=== PATIENT | female | born 1935 | race Caucasian/White ===

== ENCOUNTER 2016-10-01 16:56 | Emergency (ER) | payer OTHER ==
[~2016-10-01] VITALS: Ht 160 cm; Wt 77.1 kg
[~2016-10-01 16:56] MED LIST: ALBUTEROL 3 ML3 ML INH; ALBUTEROL2.5 MG/3 M INH/SOL; ASPIRIN CHILDRE81 MG PO; ASPIRIN EC81 M1 PO; ATIVAN0.5 M1 PO; CALCIUM + D 6001 TAB PO; CALTRATE 600 +1 EACH PO; CENTRUM SILVER1 EAC3 PO; CENTRUM1 TA2 PO; COLACE100 M1 PO; COLCRYS0.6 M1 PO; COLCRYS0.6 MG PO; DICYCLOMINE HCL10 M1 PO; DICYCLOMINE HCL10 MG PO; ESTRACE0.1 MG/GM TOP; ESTRACE42.5 GM VG; FLEXERIL 5MG TAB5 MG PO; HYDREA500 M1 PO; HYDROCODON-ACE1 EAC2 PO; HYDROXYUREA500 MG PO; IBANDRONATE SO150 MG PO; LEADER FIBER1 POW PO; LORAZEPAM0.5 MG PO; MIRALAX17 G1 PO; OMNICEF300 MG PO; PANTOPRAZOLE SO40 M1 PO; PANTOPRAZOLE SO40 MG PO; PREDNISONE10 M2 PO; PREDNISONE10 MG PO; PREDNISONE5 M1 PO; PROBIOTIC1 EAC1 PO; PROBIOTICA100 Millio PO; SIMVASTATIN20 MG PO; SPECTAZOLE0.1 %/15 G TOP; SPIRIVA 18 MCG18 MCG INH; SPIRIVA RESPIMAT4 GM PO; SULFAMETHOXAZO1 EAC1 PO; SYMBICORT 160/41 PUF INH; SYMBICORT 16010.2 GM INH; TRAMADOL50 MG PO; TYLENOL EXTRA500 M2 PO; VICODIN 300 MG-1 TAB PO; VICODIN5-300 PO; ZITHROMAX500 MG PO; ZOCOR20 M1 PO
[2016-10-01 17:00] VITALS: BP 148/77
--- NOTE | 2016-10-01 17:10 | ED GENERAL ADULT ---
History of Present Illness General Chief Complaint: Female Urogenital Problems Stated Complaint: UTI?? Source: patient Exam Limitations: no limitations Vital Signs & Intake/Output Vital Signs & Intake/Output Vital Signs Date Time Temp Pulse Resp B/P Pulse O2 O2 Flow FiO2 Ox Delivery Rate 10/01 1700 98.2 106 18 148/77 95 Nasal 2.5L Cannula ED Intake and Output 10/02 0000 10/01 1200 Intake Total Output Total 150 Balance -150 Output, Urine 150 Patient 170 lb Weight Allergies Coded Allergies: adhesive tape (RED AND IRRITATED - PAPER TAPE IS OK 10/06/15) oxycodone (PER PT CANT REMEMBER 10/06/15) amitriptyline (NIGHTMARES 10/07/15) ciprofloxacin (From Cipro HC) (STOMACH IRRITATION 10/07/15) erythromycin base (From Erythrocin) (STOMACH IRRITATION 10/07/15) hydrocortisone (From Cipro HC) (STOMACH IRRITATION 10/07/15) lactose (LACTOSE INTOLERANT 10/07/15) Reconcile Medications Acetaminophen (Tylenol Extra Strength) 500 MG TABLET 2 TAB PO BID PRN PAIN ( Reported) Albuterol Sulfate 2.5 MG/3 ML VIAL.NEB 1 Vial INH/GARRET 4XDP PRN COPD (Reported ) Aspirin (Ecotrin*) 81 MG TABLET.DR 1 TAB PO DAILY HEART/BLOOD (Reported) Budesonide/Formoterol Fumarate (Symbicort 160-4.5 Mcg Inhaler) 10.2 GM HFA.AER.AD 2 PUF INH BID COPD (Reported) Calcium Carbonate/Vitamin D3 (Caltrate 600 + D Tablet) 1 EACH TABLET 1 TAB PO BID SUPPLEMENT (Reported) Colchicine (Colcrys) 0.6 MG TABLET 1 TAB PO DAILY GOUT (Reported) Dicyclomine HCl 10 MG CAPSULE 1 TAB PO BID IBS (Reported) Docusate Sodium (Colace) 100 MG CAPSULE 1 CAP PO Q24 PRN STOOL SOFTENER ( Reported) Estradiol (Estrace) 42.5 GM CREAM.APPL 1 GM VG QFRI HRT (Reported) Hydrocodone/Acetaminophen (Hydrocodon-Acetaminophen 5-325) 1 EACH TABLET 1 TAB PO PRN PAIN (Reported) Hydroxyurea (Hydrea) 500 MG CAPSULE 2 CAP PO EOD ESSENTIAL THROMBOCYTOSIS ( Reported) Hydroxyurea (Hydrea) 500 MG CAPSULE 1 CAP PO EOD ESSENTIAL THROMBOCYTOSIS ( Reported) Lactobacillus Combination No.4 (Probiotic) 1 EACH CAPSULE 1 CAP PO QAM PROBIOTIC (Reported) Lorazepam (Ativan) 0.5 MG TABLET 1 TAB PO BID PRN ANXIETY (Reported) Multivit-Min/FA/Lycopen/Lutein (Centrum Silver Tablet) 1 EACH TABLET 1 TAB PO QAM SUPPLEMENT (Reported) Nitrofurantoin Macrocrystal (Macrodantin) 100 MG CAPSULE 1 CAP PO BID UTI Pantoprazole Sodium 40 MG TABLET.DR 1 TAB PO DAILY GI (Reported) Phenazopyridine HCl (Pyridium) 200 MG TABLET 1 TAB PO TID UTI Polyethylene Glycol 3350 (Miralax) 17 GM POWD.PACK 1 TBSP PO QPM IBS ( Reported) Prednisone 10 MG TABLET 1 TAB PO Q24 COPD please take: 4 tabs on 10/08,10/09 3 tabs on 10/10,10/11 2 tabs on 10/12,10/13 1 tab on 10/14,10/15 Please stop on 10/15. Simvastatin (Zocor*) 20 MG TABLET 1 TAB PO QPM CHOLESTEROL (Reported) Sulfamethoxazole/Trimethoprim (Sulfamethoxazole-Tmp Ds Tablet) 1 EACH TABLET 1 TAB PO Q12H ANTIBIOTIC Tiotropium [place] (Spiriva Respimat) 4 GM MIST.INHAL 1 CAP PO QAM COPD ( Reported) Triage Note: COMPLAINS OF THE PAST 3 HOURS INCREASED URINATION AND BURNING, STATES THAT SHE NEEDS A BETHROOM Triage Nurses Notes Reviewed? yes Onset: Abrupt Duration: hour(s): Timing: recent history HPI: 10/01/16 5:30 PM 72-year-old female presents to the emergency department for frequency urgency and dysuria. The patient has a history of frequent UTIs. Now she presents with similar symptoms. She denies fever or abdominal pain. She has a past medical history of COPD and is on home O2. The onset of the symptoms were abrupt, the duration was just today, the severity is significant; as her symptoms required her to come to the emergency department for care Past History Travel History Traveled to [place] past 21 day No Medical History Any Pertinent Medical History? see below for history Neurological: NONE EENT: NONE Cardiovascular: hyperlipidemia, MITRAL VALVE PROLAPSE ACID REFLUX Respiratory: COPD, O2 DEPENDENT @2.5 L Gastrointestinal: diverticulitis, irritable bowel syndrome, lactose intolerance Hepatic: NONE Renal: NONE Musculoskeletal: osteoarthritis, PSEUDO GOUT Psychiatric: NONE Endocrine: NONE Blood Disorders: HIGH BLOOD PLATELETS History of MRSA: No History of VRE: No History of CDIFF: No Surgical History Surgical History: cholecystectomy, hernia repair-inguinal, hernia repair- umbilical, hysterectomy, BLADDER REPAIR BLADDER/VAGINA REPAIR Psychosocial History Who do you live with Patient/Self Services at Home None What is your primary language Samoan Tobacco Use: Never used ETOH Use: denies use Illicit Drug Use: denies illicit drug use Family History Family History, If Any: FATHER Pneumoconiosis MOTHER FH: lung cancer Hx Contributory? No Review of Systems Review of Systems Constitutional: Denies: fever. EENTM: Reports: no symptoms. Respiratory: Reports: no symptoms. Cardiovascular: Denies: chest pain. GI: Denies: abdominal pain. Genitourinary: Reports: dysuria, frequency, hesitation, pain. Musculoskeletal: Denies: back pain. Skin: Reports: no symptoms. Denies: rash. Neurological/Psychological: Reports: no symptoms. Hematologic/Endocrine: Reports: no symptoms. Physical Exam Physical Exam General Appearance: alert, awake, anxious, mild distress Head: atraumatic, normal appearance Eyes: Bilateral: normal appearance, PERRL, EOMI. Ears, Nose, Throat: normal pharynx, normal ENT inspection Neck: normal inspection, supple Respiratory: chest non-tender, decreased breath sounds Cardiovascular: regular rate/rhythm Gastrointestinal: soft, non-tender Back: decreased range of motion Extremities: normal range of motion Neurologic/Psych: no motor/sensory deficits, awake, alert, oriented x 3 Skin: intact, normal color, warm/dry Core Measures ACS in differential dx? No CVA/TIA Diagnosis: No Severe Sepsis Present: No Septic Shock Present: No Progress Differential Diagnoses I considered the following diagnoses in my evaluation of the patient: [UTI, diverticulitis, appendicitis, pyelonephritis, cystocele, rectocele] Plan of Care: Orders Procedure Date/time Status Add-on Test (ER Only) 10/01 175 Active URINALYSIS 10/01 170 Complete CULTURE,URINE 10/01 170 Active Laboratory Tests 10/01/16 1700: Urine Color YEL, Urine Clarity CLDY H, Urine pH 7.0, Ur Specific [place] 1.020, Urine Protein 100 H, Urine Ketones NEG, Urine Nitrite POS H, Urine Bilirubin NEG, Urine Urobilinogen 0.2, Ur Leukocyte Esterase LARGE H, Ur Microscopic SEDIMENT EXAMINED, Urine RBC 5-10 H, Urine WBC > 75 H, Ur Epithelial Cells RARE, Urine Bacteria FEW H, Urine Hemoglobin LARGE H, Urine Glucose NEG Microbiology 10/01 1700 URINE ROUT: Urine Culture - RECD Initial ED EKG: none Departure Departure Disposition: HOME OR SELF CARE Condition: Stable Clinical Impression Primary Impression: UTI (urinary tract infection) Referrals: KERVIN WEBER,PRANEETH Salmeron (PCP/Family) Departure Forms: Customer Survey General Discharge Information Prescriptions: Current Visit Scripts Phenazopyridine HCl (Pyridium) 1 TAB PO TID #9 TAB Nitrofurantoin Macrocrystal (Macrodantin) 1 CAP PO BID #14 CAP Critical Care Note Critical Care Note Critical Care Time: non-applicable
[2016-10-01] MEDS ORDERED: PYRIDIUM200 M1 PO (17:57)
[2016-10-01] MEDS ORDERED: MACRODANTIN100 M1 PO (17:57)
== END 2016-10-01 18:22 ==
LOC: ERH 16:56
DX: N39.0 Urinary tract infection, site not specified (principal)
CPT/HCPCS: 81001; 87086

== ENCOUNTER 2016-10-09 01:49 | Inpatient (IN) | payer OTHER ==
[~2016-10-09] VITALS: Ht 165.1 cm; Wt 72.6 kg
[~2016-10-09 01:49] MED LIST changes: +MACRODANTIN100 M1 PO; +PYRIDIUM200 M1 PO
--- NOTE | 2016-10-09 01:52 | NUR ---
PT BIBA S/P MECHANICAL FALL. PT GOT OUT OF BED AND FELL. PT'S ONLY COMPLAINT IS OF R THIGH PAIN. NO OBVIOUS DEFORMITY NOTED. PT IS ON HOME O2 @ 2L NC HX OF COPD.
--- NOTE | 2016-10-09 01:53 | NUR ---
AT BEDSIDE FOR PT EVAL
--- NOTE | 2016-10-09 01:58 | ED HEAD/FACIAL INJ COMPLAINT ---
History of Present Illness General Chief Complaint: Fall Stated Complaint: BIBA FOR FALL Source: patient, family, old records, EMS Exam Limitations: no limitations Vital Signs & Intake/Output Vital Signs & Intake/Output Vital Signs Date Time Temp Pulse Resp B/P B/P Pulse O2 O2 Flow FiO2 Mean Ox Delivery Rate 10/09 0151 98.2 74 18 146/68 97 Nasal 2.0L Cannula Allergies Coded Allergies: adhesive tape (RED AND IRRITATED - PAPER TAPE IS OK 10/06/15) oxycodone (PER PT CANT REMEMBER 10/06/15) amitriptyline (NIGHTMARES 10/07/15) ciprofloxacin (From Cipro HC) (STOMACH IRRITATION 10/07/15) erythromycin base (From Erythrocin) (STOMACH IRRITATION 10/07/15) hydrocortisone (From Cipro HC) (STOMACH IRRITATION 10/07/15) lactose (LACTOSE INTOLERANT 10/07/15) Reconcile Medications Acetaminophen (Tylenol Extra Strength) 500 MG TABLET 2 TAB PO BID PRN PAIN ( Reported) Albuterol Sulfate 2.5 MG/3 ML VIAL.NEB 1 Vial INH/GARRET 4XDP PRN COPD (Reported ) Aspirin (Ecotrin*) 81 MG TABLET.DR 1 TAB PO DAILY HEART/BLOOD (Reported) Budesonide/Formoterol Fumarate (Symbicort 160-4.5 Mcg Inhaler) 10.2 GM HFA.AER.AD 2 PUF INH BID COPD (Reported) Calcium Carbonate/Vitamin D3 (Caltrate 600 + D Tablet) 1 EACH TABLET 1 TAB PO BID SUPPLEMENT (Reported) Colchicine (Colcrys) 0.6 MG TABLET 1 TAB PO DAILY GOUT (Reported) Dicyclomine HCl 10 MG CAPSULE 1 TAB PO BID IBS (Reported) Docusate Sodium (Colace) 100 MG CAPSULE 1 CAP PO Q24 PRN STOOL SOFTENER ( Reported) Estradiol (Estrace) 42.5 GM CREAM.APPL 1 GM VG QFRI HRT (Reported) Hydrocodone/Acetaminophen (Hydrocodon-Acetaminophen 5-325) 1 EACH TABLET 1 TAB PO PRN PAIN (Reported) Hydroxyurea (Hydrea) 500 MG CAPSULE 2 CAP PO EOD ESSENTIAL THROMBOCYTOSIS ( Reported) Hydroxyurea (Hydrea) 500 MG CAPSULE 1 CAP PO EOD ESSENTIAL THROMBOCYTOSIS ( Reported) Lactobacillus Combination No.4 (Probiotic) 1 EACH CAPSULE 1 CAP PO QAM PROBIOTIC (Reported) Lorazepam (Ativan) 0.5 MG TABLET 1 TAB PO BID PRN ANXIETY (Reported) Multivit-Min/FA/Lycopen/Lutein (Centrum Silver Tablet) 1 EACH TABLET 1 TAB PO QAM SUPPLEMENT (Reported) Nitrofurantoin Macrocrystal (Macrodantin) 100 MG CAPSULE 1 CAP PO BID UTI Pantoprazole Sodium 40 MG TABLET.DR 1 TAB PO DAILY GI (Reported) Phenazopyridine HCl (Pyridium) 200 MG TABLET 1 TAB PO TID UTI Polyethylene Glycol 3350 (Miralax) 17 GM POWD.PACK 1 TBSP PO QPM IBS ( Reported) Prednisone 10 MG TABLET 1 TAB PO Q24 COPD please take: 4 tabs on 10/08,10/09 3 tabs on 10/10,10/11 2 tabs on 10/12,10/13 1 tab on 10/14,10/15 Please stop on 10/15. Simvastatin (Zocor*) 20 MG TABLET 1 TAB PO QPM CHOLESTEROL (Reported) Sulfamethoxazole/Trimethoprim (Sulfamethoxazole-Tmp Ds Tablet) 1 EACH TABLET 1 TAB PO Q12H ANTIBIOTIC Tiotropium [place] (Spiriva Respimat) 4 GM MIST.INHAL 1 CAP PO QAM COPD ( Reported) Triage Note: PT BIBA S/P MECHANICAL FALL. PT GOT OUT OF BED AND FELL. PT'S ONLY COMPLAINT IS OF R THIGH PAIN. NO OBVIOUS DEFORMITY NOTED. PT IS ON HOME O2 @ 2L NC HX OF COPD. Triage Nurses Notes Reviewed? yes HPI: Patient present with right hip pain after a fall. Patient states that she was moving to the commode and was holding onto one of the handles when the commode tipped over and she fell onto her right hip. Patient denies hitting her head and there was no loss of consciousness. Patient states the pain increases with movement. The pain is to the lateral aspect of her right hip. The pain radiates into her right thigh. At its worst the pain is 8 out of 10. Patient also noticed to have ecchymosis around both eyes and around the bridge of the nose. Patient states that on Monday she was sitting at the edge of her rocking chair when she believes that she fell asleep because she fell forward and landed face first on the floor. Patient does not think she passed out. Past History Travel History Traveled to [place] past 21 day No Medical History Any Pertinent Medical History? see below for history Neurological: NONE EENT: NONE Cardiovascular: hyperlipidemia, MITRAL VALVE PROLAPSE ACID REFLUX Respiratory: COPD, O2 DEPENDENT @2.5 L Gastrointestinal: diverticulitis, irritable bowel syndrome, lactose intolerance Hepatic: NONE Renal: NONE Musculoskeletal: osteoarthritis, PSEUDO GOUT Psychiatric: NONE Endocrine: NONE Blood Disorders: HIGH BLOOD PLATELETS History of MRSA: No History of VRE: No History of CDIFF: No Surgical History Surgical History: cholecystectomy, hernia repair-inguinal, hernia repair- umbilical, hysterectomy, BLADDER REPAIR BLADDER/VAGINA REPAIR Psychosocial History Who do you live with Patient/Self Services at Home None What is your primary language British Tobacco Use: Quit >30 days ago ETOH Use: denies use Illicit Drug Use: denies illicit drug use Family History Family History, If Any: FATHER Pneumoconiosis MOTHER FH: lung cancer Hx Contributory? No Review of Systems Review of Systems Constitutional: Reports: no symptoms. EENTM: Reports: see HPI. Respiratory: Reports: no symptoms. Cardiovascular: Reports: no symptoms. GI: Reports: no symptoms. Genitourinary: Reports: no symptoms. Musculoskeletal: Reports: see HPI, joint pain. Skin: Reports: no symptoms. Neurological/Psychological: Reports: no symptoms. Hematologic/Endocrine: Reports: no symptoms. Immunologic/Allergic: Reports: no symptoms. All Other Systems: Reviewed and Negative Physical Exam Physical Exam General Appearance: well developed/nourished, alert, awake, anxious, moderate distress Head: evidence of injury, ecchymosis Eyes: Bilateral: PERRL, EOMI. Ears, Nose, Throat: normal pharynx, normal ENT inspection, hearing grossly normal Neck: normal inspection, supple, full range of motion, no midline tenderness Respiratory: normal breath sounds, chest non-tender, no respiratory distress, lungs clear Cardiovascular: regular rate/rhythm, normal peripheral pulses Gastrointestinal: normal bowel sounds, soft, non-tender, no organomegaly Back: normal inspection, normal range of motion Extremities: normal inspection, normal capillary refill, normal range of motion, no edema Psychiatric: awake, alert, oriented x 3 Cranial Nerves: normal hearing, normal speech, PERRL Motor/Sensory: no motor/sensory deficits Skin: intact, normal color, warm/dry Progress Differential Diagnosis: facial fracture, ICH, HIP FRACTURE Plan of Care: Orders Procedure Date/time Status [place], Insertion/Removal/Asses 10/09 308 Active CULTURE,URINE 10/09 308 Active Patient Data 10/09 301 Active Admit to inpatient 10/09 300 Active URINALYSIS 10/09 157 Active PROTHROMBIN TIME 10/09 157 Complete COMPREHENSIVE METABOLIC PANEL 10/09 157 Complete CBC WITHOUT DIFFERENTIAL 10/09 157 Complete Laboratory Tests 10/09/16 0207: Anion Gap 9, Estimated GFR > 60, BUN/Creatinine Ratio 28.6 H, Glucose 117 H, Calcium 9.1, Total Bilirubin 0.6, AST 24, ALT 39, Alkaline Phosphatase 60, Total Protein 6.6, Albumin 4.0, Globulin 2.6, Albumin/Globulin Ratio 1.5, PT 11.2, INR 1.07, CBC w Diff NO MAN DIFF REQ, RBC 3.57 L, MCV 108.9 H, MCH 37.1 H, RDW 13.4, MPV 7.6, Gran % 79.4 H, Lymphocytes % 10.5 L, Monocytes % 9.0, Eosinophils % 0.8, Basophils % 0.3, Absolute Granulocytes 7.7 H, Absolute Lymphocytes 1.0 L, Absolute Monocytes 0.9 H, Absolute Eosinophils 0.1, Absolute Basophils 0, PUBS MCHC 34.1 Microbiology 10/09 308 URINE ROUT: Urine Culture - ORD Diagnostic Imaging: Viewed by Me: Radiology Read, CT Scan. Discussed w/RAD: Radiology Read, CT Scan. Radiology Impression: PATIENT: GABRIELLA MUÑOZ PRESENT AGE: 80 PATIENT ACCOUNT NO: [id number] : 37 LOCATION: [facility] ORDERING PHYSICIAN: ROSA MARIA WILCOX MD SERVICE DATE: 10/09/16 EXAM TYPE: CAT - CT HEAD WO IV CONTRAST; CT MAXILLOFACIAL W/O CON EXAMINATION: NONCONTRAST HEAD CT NONCONTRAST MAXILLOFACIAL CT INDICATION INFORMATION: Fall. Head injury. Pain. COMPARISON: None TECHNIQUE: Separate noncontrast CT examinations of the head and maxillofacial bones were performed. Coronal and sagittal images were created for each examination at the technologist workstation. FINDINGS: Head: No evidence of acute intracranial hemorrhage. No extra-axial fluid collections are seen. Garcia- white differentiation is maintained without evidence of acute territorial infarction. Ventricles are of normal size without evidence of hydrocephalus. No mass effect or midline shift. Patchy periventricular and deep white matter hypoattenuation is consistent with mild small vessel ischemic change. The mastoid air cells are well aerated. No acute calvarial fractures are seen. Maxillofacial: No acute maxillofacial fractures are seen. The pterygoid plates are intact. The lamina papyracea are intact. Zygomatic arches are intact. The orbital rims are intact. Mild opacification of the left frontal sinus. Mild opacification of the left sphenoid sinus. The remaining paranasal sinuses are well aerated. The uncinate process is normal bilaterally. The infundibula and middle meati are patent. The nasal septum deviates to the right. The mandibular heads are well-seated in the condylar fossa. Degenerative changes at the right temporomandibular joint. The orbits demonstrate a normal appearance bilaterally. The globes are intact, and there are no suspicious findings to suggest retrobulbar hemorrhage. IMPRESSION: 1. No acute intracranial findings. Mild small vessel ischemic changes. 2. No acute maxillofacial fracture. DICTATED BY: BETTY FORREST MD DATE/TIME DICTATED:10/09/16301 TEACHER VISUALLY IMPAIRED: CATHY DATE/TIME TRANSCRIBED:10/09/16301 CONFIDENTIAL, DO NOT COPY WITHOUT APPROPRIATE AUTHORIZATION. <Electronically signed in Other Vendor System> SIGNED BY: BETTY FORREST MD 10/09/169, PATIENT: GABRIELLA MUÑOZ PRESENT AGE: 80 PATIENT ACCOUNT NO: [id number] : 37 LOCATION: [facility] ORDERING PHYSICIAN: ROSA MARIA WILCOX MD SERVICE DATE: 10/09/16 EXAM TYPE: CAT - CT HEAD WO IV CONTRAST; CT MAXILLOFACIAL W/O CON EXAMINATION: NONCONTRAST HEAD CT NONCONTRAST MAXILLOFACIAL CT INDICATION INFORMATION: Fall. Head injury. Pain. COMPARISON: None TECHNIQUE: Separate noncontrast CT examinations of the head and maxillofacial bones were performed. Coronal and sagittal images were created for each examination at the technologist workstation. FINDINGS: Head: No evidence of acute intracranial hemorrhage. No extra-axial fluid collections are seen. Garcia-white differentiation is maintained without evidence of acute territorial infarction. Ventricles are of normal size without evidence of hydrocephalus. No mass effect or midline shift. Patchy periventricular and deep white matter hypoattenuation is consistent with mild small vessel ischemic change. The mastoid air cells are well aerated. No acute calvarial fractures are seen. Maxillofacial: No acute maxillofacial fractures are seen. The pterygoid plates are intact. The lamina papyracea are intact. Zygomatic arches are intact. The orbital rims are intact. Mild opacification of the left frontal sinus. Mild opacification of the left sphenoid sinus. The remaining paranasal sinuses are well aerated. The uncinate process is normal bilaterally. The infundibula and middle meati are patent. The nasal septum deviates to the right. The mandibular heads are well-seated in the condylar fossa. Degenerative changes at the right temporomandibular joint. The orbits demonstrate a normal appearance bilaterally. The globes are intact, and there are no suspicious findings to suggest retrobulbar hemorrhage. IMPRESSION: 1. No acute intracranial findings. Mild small vessel ischemic changes. 2. No acute maxillofacial fracture. DICTATED BY: BETTY FORREST MD DATE/TIME DICTATED:10/09/16301 TEACHER VISUALLY IMPAIRED:CATHY DATE/TIME TRANSCRIBED:301 CONFIDENTIAL, DO NOT COPY WITHOUT APPROPRIATE AUTHORIZATION. < Electronically signed in Other Vendor System> SIGNED BY: BETTY FORREST MD 10/09/169, PATIENT: GABRIELLA MUÑOZ PRESENT AGE: 80 PATIENT ACCOUNT NO: [id number] : 37 LOCATION: [facility] ORDERING PHYSICIAN: ROSA MARIA WILCOX MD SERVICE DATE: 10/09/16 EXAM TYPE: RAD - XRY-HIP 2-3 VIEWS, RIGHT EXAMINATION: XR HIP, RIGHT CLINICAL INFORMATION: Fall. Pain. COMPARISON: None TECHNIQUE: Frontal view of the pelvis with 2 views of the right hip FINDINGS: There is a comminuted intertrochanteric right femur fracture. There is varus angulation of the fracture site with impaction. Displaced lesser trochanteric fracture fragment. The femoral head is well-seated within its acetabulum. Degenerative changes are seen at both hips with joint space narrowing. The pelvic rim is intact. Degenerative changes of the lower lumbar spine. The bowel gas pattern is unremarkable. IMPRESSION: Intertrochanteric right femur fracture. DICTATED BY: BETTY FORREST MD DATE/ TIME DICTATED:10/09/16257 TEACHER VISUALLY IMPAIRED:CATHY DATE/TIME TRANSCRIBED: 10/09/16257 CONFIDENTIAL, DO NOT COPY WITHOUT APPROPRIATE AUTHORIZATION. < Electronically signed in Other Vendor System> SIGNED BY: BETTY FORREST MD 10/09/16301 CXR Impression: PATIENT: GABRIELLA MUÑOZ PRESENT AGE: 80 PATIENT ACCOUNT NO: [id number] : 37 LOCATION: [facility] ORDERING PHYSICIAN: ROSA MARIA WILCOX MD SERVICE DATE: 10/09/16 EXAM TYPE: RAD - XRY-CHEST XRAY, ONE VIEW ONLY EXAMINATION:\H\ \N\XR CHEST CLINICAL INFORMATION: Chest pain COMPARISON: Multiple priors, most recently CT from 08/17/2016 TECHNIQUE: AP supine view of the chest was obtained. FINDINGS: The lungs are well expanded. No consolidation, edema, or effusion. No pneumothorax. The cardiomediastinal silhouette is unchanged. No acute osseous abnormality. IMPRESSION: No acute pulmonary findings. DICTATED BY: BETTY FORREST MD DATE/TIME DICTATED:258 TEACHER VISUALLY IMPAIRED:CATHY DATE/TIME TRANSCRIBED:10/09/16258 CONFIDENTIAL, DO NOT COPY WITHOUT APPROPRIATE AUTHORIZATION. <Electronically signed in Other Vendor System> SIGNED BY: BETTY FORREST MD 10/09/166 Departure Departure Disposition: STILL A PATIENT Condition: Stable Clinical Impression Primary Impression: Hip fracture Qualifiers: Encounter type: initial encounter Fracture type: closed Laterality: right Qualified Code: S72.001A - Fracture of unspecified part of neck of right femur, initial encounter for closed fracture Referrals: KERVIN WEBER,PRANEETH Salmeron (PCP/Family) Departure Forms: Customer Survey General Discharge Information Admission Note Spoke With: MORENO PABON MD Documentation of Exam: Documentation of any treatments & extenuating circumstances including Concerns Regarding Discharge (functional status, medication knowledge or non-compliance, living conditions, etc.) that warrant an admission rather than observation: [She will need a hip replacement once she is medically cleared.]
--- NOTE | 2016-10-09 02:14 | NUR ---
PT TO CAT SCAN/XRAY VIA STRETCHER
[2016-10-09 02:25] LABS: ABSOLUTE BASOPHIL COUNT 0 /CUMM (0.0-0.2); ABSOLUTE EOSINOPHIL COUNT 0.1 /CUMM (0.0-0.7); ABSOLUTE GRANULOCYTE CT 7.7 /CUMM (1.4-6.5); ABSOLUTE MONOCYTE COUNT 0.9 /CUMM (0.10-0.60); BASOPHIL % 0.3 % (0.0-2.0); EOSINOPHIL % 0.8 % (0-5); GRANULOCYTE % 79.4 % (42.2-75.2); HEMATOCRIT 38.9 % (37-47); MEAN CORPUSCULAR HGB 37.1 PG (27.0-31.0); MEAN CORPUSCULAR HGB CONC 34.1 G/DL (33.0-37.0); MEAN CORPUSCULAR VOLUME 108.9 FL (81.0-99.0); MEAN PLATELET VOLUME 7.6 FL (7.4-10.4); PLATELET COUNT 276 /CUMM (130-400); RBC DISTRIBUTION WIDTH 13.4 % (11.5-14.5); RED BLOOD CELL CT 3.57 /CUMM (4.20-5.40); WHITE BLOOD CELL COUNT 9.7 /CUMM (4.8-10.8)
[2016-10-09 02:27] LABS: PT 11.2 SEC (9.4-12.5)
--- NOTE | 2016-10-09 03:02 | RADIOLOGY REPORT ---
EXAMINATION: XR HIP, RIGHT CLINICAL INFORMATION: Fall. Pain. COMPARISON: None TECHNIQUE: Frontal view of the pelvis with 2 views of the right hip FINDINGS: There is a comminuted intertrochanteric right femur fracture. There is varus angulation of the fracture site with impaction. Displaced lesser trochanteric fracture fragment. The femoral head is well-seated within its acetabulum. Degenerative changes are seen at both hips with joint space narrowing. The pelvic rim is intact. Degenerative changes of the lower lumbar spine. The bowel gas pattern is unremarkable. IMPRESSION: Intertrochanteric right femur fracture.
--- NOTE | 2016-10-09 03:06 | RADIOLOGY REPORT ---
EXAMINATION:\H\ \N\XR CHEST CLINICAL INFORMATION: Chest pain COMPARISON: Multiple priors, most recently CT from 08/17/2016 TECHNIQUE: AP supine view of the chest was obtained. FINDINGS: The lungs are well expanded. No consolidation, edema, or effusion. No pneumothorax. The cardiomediastinal silhouette is unchanged. No acute osseous abnormality. IMPRESSION: No acute pulmonary findings.
--- NOTE | 2016-10-09 03:09 | CT SCAN REPORT ---
EXAMINATION: NONCONTRAST HEAD CT NONCONTRAST MAXILLOFACIAL CT INDICATION INFORMATION: Fall. Head injury. Pain. COMPARISON: None TECHNIQUE: Separate noncontrast CT examinations of the head and maxillofacial bones were performed. Coronal and sagittal images were created for each examination at the technologist workstation. FINDINGS: Head: No evidence of acute intracranial hemorrhage. No extra-axial fluid collections are seen. Garcia-white differentiation is maintained without evidence of acute territorial infarction. Ventricles are of normal size without evidence of hydrocephalus. No mass effect or midline shift. Patchy periventricular and deep white matter hypoattenuation is consistent with mild small vessel ischemic change. The mastoid air cells are well aerated. No acute calvarial fractures are seen. Maxillofacial: No acute maxillofacial fractures are seen. The pterygoid plates are intact. The lamina papyracea are intact. Zygomatic arches are intact. The orbital rims are intact. Mild opacification of the left frontal sinus. Mild opacification of the left sphenoid sinus. The remaining paranasal sinuses are well aerated. The uncinate process is normal bilaterally. The infundibula and middle meati are patent. The nasal septum deviates to the right. The mandibular heads are well-seated in the condylar fossa. Degenerative changes at the right temporomandibular joint. The orbits demonstrate a normal appearance bilaterally. The globes are intact, and there are no suspicious findings to suggest retrobulbar hemorrhage. IMPRESSION: 1. No acute intracranial findings. Mild small vessel ischemic changes. 2. No acute maxillofacial fracture.
--- NOTE | 2016-10-09 03:27 | NUR ---
IRVIN CATHTER PLACED, IRVIN PATENT. PT EDUCATED ON CATHTER. 400ML OF CLEAR YELLOW URINE FROM IRVIN. URINE TRIO OBTAINED AND SENT TO LAB BY LAVERNE PALMER. IV EST #20 IN RAC. PT MEDICATED WITH 2MG MORPHINE PER EMAR FOR PAIN
--- NOTE | 2016-10-09 03:28 | NUR ---
URINE TRIO SENT TO LAB.
--- NOTE | 2016-10-09 03:30 | NUR ---
HOUSE STAFF AT BEDSIDE
--- NOTE | 2016-10-09 03:41 | History & Physical ---
GRZEGORZ KEMP 10/09/16 0339: General Information and HPI MD Statement: I have seen and personally examined GABRIELLA MUÑOZ and documented this H&P. The patient is a 80 year old F who presented with a patient stated chief complaint of right hip pain status post unwitnessed mechanical fall Source of Information: patient, family Exam Limitations: no limitations History of Present Illness: This is a 80-year-old female with past medical history significant for 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 According to the patient, she was out of bed this morning and went to use her bedside portable commode, she tipped and fell to the floor onto her right hip. Denies hitting of head and loss of consciousness. She denies any dizziness or lightheadedness or syncopal event. Denies any chest pain, racing of cough, shortness of breath. She stayed on the floor for about half an hour and subsequently she pressed her life alert and was brought to the emergency room. At present she complains of right hip pain, 10 out of 10, severe and sharp. Patient states the pain increases with movement. The pain is to the lateral aspect of her right hip. The pain radiates into her right thigh. Associated with numbness. Denies any weakness, sensory, tingling sensations. Patient also noticed to have ecchymosis around both eyes and around the bridge of the nose. Patient states that on Monday she was sitting at the edge of her rocking chair and she fell asleep, fell forward and landed on face hitting on the floor. Denies any visual abnormalities. Denies any pain. Patient denies any fever, chills, chest pain, racing of heart, headache, shortness of breath, cough, nausea, vomiting, abdominal pain, change in appetite , loss of bladder or bowel movements. Denies any frequency, urgency or dysuria. She is a former smoker quitted several years ago. Denies alcohol abuse. Denies illicit drug abuse she lives alone and takes care of herself. She follows Dr. Espinoza for essential thrombocytosis and takes hydroxyurea. Follows Dr. Carrasco's quality assurance technician for pseudogout. ALso reports frequent urinary tract infections. Off note patient was seen at [facility] emergency department on 10/01/2016 for urinary tract infection- urine analysis was positive and she was discharged from ER on nitrofurantoin and Pyridium. Allergies/Medications Allergies: Coded Allergies: adhesive tape (RED AND IRRITATED - PAPER TAPE IS OK 10/06/15) oxycodone (PER PT CANT REMEMBER 10/06/15) amitriptyline (NIGHTMARES 10/07/15) ciprofloxacin (From Cipro HC) (STOMACH IRRITATION 10/07/15) erythromycin base (From Erythrocin) (STOMACH IRRITATION 10/07/15) hydrocortisone (From Cipro HC) (STOMACH IRRITATION 10/07/15) lactose (LACTOSE INTOLERANT 10/07/15) Compliance With Home Meds: GOOD Past History Travel History Traveled to [place] past 21 day No Medical History Neurological: NONE EENT: NONE Cardiovascular: hyperlipidemia, MITRAL VALVE PROLAPSE ACID REFLUX Respiratory: COPD, O2 DEPENDENT @2.5 L Gastrointestinal: diverticulitis, irritable bowel syndrome, lactose intolerance Hepatic: NONE Renal: NONE Musculoskeletal: osteoarthritis, PSEUDO GOUT Psychiatric: NONE Endocrine: NONE Blood Disorders: HIGH BLOOD PLATELETS History of MRSA: No History of VRE: No History of CDIFF: No Surgical History Surgical History: cholecystectomy, hernia repair-inguinal, hernia repair- umbilical, hysterectomy, BLADDER REPAIR BLADDER/VAGINA REPAIR Past Family/Social History Family History Relations & Conditions if any FATHER Pneumoconiosis MOTHER FH: lung cancer Psychosocial History Who Do You Live With? self Services at Home: None Smoking Status: Former Smoker ETOH Use: denies use Illicit Drug Use: denies illicit drug use Living Will? yes Functional Ability ADLs Independent: dressing, eating, toileting, bathing. Ambulation: independent IADLs Independent: shopping, housework, finances, food prep, telephone, transportation , medication admin. Review of Systems Review of Systems Constitutional: Denies: chills, diaphoresis, fever, malaise, weakness, unexplained weight loss. EENTM: Denies: visual changes, eye pain, eye drainage, eye tearing, hearing changes, nasal congestion, epistaxis. Cardiovascular: Denies: chest pain, edema, orthopena, palpitations, peripheral edema, syncope. Respiratory: Denies: cough, hemoptysis, orthopnea, short of breath, sputum production. GI: Denies: abdominal pain, bloating, constipation, diarrhea, nausea, vomiting. Genitourinary: Denies: dysuria, frequency, nocturia, urgency. Musculoskeletal: Reports: joint pain. Neurological/Psychological: Reports: numbness. Denies: confusion, depressed, dementia, emotional problems, headache, tingling, tremors. Exam & Diagnostic Data Last 24 Hrs of Vital Signs/I&O Vital Signs Date Time Temp Pulse Resp B/P B/P Pulse O2 O2 Flow FiO2 Mean Ox Delivery Rate 10/09 0326 Nasal 2.0L Cannula 10/09 0151 98.2 74 18 146/68 97 Nasal 2.0L Cannula Intake & Output 10/09 0800 10/09 0000 10/08 1600 Intake Total Output Total Balance Patient 99.79 kg Weight Weight Estimated Measurement Method Physical Exam General Appearance Alert, Oriented X3, Cooperative, No Acute Distress Skin No Breakdown, ecchymosis around both eyes and bridge of the nose HEENT Atraumatic, PERRLA, EOMI, Mucous Membr. moist/pink Neck Supple, No JVD Lymphatic Axillary nl Cardiovascular Regular Rate, Normal S1, Normal S2, No Murmurs Lungs expiratory wheezes Abdomen Normal Bowel Sounds, Soft, No Tenderness Neurological couldnt check gait.strength 5 over 5 upper extremities. Couldn't check lower extremities because of severe pain. Sensations were intact upper extremities. Numbness right lower extremity.right hip externally rotated. Extremities No Clubbing, No Cyanosis, No Edema, Normal Pulses Vascular Normal Pulses Last 24 Hrs of Labs/[place]: Laboratory Tests 10/09/16 0326: Urine Color YEL, Urine Clarity CLEAR, Urine pH 6.0, Ur Specific [place] 1.020, Urine Protein NEG, Urine Ketones NEG, Urine Nitrite NEG, Urine Bilirubin NEG, Urine Urobilinogen 0.2, Ur Leukocyte Esterase NEG, Ur Microscopic EXAM NOT REQUIRED, Urine Hemoglobin NEG, Urine Glucose NEG 10/09/16 0207: Anion Gap 9, Estimated GFR > 60, BUN/Creatinine Ratio 28.6 H, Glucose 117 H, Calcium 9.1, Iron 103, TIBC Pending, Ferritin Pending, Total Bilirubin 0.6, AST 24, ALT 39, Alkaline Phosphatase 60, Troponin I Pending, Total Protein 6.6, Albumin 4.0, Globulin 2.6, Albumin/Globulin Ratio 1.5, Vitamin B12 Pending, 25- [place] Vitamin D Total Pending, Folate Pending, TSH Pending, Free T4 Pending, PT 11.2, INR 1.07, CBC w Diff NO MAN DIFF REQ, RBC 3.57 L, MCV 108.9 H, MCH 37.1 H, RDW 13.4, MPV 7.6, Gran % 79.4 H, Lymphocytes % 10.5 L, Monocytes % 9.0, Eosinophils % 0.8, Basophils % 0.3, Absolute Granulocytes 7.7 H, Absolute Lymphocytes 1.0 L, Absolute Monocytes 0.9 H, Absolute Eosinophils 0.1, Absolute Basophils 0, PUBS MCHC 34.1 Microbiology 10/09 0326 URINE ROUT: Urine Culture - RECD Assessment/Plan Assessment: This is a 80-year-old female with past medical history significant for 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 Vitals on admission-afebrile, heart rate 74, respiratory rate 18, blood pressure 146/78, saturating at 97% on 3 L. Pertinent labs on admission-WBC 9.7, H and H 13.3 and 38.9 with MCV elevation 108. Platelet count 276. Urine was clear. Hip x-ray showed intertrochanteric right femoral fracture. Chest x-ray no acute pathology. Head CAT scan normal. Maxillofacial CAT scan no fractures. Problem list 1. Right hip fracture status post mechanical fall. 2. Oxygen dependent COPD 3. Hyperlipidemia 4. Pseudogout 5. Essential thrombocytosis 6. Lung cancer one year ago status post 5 cycles of radiation. 7. Former smoker 8. GERD 10. Macrocytic anemia Right hip pain status post unwitnessed mechanical fall she complains of right hip pain, 10 out of 10, severe and sharp. Patient states the pain increases with movement. The pain is to the lateral aspect of her right hip. The pain radiates into her right thigh. Associated with numbness. Denies any weakness, sensory, tingling sensations. Hip x-ray showed intertrochanteric right femoral fracture. * Admitted to [facility] floor for further management and surgery * Monitor vitals closely every shift * Maintain oxygen saturation above 90% * Calculated RCR index-no history of stroke, no history of congestive heart failure, no ischemic heart disease, creatinine less than 2, not on insulin, not a high risk surgery- scored 0 points-class I risk-0.4% major cardiac event. * Ortho consult. * Nothing by mouth tonight for possible surgery tomorrow * Pain management * Bowel regimen * We'll hold aspirin for anticipated surgery * Physical therapy consult. Ecchymosis face s/p fall Patient also noticed to have ecchymosis around both eyes and around the bridge of the nose. Patient states that on Monday she was sitting at the edge of her rocking chair and she fell asleep, fell forward and landed on face hitting on the floor. Denies any visual abnormalities. Denies any pain. * Maxillofacial CAT scan-no acute fractures * CAT scan head-no acute intracranial abnormalities * We'll monitor closely for any acute changes. Frequent falls 2 falls within a week Will check vitamin D levels Macrocytic anemia MCV 108.9 on admission Will check vitamin B12 and folate levels Lung cancer Diagnosed with lung cancer one year ago Status post a 5 cycles of radiation therapy No history of surgery Not on chemotherapy Quitted smoking few years ago coPD Oxygen dependent COPD On 2.5 L Continue home medications albuterol, Symbicort, Spiriva Hyperlipidemia On simvastatin at home We'll give Lipitor Acid reflux On pantoprazole We'll give omeprazole here Irritable bowel syndrome Continue home dose of dicyclomine Pseudogout Continue home dose of colchicine Essential thrombocytosis Continue home dose of hydroxyurea Supplements Continue calcium carbonate, vitamin D, multivitamins Constipation Bowel regimen when necessary Anxiety Ativan if necessary full code DVT prophylaxis subcutaneous heparin Pain pathway Nothing by mouth for possible orthopedic surgery tomorrow As Ranked By This Provider Problem List: 1. copd 2. Hip fracture Qualifiers Encounter type: initial encounter Fracture type: closed Laterality: right Qualified Code: S72.001A - Fracture of unspecified part of neck of right femur, initial encounter for closed fracture 3. Essential thrombocytosis 4. Hyperlipidemia 5. IBS (irritable bowel syndrome) 6. Full code status 7. DVT prophylaxis Core Measures/Miscellaneous Acute Coronary Syndrome ACS Diagnosis: No Cerebrovascular Accident CVA/TIA Diagnosis: No Congestive Heart Failure CHF Diagnosis: No Venous Thromboembolism VTE Risk Factors: Acute medical illness, Age > 40 No [facility] VTE prophylaxis d/t: No contraindications No VTE Pharm Prophylaxis d/t: No contraindications VTE Diagnosis: No VTE Type: NONE VTE Confirmed by (Test): NONE Severe Sepsis Severe Sepsis Present: No Septic Shock Septic Shock Present: No Miscellaneous Documentation Attending Case Discussed With: MORENO PABON MD Primary Care Physician: PRANEETH GALEANA MD Patient sees these 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 Patient states that about a week ago she was sitting on a rocking chair and fell asleep and subsequently fell forward on her face and has some residual ecchymoses from that episode. Today she went to use her bedside portable commode and her foot got caught in the leg at the commode and she subsequently fell to the floor onto her right hip, no loss of consciousness, no head strike. Denies any dizziness, chest pain, shortness of breath. She stayed on the floor for about half an hour and subsequently pressed her life alert. At present her only complaint is right hip pain 10 out of 10. Her labs are benign, except for an elevated MCV Chest x-ray is negative, maxillofacial and head CT is negative, hip x-ray suggestive of right hip intertrochanteric fracture Pertinent positives on physical exam- bilateral expiratory wheezing, right hip is shortened and externally rotated, ecchymoses around the eyes Assessment- 1. Right hip fracture, status post mechanical fall 2. Home oxygen dependent COPD 3. Hyperlipidemia 4. History of thrombocytosis 5. Peripheral neuropathy 6. Lung cancer one year ago status post 5 cycles of radiation 7. Former smoker 8. Pseudogout 9. GERD 10. Macrocytic anemia Plan- - Admit to general med - Vitals per protocol - Orthopedic consult in the morning - Keep nothing by mouth for now in anticipation of surgery in the morning - Continue home meds - Hold aspirin - Check B12, folic acid, thyroid studies, vitamin D, troponin, EKG, iron studies - IV analgesics - Bowel regimen - Pain pathway - Nothing by mouth for now - Subcutaneous heparin for DVT prophylaxis - Full code RCRI 0.4 percent, cleared for surgery MORENO PABON 10/09/16 0628: General Information and HPI Allergies/Medications Home Med list Aspirin (Ecotrin*) 81 MG TABLET.DR 1 TAB PO DAILY HEART/BLOOD (Reported) Colchicine (Colcrys) 0.6 MG TABLET 1 TAB PO DAILY GOUT (Reported) Dicyclomine HCl 10 MG CAPSULE 1 TAB PO BID IBS (Reported) Estradiol (Estrace) 42.5 GM CREAM.APPL 1 GM VG QFRI HRT (Reported) Fluticasone/Vilanterol (Breo Ellipta 200-25 Mcg INH) 200 MCG-25 MCG/DOSE BLST.W.DEV 1 PUFF PO BID COPD (Reported) Gabapentin 100 MG CAPSULE 2 CAP PO TID PAIN (Reported) Hydroxyurea (Hydrea) 500 MG CAPSULE 2 CAP PO EOD ESSENTIAL THROMBOCYTOSIS ( Reported) Hydroxyurea (Hydrea) 500 MG CAPSULE 1 CAP PO EOD ESSENTIAL THROMBOCYTOSIS ( Reported) Lorazepam (Ativan) 0.5 MG TABLET 1 TAB PO BID PRN ANXIETY (Reported) Pantoprazole Sodium 40 MG TABLET.DR 1 TAB PO DAILY GI (Reported) Simvastatin (Zocor*) 20 MG TABLET 1 TAB PO QPM CHOLESTEROL (Reported) Tiotropium [place] (Spiriva Respimat) 4 GM MIST.INHAL 1 CAP PO QAM COPD ( Reported) Attending MD Review Statement Attending Statement Attending MD Statement: examined this patient, discuss w/resident/PA/MOBILE MECHANIC, agreed w/resident/PA/MOBILE MECHANIC, reviewed EMR data (avail), reviewed images, amended to note Attending Assessment/Plan: CC: Fall, right hip pain PMH: COPD on 2.5 L O2, HLD, history of lung cancer S/P radiation, MBP, IBS, pseudogout, essential thrombocytosis, Patient came to ER with right hip pain after a fall. Patient says that she was moving to the commode and was holding onto one of the handles then the commode tipped over and she fell onto her right hip. no head trauma, LOC, Sz after the fall. No presyncopal or syncopal symptoms before the fall. Hip pain is in the lateral aspect, radiates to thigh, 8/10, increases with movement. Patient also fell down one week back and hit her face on ground, and had ecchymosis around both eyes and around the bridge of the nose. She says that she was sitting on the edge of recliner and may have slept there and they're fell down. No history of previous TN, CAD, stent, CVA, heart failure, kidney disease. Vitals: Unremarkable On examination: A O 3, cooperative, ecchymosis around the eyes right more than left no acute distress, neck supple, JVD normal, no lymphadenopathy, mucosa moist, no focal neurological deficit, no dependent edema, no obvious skin rashes or inflammation, movements around the right hip limited secondary to pain. CVS: S1-S2, RRR. RS: Clear to auscultate bilaterally. Abdomen: Soft, NT, ND, bowel sounds present. Labs: MCV 108.9, neutrophils 79% otherwise unremarkable CBC, bicarbonate 31, BUN 20, creatinine 0.7, glucose 117, otherwise LFT unremarkable, troponin less than 0.01, INR 1.07 UA unremarkable CXR, maxillofacial CT, hip x-ray, head CT: 1. No acute pulmonary findings. 2. No acute intracranial findings. Mild small vessel ischemic changes. 3. No acute maxillofacial fracture. 4. Intertrochanteric right femur fracture. EKG: T-wave flattening which is not changed from previous EKG otherwise unremarkable. A and P # fall # Right intertrochanteric femur fracture # Ecchymosis around eyes, with no evidence of facial or head trauma on CT # History of COPD, currently stable on 2.5 L nasal cannula # History of lung cancer, HLD, pseudogout, IBS, essential thrombocytosis - Admit to general medicine floor - Low risk for cardiac events according to RCRI risk evaluation preop, 0.4% risk. Patient had extensors history of smoking, COPD, lung cancer would benefit from pulmonary evaluation before surgery - Consult orthopedic - Continue gentle hydration - Nothing by mouth except meds, continue all home medication except aspirin - Adequate pain control - Patient is full code - DVT prophylaxis with Alps for now, resume heparin or Lovenox after surgery.
--- NOTE | 2016-10-09 04:30 | NUR ---
EKG DONE AND SHOWN TO DR. DR. RUCKER.
[2016-10-09] MEDS ORDERED: GABAPENTIN100 M2 PO (04:57)
[2016-10-09] MEDS ORDERED: BREO ELLIPTA 21 EACH PO (04:57)
--- NOTE | 2016-10-09 05:04 | NUR ---
REPORT GIVEN TO PNADA DUONG
--- NOTE | 2016-10-09 06:29 | Admission Certification ---
Admission Certification Certification Statement - As attending physician, I certify that at the time of - admission, based on clinical presentation, severity of - symptoms, need for further diagnostic testing and - therapeutic interventions, and risk of adverse outcomes - without in-hospital treatment, in my clinical assessment, - this patient requires an acute hospital stay for a minimum - of two nights or longer. I have also considered psychsocial - factors such as support system, advanced age, financial - issues, cognitive issues, and failed out-patient treatments, - past re-admission history, safety of patient, and lack of - compliance as applicable. Specific rationale supporting this admission is: Fall, right intertrochanteric femur fracture
--- NOTE | 2016-10-09 06:45 | NUR ---
NSG NOTE: PT ARRIVED TO FLOOR FROM ER. PT AWAKE, A/OX3, ON 2.5L NC, BASELINE 2-3L NC, IV SITE INTACT, PT C/O OF R HIP PAIN 03/28; NO SKIN BREAKDOWN NOTED, SON AND [id number] AT BEDSIDE, PT ORINETED TO ROOM AND CALL FARRELL WITHIN REACH.
[2016-10-09 07:46] VITALS: BP 96/64
--- NOTE | 2016-10-09 08:46 | Cons- Orthopedic ---
CARLO CIFUENTES 10/09/16 0844: General Information and HPI Consulting Request Date of Consult: 10/09/16 Requested By: MORENO PABON MD Reason for Consult: RIGHT HIP FRACTURE Source of Information: patient, old records History of Present Illness: Pt is a 80 yo F with a hx of COPD (O2 dependent), lung ca (s/p radiation x 5 cycles, former smoker, hyperlipidemia, mitral valve prolapse, acid reflux, diverticulitis, irritable bowel syndrome, lactose intolerance, osteoarthritis, pseudogout, essential thrombocytosis, constipation, anxiety, frequent urinary tract infections, who was BIBA to the [facility] after a mechanical fall at home. Pt states that she was trying to get out of bed to a commode and fell on her R side. She denies precipitating symptoms or syncope. She was alone at the time and unable to bear weight. She used her lifeline button to alert EMS. Upon admission, she complained of right hip pain, 10 out of 10, severe and sharp. Pain was mostly localized to the lateral aspect of her right hip, radiating into her right thigh. There was associated numbness, but no weakness or tingling. Subsequent workup in the ED revealed comminuted displaced right sided intertrochanteric hip fracture. Pt was admitted to the medical service overnight and surgical consultation is being requested for recommendations and intervention. At this time, pt is relatively comfortable at rest and only complains of pain with movement. Of note, pt was also noted to have ecchymosis around both eyes and around the bridge of her nose upon admission. She stated that she had a fall from her rocking chair on Monday after falling asleep, during which she landed her face onto the floor. Both head and maxillofacial CT's were negative for acute abnormality. Allergies/Medications Allergies: Coded Allergies: adhesive tape (RED AND IRRITATED - PAPER TAPE IS OK 10/06/15) oxycodone (PER PT CANT REMEMBER 10/06/15) amitriptyline (NIGHTMARES 10/07/15) ciprofloxacin (From Cipro HC) (STOMACH IRRITATION 10/07/15) erythromycin base (From Erythrocin) (STOMACH IRRITATION 10/07/15) hydrocortisone (From Cipro HC) (STOMACH IRRITATION 10/07/15) lactose (LACTOSE INTOLERANT 10/07/15) Home Med List: Aspirin (Ecotrin*) 81 MG TABLET.DR 1 TAB PO DAILY HEART/BLOOD (Reported) Colchicine (Colcrys) 0.6 MG TABLET 1 TAB PO DAILY GOUT (Reported) Dicyclomine HCl 10 MG CAPSULE 1 TAB PO BID IBS (Reported) Estradiol (Estrace) 42.5 GM CREAM.APPL 1 GM VG QFRI HRT (Reported) Fluticasone/Vilanterol (Breo Ellipta 200-25 Mcg INH) 200 MCG-25 MCG/DOSE BLST.W.DEV 1 PUFF PO BID COPD (Reported) Gabapentin 100 MG CAPSULE 2 CAP PO TID PAIN (Reported) Hydroxyurea (Hydrea) 500 MG CAPSULE 2 CAP PO EOD ESSENTIAL THROMBOCYTOSIS ( Reported) Hydroxyurea (Hydrea) 500 MG CAPSULE 1 CAP PO EOD ESSENTIAL THROMBOCYTOSIS ( Reported) Lorazepam (Ativan) 0.5 MG TABLET 1 TAB PO BID PRN ANXIETY (Reported) Pantoprazole Sodium 40 MG TABLET.DR 1 TAB PO DAILY GI (Reported) Simvastatin (Zocor*) 20 MG TABLET 1 TAB PO QPM CHOLESTEROL (Reported) Tiotropium [place] (Spiriva Respimat) 4 GM MIST.INHAL 1 CAP PO QAM COPD ( Reported) Past History Medical History Blood Transfusion Hx: No Neurological: NONE EENT: NONE Cardiovascular: hyperlipidemia, MITRAL VALVE PROLAPSE ACID REFLUX Respiratory: COPD, O2 DEPENDENT @2.5 L Gastrointestinal: diverticulitis, irritable bowel syndrome, lactose intolerance Hepatic: NONE Renal: NONE Musculoskeletal: osteoarthritis, PSEUDO GOUT Psychiatric: NONE Endocrine: NONE Blood Disorders: HIGH BLOOD PLATELETS Cancer(s): NONE 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 Home Who Do You Live With? self Services at Home: None Smoking Status: Former Smoker ETOH Use: denies use Illicit Drug Use: denies illicit drug use Living Will? yes Functional Ability ADLs Independent: dressing, eating, toileting, bathing. Ambulation: independent IADLs Independent: shopping, housework, finances, food prep, telephone, transportation , medication admin. Review of Systems Review of Systems: Positive for R hip pain, numbness and inability to bear weight. Negative for fever, chills, chest pain, racing of heart, headache, shortness of breath, cough, nausea, vomiting, abdominal pain, change in appetite, loss of bladder or bowel movements. Denies any frequency, urgency or dysuria. Exam & Diagnostic Data Vital Signs and I&O Vital Signs Date Time Temp Pulse Resp B/P B/P Pulse O2 O2 Flow FiO2 Mean Ox Delivery Rate 10/09 0746 97.5 87 20 96/64 92 Nasal 2.5L Cannula 10/09 0630 Nasal 2.5L Cannula 10/09 0326 Nasal 2.0L Cannula 10/09 0151 98.2 74 18 146/68 97 Nasal 2.0L Cannula Intake & Output 10/09 1600 10/09 0800 10/09 0000 10/08 1600 10/08 0800 10/08 0000 Intake Total Output Total 100 Balance -100 Output, Urine 100 Patient 160 lb Weight Weight Reported by Patient Measurement Method Physical Exam: Gen: Pt is awake and alert. NAD. Cardiac: regular Pulmonary: Ext: RLE is externally rotated. There is tenderness of the R hip/thigh area. LE sensation is intact. Foot is warm. Pt is able to move her toes. Strength exam was deferred due to pain. Last 24 Hours of Labs: Laboratory Tests 10/09 10/09 0625 0326 Chemistry Sodium (137 - 145 mmol/L) 138 Potassium (3.5 - 5.1 mmol/L) 4.4 Chloride (98 - 107 mmol/L) 101 Carbon Dioxide (22 - 30 mmol/L) 29 Anion Gap (5 - 16) 9 BUN (7 - 17 mg/dL) 19 H Creatinine (0.5 - 1.0 mg/dL) 0.7 Estimated GFR (>60 ml/min) > 60 BUN/Creatinine Ratio (7 - 25 %) 27.1 H Hematology CBC w Diff NO MAN DIFF REQ WBC (4.8 - 10.8 /CUMM) 8.2 RBC (4.20 - 5.40 /CUMM) 3.31 L Hgb (12.0 - 16.0 G/DL) 12.1 Hct (37 - 47 %) 36.0 L MCV (81.0 - 99.0 FL) 108.7 H MCH (27.0 - 31.0 PG) 36.5 H RDW (11.5 - 14.5 %) 14.0 Plt Count (130 - 400 /CUMM) 244 MPV (7.4 - 10.4 FL) 8.6 Gran % (42.2 - 75.2 %) 82.5 H Lymphocytes % (20.5 - 51.1 %) 5.2 L Monocytes % (1.7 - 9.3 %) 12.3 H Eosinophils % (0 - 5 %) 0 Basophils % (0.0 - 2.0 %) 0 L Absolute Granulocytes (1.4 - 6.5 /CUMM) 6.8 H Absolute Lymphocytes (1.2 - 3.4 /CUMM) 0.4 L Absolute Monocytes (0.10 - 0.60 /CUMM) 1.0 H Absolute Eosinophils (0.0 - 0.7 /CUMM) 0 Absolute Basophils (0.0 - 0.2 /CUMM) 0 PUBS MCHC (33.0 - 37.0 G/DL) 33.6 Urines Urine Color (YEL,AMB,STR) YEL Urine Clarity (CLEAR) CLEAR Urine pH (5.0 - 8.0) 6.0 Ur Specific [place] (1.001 - 1.035) 1.020 Urine Protein (NEG,<30 MG/DL) NEG Urine Ketones (NEG) NEG Urine Nitrite (NEG) NEG Urine Bilirubin (NEG) NEG Urine Urobilinogen (0.1 - 1.0 EU/dl) 0.2 Ur Leukocyte Esterase (NEG) NEG Ur Microscopic EXAM NOT REQUIRED Urine Hemoglobin (NEG) NEG Urine Glucose (N MG/DL) NEG 10/09 206 Chemistry Sodium (137 - 145 mmol/L) 138 Potassium (3.5 - 5.1 mmol/L) 3.8 Chloride (98 - 107 mmol/L) 98 Carbon Dioxide (22 - 30 mmol/L) 31 H Anion Gap (5 - 16) 9 BUN (7 - 17 mg/dL) 20 H Creatinine (0.5 - 1.0 mg/dL) 0.7 Estimated GFR (>60 ml/min) > 60 BUN/Creatinine Ratio (7 - 25 %) 28.6 H Glucose (65 - 99 mg/dL) 117 H Calcium (8.4 - 10.2 mg/dL) 9.1 Iron (37 - 170 ug/dL) 103 TIBC (265 - 497 ug/dL) 337 Ferritin (11.1 - 264 ng/mL) 76.0 Total Bilirubin (0.2 - 1.3 mg/dL) 0.6 AST (14 - 36 U/L) 24 ALT (9 - 52 U/L) 39 Alkaline Phosphatase (<127 U/L) 60 Troponin I (< 0.11 ng/ml) < 0.01 Total Protein (6.3 - 8.2 g/dL) 6.6 Albumin (3.5 - 5.0 g/dL) 4.0 Globulin (1.9 - 4.2 gm/dL) 2.6 Albumin/Globulin Ratio (1.1 - 2.2 %) 1.5 Vitamin B12 (239 - 931 pg/mL) 355 25-OH Vitamin D Total (30 - 100 ng/ml) 36.6 Folate (2.76 - 20.0 ng/mL) > 20.0 H TSH (0.270 - 4.200 uIU/mL) 1.370 Free T4 (0.78 - 2.44 ng/dL) 1.22 Coagulation PT (9.4 - 12.5 SEC) 11.2 INR (0.90 - 1.19) 1.07 Hematology CBC w Diff NO MAN DIFF REQ WBC (4.8 - 10.8 /CUMM) 9.7 RBC (4.20 - 5.40 /CUMM) 3.57 L Hgb (12.0 - 16.0 G/DL) 13.3 Hct (37 - 47 %) 38.9 MCV (81.0 - 99.0 FL) 108.9 H MCH (27.0 - 31.0 PG) 37.1 H RDW (11.5 - 14.5 %) 13.4 Plt Count (130 - 400 /CUMM) 276 MPV (7.4 - 10.4 FL) 7.6 Gran % (42.2 - 75.2 %) 79.4 H Lymphocytes % (20.5 - 51.1 %) 10.5 L Monocytes % (1.7 - 9.3 %) 9.0 Eosinophils % (0 - 5 %) 0.8 Basophils % (0.0 - 2.0 %) 0.3 Absolute Granulocytes (1.4 - 6.5 /CUMM) 7.7 H Absolute Lymphocytes (1.2 - 3.4 /CUMM) 1.0 L Absolute Monocytes (0.10 - 0.60 /CUMM) 0.9 H Absolute Eosinophils (0.0 - 0.7 /CUMM) 0.1 Absolute Basophils (0.0 - 0.2 /CUMM) 0 PUBS MCHC (33.0 - 37.0 G/DL) 34.1 Imaging Results: Hip Fracture: comminuted intertrochanteric right femur fracture CT Head and Maxilofacial: negative for acute fracture or abnormality. Assessment/Plan Assessment/Plan Pt is a 80 yo F with O2 dependent COPD and multiple other medical comorbidities who suffered a R comminuted intertrochanteric hip fracture after an unwitnessed mechanical fall at home. Recommendations: Pt was seen by Dr. Dos Santos this morning. She will require surgical intervention by way of ORIF. She has been medically cleared for the procedure. Consent has been obtained. Please keep her NPO. Hold anticoagulants due to bleeding risk. Anticipate OR 4pm or later. Consult Acknowledgment - Thank you for your consult request. MOLLY DOS SANTOS MD 10/09/16 1352: Assessment/Plan Consult Acknowledgment - Thank you for your consult request. Attending MD Review Statement Attending Statement Attending MD Statement: examined this patient, discuss w/resident/PA/GUEST SERVICES ASSISTANT, agreed w/resident/PA/GUEST SERVICES ASSISTANT, discussed with family
[2016-10-09 09:18] LABS: ABSOLUTE BASOPHIL COUNT 0 /CUMM (0.0-0.2); ABSOLUTE EOSINOPHIL COUNT 0 /CUMM (0.0-0.7); ABSOLUTE GRANULOCYTE CT 6.8 /CUMM (1.4-6.5); ABSOLUTE LYMPH COUNT 0.4 /CUMM (1.2-3.4); BASOPHIL % 0 % (0.0-2.0); EOSINOPHIL % 0 % (0-5); GRANULOCYTE % 82.5 % (42.2-75.2); MEAN CORPUSCULAR HGB 36.5 PG (27.0-31.0); MEAN CORPUSCULAR HGB CONC 33.6 G/DL (33.0-37.0); MEAN CORPUSCULAR VOLUME 108.7 FL (81.0-99.0); MEAN PLATELET VOLUME 8.6 FL (7.4-10.4); PLATELET COUNT 244 /CUMM (130-400); RED BLOOD CELL CT 3.31 /CUMM (4.20-5.40); WHITE BLOOD CELL COUNT 8.2 /CUMM (4.8-10.8)
--- NOTE | 2016-10-09 10:36 | PN- Orthopedic ---
Surgical Brief Attending Note Brief Attending Note: A 80-year-old female who sustained a mechanical fall very early this morning while trying to get out of bed and over to a commode to go to the bathroom. She apparently fell on her right side resulting in injury to the right hip when the leg got caught underneath her. She denies any antecedent lightheadedness or shortness of breath or chest pain. She does not believe that she sustained any loss of consciousness. She eventually pressed her emergency response button on her necklace for help. She was brought to the [facility] emergency room where x-rays of her pelvis revealed a comminuted displaced right sided intertrochanteric hip fracture. The patient was admitted to the medical service as she does have some significant medical comorbidities including COPD requiring oxygen. The patient will require stabilization of her right intertrochanteric hip fracture with a formal ORIF of the fracture with my preference should this be done today to use a short cephalomedullary hip screw. I did discuss the risks and benefits and expected outcomes of nonoperative management of this fracture with the patient and with her family. Nonoperative management was discouraged. I did discuss the same with respect to surgical intervention with ORIF of the right hip. The patient is amenable to moving forward with right hip repair surgery. I would like to perform this later today assuming that we can clear her medically for surgery. In the meantime the patient should remain n.p.o. for anticipated right hip repair surgery later today.
--- NOTE | 2016-10-09 14:19 | PN- Att Addend ---
Attending Addendum Attending Brief Note Patient seen and examined. 80-year-old female with medical history of severe COPD oxygen dependent, is about 2.5 L at home, history of lung cancer status post radiation, essential thrombocytosis came with a mechanical fall and right hip pain was found to have right intertrochanteric femur fracture. She is comfortably resting in bed, not in any acute distress. Vitals from the morning: Temperature 97.5, heart rate 87, respiratory rate 20, blood pressure 96/64, pulse O2 of 92 on 2.5 L Physical exam: Awake, alert, oriented 3 Bilateral periocular ecchymosis Lungs: clear to auscultation, no wheeze Heart: S1 and S2 normal, no murmur Ext: RLE is externally rotated Plan: She is a low risk for cardiac events as per RCRI risk evaluation Has a history of severe COPD and is oxygen dependent, currently she is not on exacerbation and I have spoken to Dr Landers regarding the patient, she can be clear for surgery at this point. Continue gentle hydration Continue all home medications including her inhalers Adequate pain control. DVT prophylaxis all the time
[2016-10-09 14:23] VITALS: BP 135/75
--- NOTE | 2016-10-09 16:31 | NUR ---
LATE ENTRY: PATIENT LEFT FLOOR FOR OR AT 1600 VIA STRETCHER ACCOMPANIED BY DISTRIBUTION; PATIENT AWAKE ALERT/ORIENTEDX3, REMAINS ON 2.5LNC; VSS; MEDICATED FOR PAIN PRIOR TO LEAVING FLOOR (SEE EMAR); PATIENT GIVEN ATIVAN 0.5 MG PRN ANXIETY; OR CHECKLIST COMPLETED; DENTURES OUT; JEWELRY OFF AND IN POSSESSION OF PATIENTS DAUGHTER; WILL CONT TO MONITOR PATIENTS RETURN POST OP
--- NOTE | 2016-10-09 21:06 | Operative Report ---
Operative/Inv Procedure Report Surgery Date: 10/09/16 Name of Procedure: Repair right displaced subtrochanteric hip fracture. Pre-Operative Diagnosis: Right displaced subtrochanteric hip fracture. Post-Operative Diagnosis: Same. Estimated Blood Loss: 400 cc. Surgeon/Diploma Maker: Akil OMALLEY Anesthesia: local monitored anesthesi, block, Spinal + LMA Monitors: EKG/blood pressure monitoring/oxygen saturation. IV Fluids: 2800 mL crystalloid. Implants: Yu[employer] Nephew right long IMHS components: 1) 36 cm length by 12 mm diameter 130 IMHS nail. 2) 100 mm lag screw 1. 3) Barrel sleeve 1. 4) 4.5 x 36 mm distal locking bolt 1. Urine Output: 150 mL. Drains: None. Specimens: None. Microbiology: None. Tourniquet: None. Complications: None known. Condition: Stable. Operative Indication: The patient is a 80-year-old female who sustained a fall last night while trying to get out of bed to use a bedside commode. She landed on her right side when she fell. She was unable to get up from the ground on her own. She eventually used an emergency contact button transmitter on her necklace to call for help. The patient was brought to the [facility] emergency room where x-rays revealed a right peritrochanteric hip fracture. The patient was admitted to the medical service due to medical comorbidities so that she could be optimized and cleared for surgery. This was accomplished by late this morning. The risks and benefits and expected outcomes of nonoperative management of the patient's right peritrochanteric hip fracture were discussed with the patient and with her family members at length. Nonoperative management was discouraged. We did discuss the risks and benefits and expected outcomes of operative management with ORIF of the hip using a cephalo-medullary nail to stabilize the hip and allow the patient to heal in better position and to reduce pain and to allow the patient to be mobilized out of bed. All the patient's questions and family members questions were answered at length. They did wish to move forward with surgery as was recommended to them and surgical consent was obtained. Operative/Procedure Note Note: The patient was brought to the operating room. A spinal anesthetic was induced on the patient's hospital bed by the anesthesia staff. The patient was then transferred to the OR fracture table and positioned on the fracture table in standard position for right hip repair surgery. This included placing the perineum down against a well-padded perineal post. The affected ipsilateral foot and ankle were wrapped with Webril and then placed into a foam ankle sleeve which was wrapped with Coban to add friction, and then the padded foot and ankle were secured in the traction boot attachment to the fracture table. The unaffected left lower extremity was then placed into a position of flexion, abduction, and external rotation through the left hip and supported in that position with a well-padded leg ibanez placed underneath the left leg. Once this was all in place, the center board of the fracture table was removed. We brought the C-arm in between the legs and we did confirm that we could image the right hip in both AP and lateral fluoroscopic projections. With proper imaging in the operating room it became apparent that this was a subtrochanteric fracture as opposed to an intertrochanteric fracture. We did use a crutch under the buttocks to help with lateral alignment of the displaced fracture segments. This was performed under fluoroscopic control. We next, with fluoroscopic assistance, performed and confirmed that we did achieve an acceptable reduction of the patient's subtrochanteric hip fracture. At this point the right lower extremity was prepped and draped in the usual sterile fashion. The skin was marked with a skin marker after localization with a metallic instrument placed over the anterior aspect of the hip in order to help localize the level of the proximal tip of the greater trochanter. Once this was marked, we made a longitudinal skin incision beginning roughly 3 cm proximal to this marking on the skin correlating with the tip of the greater trochanter and extending the skin incision in a longitudinal direction proximally for about 3-4 cm. Sharp dissection was continued down through the skin and subcutaneous tissues. Hemostasis was achieved using electrocautery. Retractors were placed deeper into the wound. A Gonzalez elevator was used to scrape the deep subcutaneous tissue off of the underlying deep fascia. The fascial layer was then divided longitudinally in line with the skin incision and the gluteal musculature was divided bluntly with fingertip dissection, following by a small amount of use of the Gonzalez elevator to expose the tip of the greater trochanter. A guidewire for the entry reamer was placed down onto the tip of the greater trochanter and repositioned several times with fluoroscopic assistance until we were satisfied with the initial positioning of the entry pin tip. The pin tip was then able to be easily pushed into the bone through the trip of the greater trochanter down into the subtrochanteric region and into the proximal femoral shaft manually without need for any type of power. Once we were satisfied with the positioning of the entry guide pin in both AP and lateral fluoroscopic projections, we placed a soft tissue protector over the guidewire down between the gluteal musculature and brought that down to the tip of the greater trochanter. We confirmed placement of the soft tissue protector against the tip of the greater trochanter fluoroscopically. We next reamed with the entry reamer over the guide pin under fluoroscopic control into the upper femoral shaft. We removed the entry reamer as well as the guide pin. We next placed a ball-tip guidewire down through the reamed entry hole in the tip of the greater trochanter and passed that down through the intertrochanteric segment of the bone down to the subtrochanteric segment of the bone and then across the fracture site and into the proximal femoral shaft. We advanced the guidewire as far as we could down into the femur with the tip of the ball-tipped guidewire ending at just about the level of the superior pole of the patella when imaging the hip and the femur and the knee fluoroscopically. With the guidepin in place we next reamed sequentially in half millimeter increments beginning at 9 mm and extending up to 13.5 mm diameter reamer over the guidewire under fluoroscopic control to open the interior of the bone, particularly at the isthmus of the femoral shaft to accommodate a 12 mm diameter nail. We did get some limited chatter on the last couple of reamers that were placed. With the bone now reamed we took a length measurement using the measuring tool to determine the length of bharat to be placed within the bone. Based upon this measurement we elected to go with a 36 cm length nail. We next opened a [employer]hew 12 mm diameter by 36 cm length 130 nail and attached the nail to the supine otr company truck driver in standard fashion. We next advanced the tip of the nail over the back end of the guidewire and used the guidewire to help guide the placement of the nail through the opening in the top of the greater trochanter and into the proximal femur. We next malleted the supine otr company truck driver with the nail to advance the nail to the desired depth of penetration within the proximal femur. We took multiple plane fluoroscopic images from the hip down across the fracture to the knee to confirm that the nail was placed and positioned properly within the intramedullary canal of the femur and that the proximal and distal ends of the nail were set in proper position. We next attached the double-drill sleeve for the guide pin for the lag screw to its's slot in the supine otr company truck driver. This was advanced down through the supine otr company truck driver and down to the level of the skin. We next made a longitudinal skin incision large enough to accommodate passage of the double drill sleeve. This was done with a scalpel through the skin, and a deep scalpel to go through the deeper soft tissues. We used a Gonzalez elevator to expose the lateral femoral cortex and we held open the soft tissues with a Angy clamp and advanced the double drill sleeve down to the lateral femoral cortex. Once we were satisfied with the positioning of the double drill sleeve fluoroscopically, we drilled up through the sleeve under fluoroscopic control to advance the guide pin for the lag screw. In the end we did achieve essentially a center-center positioning of the guide pin for the lag screw and the guide wire was advanced as far as the level of the subchondral bone at the femoral head. We next took a depth gauge measurement to determine the amount of pin within the bone to determine the length of the lag screw. Based upon that measurement, we decided to go with a 100 mm lag screw. We next reamed over the guidewire under fluoroscopic control with the triple reamer up through the lateral femoral cortex into the intertrochanteric region, then in to the femoral neck, and up into the femoral head. We next advanced a 100 mm lag screw with a manual T- handle screwdriver over the guidewire, again under fluoroscopic control, until it was advanced far enough into a well-seated position with reasonably good purchase within the femoral head. At this point we impacted the barrel sleeve over the end of the lag screw and across the intramedullary nail and confirmed that this was accomplished fluoroscopically. Once this was confirmed we locked the barrel within the nail by tightening the set screw from above in order to create a sliding hip screw construct. We next turned our attention toward placement of a distal locking screw. This was done with freehand technique under fluoroscopic control with placement of a single distal locking bolt of appropriate length through the slotted distal hole in the intramedullary nail. Once all hardware was in place with the fracture well aligned and stabilized, we removed the supine otr company truck driver. We obtained final AP and lateral fluoroscopic images of the hip with the fracture reduced and repaired and stabilized with hardware in acceptable position. These images were taken and saved for hard copy. Our attention was now directed toward closure. All wounds were copiously irrigated with saline. The fascial layer of the proximal 2 larger wounds were repaired using 0 Vicryl placed in interrupted buried fashion The wounds were irrigated again. The subcutaneous tissues of the 2 larger wounds proximally were closed in layers with 0 Vicryl in the deep subcutaneous tissue layer to close down space, and then 2-0 Vicryl placed in simple interrupted buried fashion to approximate the upper more superficial subcutaneous tissues. The small wound distally for the locking bolt was repaired only with 2-0 Vicryl in the superficial subcutaneous tissues placed in interrupted buried fashion. The skin margins at all wounds were approximated with a skin stapler. All wounds were washed and dried, and then covered with Adaptic dressing, followed by sterile gauze dressings and abdominal pads which were held in place with paper tape. The center board to the table was returned. Both legs were taken down (Right leg taken out of the traction boot and padding and the left well leg taken down from the well-leg ibanez). The patient was awakened from general anesthesia and then transferred to the hospital bed and brought to the recovery room in stable condition having tolerated the procedure well.
[2016-10-09 21:30] VITALS: BP 86/48
--- NOTE | 2016-10-09 21:31 | RADIOLOGY REPORT ---
EXAMINATION: XR HIP, RIGHT CLINICAL INFORMATION: Right hip ORIF COMPARISON: 10/09/2016 TECHNIQUE: 9 fluoroscopic spot images and a dose report. 194 seconds of fluoroscopy time. 2.57 Rad cumulative dose. IMPRESSION: The images are labeled LEFT hip but radiographs from earlier today demonstrated a intertrochanteric right femur fracture. Sequential images demonstrate localization and instrumentation for placement of a long intramedullary bharat with distal interlocking screw and proximal dynamic hip screw spanning the previously seen intratrochanteric fracture. There is a displaced lesser trochanter fragment but otherwise the major fracture fragments are in near-anatomic alignment on the final image.
[2016-10-09 22:17] LABS: ABSOLUTE BASOPHIL COUNT 0 /CUMM (0.0-0.2); ABSOLUTE EOSINOPHIL COUNT 0 /CUMM (0.0-0.7); ABSOLUTE GRANULOCYTE CT 7.4 /CUMM (1.4-6.5); ABSOLUTE LYMPH COUNT 0.8 /CUMM (1.2-3.4); ABSOLUTE MONOCYTE COUNT 1.4 /CUMM (0.10-0.60); BASOPHIL % 0.3 % (0.0-2.0); EOSINOPHIL % 0 % (0-5); GRANULOCYTE % 76.6 % (42.2-75.2); MEAN CORPUSCULAR HGB CONC 32.8 G/DL (33.0-37.0); MEAN CORPUSCULAR VOLUME 109.7 FL (81.0-99.0); MEAN PLATELET VOLUME 7.9 FL (7.4-10.4); PLATELET COUNT 238 /CUMM (130-400); RBC DISTRIBUTION WIDTH 14.3 % (11.5-14.5); RED BLOOD CELL CT 2.68 /CUMM (4.20-5.40); WHITE BLOOD CELL COUNT 9.6 /CUMM (4.8-10.8)
[2016-10-09 22:24] LABS: HEMATOCRIT 29.4 % (37-47)
[2016-10-09 23:00] VITALS: BP 100/70
--- NOTE | 2016-10-09 23:50 | RADIOLOGY REPORT ---
EXAMINATION: XR PORTABLE CHEST CLINICAL INFORMATION: Shortness of breath, hypoxia COMPARISON: Same day chest TECHNIQUE: Portable portable AP 75 degree view of the chest was obtained. FINDINGS: The cardiomediastinal contours appear stable compared to prior. There is slight obscuration of the left hemidiaphragm, increased in prominence compared to previous examinations. Otherwise, the lungs are clear. There is no effusion or pneumothorax. Visualized osseous structures appear grossly unremarkable. IMPRESSION: Question developing pneumonia versus atelectasis at the left lung base. Favor atelectasis.
--- NOTE | 2016-10-09 23:51 | PN- Orthopedic ---
Subjective Subjective: Pt is now POD #0 s/p IMHS right hip. She tolerated the procedure well and was transferred back to the general medical floor. Upon arrival to the floor around 9:30 pm, pt's vitals were checked and she was tachycardic from 115-130s, Systolic BP was in the 80s, RR 24-26, O2 sat was 88% on 3 L. Pt reports no major complaints at this time. She admits to minor R hip/thigh pain due to surgery. has been given 500 cc IV bolus of NS x 2. CXR is pending. Objective Vital Signs and I&Os Vital Signs Date Time Temp Pulse Resp B/P B/P Pulse O2 O2 Flow FiO2 Mean Ox Delivery Rate 10/09 1423 99.1 100 20 135/75 92 Nasal 2.5L Cannula 10/09 0800 Nasal 2.5L Cannula 10/09 0746 97.5 87 20 96/64 92 Nasal 2.5L Cannula 10/09 0630 Nasal 2.5L Cannula 10/09 0326 Nasal 2.0L Cannula 10/09 0151 98.2 74 18 146/68 97 Nasal 2.0L Cannula Intake & Output 10/09 1600 10/09 0800 10/09 0000 10/08 1600 10/08 0800 10/08 0000 Intake Total 465 Output Total 550 100 Balance -85 -100 Intake, IV 225 Intake, Oral 240 Number 0 Bowel Movements Output, Urine 550 100 Patient 160 lb Weight Weight Reported by Patient Measurement Method Physical Exam: Gen.: Patient is resting, but arousable. She follows commands. Asks appropriate questions, but does display some mild confusion. She appears tachypneic and in some respiratory distress. When she verbalizes, she has to stop speaking in order to breathe. Cardiac: Tachycardia is appreciated. Heart rate is somewhat irregular. The irregularity appears to correlate with her breathing, although since she is tachypneic, the irregularity is frequent. Pulmonary: Lungs are clear to auscultation bilaterally in the anterior baptiste. Extremities: The right thigh dressing is clean, dry, and intact. There is right thigh swelling, as expected. Lower extremity sensation is intact. Patient is able to move her toes. Assessment/Plan Assessment/Plan Patient is a 80-year-old female, who is now postoperative day #0 status post right hip IMHS for intertrochanteric fracture after a mechanical fall. Patient' s postoperative course is now complicated by tachycardia, hypotension, hypoxia. Suspect volume depletion. Postop labs reveal a decrease in H&H, as expected, but not significantly low. Plan: -Follow-up chest x-ray. Chest x-ray stable and there are no signs of volume overload, continue fluid boluses to keep systolic blood pressure greater than 100. -Check EKG stat due to tachycardia and questionable irregular rhythm. -If patient is unable to tolerate a narcotic, consider IV acetaminophen for pain control, which can be contributing to tachycardia. -Titrate O2 to keep sats stable. -Continue medical management per primary team. They have been notified by the nursing staff with regard to the patient's current status. -Coumadin has been started for DVT prophylaxis. INR in a.m. Plan to skip dosing tomorrow 10/10, regardless of the INR, as per Dr. Dos Santos's usual protocol. -Leave Shoemaker catheter in place for I's and O's. -Physical therapy consult when patient is medically stable. Partial weight- bearing. -Plan for dressing change on postoperative day #2. -We'll continue to follow.
[2016-10-10 00:22] VITALS: BP 98/64
--- NOTE | 2016-10-10 00:40 | Event Note ---
Event Note Event Note: Notified by the staff around 9:30PM regarding the patient's hypotension with SBP in 80s with tachycardia in 110s, tachypnea up to 30 and hypoxia at 88% on 3 liters. Afebrile. Patient was given a bolus of 500mL NS IVF with an improvement in SBP to 110. However tachycardia worsened to 130 and she was still tachypneic up to 26, maintaing O2 sat in 90s on 4L oxygen. TRC and CXR ordered. Patient was seen and evaluated by the night team. She denies any chest pain or dyspnea. She endorsed mild pain in the surgical site, which was bearable. Patient was given an additional bolus of 500mL NS IVF but continued to be tachycardic and tachypneic. CTA was subsequently orderd and negative for PE. Patient received third bolus of 500 mL with improvement in HR to 118 and SBP to 110. Patient placed on maintenance fluid at 100 mL/hr currently. Morning labs were checked early and it revealed stable H&H. Due to the patient's persistent tachycardia patient was given carvedilol 3.125mg PO.
--- NOTE | 2016-10-10 00:50 | NUR ---
NURSING NOTE; LATE ENTRY; PT ARRIVED TO FLOOR FROM PACU AT 2130. UPON ARRIVAL PT ALERT AND ORIENTED BUT VERY TACHYPNEIC, UPON ARRIVAL BLOOD PRESSURE 86/48, PULSE 116, RR 30, 88% ON 3L, THIS RN CALLED KEVIN MONGE AND [employer] AND 500 ML BOLUS ORDERED AND THIS RN WAS TOLD TO CHECK VITALS ONCE BOLUS WAS FINISHED, TROPONIN, LYTES AND CBC ALSO ORDERED AND DRAWN, AT 2300 BLOOD PRESSURE 11/70, RR 28, PULSE IN 120S, 93% ON 4L, [employer] AWARE AND ANOTHER BOLUS ORDERED AND [facility] A CXR ORDERED, NO FURTHER ORDERS WILL CONT TO MONITOR
--- NOTE | 2016-10-10 01:23 | CT SCAN REPORT ---
EXAMINATION: CT ANGIOGRAM OF THE CHEST WITH AND WITHOUT CONTRAST (CT PULMONARY ANGIOGRAM FOR PE) CLINICAL INFORMATION: Persistent tachycardia. Tachypnea. COMPARISON: Radiograph from 10/09/2016. Chest CT 08/17/2016. TECHNIQUE: Prior to contrast administration, noncontrast localization images were obtained. Subsequently, multidetector volumetric imaging was performed from the thoracic inlet to below the diaphragms following the administration of 95 mL Omnipaque 350 intravenous contrast. No contrast reaction reported. Sagittal, coronal, and MIP oblique sagittal reformatted images were obtained on the CT workstation, uploaded to PACS, and reviewed. Total exam dose-length product 373 mGy-cm. FINDINGS: QUALITY OF STUDY/CONTRAST BOLUS: Satisfactory PULMONARY ARTERIES: No central or segmental pulmonary emboli. THORACIC AORTA: No aneurysm or dissection. LUNG: The central airways are patent. There is severe panlobular emphysema. Spiculated anteromedial right middle lobe nodule is again noted, without significant change from prior, measuring 1.4 cm in AP dimension. Left upper lobe 0.6 cm nodule on series 2 image 167 is unchanged. Partial improvement of the right lower lobe nodular opacity seen on the prior study which were new at that time, suggesting that was infectious or inflammatory process. There is no focal consolidation. PLEURA: No pleural effusion or pneumothorax. MEDIASTINUM: Normal heart size. Coronary artery calcifications. No pericardial effusion. No hilar or mediastinal lymphadenopathy. No evidence of septal bowing or right heart strain. CHEST WALL/AXILLA: No axillary or internal mammary lymphadenopathy. OSSEOUS STRUCTURES: No acute or suspicious osseous abnormality. Degenerative changes in the spine. UPPER ABDOMEN: Unremarkable. No reflux of contrast into the hepatic veins to suggest elevated right heart pressures. IMPRESSION: 1. No pulmonary embolism. No acute intrathoracic findings. Severe emphysema. 2. Similar appearance of a spiculated right upper lobe nodule. Stable left upper lobe nodule. 3. Additional nodules that had been new on the prior study in the right lower lobe demonstrate improvement, suggesting an infectious or inflammatory in etiology VTE: negative
[2016-10-10 03:43] LABS: ABSOLUTE BASOPHIL COUNT 0 /CUMM (0.0-0.2); ABSOLUTE EOSINOPHIL COUNT 0 /CUMM (0.0-0.7); ABSOLUTE GRANULOCYTE CT 4.6 /CUMM (1.4-6.5); ABSOLUTE LYMPH COUNT 0.5 /CUMM (1.2-3.4); ABSOLUTE MONOCYTE COUNT 0.9 /CUMM (0.10-0.60); BASOPHIL % 0.1 % (0.0-2.0); EOSINOPHIL % 0 % (0-5); GRANULOCYTE % 76.5 % (42.2-75.2); MEAN CORPUSCULAR HGB 36.3 PG (27.0-31.0); MEAN CORPUSCULAR HGB CONC 33.1 G/DL (33.0-37.0); MEAN CORPUSCULAR VOLUME 109.6 FL (81.0-99.0); MEAN PLATELET VOLUME 7.6 FL (7.4-10.4); PLATELET COUNT 179 /CUMM (130-400); RBC DISTRIBUTION WIDTH 13.9 % (11.5-14.5); RED BLOOD CELL CT 2.28 /CUMM (4.20-5.40); WHITE BLOOD CELL COUNT 6.1 /CUMM (4.8-10.8)
[2016-10-10 03:50] LABS: PT 13.2 SEC (9.4-12.5)
[2016-10-10 04:39] VITALS: BP 102/58
[2016-10-10 06:16] VITALS: BP 100/62
--- NOTE | 2016-10-10 07:16 | PN- Orthopedic ---
Surgical Brief Attending Note Brief Attending Note: Patient complaining of expected right hip girdle pain. No other specific complaints. Evening for the most part uneventful. Vital signs have been stable. Examination of the right hip shows dressings along the right thigh and right hip and about the right knee that are all clean and dry and intact. Motor and sensory function are intact distally. DP and PT pulses 1+. Capillary refill is brisk. Hemoglobin and hematocrit are low consistent with postsurgical anemia blood loss. The remaining blood work looks good. Plan: Mobilize out of bed to chair today. Physical therapy assessment for gait training with partial weightbearing restrictions for the right lower extremity using a rolling walker. Monitor the patient's condition looking for any signs that she might not be tolerating her low hemoglobin and hematocrit. If she demonstrates no symptoms today we can hold off on a blood transfusion and check a repeat hemoglobin and hematocrit tomorrow. If the blood tomorrow drops further I would then certainly transfuse 1 unit of packed red blood cells. Continue to titrate Coumadin dosage daily (0 mg by mouth today per my protocol). KATHY Shoemaker when possible. Advance diet as tolerated.
--- NOTE | 2016-10-10 07:22 | PN- Housestaff ---
Subjective Follow-up For: 1. Right hip fracture, status post mechanical fall 2. Acute Blood Loss Anemia 3. 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 Ecchymosis around eyes, with no evidence of facial or head trauma on CT Subjective: The patient was alert and oriented x 3, however she was in mild distress due to pain in her right leg. She also reported chest pain early in the morning and some shortmness of breath but the EKG and trops at that time were negative. Currently she does not report chest pain but she she reports feeling tired and weak. She denies any nausea or vomiting or fevers though. She was also tachycardic, and hypotensive over night, still has BP 100/58, and HR 108, received NS 500 ml boluses x 3, because the blood pressure was in 80s. Unable to move her leg at all due to pain, 01/26, relieved by Morphine and being immobile. Review of Systems Constitutional: Reports: see HPI. Cardiovascular: Reports: chest pain. Respiratory: Denies: cough, short of breath, stridor, wheezing. Gastrointestinal: Reports: no symptoms. Genitourinary: Reports: no symptoms. Musculoskeletal: Reports: see HPI, joint pain. Skin: Reports: no symptoms. Objective Last 24 Hrs of Vital Signs/I&O Vital Signs Date Time Temp Pulse Resp B/P B/P Pulse O2 O2 Flow FiO2 Mean Ox Delivery Rate 10/10 1118 Nasal 3.0L Cannula 10/10 0848 102 100/62 10/10 0800 95 Nasal 3.0L Cannula 10/10 0616 98.4 108 20 100/62 93 10/10 0545 100/56 10/10 0439 98.5 120 24 102/58 96 10/10 0022 97.8 126 28 98/64 93 10/10 0000 93 Nasal 3.0L Cannula 10/09 2300 126 100/70 93 Nasal 4.0L Cannula 10/09 2130 88 Nasal 3.0L Cannula 10/09 2130 97.5 116 30 86/48 88 Nasal 3.0L Cannula 10/09 1423 99.1 100 20 135/75 92 Nasal 2.5L Cannula Intake & Output 10/10 1600 10/10 0800 10/10 0000 Intake Total 1650 150 Output Total 350 100 Balance 1300 50 Intake, IV 1650 Intake, Oral 150 Output, Urine 350 100 Physical Exam General Appearance: Alert, Oriented X3, Cooperative, Mild Distress Skin Temp/Moisture Exam: Warm/Dry Sepsis Skin Exam (color): Normal for Ethnicity Neck: No JVD Cardiovascular: Regular Rate, Normal S1, Normal S2, No Murmurs Lungs: Clear to Auscultation, Normal Air Movement Abdomen: Normal Bowel Sounds, Soft, No Tenderness, No Hepatospenomegaly Neurological: Normal Speech, Normal Tone, unable to move right lower extremity due to pain, power 5/5 in other extremities Extremities: No Edema, Normal Pulses, the right leg is in dressing, clean, no erythema, mild tenderness, warm skin to touch Current Medications: Current Medications Sig/Kev Start time Last Medication Dose Route Stop Time Status Admin Acetaminophen 1,000 MG Q6P PRN 10/10 0915 AC N/A 1 UNIT IV Acetaminophen 650 MG .STK-MED ONE 10/10 0027 DC PO 10/10 0028 Acetaminophen 650 MG Q6P PRN 10/09 2030 AC 10/10 PO 0816 Acetaminophen 1,000 MG .STK-MED ONE 10/09 1627 DC IV 10/09 1628 Acetaminophen 650 MG Q6P PRN 10/09 0400 DC PO Albuterol Sulfate 3 ML Q4P PRN 10/10 1130 AC INH Atorvastatin Calcium 10 MG 1700 10/10 1700 AC PO Atorvastatin Calcium 10 MG 1700 10/09 1700 DC PO Budesonide/ 2 PUF BID 10/10 1111 AC Formoterol Fumarate INH Carvedilol 3.125 MG ONCE ONE 10/10 0500 DC 10/10 PO 10/10 0501 0545 Cefazolin Sodium 2,000 MG Q8H 10/10 0200 DC 10/10 Sodium Chloride 100 ML IV 10/10 1029 0923 Cefazolin Sodium 2,000 MG IQ8 10/10 0000 DC Sodium Chloride 100 ML IV 10/10 0829 Colchicine 600 MCG DAILY 10/10 1000 AC 10/10 PO 923 Colchicine 600 MCG DAILY 10/09 1000 DC 10/09 PO 0917 Dicyclomine HCl 10 MG BID 10/09 2200 AC 10/10 PO 923 Dicyclomine HCl 10 MG BID 10/09 1000 DC 10/09 PO 0917 Docusate Sodium 100 MG DAILY 10/10 1000 DC PO Docusate Sodium 100 MG BID 10/10 1000 AC 10/10 PO 0924 Docusate Sodium 100 MG DAILY 10/09 1000 DC 10/09 PO 0917 Fentanyl Citrate 100 MCG .STK-MED ONE 10/09 1627 DC IM 10/09 1628 Fentanyl Citrate 100 MCG .STK-MED ONE 10/09 1627 DC IM 10/09 1628 Gabapentin 200 MG TID 10/09 2200 AC 10/10 PO 0923 Gabapentin 200 MG TID 10/09 1000 DC 10/09 PO 0917 Hydromorphone HCl 2 MG .STK-MED ONE 10/09 2058 DC IM 10/09 2100 Hydroxyurea 500 MG Q48 10/11 1000 AC PO Hydroxyurea 1,000 MG Q48 10/10 1000 CAN PO Hydroxyurea 500 MG Q48 10/09 1000 DC 10/09 PO 0915 Ibuprofen 600 MG Q6P PRN 10/09 0400 DC PO Lorazepam 0.5 MG BID PRN 10/09 2030 AC PO 10/16 2029 Lorazepam 0.5 MG BID PRN 10/09 0500 DC 10/09 PO 10/16 0459 1426 Meperidine HCl 50 MG .STK-MED ONE 10/09 2024 DC IM 10/09 2025 Morphine Sulfate 1 MG ONCE ONE 10/10 0915 DC 10/10 IV 10/10 0916 0917 Morphine Sulfate 2 MG Q4P PRN 10/09 2030 AC 10/10 IV 1142 Morphine Sulfate 2 MG Q4P PRN 10/09 0400 DC 10/09 IV 1426 Omeprazole 40 MG DAILY AC 10/10 0700 AC 10/10 PO 0552 Omeprazole 40 MG DAILY AC 10/09 0700 DC PO Patient Medication 1 UNIT ONE NR 10/09 2100 DC Teaching ED 10/09 2130 Patient Medication 1 UNIT ONE NR 10/09 2100 MT Teaching ED 10/09 2130 Patient Medication 1 UNIT ONE NR 10/09 2100 MT Teaching ED 10/09 2130 Senna/Docusate Sodium 1 TAB BID PRN 10/09 2030 AC PO Senna/Docusate Sodium 1 TAB BID PRN 10/09 0500 DC PO Sodium Chloride 1,000 ML .Q10H 10/10 0200 AC 10/10 IV 0351 Sodium Chloride 500 ML BOLUS ONE 10/10 0200 DC 10/10 IV 10/10 0259 0151 Sodium Chloride 500 ML BOLUS ONE 10/09 2315 DC 10/09 IV 10/10 0014 2312 Sodium Chloride 500 ML BOLUS ONE 10/09 2300 CAN IV 10/10 0059 Sodium Chloride 500 ML BOLUS ONE 10/09 2200 DC 10/09 IV 10/09 225 2159 Sodium Chloride 1,000 ML Q13H 10/09 2029 DC 10/09 IV 2254 Sodium Chloride 1,000 ML Q13H 10/09 1245 DC 10/09 IV 1254 Tiotropium [place] 1 PUF DAILY 10/10 1000 AC 10/10 INH 0924 Tiotropium [place] 1 PUF DAILY 10/09 1000 DC 10/09 INH 0917 Tramadol HCl 50 MG Q6 PRN 10/10 0900 AC PO Warfarin Sodium 7.5 MG ONCE ONE 10/09 2029 DC 10/09 PO 10/09 Last 24 Hrs of Lab/[place] Results Last 24 Hrs of Labs/Mics: Laboratory Tests 10/10/16 0320: Troponin I 0.02 10/10/16 0320: Anion Gap 6, Estimated GFR > 60, BUN/Creatinine Ratio 28.6 H, PT 13.2 H, INR 1.26 H, CBC w Diff NO MAN DIFF REQ, RBC 2.28 L, MCV 109.6 H, MCH 36.3 H, RDW 13.9, MPV 7.6, Gran % 76.5 H, Lymphocytes % 8.1 L, Monocytes % 15.3 H, Eosinophils % 0, Basophils % 0.1, Absolute Granulocytes 4.6, Absolute Lymphocytes 0.5 L, Absolute Monocytes 0.9 H, Absolute Eosinophils 0, Absolute Basophils 0, PUBS MCHC 33.1 10/09/162204: Anion Gap 10, Estimated GFR > 60, BUN/Creatinine Ratio 25.0, Troponin I < 0.01, CBC w Diff NO MAN DIFF REQ, RBC 2.68 L, MCV 109.7 H, MCH 36.0 H, RDW 14.3, MPV 7.9, Gran % 76.6 H, Lymphocytes % 8.1 L, Monocytes % 15.0 H, Eosinophils % 0, Basophils % 0.3, Absolute Granulocytes 7.4 H, Absolute Lymphocytes 0.8 L, Absolute Monocytes 1.4 H, Absolute Eosinophils 0, Absolute Basophils 0, PUBS MCHC 32.8 L Orders Radiology Findings: CTA: IMPRESSION: 1. No pulmonary embolism. No acute intrathoracic findings. Severe emphysema. 2. Similar appearance of a spiculated right upper lobe nodule. Stable left upper lobe nodule. 3. Additional nodules that had been new on the prior study in the right lower lobe demonstrate improvement, suggesting an infectious or inflammatory in etiology VTE: negative Lines/Diet/Fluids Fluids/Infusions: NA @100cc/hr Catheters/Tubes: bonilla Bonilla Still Needed? 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 Patient states that about a week ago she was sitting on a rocking chair and fell asleep and subsequently fell forward on her face and has some residual ecchymoses from that episode. Today she went to use her bedside portable commode and her foot got caught in the leg at the commode and she subsequently fell to the floor onto her right hip, no loss of consciousness, no head strike. Denies any dizziness, chest pain, shortness of breath. She stayed on the floor for about half an hour and subsequently pressed her life alert. At present her only complaint is right hip pain 10 out of 10. Assesment and Plan: 1. Right hip pain status post unwitnessed mechanical fall S/P ORIF: Patient presented with right hip pain, 10 out of 10, severe and sharp after a mechanical fall, sustained a right hip fracture S/P ORIF on 10/09/16, POD # 1 today - Received coumadin 7.5 mg PO yesterday, holding coumadin today per Dr. Dos Santos and post op protocol - Pain controll with IV Morphine and IV Acetaminophen, will avoid over sesdation - Oxygen by NC and maintain saturation > 90% - Incentive spirometry post op - PT, partial weight bearing 2. Acute Blood Loss Anemia: - Post op patient was hypotensive to 80s, tachycardic, max HR 126, wascomplaining of chest pain, feelingvery tired, lethargic. Her H&H dropped from 13.3/38.9 pre-op to 8.3/25 post op. - She likely was having symptomatic anemia secondary to perioperative blood loss - She received a total of 3 NS 500cc boluses but she continued to have low BP in 90s and tachycardic with chest pain - Trop and EKG were negative - Will transfuse 1 unit PRBC and follow CBC - Will watch the site of right hip ?hematoma 3. Ecchymosis face s/p fall - Patient also noticed to have ecchymosis around both eyes and around the bridge of the nose. - Patient states that on Monday she was sitting at the edge of her rocking chair and she fell asleep, fell forward and landed on face hitting on the floor. - Denies any visual abnormalities. Denies any pain - Maxillofacial CAT scan-no acute fractures - CAT scan head-no acute intracranial abnormalities - We'll monitor closely for any acute changes. 4. Frequent falls - 2 falls within a week - Vit D 36.6, will benefit from PT - Fall prrecautions 5. Macrocytic anemia - MCV 108.9 on admission - Folic acid and Vit B12 levels normal - Will monitor 6. Lung cancer - Diagnosed with lung cancer one year ago - Status post a 5 cycles of radiation therapy - Not on chemotherapy - Quit smoking few years ago - Stable 7. COPD - Oxygen dependent COPD, on 2.5 L - Continue home medications albuterol, Symbicort, Spiriva - Willmonitor oxygen sats to maintain >90% 8. Hyperlipidemia - On simvastatin at home, we'll give Lipitor 9. Acid reflux - On pantoprazole, we'll give omeprazole here 10. Irritable bowel syndrome - Continue home dose of dicyclomine 11. Pseudogout - Continue home dose of colchicine 12. Essential thrombocytosis - Continue home dose of hydroxyurea 13. Supplements - Continue calcium carbonate, vitamin D, multivitamins 14. Constipation - Bowel regimen when necessary, espcially with narcotic pain meds 15. Anxiety - Ativan if necessary DVT prophylaxis - coumadin Pain pathway Regular Diet Full code Problem List: 1. Right femoral fracture 2. copd 3. Hyperlipidemia 4. Essential thrombocytosis Pain Ratin Pain Location: right hip Pain Goal: Pain 4 or less Pain Plan: IV Morphine and IV Acetaminophen Tomorrow's Labs & Rationales: CBC - ABLA INR - post op coumadin DVT/Prophylaxis: pharmacological Consulting Request: Consulting Specialty: Orthopedics Consulting Physician: Dr. Dos Santos Reason for Consult: right hip fracture Discharge Plan Discharge Disposition: STR/NH Stable for Discharge? No
[2016-10-10 08:48] VITALS: BP 100/62
--- NOTE | 2016-10-10 09:45 | NUR ---
PHYSICAL THERAPY- CONSULT RECEIVED, CHART REVIEWED. S/W PT'S RN, PT CURRENTLY W/ ANEMIA POST-OP IMHS. AWAITING TRANSFUSION AT THIS TIME AND IN HIGH LEVELS OF PAIN 2* PT RELUCTANCE TO TAKE NARCOTICS. WILL DEFER EVAL AT THIS TIME AND FOLLOW APPROPRIATE.
--- NOTE | 2016-10-10 11:48 | PN- Att Addend ---
Attending Addendum Attending Brief Note Patient seen and examined, she was complaining of excruciating pain in her right lower extremity from knee above to the hip. She has a dressing at the site of surgery. She still has a Shoemaker catheter in. Vital Signs Date Time Temp Pulse Resp B/P B/P Pulse O2 O2 Flow FiO2 Mean Ox Delivery Rate 10/10 1118 Nasal 3.0L Cannula 10/10 0848 102 100/62 10/10 0800 95 Nasal 3.0L Cannula 10/10 0616 98.4 108 20 100/62 93 10/10 0545 100/56 10/10 0439 98.5 120 24 102/58 96 10/10 0022 97.8 126 28 98/64 93 10/10 0000 93 Nasal 3.0L Cannula 10/09 2300 126 100/70 93 Nasal 4.0L Cannula 10/09 2130 88 Nasal 3.0L Cannula 10/09 2130 97.5 116 30 86/48 88 Nasal 3.0L Cannula 10/09 1423 99.1 100 20 135/75 92 Nasal 2.5L Cannula on exam; aox3, mild distress due to pain. cv; s1,s2, rrr resp; clear abd; soft, nt, bs+ ext; no edema. ms: + dressing on RLE. Laboratory Tests 10/10 10/10 0320 0320 Chemistry Sodium (137 - 145 mmol/L) 137 Potassium (3.5 - 5.1 mmol/L) 4.5 Chloride (98 - 107 mmol/L) 104 Carbon Dioxide (22 - 30 mmol/L) 28 Anion Gap (5 - 16) 6 BUN (7 - 17 mg/dL) 20 H Creatinine (0.5 - 1.0 mg/dL) 0.7 Estimated GFR (>60 ml/min) > 60 BUN/Creatinine Ratio (7 - 25 %) 28.6 H Troponin I (< 0.11 ng/ml) 0.02 Coagulation PT (9.4 - 12.5 SEC) 13.2 H INR (0.90 - 1.19) 1.26 H Hematology CBC w Diff NO MAN DIFF REQ WBC (4.8 - 10.8 /CUMM) 6.1 RBC (4.20 - 5.40 /CUMM) 2.28 L Hgb (12.0 - 16.0 G/DL) 8.3 L Hct (37 - 47 %) 25.0 L MCV (81.0 - 99.0 FL) 109.6 H MCH (27.0 - 31.0 PG) 36.3 H RDW (11.5 - 14.5 %) 13.9 Plt Count (130 - 400 /CUMM) 179 MPV (7.4 - 10.4 FL) 7.6 Gran % (42.2 - 75.2 %) 76.5 H Lymphocytes % (20.5 - 51.1 %) 8.1 L Monocytes % (1.7 - 9.3 %) 15.3 H Eosinophils % (0 - 5 %) 0 Basophils % (0.0 - 2.0 %) 0.1 Absolute Granulocytes (1.4 - 6.5 /CUMM) 4.6 Absolute Lymphocytes (1.2 - 3.4 /CUMM) 0.5 L Absolute Monocytes (0.10 - 0.60 /CUMM) 0.9 H Absolute Eosinophils (0.0 - 0.7 /CUMM) 0 Absolute Basophils (0.0 - 0.2 /CUMM) 0 PUBS MCHC (33.0 - 37.0 G/DL) 33.1 10/09 2205 Chemistry Sodium (137 - 145 mmol/L) 138 Potassium (3.5 - 5.1 mmol/L) 4.7 Chloride (98 - 107 mmol/L) 101 Carbon Dioxide (22 - 30 mmol/L) 27 Anion Gap (5 - 16) 10 BUN (7 - 17 mg/dL) 20 H Creatinine (0.5 - 1.0 mg/dL) 0.8 Estimated GFR (>60 ml/min) > 60 BUN/Creatinine Ratio (7 - 25 %) 25.0 Troponin I (< 0.11 ng/ml) < 0.01 Hematology CBC w Diff NO MAN DIFF REQ WBC (4.8 - 10.8 /CUMM) 9.6 RBC (4.20 - 5.40 /CUMM) 2.68 L Hgb (12.0 - 16.0 G/DL) 9.7 L Hct (37 - 47 %) 29.4 L MCV (81.0 - 99.0 FL) 109.7 H MCH (27.0 - 31.0 PG) 36.0 H RDW (11.5 - 14.5 %) 14.3 Plt Count (130 - 400 /CUMM) 238 MPV (7.4 - 10.4 FL) 7.9 Gran % (42.2 - 75.2 %) 76.6 H Lymphocytes % (20.5 - 51.1 %) 8.1 L Monocytes % (1.7 - 9.3 %) 15.0 H Eosinophils % (0 - 5 %) 0 Basophils % (0.0 - 2.0 %) 0.3 Absolute Granulocytes (1.4 - 6.5 /CUMM) 7.4 H Absolute Lymphocytes (1.2 - 3.4 /CUMM) 0.8 L Absolute Monocytes (0.10 - 0.60 /CUMM) 1.4 H Absolute Eosinophils (0.0 - 0.7 /CUMM) 0 Absolute Basophils (0.0 - 0.2 /CUMM) 0 PUBS MCHC (33.0 - 37.0 G/DL) 32.8 L A/P; 80 y/o F with pmh sig for oxygen dependence 2.5 L, ch resp faliure, lung cancer one year ago with 5 cycles of radiation, not on chemotherapy or surgery, former smoker, hyperlipidemia, mitral valve prolapse, acid reflux, diverticulitis, irritable bowel syndrome, lactose intolerance, osteoarthritis, pseudogout, essential thrombocytosis, constipation, anxiety, frequent urinary tract infections, cholecystectomy, hernia repair, hysterectomy, admitted with mech fall and found to have intertrochenteric right femur fracture s/p repair POD # 1 today. Patient had been hypotensive and tachycardic postoperatively. She will receive one unit of packed RBC transfusion today. Please clarify with orthopedic about use of Coumadin. We will start her on 1000 milligrams of Tylenol scheduled 3 times a day. Continue prn morphine for pain control if her BP can tolerate. Pt to work with PT, encourage Incentive spirometry. On IVFs, Will reevaluate the need after RBC transfusion. DVT Px; On coumadin per ortho. Likely will need to go to rehab.
[2016-10-10 15:51] VITALS: BP 118/62
--- NOTE | 2016-10-10 21:28 | NUR ---
PATIENT DESATING TO 88-89% WHEN SLEEPING. PARTIAL NONREBREATHER MASK WORN WHEN SLEEPING. PATIENT SATING 96% ON 3L OF .
[2016-10-10 23:33] VITALS: BP 120/60
[2016-10-11 06:51] VITALS: BP 120/82
--- NOTE | 2016-10-11 07:37 | PN- Housestaff ---
AZEEM WEBER,[facility] 10/11/16 0737: Subjective Follow-up For: 1. Right hip fracture, status post mechanical fall 2. Acute Blood Loss Anemia 3. 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 Ecchymosis around eyes, with no evidence of facial or head trauma on CT Subjective: The patient seems to be doing better today. She reported pain but markedly better from yesterday, 2-3/10, in the right hip, more when she moves, no chest pain, fever, palpitations, abdominal pain, SOB. Review of Systems Constitutional: Reports: see HPI. Cardiovascular: Reports: no symptoms. Respiratory: Reports: no symptoms. Gastrointestinal: Reports: no symptoms. Genitourinary: Reports: no symptoms. Musculoskeletal: Reports: see HPI. Objective Last 24 Hrs of Vital Signs/I&O Vital Signs Date Time Temp Pulse Resp B/P B/P Pulse O2 O2 Flow FiO2 Mean Ox Delivery Rate 10/11 0905 94 Nasal 3.0L Cannula 10/11 0651 97.9 108 22 120/82 90 Nasal 3.0L Cannula 10/11 0000 Nasal 3.0L Cannula 10/10 2333 98.1 100 22 120/60 95 Nasal 3.0L Cannula 10/10 2112 92 Nasal 3.0L Cannula 10/10 1706 Nasal 3.0L Cannula 10/10 1600 Nasal 3.0L Cannula 10/10 1551 100 118/62 10/10 1118 Nasal 3.0L Cannula Intake & Output 10/11 1600 10/11 0800 10/11 0000 Intake Total 760 650 Output Total 250 300 Balance 510 350 Intake, IV 400 400 Intake, Oral 360 250 Output, Urine 250 300 Physical Exam General Appearance: Alert, Oriented X3, Cooperative, No Acute Distress Neck: No JVD Cardiovascular: Regular Rate, Normal S1, Normal S2, No Murmurs Lungs: Normal Air Movement, no crackles or rhonchi Abdomen: Normal Bowel Sounds, Soft, No Tenderness, No Hepatospenomegaly Neurological: Normal Speech, Normal Tone, difficulty mmoving right lower extremity due to pain, S/P ORIF Extremities: Normal Pulses, right hip in dressing, clean, no erythema, no tenderness Current Medications: Current Medications Sig/Kev Start time Last Medication Dose Route Stop Time Status Admin Acetaminophen 1,000 MG TID 10/10 1152 AC 10/11 PO 0855 Acetaminophen 1,000 MG Q6P PRN 10/10 0915 AC 10/10 N/A 1 UNIT IV 1433 Acetaminophen 650 MG Q6P PRN 10/09 2030 DC 10/10 PO 0816 Albuterol Sulfate 3 ML Q4P PRN 10/10 1130 AC INH Atorvastatin Calcium 10 MG 1700 10/10 1700 AC 10/10 PO 1615 Budesonide/ 2 PUF BID 10/10 1111 AC 10/11 Formoterol Fumarate INH 0855 Cefazolin Sodium 2,000 MG Q8H 10/10 0200 DC 10/10 Sodium Chloride 100 ML IV 10/10 1029 0923 Colchicine 600 MCG DAILY 10/10 1000 AC 10/11 PO 0851 Dicyclomine HCl 10 MG BID 10/09 2200 AC 10/11 PO 0851 Docusate Sodium 100 MG BID 10/10 1000 AC 10/11 PO 0851 Gabapentin 200 MG TID 10/09 2200 AC 10/11 PO 0853 Hydroxyurea 500 MG Q48 10/11 1000 AC 10/11 PO 0853 Hydroxyurea 1,000 MG ONCE ONE 10/10 1815 DC 10/10 PO 10/10 181 2205 Lorazepam 0.5 MG BID PRN 10/09 2030 AC 10/11 PO 10/16 2028 0153 Morphine Sulfate 2 MG Q4P PRN 10/09 2030 AC 10/11 IV 0454 Omeprazole 40 MG DAILY AC 10/10 0700 AC 10/11 PO 0455 Patient Medication 1 ED .STK-MED ONE 10/10 1341 DC Teaching ED 10/10 1342 Senna/Docusate Sodium 1 TAB BID PRN 10/09 2030 AC 10/11 PO 0455 Sodium Chloride 1,000 ML .Q20H 10/10 0200 AC 10/11 IV 0454 Tiotropium [place] 1 PUF DAILY 10/10 1000 AC 10/11 INH 0854 Tramadol HCl 50 MG Q6 PRN 10/10 0900 DC PO Warfarin Sodium 4 MG COUMADIN 1700 ONE 10/11 1700 AC PO 10/11 1701 Last 24 Hrs of Lab/[place] Results Last 24 Hrs of Labs/Mics: Laboratory Tests 10/11/16 0624: PT 21.7 H, INR 2.08 H, CBC w Diff NO MAN DIFF REQ, RBC 2.40 L, MCV 104.5 H, MCH 35.2 H, RDW 19.5 H, MPV 8.5, Gran % 76.3 H, Lymphocytes % 7.8 L, Monocytes % 15.1 H, Eosinophils % 0.8, Basophils % 0 L, Absolute Granulocytes 4.5, Absolute Lymphocytes 0.5 L, Absolute Monocytes 0.9 H, Absolute Eosinophils 0, Absolute Basophils 0, PUBS MCHC 33.7 Lines/Diet/Fluids Catheters/Tubes: bonilla Bonilla Still Needed? Yes (remove today) Assessment/Plan Assessment: 80-year-old lady whose medical issues include hyperlipidemia, pseudogout, GERD, thrombocytosis, 2.5 L home oxygen dependent COPD, former smoker, neuropathy, lung cancer one year ago with 5 cycles of radiation (no chemotherapy or surgery) presents to the emergency room today after having a fall. Patient states that about a week ago she was sitting on a rocking chair and fell asleep and subsequently fell forward on her face and has some residual ecchymoses from that episode. Today she went to use her bedside portable commode and her foot got caught in the leg at the commode and she subsequently fell to the floor onto her right hip, no loss of consciousness, no head strike. Denies any dizziness, chest pain, shortness of breath. She stayed on the floor for about half an hour and subsequently pressed her life alert. At present her only complaint is right hip pain 10 out of 10. Assesment and Plan: 1. Right hip pain status post unwitnessed mechanical fall S/P ORIF: Patient presented with right hip pain, 10 out of 10, severe and sharp after a mechanical fall, sustained a right hip fracture S/P ORIF on 10/09/16, POD # 2 today - Received coumadin 7.5 mg PO on 10/09, no coumadin on 10/10 - Will give 4 mg coumadin toay, INR 2.08 - Pain controll with IV Morphine and IV Acetaminophen, will avoid over sesdation - Oxygen by NC and maintain saturation > 90% - Incentive spirometry post op - PT, partial weight bearing 2. Acute Blood Loss Anemia: - Post op patient was hypotensive to 80s, tachycardic, max HR 126, wascomplaining of chest pain, feelingvery tired, lethargic. Her H&H dropped from 13.3/38.9 pre-op to 8.3/25 post op, symptomatic anemia secondary to perioperative blood loss, S/P 1U PRBCs - H&H low but stable - Will continue to monitor 3. Ecchymosis face s/p fall - Patient also noticed to have ecchymosis around both eyes and around the bridge of the nose. - Patient states that on Monday she was sitting at the edge of her rocking chair and she fell asleep, fell forward and landed on face hitting on the floor. - Denies any visual abnormalities. Denies any pain - Maxillofacial CAT scan-no acute fractures - CAT scan head-no acute intracranial abnormalities - We'll monitor closely for any acute changes. 4. Frequent falls - 2 falls within a week - Vit D 36.6, will benefit from PT - Fall precautions 5. Macrocytic anemia - MCV 108.9 on admission - Folic acid and Vit B12 levels normal - Will monitor 6. Lung cancer - Diagnosed with lung cancer one year ago - Status post a 5 cycles of radiation therapy - Not on chemotherapy - Quit smoking few years ago - Stable 7. COPD - Oxygen dependent COPD, on 3 L, will taper to baseline of 2.5 l - Continue home medications albuterol, Symbicort, Spiriva - Willmonitor oxygen sats to maintain >90% 8. Hyperlipidemia - On simvastatin at home, we'll give Lipitor 9. Acid reflux - On pantoprazole, we'll give omeprazole here 10. Irritable bowel syndrome - Continue home dose of dicyclomine 11. Pseudogout - Continue home dose of colchicine 12. Essential thrombocytosis - Continue home dose of hydroxyurea 13. Supplements - Continue calcium carbonate, vitamin D, multivitamins 14. Constipation - Bowel regimen when necessary, espcially with narcotic pain meds 15. Anxiety - Ativan if necessary DVT prophylaxis - coumadin Pain pathway Regular Diet Full code Problem List: 1. Right femoral fracture 2. COPD (chronic obstructive pulmonary disease) 3. Essential thrombocytosis 4. Hyperlipidemia Pain Ratin Pain Location: right hip Pain Goal: Remain pain free Pain Plan: IV Acetaminopehan and IV Morphine Tomorrow's Labs & Rationales: CBC - follow H&H DVT/Prophylaxis: pharmacological (coumadin) Consulting Request: Consulting Specialty: Orthopedics Consulting Physician: Dr. Dos Santos Reason for Consult: right hip fracture Discharge Plan Discharge Disposition: STR/NH Stable for Discharge? 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 She thinks that she is getting too many inhalers at the same time. She is also concerned about the timings of her Bentyl. Vital Signs Date Time Temp Pulse Resp B/P B/P Pulse O2 O2 Flow FiO2 Mean Ox Delivery Rate 10/11 0905 94 Nasal 3.0L Cannula 10/11 0651 97.9 108 22 120/82 90 Nasal 3.0L Cannula 10/11 0000 Nasal 3.0L Cannula 10/10 2333 98.1 100 22 120/60 95 Nasal 3.0L Cannula 10/10 2112 92 Nasal 3.0L Cannula 10/10 1706 Nasal 3.0L Cannula 10/10 1600 Nasal 3.0L Cannula 10/10 1551 100 118/62 10/10 1118 Nasal 3.0L Cannula on exam; aox3, nad. cv; s1,s2, rrr resp; clear abd; soft, nt, bs+ ext; no edema ms: + dressing on rle, right hip. Laboratory Tests 10/11 0624 Coagulation PT (9.4 - 12.5 SEC) 21.7 H INR (0.90 - 1.19) 2.08 H Hematology CBC w Diff NO MAN DIFF REQ WBC (4.8 - 10.8 /CUMM) 5.9 RBC (4.20 - 5.40 /CUMM) 2.40 L Hgb (12.0 - 16.0 G/DL) 8.4 L Hct (37 - 47 %) 25.1 L MCV (81.0 - 99.0 FL) 104.5 H MCH (27.0 - 31.0 PG) 35.2 H RDW (11.5 - 14.5 %) 19.5 H Plt Count (130 - 400 /CUMM) 146 MPV (7.4 - 10.4 FL) 8.5 Gran % (42.2 - 75.2 %) 76.3 H Lymphocytes % (20.5 - 51.1 %) 7.8 L Monocytes % (1.7 - 9.3 %) 15.1 H Eosinophils % (0 - 5 %) 0.8 Basophils % (0.0 - 2.0 %) 0 L Absolute Granulocytes (1.4 - 6.5 /CUMM) 4.5 Absolute Lymphocytes (1.2 - 3.4 /CUMM) 0.5 L Absolute Monocytes (0.10 - 0.60 /CUMM) 0.9 H Absolute Eosinophils (0.0 - 0.7 /CUMM) 0 Absolute Basophils (0.0 - 0.2 /CUMM) 0 PUBS MCHC (33.0 - 37.0 G/DL) 33.7 A/P; 80 y/o F with pmh sig for oxygen dependence 2.5 L, ch resp faliure, lung cancer one year ago with 5 cycles of radiation, not on chemotherapy or surgery, former smoker, hyperlipidemia, mitral valve prolapse, acid reflux, diverticulitis, irritable bowel syndrome, lactose intolerance, osteoarthritis, pseudogout, essential thrombocytosis, constipation, anxiety, frequent urinary tract infections, cholecystectomy, hernia repair, hysterectomy, admitted with [facility] fall and found to have intertrochenteric right femur fracture s/p repair POD # 2 today. Please change the timing of spiriva to 11 AM. Please change the timing of Bentyl to be given half an hour before breakfast for the morning dose. INR therapeutic. We will dose Coumadin at 4 mg today. H&H though still on the low side, but relatively stable. Will monitor. Hold off on any further transfusion. Blood pressure has stabilized. We'll try to taper her oxygen. Patient was encouraged incentive spirometry. Patient to continue to work with physical therapy. Please KATHY Bonilla. Continue inhalers, TRC nebs. DVT Px; On Coumadin.
[2016-10-11 07:46] LABS: ABSOLUTE BASOPHIL COUNT 0 /CUMM (0.0-0.2); ABSOLUTE EOSINOPHIL COUNT 0 /CUMM (0.0-0.7); ABSOLUTE GRANULOCYTE CT 4.5 /CUMM (1.4-6.5); ABSOLUTE LYMPH COUNT 0.5 /CUMM (1.2-3.4); ABSOLUTE MONOCYTE COUNT 0.9 /CUMM (0.10-0.60); BASOPHIL % 0 % (0.0-2.0); EOSINOPHIL % 0.8 % (0-5); GRANULOCYTE % 76.3 % (42.2-75.2); HEMATOCRIT 25.1 % (37-47); MEAN CORPUSCULAR HGB 35.2 PG (27.0-31.0); MEAN CORPUSCULAR HGB CONC 33.7 G/DL (33.0-37.0); MEAN CORPUSCULAR VOLUME 104.5 FL (81.0-99.0); MEAN PLATELET VOLUME 8.5 FL (7.4-10.4); PLATELET COUNT 146 /CUMM (130-400); RBC DISTRIBUTION WIDTH 19.5 % (11.5-14.5); WHITE BLOOD CELL COUNT 5.9 /CUMM (4.8-10.8)
[2016-10-11 08:25] LABS: PT 21.7 SEC (9.4-12.5)
--- NOTE | 2016-10-11 08:48 | PN- Orthopedic ---
Objective Vital Signs and I&Os Vital Signs Date Time Temp Pulse Resp B/P B/P Pulse O2 O2 Flow FiO2 Mean Ox Delivery Rate 10/11 0651 97.9 108 22 120/82 90 Nasal 3.0L Cannula 10/11 0000 Nasal 3.0L Cannula 10/10 2333 98.1 100 22 120/60 95 Nasal 3.0L Cannula 10/10 2112 92 Nasal 3.0L Cannula 10/10 1706 Nasal 3.0L Cannula 10/10 1600 Nasal 3.0L Cannula 10/10 1551 100 118/62 10/10 1118 Nasal 3.0L Cannula 10/10 0848 102 100/62 Intake & Output 10/11 1600 10/11 0800 10/11 0000 10/10 1600 10/10 0800 10/10 0000 Intake Total 760 823 972 5696 150 Output Total 250 300 300 350 100 Balance 510 116 992 3601 50 Intake, IV 400 129 092 2985 Intake, Oral 360 250 240 150 Output, Urine 250 300 300 350 100 Core Measures/Miscellaneous Venous Thromboembolism VTE Diagnosis: No VTE Type: NONE VTE Confirmed by (Test): NONE
--- NOTE | 2016-10-11 08:52 | PN- Orthopedic ---
Subjective Subjective: Patient complains of moderate pain with ambulating to the right hip and thigh, she is comfortable at rest. Pain medication is helping. She does not feel lightheaded dizzy or weak. Objective Vital Signs and I&Os Vital Signs Date Time Temp Pulse Resp B/P B/P Pulse O2 O2 Flow FiO2 Mean Ox Delivery Rate 10/11 0551 97.9 108 22 120/82 90 Nasal 3.0L Cannula 10/11 0000 Nasal 3.0L Cannula 10/10 2333 98.1 100 22 120/60 95 Nasal 3.0L Cannula 10/10 2112 92 Nasal 3.0L Cannula 10/10 1706 Nasal 3.0L Cannula 10/10 1600 Nasal 3.0L Cannula 10/10 1551 100 118/62 10/10 1118 Nasal 3.0L Cannula 10/10 0848 102 100/62 Intake & Output 10/11 0800 10/11 0000 10/10 1600 10/10 0800 10/10 0000 Intake Total 760 944 573 4248 150 Output Total 250 300 300 350 100 Balance 510 390 806 2662 50 Intake, IV 400 549 124 6126 Intake, Oral 360 250 240 150 Output, Urine 250 300 300 350 100 Physical Exam: Well-developed well-nourished no apparent distress. HEENT: Ecchymosis noted to the periorbital and nasal region, extraocular motion intact Neck: Supple, no lymphadenopathy Respiratory: No respiratory distress Extremities: No edema RIGHT lower extremity hip and thigh dressing in place, Dressing clean dry and intact with minimal bloody staining Incision without erythema Moderate thigh edema No signs of infection. No compartment syndrome No shortening or rotation Hip range of motion is limited and without unexpected pain Neurovascularly intact distally Bilateral calves are supple, nontender. Neuro: Alert and oriented x3 Psych: Mood affect normal, normal memory normal judgment. Skin: Warm and dry, no rash on exposed skin Results Last 48 Hours of Labs: Laboratory Tests 10/11 10/10 0624 0320 Chemistry Troponin I (< 0.11 ng/ml) 0.02 Coagulation PT (9.4 - 12.5 SEC) 21.7 H INR (0.90 - 1.19) 2.08 H Hematology CBC w Diff NO MAN DIFF REQ WBC (4.8 - 10.8 /CUMM) 5.9 RBC (4.20 - 5.40 /CUMM) 2.40 L Hgb (12.0 - 16.0 G/DL) 8.4 L Hct (37 - 47 %) 25.1 L MCV (81.0 - 99.0 FL) 104.5 H MCH (27.0 - 31.0 PG) 35.2 H RDW (11.5 - 14.5 %) 19.5 H Plt Count (130 - 400 /CUMM) 146 MPV (7.4 - 10.4 FL) 8.5 Gran % (42.2 - 75.2 %) 76.3 H Lymphocytes % (20.5 - 51.1 %) 7.8 L Monocytes % (1.7 - 9.3 %) 15.1 H Eosinophils % (0 - 5 %) 0.8 Basophils % (0.0 - 2.0 %) 0 L Absolute Granulocytes (1.4 - 6.5 /CUMM) 4.5 Absolute Lymphocytes (1.2 - 3.4 /CUMM) 0.5 L Absolute Monocytes (0.10 - 0.60 /CUMM) 0.9 H Absolute Eosinophils (0.0 - 0.7 /CUMM) 0 Absolute Basophils (0.0 - 0.2 /CUMM) 0 PUBS MCHC (33.0 - 37.0 G/DL) 33.7 10/10 10/09 0320 2205 Chemistry Sodium (137 - 145 mmol/L) 137 138 Potassium (3.5 - 5.1 mmol/L) 4.5 4.7 Chloride (98 - 107 mmol/L) 104 101 Carbon Dioxide (22 - 30 mmol/L) 28 27 Anion Gap (5 - 16) 6 10 BUN (7 - 17 mg/dL) 20 H 20 H Creatinine (0.5 - 1.0 mg/dL) 0.7 0.8 Estimated GFR (>60 ml/min) > 60 > 60 BUN/Creatinine Ratio (7 - 25 %) 28.6 H 25.0 Troponin I (< 0.11 ng/ml) < 0.01 Coagulation PT (9.4 - 12.5 SEC) 13.2 H INR (0.90 - 1.19) 1.26 H Hematology CBC w Diff NO MAN DIFF REQ NO MAN DIFF REQ WBC (4.8 - 10.8 /CUMM) 6.1 9.6 RBC (4.20 - 5.40 /CUMM) 2.28 L 2.68 L Hgb (12.0 - 16.0 G/DL) 8.3 L 9.7 L Hct (37 - 47 %) 25.0 L 29.4 L MCV (81.0 - 99.0 FL) 109.6 H 109.7 H MCH (27.0 - 31.0 PG) 36.3 H 36.0 H RDW (11.5 - 14.5 %) 13.9 14.3 Plt Count (130 - 400 /CUMM) 179 238 MPV (7.4 - 10.4 FL) 7.6 7.9 Gran % (42.2 - 75.2 %) 76.5 H 76.6 H Lymphocytes % (20.5 - 51.1 %) 8.1 L 8.1 L Monocytes % (1.7 - 9.3 %) 15.3 H 15.0 H Eosinophils % (0 - 5 %) 0 0 Basophils % (0.0 - 2.0 %) 0.1 0.3 Absolute Granulocytes (1.4 - 6.5 /CUMM) 4.6 7.4 H Absolute Lymphocytes (1.2 - 3.4 /CUMM) 0.5 L 0.8 L Absolute Monocytes (0.10 - 0.60 /CUMM) 0.9 H 1.4 H Absolute Eosinophils (0.0 - 0.7 /CUMM) 0 0 Absolute Basophils (0.0 - 0.2 /CUMM) 0 0 PUBS MCHC (33.0 - 37.0 G/DL) 33.1 32.8 L Assessment/Plan Assessment/Plan Postoperative day 2 status post right hip IMHS secondary to intertrochanteric fracture -Orthopedically stable, continue protected weightbearing right lower extremity, out of bed with physical therapy -Acute blood loss anemia-stabilized, recommend transfusion if hematocrit continues to drop lower or if patient becomes symptomatic -DVT prophylaxis-Coumadin: Dose per INR -Dry sterile dressing changes daily by nursing staff
--- NOTE | 2016-10-11 09:45 | Discharge Summary ---
See Addendum Visit Information Visit Dates Admission Date: 10/09/16 Discharge Date: 10/15/2016 Hospital Course Course Attending Physician: LIZ BEATTY MD Primary Care Physician: KERVIN WEBER,PRANEETH Salmeron Consulting Request: Consulting Specialty: Orthopedics Consulting Physician: Dr. 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 Patient states that about a week ago she was sitting on a rocking chair and fell asleep and subsequently fell forward on her face and has some residual ecchymoses from that episode. Today she went to use her bedside portable commode and her foot got caught in the leg at the commode and she subsequently fell to the floor onto her right hip, no loss of consciousness, no head strike. Denies any dizziness, chest pain, shortness of breath. She stayed on the floor for about half an hour and subsequently pressed her life alert. At present her only complaint is right hip pain 10 out of 10. Vitals on admission-afebrile, heart rate 74, respiratory rate 18, blood pressure 146/78, saturating at 97% on 3 L. Pertinent labs on admission-WBC 9.7, H and H 13.3 and 38.9 with MCV elevation 108. Platelet count 276. Urine was clear. Hip x-ray showed intertrochanteric right femoral fracture. Chest x-ray no acute pathology. Head CAT scan normal. Maxillofacial CAT scan no fractures. She was admitted to General Medicine Floor. Problem List: 1. Right hip pain status post unwitnessed mechanical fall S/P ORIF: Patient presented with right hip pain, 10 out of 10, severe and sharp after a mechanical fall, sustained a right hip fracture S/P ORIF on 10/09/16, started on coumadin post op for DVT PPX to maintain a goal INR of 2-3. Pain was controlled initialyy with IV Morphine and IV Acetaminophen, later transitioned to PO ATC Tylenol and PO Tramadol. She was partial weight bearing and underwnet physical therapy that should be continued in rehab. 2. Acute Blood Loss Anemia: The patient had her ORIP on 10/09/16. On post op day # 1, patient was hypotensive to 80s, tachycardic, max HR 126, was complaining of chest pain, feeling very tired and lethargic. Her H&H dropped from 13.3/38.9 pre-op to 8.3/25 post op. She had symptomatic anemia secondary to perioperative blood loss, received 2 unit of packed red blood cells and remained stable thereafter. 3. Hypoxia and tachycardia Hospital course was complicated by hypoxia and tachycardia. Her oxygen saturation dropped down to 88% on 3 L. She was tachycardiac to the range of 110 -130. She was transferred to cardiac floor. Her oxygen saturation was increased up to 5 L. CTA was negative for PE. She was seen by both behavioral health care manager and carbon blocks press operator. It was thought that most likely cause as COPD exacerbation and acute blood loss anemia. She was also started on Solu-Medrol. Trops [address]-T wave changes. She was also started on IV Cardizem drip for rate control. Cardiac monitoring showed runs of V. tach and episodes of MAT vs Afib. She was also given 1 time dose of 2.5 mg IV Lopressor. Her Cardizem drip was titrated down and she was started on by mouth Cardizem. Echo was also ordered. Her heart rate stabilized on Cardizem. She was discharged on tapering dose of prednisone and oral Cardizem. 3. Ecchymosis face s/p fall Patient had ecchymosis around both eyes and around the bridge of the nose on admission that was post fall a week prior to this admission, when she fell on her face from her chair at home. She denied any visual abnormalities, or pain. Maxillofacial CAT scan showed no acute fractures. CAT scan head showed no acute intracranial abnormalities. She was monitored and remained stable. 4. Frequent falls: The patient has had 2 falls within a week prior to admission, the second one resulting in hip fracture. Vit D was 36.6, she was maintained on fall precautions and evluation by PT recommended PT at rehab. 5. Macrocytic anemia MCV 108.9 on admission, which is chronic and at baseline. Folic acid and Vit B12 levels were normal. 6. Lung cancer Ms Leon was diagnosed with lung cancer one year prior to admission, status post 5 cycles of radiation therapy, not on chemotherapy. Quit smoking few years ago. Remained stable. 7. COPD Patient has a history of oxygen dependent COPD, on 2.5 L, at home. Initially she was placed on 3 liters upon admision and post op. She was also started on incentive spirometry to avoid atelectasis post op. She was continued on home medications albuterol, Symbicort, Spiriva and was monitored to keep oxygen sats >90% 8. Hyperlipidemia: She was continued on Lipitor 9. Acid reflux: She was continued on omeprazole 10. Irritable bowel syndrome: She was continue home dose of dicyclomine 11. Pseudogout: She was continued on continue home dose of colchicine 12. Essential thrombocytosis: She was continued on home dose of hydroxyurea DVT prophylaxis - coumadin Pain pathway Regular Diet Full code Complications: Acute on chronic hypoxic respiratory failure Tachycardia Allergies: Coded Allergies: adhesive tape (RED AND IRRITATED - PAPER TAPE IS OK 10/06/15) oxycodone (PER PT CANT REMEMBER 10/06/15) amitriptyline (NIGHTMARES 10/07/15) ciprofloxacin (From Cipro HC) (STOMACH IRRITATION 10/07/15) erythromycin base (From Erythrocin) (STOMACH IRRITATION 10/07/15) hydrocortisone (From Cipro HC) (STOMACH IRRITATION 10/07/15) lactose (LACTOSE INTOLERANT 10/07/15) Significant Procedures: Right hip repair (ORIF) Pertinent Lab Results: Laboratory Tests 10/11/16 0624: PT 21.7 H, INR 2.08 H, CBC w Diff NO MAN DIFF REQ, RBC 2.40 L, MCV 104.5 H, MCH 35.2 H, RDW 19.5 H, MPV 8.5, Gran % 76.3 H, Lymphocytes % 7.8 L, Monocytes % 15.1 H, Eosinophils % 0.8, Basophils % 0 L, Absolute Granulocytes 4.5, Absolute Lymphocytes 0.5 L, Absolute Monocytes 0.9 H, Absolute Eosinophils 0, Absolute Basophils 0, PUBS MCHC 33.7 10/10/16 0320: Troponin I 0.02 10/10/16 0320: Anion Gap 6, Estimated GFR > 60, BUN/Creatinine Ratio 28.6 H, PT 13.2 H, INR 1.26 H, CBC w Diff NO MAN DIFF REQ, RBC 2.28 L, MCV 109.6 H, MCH 36.3 H, RDW 13.9, MPV 7.6, Gran % 76.5 H, Lymphocytes % 8.1 L, Monocytes % 15.3 H, Eosinophils % 0, Basophils % 0.1, Absolute Granulocytes 4.6, Absolute Lymphocytes 0.5 L, Absolute Monocytes 0.9 H, Absolute Eosinophils 0, Absolute Basophils 0, PUBS MCHC 33.1 10/09/16 2205: Anion Gap 10, Estimated GFR > 60, BUN/Creatinine Ratio 25.0, Troponin I < 0.01, CBC w Diff NO MAN DIFF REQ, RBC 2.68 L, MCV 109.7 H, MCH 36.0 H, RDW 14.3, MPV 7.9, Gran % 76.6 H, Lymphocytes % 8.1 L, Monocytes % 15.0 H, Eosinophils % 0, Basophils % 0.3, Absolute Granulocytes 7.4 H, Absolute Lymphocytes 0.8 L, Absolute Monocytes 1.4 H, Absolute Eosinophils 0, Absolute Basophils 0, PUBS MCHC 32.8 L 10/09/16 0625: Anion Gap 9, Estimated GFR > 60, BUN/Creatinine Ratio 27.1 H, CBC w Diff NO MAN DIFF REQ, RBC 3.31 L, MCV 108.7 H, MCH 36.5 H, RDW 14.0, MPV 8.6, Gran % 82.5 H, Lymphocytes % 5.2 L, Monocytes % 12.3 H, Eosinophils % 0, Basophils % 0 L , Absolute Granulocytes 6.8 H, Absolute Lymphocytes 0.4 L, Absolute Monocytes 1.0 H, Absolute Eosinophils 0, Absolute Basophils 0, PUBS MCHC 33.6 10/09/16 0326: Urine Color YEL, Urine Clarity CLEAR, Urine pH 6.0, Ur Specific [place] 1.020, Urine Protein NEG, Urine Ketones NEG, Urine Nitrite NEG, Urine Bilirubin NEG, Urine Urobilinogen 0.2, Ur Leukocyte Esterase NEG, Ur Microscopic EXAM NOT REQUIRED, Urine Hemoglobin NEG, Urine Glucose NEG 10/09/16 0207: Anion Gap 9, Estimated GFR > 60, BUN/Creatinine Ratio 28.6 H, Glucose 117 H, Calcium 9.1, Iron 103, TIBC 337, Ferritin 76.0, Total Bilirubin 0.6, AST 24, ALT 39, Alkaline Phosphatase 60, Troponin I < 0.01, Total Protein 6.6, Albumin 4.0, Globulin 2.6, Albumin/Globulin Ratio 1.5, Vitamin B12 355, 25-OH Vitamin D Total 36.6, Folate > 20.0 H, TSH 1.370, Free T4 1.22, PT 11.2, INR 1.07, CBC w Diff NO MAN DIFF REQ, RBC 3.57 L, MCV 108.9 H, MCH 37.1 H, RDW 13.4, MPV 7.6, Gran % 79.4 H, Lymphocytes % 10.5 L, Monocytes % 9.0, Eosinophils % 0.8, Basophils % 0.3, Absolute Granulocytes 7.7 H, Absolute Lymphocytes 1.0 L, Absolute Monocytes 0.9 H, Absolute Eosinophils 0.1, Absolute Basophils 0, PUBS MCHC 34.1 Microbiology 10/09 0326 URINE ROUT: Urine Culture - COMP Disposition Summary Disposition Principal Diagnosis: 1. Right hip fracture, status post mechanical fall 2. Acute Blood Loss Anemia 3. 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 Ecchymosis around eyes, with no evidence of facial or head trauma on CT Additional Diagnosis: Acute on chronic hypoxic respiratory failure secondary to COPD exacerbation Persistent Tachycardia Discharge Disposition: SNF Discharge Instructions General Discharge Information Code Status: Full Code Patient's Diet: Regular Patient's Activity: Partial Weight bearing on right leg Follow-Up Instructions/Appts: 1. Follow up with Dr. Dos Santos after discharge 2. Follow up with your primary care physician, Dr. Queen after discharge 3. Contiue with coumadin and dose it daily for agoal INR of 2-3, follow up with ortho for duration, likely 6 weeks 4. Pain control preferably with Tylenol, but may use percocet, avoid sedation or over use 5. COntinue with oxygen by nasal cannula at 2.5 liters (baseline) 6. Check CBC and INR on 10/16/[address] Queen 7. Please follow-up with Dr. Patrick next week after discharge Medications at Discharge Discharge Medications: Continue taking these medications: Hydroxyurea (Hydrea) 500 MG CAPSULE 2 Capsule ORAL Every other day Comments: NOT GIVEN IN HOSPITAL Hydroxyurea (Hydrea) 500 MG CAPSULE 1 Capsule ORAL Every other day Comments: Last Taken: 10/17/16 Time: 10AM Tiotropium [place] (Spiriva Respimat) 4 GM MIST.INHAL 1 Capsule ORAL Every Morning Qty = 12 Comments: Last Taken: 10/17/16 Time: 10AM Estradiol (Estrace) 42.5 GM CREAM.APPL 1 Gram VAGINAL EVERY MONDAY Qty = 43 Comments: NOT GIVEN IN HOSPITAL Aspirin (Ecotrin*) 81 MG TABLET.DR 1 Tablet ORAL DAILY Comments: NOT GIVEN IN HOSPITAL Colchicine (Colcrys) 0.6 MG TABLET 1 Tablet ORAL DAILY Comments: Last Taken: 10/17/16 Time: 10AM Dicyclomine HCl (Dicyclomine HCl) 10 MG CAPSULE 1 Tablet ORAL TWICE DAILY Comments: Last Taken: 10/17/16 Time: 8AM Lorazepam (Ativan) 0.5 MG TABLET 1 Tablet ORAL TWICE DAILY as needed for ANXIETY Comments: Last Taken: 10/14/16 Time:10AM Pantoprazole Sodium (Pantoprazole Sodium) 40 MG TABLET.DR 1 Tablet ORAL DAILY Comments: Last Taken: 10/17/16 Time: 6AM PRILOSEC GIVEN Fluticasone/Vilanterol (Breo Ellipta 200-25 Mcg INH) 200 MCG-25 MCG/DOSE BLST.W.DEV 1 PUFF ORAL TWICE DAILY Comments: NOT GIVEN IN HOSPITAL Gabapentin (Gabapentin) 100 MG CAPSULE 2 Capsule ORAL THREE TIMES DAILY Comments: Last Taken: 10/17/16 Time: 10AM Start taking the following new medications: Acetaminophen (Acetaminophen) 500 MG TABLET 1,000 Milligram ORAL THREE TIMES DAILY Days = 28 No Refills Comments: Last Taken: 10/17/16 Time: 10AM Sennosides/Docusate Sodium (Senna Plus Tablet) 8.6 MG-50 MG TABLET 1 Tablet ORAL TWICE DAILY as needed for CONSTIPATION Days = 14 No Refills Comments: Last Taken: 10/11/16 Time: 5AM Cyanocobalamin (Vitamin B-12) 1,000 MCG TABLET 1 Tablet ORAL DAILY Qty = 30 No Refills Comments: Last Taken: 10/17/16 Time: 10AM Diltiazem HCl (Diltiazem 12HR ER) 60 MG CAP.ER.12H 180 Milligram ORAL TWICE DAILY Qty = 30 No Refills Comments: Last Taken: 10/17/16 Time: 10AM Tramadol HCl (Tramadol HCl) 50 MG TABLET 1 Tablet ORAL EVERY SIX HOURS NEEDED as needed for PAIN CONTROL Qty = 30 No Refills Comments: Last Taken: 10/16/16 Time: 9PM Prednisone (Prednisone) 10 MG TABLET 1 Tablet ORAL See Instructions Qty = 28 No Refills Instructions: 5 TABS DAILY FOR 2 DAYS 4 TABS DAILY FOR 3 DAYS 3 TABS DAILY FOR 3 DAYS 2 TABS DAILY FOR 3 DAYS 1 TAB DAILY FOR 3 DAYS AND THEN STOP Copies To: KERVIN WEBER,PRANEETH Salmeron; ROGERIO WEBER,LIZ; SHAHRAM WEBER,MOLLY
--- NOTE | 2016-10-11 09:47 | Patient Discharge Instructions ---
Discharge Instructions General Discharge Information You were seen/treated for: 1. Right hip fracture, status post mechanical fall 2. Acute Blood Loss Anemia 3. 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 Ecchymosis around eyes, with no evidence of facial or head trauma on CT You had these procedures: RIGHT HIP REPAIR - ORIF Special Instructions: 1. Follow up with Dr. Dos Santos after discharge 2. Follow up with your primary care physician, Dr. Queen after discharge 3. Contiue with coumadin. PLEASE CHECK INR DAILY FOR FIRST 3-4 DAYS and dose COUMADIN DAILY ACCORDING TO INR. goal INR of 2-3 4. Pain control preferably with Tylenol, avoid oxycodone, causes GI upset 5. COntinue with oxygen by nasal cannula at 2.5 liters (baseline) 6. Check CBC 10/19/[address] Queen 7. Please follow-up with Dr. Patrick within 1 week after discharge. Diet Continue normal diet: Yes Activity Full Activity/No Limits: No Additional ACTIVITY Info: Physical therapy, Partial Weight Bearing on right leg Acute Coronary Syndrome Inclusion Criteria At DC or during hospital stay patient has or had the following: ACS DIAGNOSIS No Discharge Core Measures Meds if any: Prescribed or Continued at Discharge Meds if any: NOT Prescribed or Continued at Discharge Congestive Heart Failure Inclusion Criteria At DC or during hospital stay patient has or had the following: CHF DIAGNOSIS No Discharge Core Measures Meds if any: Prescribed or Continued at Discharge Meds if any: NOT Prescribed or Continued at Discharge Cerebrovascular accident Inclusion Criteria At DC or during hospital stay patient has or had the following: CVA/TIA Diagnosis No Discharge Core Measures Meds if any: Prescribed or Continued at Discharge Meds if any: NOT Prescribed or Continued at Discharge Venous thromboembolism Inclusion Criteria VTE Diagnosis No VTE Type NONE VTE Confirmed by (Test) NONE Discharge Core Measures - Per Current guidelines, there needs to be overlap - treatment for the first 5 days of Warfarin therapy. - If discharged on Warfarin prior to 5 days of - overlap therapy, the patient will need to be - assessed for post discharge needs including - *Post discharge parental anticoagulation - *Warfarin and/or parental anticoagulation education - *Follow up date to check INR post discharge At least 5 days overlap therapy as Inpatient No Meds if any: Prescribed or Continued at Discharge Note: Overlap Therapy is Warfarin and Anticoagulant Meds if any: NOT Prescribed or Continued at Discharge
[2016-10-11] MEDS ORDERED: SENNA PLUS TAB1 EACH PO (09:49)
[2016-10-11] MEDS ORDERED: ACETAMINOPHEN500 M4 PO (09:49)
[2016-10-11] MEDS ORDERED: PERCOCET 5-3251 EACH PO ×3 (14:23→14:30)
[2016-10-11] MEDS ORDERED: TRAMADOL HCL50 M1 PO (14:33)
[2016-10-11] MEDS ORDERED: COUMADIN5 M2 PO ×2 (14:41→14:42)
[2016-10-11 14:43] VITALS: BP 118/72
--- NOTE | 2016-10-11 21:45 | NUR ---
NURSING NOTE: WHILE IN PTS ROOM PASSING MEDS, MST WAS TAKING PT'S VITALS AND PTS 02 AT 84 ON 3.5 L, BP 140/74, HR 131, RR 27, TEMP 98.3 TAKEN ORALLY AND AXILLARY. PT STATED SHE WAS HAVING PRESSURE IN HER CHEST, FELT SWEATY, WARM TO TOUCH, PULSE IRREGULAR, AND C/O OF LEG PAIN. PT WAS MOVED UP TO 4.0 L AND STILL SATING AT 85%. RAPID RESPONSE CALLED FOR UNSTABLE VITALS. SUGAR 155. STAT LABS DRAWN, EKG, AND CHEST XRAY ORDERED. PT GIVEN NITRO AND ASPIRIN 1X. PT MOVED UP TO 5.0 L AND SAT AT 92%. TELE TRANSFER IN PLACE AND PT MOVED TO TELE. NO FURTHER ORDERS AT THIS TIME. WILL CONTINUE TO MONITOR.
[2016-10-11 22:08] LABS: ABSOLUTE BASOPHIL COUNT 0 /CUMM (0.0-0.2); ABSOLUTE EOSINOPHIL COUNT 0 /CUMM (0.0-0.7); ABSOLUTE GRANULOCYTE CT 5.6 /CUMM (1.4-6.5); ABSOLUTE LYMPH COUNT 0.6 /CUMM (1.2-3.4); ABSOLUTE MONOCYTE COUNT 0.7 /CUMM (0.10-0.60); BASOPHIL % 0.2 % (0.0-2.0); EOSINOPHIL % 0.6 % (0-5); GRANULOCYTE % 80.1 % (42.2-75.2); HEMATOCRIT 24.8 % (37-47); MEAN CORPUSCULAR HGB 34.4 PG (27.0-31.0); MEAN PLATELET VOLUME 7.6 FL (7.4-10.4); PLATELET COUNT 181 /CUMM (130-400); RBC DISTRIBUTION WIDTH 19.1 % (11.5-14.5); RED BLOOD CELL CT 2.39 /CUMM (4.20-5.40)
[2016-10-11 22:14] VITALS: BP 140/74
--- NOTE | 2016-10-11 22:26 | RADIOLOGY REPORT ---
EXAMINATION: XR PORTABLE CHEST CLINICAL INFORMATION: Acute shortness of breath. COMPARISON: Portable chest study 10/09/[address] chest 10/10/2016 TECHNIQUE: Portable frontal view of the chest was obtained. 10:03 PM FINDINGS: Emphysematous hyperinflation of lungs. No acute infiltrate. No pulmonary vascular congestion or pleural effusion. Cardiac and mediastinal contour normal. Heart size normal. There are calcifications of thoracic aorta IMPRESSION: No acute change of the chest.
[2016-10-11 22:30] VITALS: BP 134/76
--- NOTE | 2016-10-11 23:24 | Event Note ---
See Addendum Event Note Event Note: Rapid response was called around 9:45 PM regarding patient's tachycardia and hypoxia. Her heart rate was in the 130s and tachypnea up to 27 and hypoxia at 88% on 4 L. She is afebrile. Patient complained chest pressure. Not radiating to neck or shoulders. Denies any difficulty breathing. Denies any racing of heart. She denies any pain at the site of surgery. * Stat EKG was ordered which showed sinus tachycardia rate 130. * Sublingual nitroglycerin was given for chest pain. * Stat troponins were ordered. * Stat chest x-ray, ABG, CBC, BEP Ordered. * She was transferred to telemetry floor for continuous telemetry monitoring and she was kept on continuous pulse ox. * Neurovascular checks were ordered. * IV methylprednisolone 125 mg 1 dose was given. * She was started on IV methylprednisolone 40 mg every 8hrs. * Plan discussed with Dr. Villeda. * Family was notified by Dr. Carmen hilton. ADDENDUM 12:50 AM by Linda Oliver MD- shortly after the rapid response, I spoke with the patient's daughter Ana Maria and provided her with an update regarding her mom's health. All questions were answered, concerns were addressed. lab updates * WBC 7- no change * H and H maintained stable * ABG showed pH 7.45, PCO2 34, PO2 63 * BEP normal * Troponins normal * Chest x-ray clear, no acute changes of chest
--- NOTE | 2016-10-12 08:01 | Cons- Pulmonary ---
General Information and HPI Consulting Request Date of Consult: 10/12/16 Requested By: brandy Reason for Consult: Shortness of breath History of Present Illness: Patient is a 80-year-old woman with severe oxygen-dependent COPD status post empiric radiation of her right upper lobe lung mass admitted for hip fracture secondary to mechanical fall. Her courses, complicated by acute blood loss anemia an episode of hypotension shortness of breath and tachycardia. CTA was negative for pulmonary embolism or acute pulmonary findings. Patient was volume resuscitated and this morning feels somewhat improved but remained short of breath. Of note her baseline hematocrit is 40 and she is currently at 24. Allergies/Medications Allergies: Coded Allergies: adhesive tape (RED AND IRRITATED - PAPER TAPE IS OK 10/06/15) oxycodone (PER PT CANT REMEMBER 10/06/15) amitriptyline (NIGHTMARES 10/07/15) ciprofloxacin (From Cipro HC) (STOMACH IRRITATION 10/07/15) erythromycin base (From Erythrocin) (STOMACH IRRITATION 10/07/15) hydrocortisone (From Cipro HC) (STOMACH IRRITATION 10/07/15) lactose (LACTOSE INTOLERANT 10/07/15) Home Med List: Acetaminophen 500 MG TABLET 1,000 MG PO TID right hip pain Aspirin (Ecotrin*) 81 MG TABLET.DR 1 TAB PO DAILY HEART/BLOOD (Reported) Colchicine (Colcrys) 0.6 MG TABLET 1 TAB PO DAILY GOUT (Reported) Dicyclomine HCl 10 MG CAPSULE 1 TAB PO BID IBS (Reported) Estradiol (Estrace) 42.5 GM CREAM.APPL 1 GM VG QFRI HRT (Reported) Fluticasone/Vilanterol (Breo Ellipta 200-25 Mcg INH) 200 MCG-25 MCG/DOSE BLST.W.DEV 1 PUFF PO BID COPD (Reported) Gabapentin 100 MG CAPSULE 2 CAP PO TID PAIN (Reported) Hydroxyurea (Hydrea) 500 MG CAPSULE 2 CAP PO EOD ESSENTIAL THROMBOCYTOSIS ( Reported) Hydroxyurea (Hydrea) 500 MG CAPSULE 1 CAP PO EOD ESSENTIAL THROMBOCYTOSIS ( Reported) Lorazepam (Ativan) 0.5 MG TABLET 1 TAB PO BID PRN ANXIETY (Reported) Pantoprazole Sodium 40 MG TABLET.DR 1 TAB PO DAILY GI (Reported) Sennosides/Docusate Sodium (Senna Plus Tablet) 8.6 MG-50 MG TABLET 1 TAB PO BID PRN CONSTIPATION Simvastatin (Zocor*) 20 MG TABLET 1 TAB PO QPM CHOLESTEROL (Reported) Tiotropium [place] (Spiriva Respimat) 4 GM MIST.INHAL 1 CAP PO QAM COPD ( Reported) Tramadol HCl 50 MG TABLET 1 TAB PO Q6P PRN PAIN CONTROL Warfarin Sodium (Coumadin) 5 MG TABLET 1 TAB PO DAILY POST OP PLEASE DOSE TO KEEP INR BETWEEN 2-3 FOLLOW WITH ORTHO FOR DURATION, MOST LIKELY 6 WEEKS Review of Systems Review of Systems Constitutional: Denies: chills, fever. Cardiovascular: Denies: chest pain, edema. Respiratory: Reports: short of breath. Denies: cough, hemoptysis. GI: Denies: abdominal pain, diarrhea, melena. 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 Home Who Do You Live With? self Services at Home: None Smoking Status: Former Smoker ETOH Use: denies use Illicit Drug Use: denies illicit drug use Living Will? yes Functional Ability ADLs Independent: dressing, eating, toileting, bathing. Ambulation: independent IADLs Independent: shopping, housework, finances, food prep, telephone, transportation , medication admin. Exam & Diagnostic Data Last 24 Hrs of Vital Signs/I&O Vital Signs Date Time Temp Pulse Resp B/P B/P Pulse O2 O2 Flow FiO2 Mean Ox Delivery Rate 10/12 0000 95 Nasal 5.0L Cannula 10/11 2229 98.6 115 28 134/76 94 Nasal 5.0L Cannula 10/11 2213 98.3 131 27 140/74 88 Nasal 4.0L Cannula 10/11 1949 94 Nasal 3.0L Cannula 10/11 1443 98.1 113 20 118/72 92 Nasal 3.0L Cannula 10/11 0905 94 Nasal 3.0L Cannula 10/12 799 92 Nasal 3.0L Cannula Intake & Output 10/12 0800 10/12 0000 10/11 1600 Intake Total 250 390 Output Total 450 475 Balance -200 -85 Intake, IV 0 150 Intake, Oral 250 240 Number 0 Bowel Movements Output, Urine 450 475 Oxygen saturation 5 L 95% exam for chest shows diminished breath sounds are no wheezes cardiac exam shows regular rhythm abdomen is soft nontender there's no edema or calf tenderness Last 48 Hrs of Labs/[place]: Laboratory Tests 10/12/16 0615: Sodium Pending, Potassium Pending, Chloride Pending, Carbon Dioxide Pending, Anion Gap Pending, BUN Pending, Creatinine Pending, BUN/Creatinine Ratio Pending 10/11/162154: Sodium Cancelled, Potassium Cancelled, Chloride Cancelled, Carbon Dioxide Cancelled, Anion Gap Cancelled, BUN Cancelled, Creatinine Cancelled, BUN/ Creatinine Ratio Cancelled 10/11/162154: pH 7.45, pCO2 34 L, pO2 63 L, HCO3 23, ABG O2 Sat (Measured) 93.0 L, P-50 ( Temp Corrected) N, Carboxyhemoglobin 0.5 L, O2 Concentration % 5L, O2 Delivery Method N/C, Anion Gap 8, Estimated GFR > 60, BUN/Creatinine Ratio 21.7, Troponin I 0.01, CBC w Diff NO MAN DIFF REQ, RBC 2.39 L, MCV 104.0 H, MCH 34.4 H, RDW 19.1 H, MPV 7.6, Gran % 80.1 H, Lymphocytes % 8.9 L, Monocytes % 10.2 H, Eosinophils % 0.6, Basophils % 0.2, Absolute Granulocytes 5.6, Absolute Lymphocytes 0.6 L, Absolute Monocytes 0.7 H, Absolute Eosinophils 0, Absolute Basophils 0, PUBS MCHC 33.0, Phlebotomy Draw Site RIGHT RADIAL 10/11/16 0624: PT 21.7 H, INR 2.08 H, CBC w Diff NO MAN DIFF REQ, RBC 2.40 L, MCV 104.5 H, MCH 35.2 H, RDW 19.5 H, MPV 8.5, Gran % 76.3 H, Lymphocytes % 7.8 L, Monocytes % 15.1 H, Eosinophils % 0.8, Basophils % 0 L, Absolute Granulocytes 4.5, Absolute Lymphocytes 0.5 L, Absolute Monocytes 0.9 H, Absolute Eosinophils 0, Absolute Basophils 0, PUBS MCHC 33.7 Assessment/Plan Impression/Plan: 80-year-old woman status post hip surgery and acute blood loss anemia in the setting of severe oxygen-dependent COPD. With shortness of breath is likely multifactorial related to COPD and acute blood loss anemia. There is no evidence for urinary embolism Recommendations: Continue IV steroids taper FiO2 with improved saturations. Continue nebs. If tachypnea persists consider transfusion to a higher hematocrit given her baseline is close to 40 Consult Acknowledgment - Thank you for your consult request.
[2016-10-12 08:57] VITALS: BP 140/78
--- NOTE | 2016-10-12 09:39 | PN- Orthopedic ---
See Addendum Subjective Subjective: Reports some shortness of breath this morning. Rapid response last night due to tachycardia and hypotension, for which she was given iv fluids. CTA negative for PE. Pulm consult called. Objective Vital Signs and I&Os Vital Signs Date Time Temp Pulse Resp B/P B/P Pulse O2 O2 Flow FiO2 Mean Ox Delivery Rate 10/12 0857 98.4 115 22 140/78 93 Nasal 5.0L Cannula 10/12 0000 95 Nasal 5.0L Cannula 10/110 98.6 115 28 134/76 94 Nasal 5.0L Cannula 10/11 2214 98.3 131 27 140/74 88 Nasal 4.0L Cannula 10/11 1949 94 Nasal 3.0L Cannula 10/11 1443 98.1 113 20 118/72 92 Nasal 3.0L Cannula Intake & Output 10/12 1600 10/12 0800 10/12 0000 10/11 1600 10/11 0800 10/11 0000 Intake Total 250 390 760 650 Output Total 450 475 250 300 Balance -200 -85 510 350 Intake, IV 0 150 400 400 Intake, Oral 250 240 360 250 Number 0 Bowel Movements Output, Urine 450 475 250 300 Physical Exam: right hip dressings removed. incisions well approximated with cyndi. no exudates. skin tear noted along the most superior incision, likely from silk tape. ecchymoses and swelling noted along right thigh. relatively soft. nvi distally. calves soft and nontender b/l. Assessment/Plan Assessment/Plan This 80 year old female with multiple medical problems is POD#3 s/p right hip IMHS secondary to intertrochanteric fracture dressings changed. continue dry guaze dressing changes daily, right hip incisions. continue PT as able, when cleared by primary team. protected weight bearing, rle f/u labs coumadin accordingly - dvt ppx cyndi to be removed around POD#14 likely d/c to short term rehab when stable will d/w
[2016-10-12 10:00] LABS: ABSOLUTE BASOPHIL COUNT 0 /CUMM (0.0-0.2); ABSOLUTE EOSINOPHIL COUNT 0 /CUMM (0.0-0.7); ABSOLUTE GRANULOCYTE CT 8.6 /CUMM (1.4-6.5); ABSOLUTE LYMPH COUNT 0.4 /CUMM (1.2-3.4); ABSOLUTE MONOCYTE COUNT 0.2 /CUMM (0.10-0.60); BASOPHIL % 0.1 % (0.0-2.0); EOSINOPHIL % 0.1 % (0-5); GRANULOCYTE % 92.7 % (42.2-75.2); HEMATOCRIT 26.6 % (37-47); MEAN CORPUSCULAR HGB 34.8 PG (27.0-31.0); MEAN CORPUSCULAR HGB CONC 33.6 G/DL (33.0-37.0); MEAN CORPUSCULAR VOLUME 103.6 FL (81.0-99.0); MEAN PLATELET VOLUME 8.9 FL (7.4-10.4); PLATELET COUNT 241 /CUMM (130-400); RBC DISTRIBUTION WIDTH 20.1 % (11.5-14.5); RED BLOOD CELL CT 2.56 /CUMM (4.20-5.40); WHITE BLOOD CELL COUNT 9.3 /CUMM (4.8-10.8)
[2016-10-12 10:15] LABS: PT 25.9 SEC (9.4-12.5)
--- NOTE | 2016-10-12 10:34 | PN- Att Addend ---
Attending Addendum Attending Brief Note Patient seen and examined, she was feeling short of breath. She was getting her [facility] nebs treatment when I saw her. Overnight patient was moved to telemetry secondary to shortness of breath as well as hypoxia and acute on chronic respiratory failure. Vital Signs Date Time Temp Pulse Resp B/P B/P Pulse O2 O2 Flow FiO2 Mean Ox Delivery Rate 10/12 0945 94 Nasal 4.0L Cannula 10/12 0857 98.4 115 22 140/78 93 Nasal 5.0L Cannula 10/12 0000 95 Nasal 5.0L Cannula 10/11 2230 98.6 115 28 134/76 94 Nasal 5.0L Cannula 10/11 2214 98.3 131 27 140/74 88 Nasal 4.0L Cannula 10/11 1949 94 Nasal 3.0L Cannula 10/11 1443 98.1 113 20 118/72 92 Nasal 3.0L Cannula on exam; aox3, mild ditress 2/2 to sob. cv; s1,s2, rrr resp; decreased bs overall. abd; soft, nt, bs+ ext; no edema on lle, + edema rle with swelling up until thigh and + bruising around the surgical site. Laboratory Tests 10/12 10/12 0920 0839 Blood Gas pH (7.35 - 7.45 PH) 7.45 pCO2 (35 - 45 TORR) 34 L pO2 (80 - 100 TORR) 69 L HCO3 (21 - 28 MEQ/L) 23 ABG O2 Sat (Measured) (>96.0 %) 94.0 L P-50 (Temp Corrected) N Carboxyhemoglobin (1.5 - 5.0 %) 0.5 L O2 Concentration % 4LPM O2 Delivery Method NC Coagulation PT (9.4 - 12.5 SEC) 25.9 H INR (0.90 - 1.19) 2.49 H Hematology CBC w Diff MAN DIFF ORDERED WBC (4.8 - 10.8 /CUMM) 9.3 RBC (4.20 - 5.40 /CUMM) 2.56 L Hgb (12.0 - 16.0 G/DL) 8.9 L Hct (37 - 47 %) 26.6 L MCV (81.0 - 99.0 FL) 103.6 H MCH (27.0 - 31.0 PG) 34.8 H RDW (11.5 - 14.5 %) 20.1 H Plt Count (130 - 400 /CUMM) 241 MPV (7.4 - 10.4 FL) 8.9 Gran % (42.2 - 75.2 %) 92.7 H Lymphocytes % (20.5 - 51.1 %) 4.7 L Monocytes % (1.7 - 9.3 %) 2.4 Eosinophils % (0 - 5 %) 0.1 Basophils % (0.0 - 2.0 %) 0.1 Absolute Granulocytes (1.4 - 6.5 /CUMM) 8.6 H Absolute Lymphocytes (1.2 - 3.4 /CUMM) 0.4 L Absolute Monocytes (0.10 - 0.60 /CUMM) 0.2 Absolute Eosinophils (0.0 - 0.7 /CUMM) 0 Absolute Basophils (0.0 - 0.2 /CUMM) 0 Platelet Estimate (ADEQUATE) VERIFIED BY SMEAR Polychromasia 1+ Anisocytosis 1+ Macrocytic Cells 1+ PUBS MCHC (33.0 - 37.0 G/DL) 33.6 Miscellaneous Phlebotomy Draw Site RIGHT BRACHIAL 10/12 10/11 10/11 0615 2155 2155 Blood Gas pH (7.35 - 7.45 PH) 7.45 pCO2 (35 - 45 TORR) 34 L pO2 (80 - 100 TORR) 63 L HCO3 (21 - 28 MEQ/L) 23 ABG O2 Sat (Measured) (>96.0 %) 93.0 L P-50 (Temp Corrected) N Carboxyhemoglobin (1.5 - 5.0 %) 0.5 L O2 Concentration % 5L O2 Delivery Method N/C Chemistry Sodium (137 - 145 mmol/L) 140 Cancelled 137 Potassium (3.5 - 5.1 mmol/L) 4.2 Cancelled 3.7 Chloride (98 - 107 mmol/L) 105 Cancelled 104 Carbon Dioxide (22 - 30 mmol/L) 26 Cancelled 25 Anion Gap (5 - 16) 9 Cancelled 8 BUN (7 - 17 mg/dL) 13 Cancelled 13 Creatinine (0.5 - 1.0 mg/dL) 0.6 Cancelled 0.6 Estimated GFR (>60 ml/min) > 60 > 60 BUN/Creatinine Ratio (7 - 25 %) 21.7 Cancelled 21.7 Troponin I (< 0.11 ng/ml) < 0.01 0.01 Hematology CBC w Diff NO MAN DIFF REQ WBC (4.8 - 10.8 /CUMM) 7.0 RBC (4.20 - 5.40 /CUMM) 2.39 L Hgb (12.0 - 16.0 G/DL) 8.2 L Hct (37 - 47 %) 24.8 L MCV (81.0 - 99.0 FL) 104.0 H MCH (27.0 - 31.0 PG) 34.4 H RDW (11.5 - 14.5 %) 19.1 H Plt Count (130 - 400 /CUMM) 181 MPV (7.4 - 10.4 FL) 7.6 Gran % (42.2 - 75.2 %) 80.1 H Lymphocytes % (20.5 - 51.1 %) 8.9 L Monocytes % (1.7 - 9.3 %) 10.2 H Eosinophils % (0 - 5 %) 0.6 Basophils % (0.0 - 2.0 %) 0.2 Absolute Granulocytes (1.4 - 6.5 /CUMM) 5.6 Absolute Lymphocytes (1.2 - 3.4 /CUMM) 0.6 L Absolute Monocytes (0.10 - 0.60 /CUMM) 0.7 H Absolute Eosinophils (0.0 - 0.7 /CUMM) 0 Absolute Basophils (0.0 - 0.2 /CUMM) 0 PUBS MCHC (33.0 - 37.0 G/DL) 33.0 Miscellaneous Phlebotomy Draw Site RIGHT RADIAL A/P; 80 y/o F with pmh sig for oxygen dependence 2.5 L, ch resp faliure, lung cancer one year ago with 5 cycles of radiation, not on chemotherapy or surgery, former smoker, hyperlipidemia, mitral valve prolapse, acid reflux, diverticulitis, irritable bowel syndrome, lactose intolerance, osteoarthritis, pseudogout, essential thrombocytosis, constipation, anxiety, frequent urinary tract infections, cholecystectomy, hernia repair, hysterectomy, admitted with mech fall and found to have intertrochenteric right femur fracture s/p repair POD # 3 today. Overnight patient became hypoxic and had to be transferred to telemetry for continuous pulse ox. This morning patient is recovering 4 L of oxygen. ABG shows some hypoxia but PCO2 is okay. She is satting 94% on 4 L. H&H continues to remain low. Will transfuse 1 unit of RBCs. Patient has been seen by pulmonology Dr. Rogers, appreciate his input. Patient will be started on IV steroids. Continue TRC nebs and inhalers. Postop care per orthopedic. Patient will require incentive spirometry, ambulation with PT. Patient consistently remains tachycardic despite transfusion, breathing treatments and steroids, we will consider cardiology consult. DVT px: INR therapeutic. We will dose Coumadin at 4 mg today and recheck INR in am.
--- NOTE | 2016-10-12 10:39 | PN- Housestaff ---
JOEL DUARTE 10/12/16 1014: Subjective Follow-up For: Right hip fracture status post repair Dyspnea/Tachycardia Subjective: Less than patient became tachycardic and hypoxic. She was saturating 88% on 4 L. All workup including stat chest x-ray, ABGs, CBC, BEP, troponin was not significant. she was given loading dose of steroids and started on 40 mg every 8 hours. This morning she is still short of breath. Saturating 97% on 5 L. She is also complaining of chest tightness and congestion. She is coughing and unable to bring phlegm up. He is estimated as she is not complaining of any pain in her right leg unless she moves her leg. She worked with physical therapy yesterday, from bed to chair. Review of Systems Constitutional: Reports: see HPI. Objective Last 24 Hrs of Vital Signs/I&O Vital Signs Date Time Temp Pulse Resp B/P B/P Pulse O2 O2 Flow FiO2 Mean Ox Delivery Rate 10/12 0945 94 Nasal 4.0L Cannula 10/12 0857 98.4 115 22 140/78 93 Nasal 5.0L Cannula 10/12 0000 95 Nasal 5.0L Cannula 10/11 2230 98.6 115 28 134/76 94 Nasal 5.0L Cannula 10/11 2214 98.3 131 27 140/74 88 Nasal 4.0L Cannula 10/11 1949 94 Nasal 3.0L Cannula 10/11 1443 98.1 113 20 118/72 92 Nasal 3.0L Cannula Intake & Output 10/12 1600 10/12 0800 10/12 0000 Intake Total 250 390 Output Total 450 475 Balance -200 -85 Intake, IV 0 150 Intake, Oral 250 240 Number 0 Bowel Movements Output, Urine 450 475 Physical Exam General Appearance: Alert, Oriented X3, Cooperative, Mild Distress Skin: ecchymoses around eyes Neck: Supple Cardiovascular: tachycardia Lungs: Clear to Auscultation, decreased air entry on left side mid Lobe Abdomen: Normal Bowel Sounds, Soft, No Tenderness Extremities: right lower extremity is mildly swollen. Right thigh looks slightly swollen and bruised. Bandage intact. Pulses normal. Sensations intact Current Medications: Current Medications Sig/Kev Start time Last Medication Dose Route Stop Time Status Admin Acetaminophen 1,000 MG TID 10/10 1152 AC 10/12 PO 1003 Acetaminophen 1,000 MG Q6P PRN 10/10 0915 AC 10/10 N/A 1 UNIT IV 1433 Albuterol Sulfate 3 ML Q4P PRN 10/10 1130 AC 10/12 INH 0928 Aspirin 325 MG ONCE ONE 10/11 2200 DC 10/11 PO 10/11 2201 2211 Atorvastatin Calcium 10 MG 1700 10/10 1700 AC 10/11 PO 1602 Budesonide/ 2 PUF BID 10/10 1111 AC 10/12 Formoterol Fumarate INH 1005 Calcium Carbonate 500 MG DAILY 10/11 1538 AC 10/12 PO 1004 Calcium Carbonate 500 MG DAILY 10/11 1330 DC 10/11 PO 1341 Colchicine 600 MCG DAILY 10/10 1000 AC 10/12 PO 1003 Dicyclomine HCl 10 MG 08,10/12 0800 AC 10/12 PO 1006 Dicyclomine HCl 10 MG BID 10/09 2200 DC 10/11 PO 10/11 2199 2125 Docusate Sodium 100 MG BID 10/10 1000 AC 10/12 PO 1005 Gabapentin 200 MG TID 10/090 AC 10/12 PO 1003 Hydroxyurea 500 MG Q48 10/11 1000 AC 10/11 PO 0853 Lorazepam 0.5 MG BID PRN 10/09 2030 AC 10/12 PO 10/16 2028 0535 Methylprednisolone 40 MG Q8 10/12 06 AC 10/12 IV 0535 Methylprednisolone 125 MG ONCE ONE 10/11 2300 DC 10/11 IV 10/11 230 2303 Methylprednisolone 40 MG .STK-MED ONE 10/11 2254 DC IM 10/11 2255 Methylprednisolone 80 MG .STK-MED ONE 10/11 2250 DC IM 10/11 2251 Methylprednisolone 80 MG ONCE ONE 10/11 2245 CAN IV 10/11 2246 Morphine Sulfate 2 MG Q4P PRN 10/09 2030 DC 10/11 IV 1425 Nitroglycerin 0.4 MG ONCE ONE 10/11 2200 DC 10/11 SL 10/11 2201 2211 Omeprazole 40 MG DAILY AC 10/10 0700 AC 10/12 PO 0535 Senna/Docusate Sodium 1 TAB BID PRN 10/09 2030 AC 10/11 PO 0455 Simethicone 40 MG Q6P PRN 10/11 1545 AC 10/11 PO 2128 Sodium Chloride 1,000 ML .Q20H 10/10 0200 DC 10/11 IV 0454 Tiotropium [place] 1 PUF 1100 10/12 1100 AC 10/12 INH 1004 Tiotropium [place] 1 PUF DAILY 10/10 1000 DC 10/11 INH 0854 Tramadol HCl 50 MG Q6 PRN 10/11 1445 AC 10/12 PO 0535 Warfarin Sodium 4 MG COUMADIN 1700 ONE 10/11 1700 DC 10/11 PO 10/11 1701 1604 Last 24 Hrs of Lab/[place] Results Last 24 Hrs of Labs/Mics: Laboratory Tests 10/12/16 0920: pH 7.45, pCO2 34 L, pO2 69 L, HCO3 23, ABG O2 Sat (Measured) 94.0 L, P-50 ( Temp Corrected) N, Carboxyhemoglobin 0.5 L, O2 Concentration % 4LPM, O2 Delivery Method NC, Phlebotomy Draw Site RIGHT BRACHIAL 10/12/16 0839: PT 25.9 H, INR 2.49 H, CBC w Diff MAN DIFF ORDERED, RBC 2.56 L, MCV 103.6 H, MCH 34.8 H, RDW 20.1 H, MPV 8.9, Gran % 92.7 H, Lymphocytes % 4.7 L, Monocytes % 2.4, Eosinophils % 0.1, Basophils % 0.1, Absolute Granulocytes 8.6 H, Absolute Lymphocytes 0.4 L, Absolute Monocytes 0.2, Absolute Eosinophils 0, Absolute Basophils 0, Platelet Estimate VERIFIED BY SMEAR, Polychromasia 1+, Anisocytosis 1+, Macrocytic Cells 1+, PUBS MCHC 33.6 10/12/16 0615: Anion Gap 9, Estimated GFR > 60, BUN/Creatinine Ratio 21.7, Troponin I < 0.01 10/11/162154: Sodium Cancelled, Potassium Cancelled, Chloride Cancelled, Carbon Dioxide Cancelled, Anion Gap Cancelled, BUN Cancelled, Creatinine Cancelled, BUN/ Creatinine Ratio Cancelled 10/11/162154: pH 7.45, pCO2 34 L, pO2 63 L, HCO3 23, ABG O2 Sat (Measured) 93.0 L, P-50 ( Temp Corrected) N, Carboxyhemoglobin 0.5 L, O2 Concentration % 5L, O2 Delivery Method N/C, Anion Gap 8, Estimated GFR > 60, BUN/Creatinine Ratio 21.7, Troponin I 0.01, CBC w Diff NO MAN DIFF REQ, RBC 2.39 L, MCV 104.0 H, MCH 34.4 H, RDW 19.1 H, MPV 7.6, Gran % 80.1 H, Lymphocytes % 8.9 L, Monocytes % 10.2 H, Eosinophils % 0.6, Basophils % 0.2, Absolute Granulocytes 5.6, Absolute Lymphocytes 0.6 L, Absolute Monocytes 0.7 H, Absolute Eosinophils 0, Absolute Basophils 0, PUBS MCHC 33.0, Phlebotomy Draw Site RIGHT RADIAL Assessment/Plan Assessment: 80-year-old lady with past medical history of hyperlipidemia, pseudogout, GERD, thrombocytosis, 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 Right hip fracture status post unwitnessed mechanical fall * s/p ORIF POD # 3 today * INR is 2.49 today. 4 mg Coumadin ordered * Pain control with Ultram and Tylenol * PT, partial weight bearing 2. Acute on chronic respiratory failure * Most likely secondary to COPD. Acute blood loss anemia also be contributing. Patient also nitrofurantoin therapy for UTI prior to admission. Nitrofurantoin- induced interstitial pneumonitis/pulmonary fibrosis could also be a possibility. Atelectasis is also possible. * Patient on 3 L of oxygen at home * Patient is on 4 L right now. Saturating in 90's * CTA Negative for PE. CXR no acute change * Pulm consult appreciated * Continue IV steroids, continuous pulse ox, TRC nebs, incentive spirometry 3. Tachycardia * Most likely secondary to anemia and ongoing breathing difficulty due to COPD * Sinus tachycardia with no acute ST-T wave changes on EKG * Trops 2 negative * No telemetry events 4. Acute Blood Loss Anemia * S/P 1U PRBCs * H&H low but stable. 8.9/26.6 today * Because of persistent tachycardia and hypoxia will transfuse 1 more unit of packed RBCs * Will continue to monitor 5. Constipation * Bowel regimen when necessary DVT prophylaxis - coumadin Pain pathway Regular Diet Full code Problem List: 1. Right femoral fracture 2. COPD (chronic obstructive pulmonary disease) Pain Ratin Pain Location: Right lower extremity Pain Goal: Pain 4 or less Pain Plan: Ultram and Tylenol Tomorrow's Labs & Rationales: CBC and INR DVT/Prophylaxis: pharmacological Consulting Request: Consulting Physician: Dr. Dos Santos Reason for Consult: right hip fracture ROGERIO WEBER,[facility] 10/13/16 1422: Attending MD Review Statement Attending Statement Attending MD Statement: examined this patient, discuss w/resident/PA/STOKER ERECTOR, agreed w/resident/PA/STOKER ERECTOR, reviewed EMR data (avail), discussed with nursing, discussed with case mgmt, reviewed images, amended to note Attending Assessment/Plan: See my separate addendum. 15. Anxiety - Ativan if necessary DVT prophylaxis - coumadin Pain pathway Regular Diet Full code Consulting Request: Consulting Specialty: Orthopedics Consulting Physician: Dr. Dos Santos Reason for Consult: right hip fracture
[2016-10-12 16:07] VITALS: BP 143/93
--- NOTE | 2016-10-12 16:14 | NUR ---
TELE EVENTS: 11:42 AM PT NOTED TO HAVE MULTIPLE SETS OF COUPLETS ON TELE MONITOR. PT ASYMPTOMATIC. HR 130S. O2 SAT INCREASED FROM 4L TO 5L BY RT FOR O2 SAT OF 88%. UPON REASSESSMENT O2 SAT 94% ON 5L. RESP RATE 36. SOB AT REST. LUNGS DIMINISHED. DR JOHNS MADE AWARE & AT BEDSIDE TO EVALUATE. BLOOD TRANSFUSION STARTED AT THIS TIME. 12:32 PM NOTIFIED BY CAP MACHINE OPERATOR PT HAD 6 BEAT RUN OF VTACH. UPON ASSESSMENT PT ASLEEP & ASYMPTOMATIC. DR JOHNS MADE AWARE. NO FURTHER INTERVENTION AT THIS TIME. STRIP PLACED IN CHART.
[2016-10-13 00:32] VITALS: BP 129/82
[2016-10-13 07:56] VITALS: BP 140/80
[2016-10-13 08:20] LABS: PT 41.9 SEC (9.4-12.5)
--- NOTE | 2016-10-13 08:27 | PN- Pulmonary ---
Subjective HPI/Critical Care Issues: Patient feels her shortness of breath is somewhat improved. Concern is her constipation Objective Current Medications: Current Medications Sig/Kev Start time Last Medication Dose Route Stop Time Status Admin Acetaminophen 1,000 MG TID 10/10 1152 AC 10/12 PO 2041 Acetaminophen 1,000 MG Q6P PRN 10/10 0915 AC 10/10 N/A 1 UNIT IV 1433 Albuterol Sulfate 3 ML Q4P PRN 10/10 1130 AC 10/12 INH 1930 Atorvastatin Calcium 10 MG 1700 10/10 1700 AC 10/12 PO 1659 Bisacodyl 10 MG ONCE ONE 10/13 0415 DC 10/13 AL 10/13 0416 0415 Bisacodyl 5 MG DAILY NEEDED PRN 10/13 0415 AC 10/13 PO 0652 Budesonide/ 2 PUF BID 10/10 1111 AC 10/12 Formoterol Fumarate INH 2041 Calcium Carbonate 500 MG DAILY 10/11 1538 AC 10/12 PO 1004 Colchicine 600 MCG DAILY 10/10 1000 AC 10/12 PO 1003 Dicyclomine HCl 10 MG 08,10/12 0800 AC 10/12 PO 2041 Docusate Sodium 100 MG BID 10/10 1000 AC 10/12 PO 2041 Gabapentin 200 MG TID 10/09 2200 AC 10/12 PO 2041 Hydroxyurea 500 MG Q48 10/11 1000 AC 10/11 PO 0853 Lorazepam 0.5 MG BID PRN 10/09 2030 AC 10/13 PO 10/16 2029 0600 Methylprednisolone 40 MG Q8 10/12 0600 AC 10/13 IV 0652 Omeprazole 40 MG DAILY AC 10/10 0700 AC 10/13 PO 0652 Phosphate 250 MG ONCE ONE 10/12 1300 DC 10/12 PO 10/12 1301 1455 Senna/Docusate Sodium 1 TAB BID PRN 10/09 2030 AC 10/11 PO 0455 Simethicone 40 MG Q6P PRN 10/11 1545 AC 10/11 PO 2128 Tiotropium [place] 1 PUF 1100 10/12 1100 AC 10/12 INH 1004 Tramadol HCl 50 MG Q6 PRN 10/11 1445 AC 10/13 PO 0600 Warfarin Sodium 4 MG COUMADIN 1700 ONE 10/12 1700 DC 10/12 PO 10/12 1701 1659 Vital Signs & I&O Last 24 Hrs of Vitals and I&O: Vital Signs Date Time Temp Pulse Resp B/P B/P Pulse O2 O2 Flow FiO2 Mean Ox Delivery Rate 10/13 0809 92 Nasal 5.0L Cannula 10/13 0800 Nasal 5.0L Cannula 10/13 0756 97.8 105 14 140/80 96 Nasal 5.0L Cannula 10/13 0032 98.5 96 22 129/82 97 Nasal Cannula 10/13 0000 Nasal 5.0L Cannula 10/12 1930 92 Nasal 4.5L Cannula 10/12 1607 98.3 100 22 143/93 93 Nasal 5.0L Cannula 10/12 1600 Nasal 4.5L Cannula 10/12 1212 Nasal 3.0L Cannula 10/12 1209 Nasal 3.0L Cannula 10/12 0945 94 Nasal 4.0L Cannula 10/12 0857 98.4 115 22 140/78 93 Nasal 5.0L Cannula Intake & Output 10/13 1600 10/13 0800 10/13 0000 Intake Total 350 350 Output Total 400 Balance 350 -50 Intake, IV 0 0 Intake, Oral 350 350 Number 0 0 Bowel Movements Output, Urine 400 Oxygen saturation 5 L 92-96% exam for chest shows diminished breath sounds are no wheezes cardiac exam shows a regular S1 and S2 without murmurs abdomen is soft and there is no edema Impression/Plan Impression/Plan Impression/Plan: 80-year-old woman status post hip surgery and acute blood loss anemia in the setting of severe oxygen-dependent COPD. With shortness of breath is likely multifactorial related to COPD and acute blood loss anemia. There is no evidence for pulmonary embolism. Respiratory status appears to be slowly improving over oxygen requirements remain above baseline Recommendations: DC IV steroids and begin by mouth prednisone taper FiO2 with improved saturations. Continue nebs. If tachypnea persists consider transfusion to a higher hematocrit given her baseline is close to 40
[2016-10-13 08:37] LABS: ABSOLUTE BASOPHIL COUNT 0 /CUMM (0.0-0.2); ABSOLUTE EOSINOPHIL COUNT 0 /CUMM (0.0-0.7); ABSOLUTE GRANULOCYTE CT 7.3 /CUMM (1.4-6.5); ABSOLUTE LYMPH COUNT 0.3 /CUMM (1.2-3.4); ABSOLUTE MONOCYTE COUNT 0.7 /CUMM (0.10-0.60); BASOPHIL % 0 % (0.0-2.0); EOSINOPHIL % 0 % (0-5); HEMATOCRIT 28.7 % (37-47); MEAN CORPUSCULAR HGB 33.9 PG (27.0-31.0); MEAN CORPUSCULAR HGB CONC 33.3 G/DL (33.0-37.0); MEAN PLATELET VOLUME 8.3 FL (7.4-10.4); PLATELET COUNT 243 /CUMM (130-400); RBC DISTRIBUTION WIDTH 22.5 % (11.5-14.5); RED BLOOD CELL CT 2.82 /CUMM (4.20-5.40); WHITE BLOOD CELL COUNT 8.3 /CUMM (4.8-10.8)
[2016-10-13 09:58] LABS: GRANULOCYTE % 87.8 % (42.2-75.2)
--- NOTE | 2016-10-13 12:17 | PN- Housestaff ---
JOEL DUARTE 10/13/16 1215: Subjective Follow-up For: Right hip fracture status post repair Dyspnea/Tachycardia Constipation Subjective: This morning patient is complaining of constipation. She is alert, awake and oriented. She feels that her breathing is little bit better compared to yesterday. She is still requiring 5 L of oxygen. Complains of chest tightness when she becomes anxious. Pain in her right hip is well controlled. Review of Systems Constitutional: Reports: see HPI. Objective Last 24 Hrs of Vital Signs/I&O Vital Signs Date Time Temp Pulse Resp B/P B/P Pulse O2 O2 Flow FiO2 Mean Ox Delivery Rate 10/13 0809 92 Nasal 5.0L Cannula 10/13 0800 Nasal 5.0L Cannula 10/13 0756 97.8 105 14 140/80 96 Nasal 5.0L Cannula 10/13 0032 98.5 96 22 129/82 97 Nasal Cannula 10/13 0000 Nasal 5.0L Cannula 10/12 1930 92 Nasal 4.5L Cannula 10/12 1607 98.3 100 22 143/93 93 Nasal 5.0L Cannula 10/12 1600 Nasal 4.5L Cannula Intake & Output 10/13 1600 10/13 0800 10/13 0000 Intake Total 350 350 Output Total 400 Balance 350 -50 Intake, IV 0 0 Intake, Oral 350 350 Number 0 0 Bowel Movements Output, Urine 400 Physical Exam General Appearance: Alert, Oriented X3, Cooperative, Mild Distress Neck: Supple Cardiovascular: tachycardia Lungs: Clear to Auscultation Abdomen: Normal Bowel Sounds, Soft, No Tenderness Neurological: Normal Speech, Sensation Intact, Cranial Nerves 3-12 NL Extremities: trace edema right lower extremity. Mild swelling of right thigh. Bandage intact Current Medications: Current Medications Sig/Kev Start time Last Medication Dose Route Stop Time Status Admin Acetaminophen 1,000 MG TID 10/10 1152 AC 10/13 PO 0914 Acetaminophen 1,000 MG Q6P PRN 10/10 0915 AC 10/10 N/A 1 UNIT IV 1433 Albuterol Sulfate 3 ML Q4P PRN 10/10 1130 AC 10/12 INH 1930 Atorvastatin Calcium 10 MG 1700 10/10 1700 AC 10/12 PO 1659 Bisacodyl 10 MG ONCE ONE 10/13 0415 DC 10/13 OR 10/13 0416 0415 Bisacodyl 5 MG DAILY NEEDED PRN 10/13 0415 AC 10/13 PO 0652 Budesonide/ 2 PUF BID 10/10 1111 AC 10/13 Formoterol Fumarate INH 0915 Calcium Carbonate 500 MG DAILY 10/11 1538 AC 10/13 PO 0914 Colchicine 600 MCG DAILY 10/10 1000 AC 10/13 PO 0915 Dicyclomine HCl 10 MG 0800,2000 10/12 0800 AC 10/13 PO 0915 Docusate Sodium 100 MG BID 10/10 1000 AC 10/13 PO 0915 Gabapentin 200 MG TID 10/09 2200 AC 10/13 PO 0915 Hydroxyurea 500 MG Q48 10/11 1000 AC 10/13 PO 0916 Lorazepam 0.5 MG BID PRN 10/09 2030 AC 10/13 PO 10/16 202 0600 Magnesium Hydroxide 30 ML ONE ONE 10/13 0945 DC PO 10/13 0946 Methylprednisolone 40 MG Q12 10/13 1000 AC 10/13 IV 0914 Methylprednisolone 40 MG Q8 10/12 0600 DC 10/13 IV 0652 Omeprazole 40 MG DAILY AC 10/10 0700 AC 10/13 PO 0652 Senna/Docusate Sodium 1 TAB BID PRN 10/09 2030 AC 10/11 PO 0455 Simethicone 40 MG Q6P PRN 10/11 1545 AC 10/11 PO 2128 Tiotropium Williams 1 PUF 1100 10/12 1100 AC 10/13 INH 1000 Tramadol HCl 50 MG Q6 PRN 10/11 1445 AC 10/13 PO 0600 Warfarin Sodium 4 MG COUMADIN 1700 ONE 10/12 1700 DC 10/12 PO 10/12 1701 1659 Last 24 Hrs of Lab/[place] Results Last 24 Hrs of Labs/Mics: Laboratory Tests 10/13/16 0638: PT 41.9 H, INR 4.05 *H, CBC w Diff NO MAN DIFF REQ, RBC 2.82 L, MCV 102.0 H, MCH 33.9 H, RDW 22.5 H, MPV 8.3, Gran % 87.8 H, Lymphocytes % 3.3 L, Monocytes % 8.9, Eosinophils % 0, Basophils % 0 L, Absolute Granulocytes 7.3 H , Absolute Lymphocytes 0.3 L, Absolute Monocytes 0.7 H, Absolute Eosinophils 0 , Absolute Basophils 0, PUBS MCHC 33.3 Assessment/Plan Assessment: 80-year-old lady with past medical history of hyperlipidemia, pseudogout, GERD, thrombocytosis, 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 Unwitnessed mechanical fall resulting in right hip fracture * s/p ORIF POD # 4 today * INR is supratherapeutic today, 4.05. Will hold Coumadin today * Pain control with Ultram and Tylenol * PT, partial weight bearing 2. Acute on chronic respiratory failure * Most likely secondary to COPD vs Acute blood loss anemia vs Nitrofurantoin- induced interstitial pneumonitis/pulmonary fibrosis vs Atelectasis * Patient on 3 L of oxygen at home * Patient is on 5 L right now. Saturating in 90's * CTA Negative for PE. CXR no acute change * Pulm consult appreciated * Continue IV steroids, continuous pulse ox, TRC nebs, incentive spirometry 3. Tachycardia * Most likely secondary to anemia and ongoing breathing difficulty due to COPD * Sinus tachycardia with no acute ST-T wave changes on EKG * Trops 3 negative * No telemetry events * Awaiting cardio consult 4. Acute Blood Loss Anemia * S/P 2U PRBCs * H&H 9.6/28.7 today * Will continue to monitor 5. Constipation * Bowel regimen DVT prophylaxis - coumadin Pain pathway Regular Diet Full code Problem List: 1. Hip fracture 2. Hypoxia Pain Ratin Pain Location: Right hip Pain Goal: Remain pain free Pain Plan: Ultram and Tylenol Tomorrow's Labs & Rationales: CBC DVT/Prophylaxis: pharmacological Consulting Request: Consulting Specialty: Cardiology Consulting Physician: Dr. Patrick Reason for Consult: persistent tachycardia ROGERIO WEBER,[facility] 10/13/16 1301: Attending MD Review Statement Attending Statement Attending MD Statement: examined this patient, discuss w/resident/PA/ORTHOPEDIC PHYSICAL THERAPIST, agreed w/resident/PA/ORTHOPEDIC PHYSICAL THERAPIST, reviewed EMR data (avail), discussed with nursing, discussed with case mgmt, reviewed images, amended to note Attending Assessment/Plan: Patient seen and examined, she was feeling uncomfortable and was very upset this morning because she was constipated and was having hard time with a bowel movement. She claims that breathing has slightly improved. Vital Signs Date Time Temp Pulse Resp B/P B/P Pulse O2 O2 Flow FiO2 Mean Ox Delivery Rate 10/13 0809 92 Nasal 5.0L Cannula 10/13 0800 Nasal 5.0L Cannula 10/13 0756 97.8 105 14 140/80 96 Nasal 5.0L Cannula 10/13 0032 98.5 96 22 129/82 97 Nasal Cannula 10/13 0000 Nasal 5.0L Cannula 10/12 1930 92 Nasal 4.5L Cannula 10/12 1607 98.3 100 22 143/93 93 Nasal 5.0L Cannula 10/12 1600 Nasal 4.5L Cannula on exam; aox3, mild distress. cv; s1,s2, rrr resp; clear abd; soft, nt, bs+ ext; + edema rle. Laboratory Tests 10/13 0638 Coagulation PT (9.4 - 12.5 SEC) 41.9 H INR (0.90 - 1.19) 4.05 *H Hematology CBC w Diff NO MAN DIFF REQ WBC (4.8 - 10.8 /CUMM) 8.3 RBC (4.20 - 5.40 /CUMM) 2.82 L Hgb (12.0 - 16.0 G/DL) 9.6 L Hct (37 - 47 %) 28.7 L MCV (81.0 - 99.0 FL) 102.0 H MCH (27.0 - 31.0 PG) 33.9 H RDW (11.5 - 14.5 %) 22.5 H Plt Count (130 - 400 /CUMM) 243 MPV (7.4 - 10.4 FL) 8.3 Gran % (42.2 - 75.2 %) 87.8 H Lymphocytes % (20.5 - 51.1 %) 3.3 L Monocytes % (1.7 - 9.3 %) 8.9 Eosinophils % (0 - 5 %) 0 Basophils % (0.0 - 2.0 %) 0 L Absolute Granulocytes (1.4 - 6.5 /CUMM) 7.3 H Absolute Lymphocytes (1.2 - 3.4 /CUMM) 0.3 L Absolute Monocytes (0.10 - 0.60 /CUMM) 0.7 H Absolute Eosinophils (0.0 - 0.7 /CUMM) 0 Absolute Basophils (0.0 - 0.2 /CUMM) 0 PUBS MCHC (33.0 - 37.0 G/DL) 33.3 A/P; 80 y/o F with pmh sig for oxygen dependence 2.5 L, ch resp faliure, lung cancer one year ago with 5 cycles of radiation, not on chemotherapy or surgery, former smoker, hyperlipidemia, mitral valve prolapse, acid reflux, diverticulitis, irritable bowel syndrome, lactose intolerance, osteoarthritis, pseudogout, essential thrombocytosis, constipation, anxiety, frequent urinary tract infections, cholecystectomy, hernia repair, hysterectomy, admitted with mech fall and found to have intertrochenteric right femur fracture s/p repair POD # 3 today. Overnight patient became hypoxic and had to be transferred to telemetry for continuous pulse ox and yesterday he had a few episodes of NSVT. Electrolytes are all within normal range. Patient has been started on aggressive bowel regimen for the constipation. Agree with decreasing the Solu-Medrol to every 12 hours today and switching to by mouth prednisone tomorrow. Cardiology evaluation is awaited. H&H has improved after transfusion. INR is therapeutic today, will hold Coumadin and recheck it in the morning. Patient to continue to work with physical therapy and use incentives parametria. Possible discharge to rehabilitation tomorrow.
[2016-10-13 15:44] VITALS: BP 138/70
[2016-10-13 17:49] VITALS: BP 150/76
--- NOTE | 2016-10-13 18:19 | Event Note ---
Event Note Event Note: Around 5:40 PM, patient had 4-beat run of V-tach. Heart rate was in the 150-180s on the monitor. Rest of vitals were stable. She was seen and examined at bedside. She complained of severe epigastric pain exacerbated by shortness of breath. Cardizem drip had not come up from the pharmacy yet. STAT troponins, K, Mg, Phos and EKG were ordered. EKG showed no ST-T wave abnormalities. Patient was given GI cocktail. 10 mg IV push of Cardizem was ordered with improvement of heart rate to 140s. Will continue to monitor.
--- NOTE | 2016-10-13 18:54 | NUR ---
1740 PT HAD A 7&4 BEAT RUN V-TACH AND HR IN 150-180'S. CHIEF SERVICE DISPATCHER JERRI KINCAIDR AWARE AND IN TO ASSESS PT. VSS. STAT EKG AND LABS ORDERED. WILL CONTINUE TO MONITOR PT.
--- NOTE | 2016-10-13 21:05 | Cons- Cardiology ---
General Information and HPI Consulting Request Date of Consult: 10/13/16 Requested By: LIZ BEATTY MD Reason for Consult: Persistent heart rate elevation; ? MAT vs intermittent PAF Source of Information: patient, family, old records Exam Limitations: no limitations History of Present Illness: The patient is a 80 year old female known to me with a past history of COPD on oxygen dependence 2.5 L, lung cancer one year ago with 5 cycles of radiation, not on chemotherapy or surgery, former smoker, hyperlipidemia, mitral valve prolapse, acid reflux, diverticulitis, irritable bowel syndrome, lactose intolerance, osteoarthritis, pseudogout, essential thrombocytosis, constipation, anxiety, frequent urinary tract infections, cholecystectomy, hernia repair, etc The patient is admitted after a mechanical fall and hip fracture. Now status post surgery. I was asked to see the patient for assistance with her persistent tachycardia. The patient notes that she is dyspneic but denies any chest pain at the present time. She does note some pain with eating. She denies any palpitations. Allergies/Medications Allergies: Coded Allergies: adhesive tape (RED AND IRRITATED - PAPER TAPE IS OK 10/06/15) oxycodone (PER PT CANT REMEMBER 10/06/15) amitriptyline (NIGHTMARES 10/07/15) ciprofloxacin (From Cipro HC) (STOMACH IRRITATION 10/07/15) erythromycin base (From Erythrocin) (STOMACH IRRITATION 10/07/15) hydrocortisone (From Cipro HC) (STOMACH IRRITATION 10/07/15) lactose (LACTOSE INTOLERANT 10/07/15) Home Med List: Acetaminophen 500 MG TABLET 1,000 MG PO TID right hip pain Aspirin (Ecotrin*) 81 MG TABLET.DR 1 TAB PO DAILY HEART/BLOOD (Reported) Colchicine (Colcrys) 0.6 MG TABLET 1 TAB PO DAILY GOUT (Reported) Dicyclomine HCl 10 MG CAPSULE 1 TAB PO BID IBS (Reported) Estradiol (Estrace) 42.5 GM CREAM.APPL 1 GM VG QFRI HRT (Reported) Fluticasone/Vilanterol (Breo Ellipta 200-25 Mcg INH) 200 MCG-25 MCG/DOSE BLST.W.DEV 1 PUFF PO BID COPD (Reported) Gabapentin 100 MG CAPSULE 2 CAP PO TID PAIN (Reported) Hydroxyurea (Hydrea) 500 MG CAPSULE 2 CAP PO EOD ESSENTIAL THROMBOCYTOSIS ( Reported) Hydroxyurea (Hydrea) 500 MG CAPSULE 1 CAP PO EOD ESSENTIAL THROMBOCYTOSIS ( Reported) Lorazepam (Ativan) 0.5 MG TABLET 1 TAB PO BID PRN ANXIETY (Reported) Pantoprazole Sodium 40 MG TABLET.DR 1 TAB PO DAILY GI (Reported) Sennosides/Docusate Sodium (Senna Plus Tablet) 8.6 MG-50 MG TABLET 1 TAB PO BID PRN CONSTIPATION Simvastatin (Zocor*) 20 MG TABLET 1 TAB PO QPM CHOLESTEROL (Reported) Tiotropium [place] (Spiriva Respimat) 4 GM MIST.INHAL 1 CAP PO QAM COPD ( Reported) Tramadol HCl 50 MG TABLET 1 TAB PO Q6P PRN PAIN CONTROL Warfarin Sodium (Coumadin) 5 MG TABLET 1 TAB PO DAILY POST OP PLEASE DOSE TO KEEP INR BETWEEN 2-3 FOLLOW WITH ORTHO FOR DURATION, MOST LIKELY 6 WEEKS Current Medications: Current Medications Sig/Kev Start time Last Medication Dose Route Stop Time Status Admin Acetaminophen 1,000 MG TID 10/10 1152 AC 10/13 PO 1655 Acetaminophen 1,000 MG Q6P PRN 10/10 0915 DC 10/10 N/A 1 UNIT IV 1433 Albuterol Sulfate 3 ML Q4P PRN 10/10 1130 AC 10/13 INH 1700 Atorvastatin Calcium 10 MG 1700 10/10 1700 AC 10/13 PO 1655 Bisacodyl 10 MG ONCE ONE 10/13 0415 DC 10/13 HI 10/13 0416 0415 Bisacodyl 5 MG DAILY NEEDED PRN 10/13 0415 AC 10/13 PO 0652 Budesonide/ 2 PUF BID 10/10 1111 AC 10/13 Formoterol Fumarate INH 0915 Calcium Carbonate 500 MG DAILY 10/11 1538 AC 10/13 PO 0914 Colchicine 600 MCG DAILY 10/10 1000 AC 10/13 PO 0915 Dicyclomine HCl 10 MG 0800,10/12 0800 AC 10/13 PO 2001 Diltiazem HCl 10 MG ONCE ONE 10/13 1830 DC 10/13 IV 10/13 1831 1850 Diltiazem HCl 125 MG Q24H 10/13 1630 AC 10/13 Sodium Chloride 100 ML IV 1821 Docusate Sodium 100 MG BID 10/10 1000 AC 10/13 PO 0915 Gabapentin 200 MG TID 10/09 2200 AC 10/13 PO 1655 Hydroxyurea 500 MG Q48 10/11 1000 AC 10/13 PO 0916 Lorazepam 0.5 MG BID PRN 10/09 2030 AC 10/13 PO 10/16 2029 0600 Magnesium Hydroxide 30 ML ONE ONE 10/13 0945 DC 10/13 PO 10/13 0946 1655 Methylprednisolone 40 MG Q12 10/13 1000 AC 10/13 IV 10/13 2200 0914 Methylprednisolone 40 MG Q8 10/12 0600 DC 10/13 IV 0652 Metoprolol Tartrate 2.5 MG ONCE ONE 10/13 2100 UNVr IV 10/13 2101 Omeprazole 40 MG DAILY AC 10/10 0700 AC 10/13 PO 0652 Patient Medication 1 ED .STK-MED ONE 10/13 1419 DC Teaching ED 10/13 1420 Prednisone 60 MG DAILY 10/14 1000 AC PO Senna/Docusate Sodium 1 TAB BID PRN 10/09 2030 AC 10/11 PO 0455 Simethicone 80 MG Q6P PRN 10/13 1745 DC 10/13 PO 1821 Simethicone 40 MG Q6P PRN 10/11 1545 AC 10/11 PO 2128 Sodium Chloride 2 SPRAY Q4P PRN 10/13 1915 AC KAI Tiotropium [place] 1 PUF 1100 10/12 1100 AC 10/13 INH 1000 Tramadol HCl 50 MG Q6 PRN 10/11 1445 AC 10/13 PO 0600 Past History Travel History Traveled to [place] past 21 day No Medical History Blood Transfusion Hx: No Neurological: NONE EENT: NONE Cardiovascular: hyperlipidemia, MITRAL VALVE PROLAPSE ACID REFLUX Respiratory: COPD, O2 DEPENDENT @2.5 L Gastrointestinal: diverticulitis, irritable bowel syndrome, lactose intolerance Hepatic: NONE Renal: NONE Musculoskeletal: osteoarthritis, PSEUDO GOUT Psychiatric: NONE Endocrine: NONE Blood Disorders: HIGH BLOOD PLATELETS Cancer(s): NONE 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 Home Who Do You Live With? self Services at Home: None Smoking Status: Former Smoker ETOH Use: denies use Illicit Drug Use: denies illicit drug use Living Will? yes Functional Ability ADLs Independent: dressing, eating, toileting, bathing. Ambulation: independent IADLs Independent: shopping, housework, finances, food prep, telephone, transportation , medication admin. Exam & Diagnostic Data Vital Signs and I&O Vital Signs Date Time Temp Pulse Resp B/P B/P Pulse O2 O2 Flow FiO2 Mean Ox Delivery Rate 10/13 2049 165 10/13 1850 139 150/76 10/13 1749 139 24 150/76 91 Nasal 4.0L Cannula 10/13 1700 96 Nasal 5.0L Cannula 10/13 1544 98.1 137 22 138/70 92 Nasal 5.0L Cannula 10/13 0809 92 Nasal 5.0L Cannula 10/13 0800 Nasal 5.0L Cannula 10/13 0756 97.8 105 14 140/80 96 Nasal 5.0L Cannula 10/13 0032 98.5 96 22 129/82 97 Nasal Cannula 10/13 0000 Nasal 5.0L Cannula Intake & Output 10/13 1600 10/13 0800 10/13 0000 10/12 1600 10/12 0800 10/12 0000 Intake Total 611 350 350 950 250 390 Output Total 400 400 450 475 Balance 611 350 -50 550 -200 -85 Intake, Blood 350 Product Intake, IV 11 0 0 0 150 Intake, Oral 600 350 350 600 250 240 Number 0 0 0 Bowel Movements Output, Urine 400 400 450 475 Patient 160 lb Weight Physical Exam: General Appearance: Alert, Oriented X3, Cooperative, Mild Distress Neck: Supple; JVP normal; carotids normal bilaterally Cardiovascular: tachycardia; irregular; 1-2/6 systolic murmur Lungs: Clear to Auscultation but with decreased breath sounds bilaterally Abdomen: Normal Bowel Sounds, Soft, No Tenderness Neurological: Normal Speech, Sensation Intact, Cranial Nerves 3-12 NL Extremities: trace edema right lower extremity. Mild swelling of right thigh. Labs/[place] Results: Laboratory Tests 10/13 10/13 1754 0638 Chemistry Potassium (3.5 - 5.1 mmol/L) 3.7 Phosphorus (2.5 - 4.5 mg/dL) 1.7 L Magnesium (1.6 - 2.3 mg/dL) 2.2 Troponin I (< 0.11 ng/ml) < 0.01 Coagulation PT (9.4 - 12.5 SEC) 41.9 H INR (0.90 - 1.19) 4.05 *H Hematology CBC w Diff NO MAN DIFF REQ WBC (4.8 - 10.8 /CUMM) 8.3 RBC (4.20 - 5.40 /CUMM) 2.82 L Hgb (12.0 - 16.0 G/DL) 9.6 L Hct (37 - 47 %) 28.7 L MCV (81.0 - 99.0 FL) 102.0 H MCH (27.0 - 31.0 PG) 33.9 H RDW (11.5 - 14.5 %) 22.5 H Plt Count (130 - 400 /CUMM) 243 MPV (7.4 - 10.4 FL) 8.3 Gran % (42.2 - 75.2 %) 87.8 H Lymphocytes % (20.5 - 51.1 %) 3.3 L Monocytes % (1.7 - 9.3 %) 8.9 Eosinophils % (0 - 5 %) 0 Basophils % (0.0 - 2.0 %) 0 L Absolute Granulocytes (1.4 - 6.5 /CUMM) 7.3 H Absolute Lymphocytes (1.2 - 3.4 /CUMM) 0.3 L Absolute Monocytes (0.10 - 0.60 /CUMM) 0.7 H Absolute Eosinophils (0.0 - 0.7 /CUMM) 0 Absolute Basophils (0.0 - 0.2 /CUMM) 0 PUBS MCHC (33.0 - 37.0 G/DL) 33.3 10/12 10/12 0920 0839 Blood Gas pH (7.35 - 7.45 PH) 7.45 pCO2 (35 - 45 TORR) 34 L pO2 (80 - 100 TORR) 69 L HCO3 (21 - 28 MEQ/L) 23 ABG O2 Sat (Measured) (>96.0 %) 94.0 L P-50 (Temp Corrected) N Carboxyhemoglobin (1.5 - 5.0 %) 0.5 L O2 Concentration % 4LPM O2 Delivery Method NC Coagulation PT (9.4 - 12.5 SEC) 25.9 H INR (0.90 - 1.19) 2.49 H Hematology CBC w Diff MAN DIFF ORDERED WBC (4.8 - 10.8 /CUMM) 9.3 RBC (4.20 - 5.40 /CUMM) 2.56 L Hgb (12.0 - 16.0 G/DL) 8.9 L Hct (37 - 47 %) 26.6 L MCV (81.0 - 99.0 FL) 103.6 H MCH (27.0 - 31.0 PG) 34.8 H RDW (11.5 - 14.5 %) 20.1 H Plt Count (130 - 400 /CUMM) 241 MPV (7.4 - 10.4 FL) 8.9 Gran % (42.2 - 75.2 %) 92.7 H Lymphocytes % (20.5 - 51.1 %) 4.7 L Monocytes % (1.7 - 9.3 %) 2.4 Eosinophils % (0 - 5 %) 0.1 Basophils % (0.0 - 2.0 %) 0.1 Absolute Granulocytes (1.4 - 6.5 /CUMM) 8.6 H Absolute Lymphocytes (1.2 - 3.4 /CUMM) 0.4 L Absolute Monocytes (0.10 - 0.60 /CUMM) 0.2 Absolute Eosinophils (0.0 - 0.7 /CUMM) 0 Absolute Basophils (0.0 - 0.2 /CUMM) 0 Platelet Estimate (ADEQUATE) VERIFIED BY SMEAR Polychromasia 1+ Anisocytosis 1+ Macrocytic Cells 1+ PUBS MCHC (33.0 - 37.0 G/DL) 33.6 Miscellaneous Phlebotomy Draw Site RIGHT BRACHIAL 10/12 10/11 10/11 0615 2155 2155 Blood Gas pH (7.35 - 7.45 PH) 7.45 pCO2 (35 - 45 TORR) 34 L pO2 (80 - 100 TORR) 63 L HCO3 (21 - 28 MEQ/L) 23 ABG O2 Sat (Measured) (>96.0 %) 93.0 L P-50 (Temp Corrected) N Carboxyhemoglobin (1.5 - 5.0 %) 0.5 L O2 Concentration % 5L O2 Delivery Method N/C Chemistry Sodium (137 - 145 mmol/L) 140 Cancelled 137 Potassium (3.5 - 5.1 mmol/L) 4.2 Cancelled 3.7 Chloride (98 - 107 mmol/L) 105 Cancelled 104 Carbon Dioxide (22 - 30 mmol/L) 26 Cancelled 25 Anion Gap (5 - 16) 9 Cancelled 8 BUN (7 - 17 mg/dL) 13 Cancelled 13 Creatinine (0.5 - 1.0 mg/dL) 0.6 Cancelled 0.6 Estimated GFR (>60 ml/min) > 60 > 60 BUN/Creatinine Ratio (7 - 25 %) 21.7 Cancelled 21.7 Phosphorus (2.5 - 4.5 mg/dL) 2.4 L Magnesium (1.6 - 2.3 mg/dL) 2.0 Troponin I (< 0.11 ng/ml) < 0.01 0.01 Hematology CBC w Diff NO MAN DIFF REQ WBC (4.8 - 10.8 /CUMM) 7.0 RBC (4.20 - 5.40 /CUMM) 2.39 L Hgb (12.0 - 16.0 G/DL) 8.2 L Hct (37 - 47 %) 24.8 L MCV (81.0 - 99.0 FL) 104.0 H MCH (27.0 - 31.0 PG) 34.4 H RDW (11.5 - 14.5 %) 19.1 H Plt Count (130 - 400 /CUMM) 181 MPV (7.4 - 10.4 FL) 7.6 Gran % (42.2 - 75.2 %) 80.1 H Lymphocytes % (20.5 - 51.1 %) 8.9 L Monocytes % (1.7 - 9.3 %) 10.2 H Eosinophils % (0 - 5 %) 0.6 Basophils % (0.0 - 2.0 %) 0.2 Absolute Granulocytes (1.4 - 6.5 /CUMM) 5.6 Absolute Lymphocytes (1.2 - 3.4 /CUMM) 0.6 L Absolute Monocytes (0.10 - 0.60 /CUMM) 0.7 H Absolute Eosinophils (0.0 - 0.7 /CUMM) 0 Absolute Basophils (0.0 - 0.2 /CUMM) 0 PUBS MCHC (33.0 - 37.0 G/DL) 33.0 Miscellaneous Phlebotomy Draw Site RIGHT RADIAL Diagnostic Data EKG Results tachycardia. rhythm difficult to assess due to baseline artifact. Possible sinus tachycardia but suggestive of MAT vs episodes of PAF. CXR Results FINDINGS: Emphysematous hyperinflation of lungs. No acute infiltrate. No pulmonary vascular congestion or pleural effusion. Cardiac and mediastinal contour normal. Heart size normal. There are calcifications of thoracic aorta IMPRESSION: No acute change of the chest. Other Results CTA CHest: IMPRESSION: 1. No pulmonary embolism. No acute intrathoracic findings. Severe emphysema. 2. Similar appearance of a spiculated right upper lobe nodule. Stable left upper lobe nodule. 3. Additional nodules that had been new on the prior study in the right lower lobe demonstrate improvement, suggesting an infectious or inflammatory in etiology Assessment/Plan Assessment/Plan Assessment: 1. Persistent tachyardia - Review of ECGs and telemetry shows a significant amount of baseline artifact. I suspect that the patient is in MAT but there also appear to be episodes suggestive of non sustained PAF. Interspersed with periods of ST. Likely aggravated by underlying pulmonary issues and anemia. 2. Post op hip surgery 3. Acute on chronic respiratory failure / COPD 4. Macrocytic anemia 5. Low B12 Recommendations: - Keep patient on telemetry - Serial troponins - Start IV cardizem at 5 mg / hr for rate control if tolerated by BP - Aggressive control of respiratory issues. - Echocardiogram to assess LV function; rule out pericardial effusion - ECG tonite and in AM - Further plans after the response to IV cardizem observed Consult Acknowledgment - Thank you for your consult request.
--- NOTE | 2016-10-13 21:32 | Event Note ---
Event Note Event Note: Notified by nursing staff that patient remained persistently tachycardic to around 160s around 8 PM. Patient was previously placed on cardizem drip running at 12.5 mL/hr and received a 1 time dose of 10 mg IV cardizem. Due to persistent tachycardia, patient was evaluated and noticed to be slightly anxious. Cardiac exam was irregular and tachycardic with systolic murmur. Abdomen was noted to have diminished bowel sounds throughout adn was slightly tender to diffuse palpation. Evaluation was also performed by my senior resident and attending physician Dr. Ronal MD. Plan: 1. For abdominal pain and decreased bowel sounds, abdominal plain film was ordered and noted to be normal. GI cocktail was then given. Will reassess abdominal scan frequently and address pain control as needed. 2. For persistent tachycardia, cardizem drip increased to 15 mL/hr and a one time dose of 2.5 mg IV lopressor given. Of note, dose low due to history of known COPD. Patient tolerated beta macey well. Follow up EKG ordered for now and the AM as per directions from consulting religion teacher, Dr. Patrick. Patient noted to improve HR after lopressor push and cardizem drip weaned down from 15 ulimately to 7.5 mL/hr. Patient will be maintained at this rate for now as her HR is in the mid 90ss. Will continue to watch patient closely and make AM team aware of overnight events. Resident addendum: Patient heart rate improved after one IV push of 2.5 lopressor, she is back and forth between Brett tello and SR, contacted by attending , he agreed with one dose of lopressor, and if needed we can give one more dose of B-macey with monitoring of her respiratory status, if her heart rate still high with irregular rhythm we can try digoxin. For now, we checked 12 lead EKG which shows that she is currently in SR, with HR 110-120, will hold any further action for now.
--- NOTE | 2016-10-13 21:32 | RADIOLOGY REPORT ---
EXAMINATION: XR ABDOMEN CLINICAL INDICATION: Evaluate for obstruction decreased bowel sounds diffuse abdominal pain COMPARISON: CT abdomen pelvis October 2011 TECHNIQUE: AP view of the abdomen. FINDINGS: There is a nonobstructive gas pattern. There is an oval-shaped 10 x 4 mm calcification overlying the left kidney and the appearance of a renal calculus unchanged compared with the prior CT. No additional urinary tract calcifications. Multilevel spondylosis of the lumbar sacral spine particularly at L4-L5 and L5-S1 levels with bilateral facet arthrosis and degenerative disc disease. Incidental note is made of a bharat in proximal screw partially visualized overlying the right proximal femur where there right intertrochanteric femur fracture IMPRESSION: Nonobstructive gas pattern. Stable left renal calculus. Postop changes related to fixation of the previously noted intertrochanteric fracture
[2016-10-13 23:59] VITALS: BP 130/70
--- NOTE | 2016-10-14 07:49 | PN- Pulmonary ---
Subjective HPI/Critical Care Issues: Events of yesterday reviewed. Patient feels improved with decrease shortness of breath and less anxiety with bowel movement. Objective Current Medications: Current Medications Sig/Kev Start time Last Medication Dose Route Stop Time Status Admin Acetaminophen 1,000 MG TID 10/10 1152 AC 10/13 PO 2148 Acetaminophen 1,000 MG Q6P PRN 10/10 0915 CA 10/10 N/A 1 UNIT IV 1433 Albuterol Sulfate 3 ML Q4P PRN 10/10 1130 AC 10/13 INH 1700 Atorvastatin Calcium 10 MG 1700 10/10 1700 AC 10/13 PO 1655 Bisacodyl 5 MG DAILY NEEDED PRN 10/13 0415 10/13 PO 0652 Budesonide/ 2 PUF BID 10/10 1111 10/13 Formoterol Fumarate INH 2148 Calcium Carbonate 500 MG DAILY 10/11 1538 10/13 PO 0914 Colchicine 600 MCG DAILY 10/10 1000 10/13 PO 0915 Dicyclomine HCl 10 MG 08,10/12 0800 10/13 PO 2000 Diltiazem HCl 10 MG ONCE ONE 10/13 1830 CA 10/13 IV 10/13 1831 1850 Diltiazem HCl 125 MG Q24H 10/13 1630 AC 10/13 Sodium Chloride 100 ML IV 1821 Docusate Sodium 100 MG BID 10/10 1000 AC 10/13 PO 2233 Gabapentin 200 MG TID 10/09 2200 10/13 PO 2233 Hydroxyurea 500 MG Q48 10/11 1000 10/13 PO 0916 Lorazepam 0.5 MG BID PRN 10/09 2030 10/13 PO 10/16 2028 2233 Magnesium Hydroxide 30 ML ONE ONE 10/13 0945 CA 10/13 PO 10/13 0946 1655 Methylprednisolone 40 MG Q12 10/13 1000 CA 10/13 IV 10/13 2200 2148 Methylprednisolone 40 MG Q8 10/12 0600 CA 10/13 IV 0652 Metoprolol Tartrate 2.5 MG ONCE ONE 10/13 2100 CA 10/13 IV 10/13 2101 2049 Omeprazole 40 MG DAILY AC 10/10 0700 10/14 PO 0548 Patient Medication 1 ED .STK-MED ONE 10/13 1419 DC Teaching ED 10/13 1420 Phosphate 250 MG ONCE ONE 10/13 2100 DC 10/13 PO 10/13 2100 223 Potassium Chloride 40 MEQ ONCE ONE 10/13 2100 DC 10/13 PO 10/13 210 2151 Prednisone 60 MG DAILY 10/14 1000 AC PO Senna/Docusate Sodium 1 TAB BID PRN 10/09 2030 AC 10/11 PO 0455 Simethicone 80 MG Q6P PRN 10/13 1745 DC 10/13 PO 1821 Simethicone 40 MG Q6P PRN 10/11 1545 AC 10/11 PO 2128 Sodium Chloride 2 SPRAY Q4P PRN 10/13 1915 AC 10/13 KAI 2238 Tiotropium [place] 1 PUF 1100 10/12 1100 AC 10/13 INH 1000 Tramadol HCl 50 MG Q6 PRN 10/11 1445 AC 10/14 PO 0554 Vital Signs & I&O Last 24 Hrs of Vitals and I&O: Vital Signs Date Time Temp Pulse Resp B/P B/P Pulse O2 O2 Flow FiO2 Mean Ox Delivery Rate 10/14 0000 Nasal 4.0L Cannula 10/13 2359 97.5 80 20 130/70 92 Nasal 4.0L Cannula 10/13 2049 165 10/13 1850 139 150/76 10/13 1749 139 24 150/76 91 Nasal 4.0L Cannula 10/13 1700 96 Nasal 5.0L Cannula 10/13 1544 98.1 137 22 138/70 92 Nasal 5.0L Cannula 10/13 0809 92 Nasal 5.0L Cannula 10/13 0800 Nasal 5.0L Cannula 10/13 0756 97.8 105 14 140/80 96 Nasal 5.0L Cannula Intake & Output 10/14 0800 10/14 0000 10/13 1600 Intake Total 300 467 611 Output Total 350 Balance -50 467 611 Intake, IV 60 77 11 Intake, Oral 240 390 600 Number 1 Bowel Movements Output, Urine 350 Patient 160 lb Weight Since saturation 4 L 92% exam for chest shows decreased breath sounds are no wheezes cardiac exam shows normal S1 and S2 Impression/Plan Impression/Plan Impression/Plan: 80-year-old woman status post hip surgery and acute blood loss anemia in the setting of severe oxygen-dependent COPD. With shortness of breath is likely multifactorial related to COPD and acute blood loss anemia. There is no evidence for pulmonary embolism. Respiratory status appears to be slowly improving oxygen requirements remain above baseline but improving Recommendations: DC IV steroids and begin by mouth prednisone taper FiO2 with improved saturations. Continue nebs. Acute blood loss anemia is slowly improving
[2016-10-14 07:59] LABS: ABSOLUTE BASOPHIL COUNT 0 /CUMM (0.0-0.2); ABSOLUTE EOSINOPHIL COUNT 0 /CUMM (0.0-0.7); ABSOLUTE GRANULOCYTE CT 7.6 /CUMM (1.4-6.5); ABSOLUTE LYMPH COUNT 0.4 /CUMM (1.2-3.4); ABSOLUTE MONOCYTE COUNT 0.6 /CUMM (0.10-0.60); BASOPHIL % 0 % (0.0-2.0); EOSINOPHIL % 0 % (0-5); HEMATOCRIT 29.3 % (37-47); MEAN CORPUSCULAR HGB 33.9 PG (27.0-31.0); MEAN CORPUSCULAR HGB CONC 33.2 G/DL (33.0-37.0); MEAN CORPUSCULAR VOLUME 102.3 FL (81.0-99.0); PLATELET COUNT 290 /CUMM (130-400); RBC DISTRIBUTION WIDTH 21.8 % (11.5-14.5); RED BLOOD CELL CT 2.86 /CUMM (4.20-5.40); WHITE BLOOD CELL COUNT 8.6 /CUMM (4.8-10.8)
[2016-10-14 08:21] LABS: PT 36.5 SEC (9.4-12.5)
[2016-10-14 08:29] VITALS: BP 138/80
[2016-10-14 09:13] LABS: GRANULOCYTE % 88.8 % (42.2-75.2)
--- NOTE | 2016-10-14 09:22 | PN- Housestaff ---
JOEL DUARTE 10/14/16 0907: Subjective Follow-up For: Right hip fracture status post repair Dyspnea/Tachycardia Constipation Subjective: Yesterday because of persistent tachycardia she was started on Cardizem drip. Later on she was also given 10 mg IV Cardizem. At night she was going in and out of a flutter and she was tachycardic up to 160s. Cardiology was consulted again and she was given 2.5 mg of IV Lopressor. Her heart rate came down after that and she converted back to sinus rhythm. This morning she is in sinus rhythm right now. Heart rate in 90s. She is alert awake and oriented. Requiring 4 L of oxygen right now. She feels that her breathing has improved as compared to yesterday. She had a bowel movement yesterday. Complains of mild pain when she moves her leg. Denies any chest pain or discomfort, palpitations. Review of Systems Constitutional: Reports: see HPI. Objective Last 24 Hrs of Vital Signs/I&O Vital Signs Date Time Temp Pulse Resp B/P B/P Pulse O2 O2 Flow FiO2 Mean Ox Delivery Rate 10/14 0829 97.5 86 16 138/80 92 Nasal 4.5L Cannula 10/14 0000 Nasal 4.0L Cannula 10/13 2359 97.5 80 20 130/70 92 Nasal 4.0L Cannula 10/13 2049 165 10/13 1850 139 150/76 10/13 1749 139 24 150/76 91 Nasal 4.0L Cannula 10/13 1700 96 Nasal 5.0L Cannula 10/13 1544 98.1 137 22 138/70 92 Nasal 5.0L Cannula Intake & Output 10/14 1600 10/14 0800 10/14 0000 Intake Total 300 467 Output Total 350 Balance -50 467 Intake, IV 60 77 Intake, Oral 240 390 Number 1 Bowel Movements Output, Urine 350 Physical Exam General Appearance: Alert, Oriented X3, Cooperative, No Acute Distress Skin: ecchymoses around eyes Cardiovascular: tachycardia Lungs: Clear to Auscultation Abdomen: Normal Bowel Sounds, Soft, No Tenderness Neurological: Normal Speech, Sensation Intact, Cranial Nerves 3-12 NL Extremities: trace edema right lower extremity. Bruising of right posterior thigh. Bandage intact. Pulses palpable. Current Medications: Current Medications Sig/Kev Start time Last Medication Dose Route Stop Time Status Admin Acetaminophen 1,000 MG TID 10/10 1152 AC 10/13 PO 2148 Acetaminophen 1,000 MG Q6P PRN 10/10 0915 DC 10/10 N/A 1 UNIT IV 1433 Albuterol Sulfate 3 ML Q4P PRN 10/10 1130 AC 10/13 INH 1700 Atorvastatin Calcium 10 MG 1700 10/10 1700 AC 10/13 PO 1655 Bisacodyl 5 MG DAILY NEEDED PRN 10/13 0415 AC 10/13 PO 0652 Budesonide/ 2 PUF BID 10/10 1111 AC 10/13 Formoterol Fumarate INH 2148 Calcium Carbonate 500 MG DAILY 10/11 1538 AC 10/13 PO 0914 Colchicine 600 MCG DAILY 10/10 1000 AC 10/13 PO 0915 Dicyclomine HCl 10 MG 08,10/12 0800 AC 10/14 PO 0750 Diltiazem HCl 10 MG ONCE ONE 10/13 1830 DC 10/13 IV 10/13 1831 1850 Diltiazem HCl 125 MG Q24H 10/13 1630 AC 10/13 Sodium Chloride 100 ML IV 1821 Docusate Sodium 100 MG BID 10/10 1000 AC 10/13 PO 2233 Gabapentin 200 MG TID 10/09 2200 AC 10/13 PO 2233 Hydroxyurea 500 MG Q48 10/11 1000 AC 10/13 PO 0916 Lorazepam 0.5 MG BID PRN 10/09 2030 AC 10/13 PO 10/16 2028 2233 Magnesium Hydroxide 30 ML ONE ONE 10/13 0945 DC 10/13 PO 10/13 0946 1655 Methylprednisolone 40 MG Q12 10/13 1000 DC 10/13 IV 10/13 2200 2148 Metoprolol Tartrate 2.5 MG ONCE ONE 10/13 2100 DC 10/13 IV 10/13 210 2049 Omeprazole 40 MG DAILY AC 10/10 0700 AC 10/14 PO 0548 Patient Medication 1 ED .STK-MED ONE 10/13 1419 DC Teaching ED 10/13 1420 Phosphate 250 MG ONCE ONE 10/13 2100 DC 10/13 PO 10/13 210 2233 Potassium Chloride 40 MEQ ONCE ONE 10/13 2100 DC 10/13 PO 10/13 2101 2151 Prednisone 60 MG DAILY 10/14 1000 AC PO Senna/Docusate Sodium 1 TAB BID PRN 10/09 2030 AC 10/11 PO 0455 Simethicone 80 MG Q6P PRN 10/13 1745 DC 10/13 PO 1821 Simethicone 40 MG Q6P PRN 10/11 1545 AC 10/11 PO 2128 Sodium Chloride 2 SPRAY Q4P PRN 10/13 1915 AC 10/13 KAI 2238 Tiotropium [place] 1 PUF 1100 10/12 1100 AC 10/13 INH 1000 Tramadol HCl 50 MG Q6 PRN 10/11 1445 AC 10/14 PO 0554 Last 24 Hrs of Lab/[place] Results Last 24 Hrs of Labs/Mics: Laboratory Tests 10/14/16 0655: Anion Gap 8, Estimated GFR > 60, BUN/Creatinine Ratio 32.0 H, Magnesium 2.3, PT 36.5 H, INR 3.52 H, CBC w Diff Pending, WBC Pending, RBC Pending, Hgb Pending, Hct Pending, MCV Pending, MCH Pending, RDW Pending, Plt Count Pending, MPV Pending, Gran % Pending, Lymphocytes % Pending, Monocytes % Pending, Eosinophils % Pending, Basophils % Pending, Absolute Granulocytes Pending, Absolute Lymphocytes Pending, Absolute Monocytes Pending, Absolute Eosinophils Pending, Absolute Basophils Pending, PUBS MCHC Pending 10/13/16 1754: Phosphorus 1.7 L, Magnesium 2.2, Troponin I < 0.01 Assessment/Plan Assessment: 80-year-old lady with past medical history of hyperlipidemia, pseudogout, GERD, thrombocytosis, 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 Unwitnessed mechanical fall resulting in right hip fracture * s/p ORIF POD # 5 today * INR is today, 3.52. Goal INR between 2-3. Will hold Coumadin today * Pain control with Ultram and Tylenol * PT, partial weight bearing 2. Acute on chronic respiratory failure * Most likely secondary to COPD vs Acute blood loss anemia vs Nitrofurantoin- induced interstitial pneumonitis/pulmonary fibrosis vs Atelectasis * Patient is on 4 L right now. Saturating in upper 90's * Switched IV steroids to by mouth prednisone today 3. Tachycardia, MAT vs Afib vs Aflutter * Most likely secondary to anemia and ongoing breathing difficulty due to COPD * Sinus tachycardia on monitor right now. Heart rate in 90s * On Cardizem drip 7.5 mics right now * Will follow further cardiac recommendations 4. Macrocytic anemia * S/P 2U PRBCs * H&H 9.7/29.3 today * B12 low normal side. Can start her on B12 supplements * Folate normal 5. Constipation * Had bowel movement yesterday * Continue Bowel regimen DVT prophylaxis - coumadin Pain pathway Regular Diet Full code Problem List: 1. Hip fracture 2. Hypoxia Pain Ratin Pain Location: Right hip Pain Goal: Pain 4 or less Pain Plan: Ultram and Tylenol Tomorrow's Labs & Rationales: CBC DVT/Prophylaxis: pharmacological LIZ BEATTY MD 10/14/16 1049: Attending MD Review Statement Attending Statement Attending MD Statement: examined this patient, discuss w/resident/PA/CHEMICAL RESEARCH ENGINEER, agreed w/resident/PA/CHEMICAL RESEARCH ENGINEER, reviewed EMR data (avail), discussed with nursing, discussed with case mgmt, reviewed images, amended to note Attending Assessment/Plan: Patient seen and examined, said too many things happened this am including ECHO so by the time I saw her she was feeling tired and exahusted. She finally had a bowel movement last night. Her heart rate seems to be better and her breathing has improved. Vital Signs Date Time Temp Pulse Resp B/P B/P Pulse O2 O2 Flow FiO2 Mean Ox Delivery Rate 10/14 0829 97.5 86 16 138/80 92 Nasal 4.5L Cannula 10/14 0800 Nasal 4.0L Cannula 10/14 0000 Nasal 4.0L Cannula 10/13 2359 97.5 80 20 130/70 92 Nasal 4.0L Cannula 10/13 2049 165 10/13 1850 139 150/76 10/13 1749 139 24 150/76 91 Nasal 4.0L Cannula 10/13 1700 96 Nasal 5.0L Cannula 10/13 1544 98.1 137 22 138/70 92 Nasal 5.0L Cannula on exam; aox3, nad. cv; s1,s2, rrr resp; mostly clear abd; soft, nt, bs+ ext; + edema and bruising on rle. Laboratory Tests 10/14 10/13 0655 1754 Chemistry Sodium (137 - 145 mmol/L) 142 Potassium (3.5 - 5.1 mmol/L) 4.2 3.7 Chloride (98 - 107 mmol/L) 104 Carbon Dioxide (22 - 30 mmol/L) 30 Anion Gap (5 - 16) 8 BUN (7 - 17 mg/dL) 16 Creatinine (0.5 - 1.0 mg/dL) 0.5 Estimated GFR (>60 ml/min) > 60 BUN/Creatinine Ratio (7 - 25 %) 32.0 H Phosphorus (2.5 - 4.5 mg/dL) 1.7 L Magnesium (1.6 - 2.3 mg/dL) 2.3 2.2 Troponin I (< 0.11 ng/ml) < 0.01 Coagulation PT (9.4 - 12.5 SEC) 36.5 H INR (0.90 - 1.19) 3.52 H Hematology CBC w Diff NO MAN DIFF REQ WBC (4.8 - 10.8 /CUMM) 8.6 RBC (4.20 - 5.40 /CUMM) 2.86 L Hgb (12.0 - 16.0 G/DL) 9.7 L Hct (37 - 47 %) 29.3 L MCV (81.0 - 99.0 FL) 102.3 H MCH (27.0 - 31.0 PG) 33.9 H RDW (11.5 - 14.5 %) 21.8 H Plt Count (130 - 400 /CUMM) 290 MPV (7.4 - 10.4 FL) 8.0 Gran % (42.2 - 75.2 %) 88.8 H Lymphocytes % (20.5 - 51.1 %) 4.7 L Monocytes % (1.7 - 9.3 %) 6.5 Eosinophils % (0 - 5 %) 0 Basophils % (0.0 - 2.0 %) 0 L Absolute Granulocytes (1.4 - 6.5 /CUMM) 7.6 H Absolute Lymphocytes (1.2 - 3.4 /CUMM) 0.4 L Absolute Monocytes (0.10 - 0.60 /CUMM) 0.6 Absolute Eosinophils (0.0 - 0.7 /CUMM) 0 Absolute Basophils (0.0 - 0.2 /CUMM) 0 PUBS MCHC (33.0 - 37.0 G/DL) 33.2 A/p: 80 y/o F with pmh sig for oxygen dependence 2.5 L, ch resp faliure, lung cancer one year ago with 5 cycles of radiation, not on chemotherapy or surgery, former smoker, hyperlipidemia, mitral valve prolapse, acid reflux, diverticulitis, irritable bowel syndrome, lactose intolerance, osteoarthritis, pseudogout, essential thrombocytosis, constipation, anxiety, frequent urinary tract infections, cholecystectomy, hernia repair, hysterectomy, admitted with mech fall and found to have intertrochenteric right femur fracture s/p repair POD # 5 today. Patient was seen by Dr. Patrick yesterday and was started on Cardizem drip. Overnight her heart rate went up and Cardizem rate was increased. This morning heart rate is much better. Breathing has also improved and she finally had a bowel movement last night. At this point we'll discuss with cardiology about switching Cardizem to oral. Follow-up an echo. Yosi switching steroids to oral prednisone. Continue TRC nebs and inhalers. H &H is pretty stable. Patient to work with physical therapy. Has a good pain control. DVT prophylaxis: INR still supratherapeutic. We'll hold Coumadin today and recheck it in the morning. POssible DC to rehab this w/e. D/W patient's son at length.
[2016-10-14] MEDS ORDERED: COUMADIN3 M1 PO (13:02)
[2016-10-14] MEDS ORDERED: PREDNISONE10 M2 PO (15:00)
[2016-10-14 15:58] VITALS: BP 130/86
--- NOTE | 2016-10-14 16:59 | PN- Cardiology ---
Subjective Subjective: Clinicall a bit better with improved respiratory status and better heart rate control Objective Vital Signs and I&Os Vital Signs Date Time Temp Pulse Resp B/P B/P Pulse O2 O2 Flow FiO2 Mean Ox Delivery Rate 10/14 1651 102 130/86 10/14 1651 92 Nasal 4.0L Cannula 10/14 1558 97.8 89 18 130/86 93 Nasal 4.0L Cannula 10/14 1125 94 Nasal 4.0L Cannula 10/14 0829 97.5 86 16 138/80 92 Nasal 4.5L Cannula 10/14 0800 Nasal 4.0L Cannula 10/14 0000 Nasal 4.0L Cannula 10/13 2359 97.5 80 20 130/70 92 Nasal 4.0L Cannula 10/13 2049 165 10/13 1850 139 150/76 10/13 1749 139 24 150/76 91 Nasal 4.0L Cannula 10/13 1700 96 Nasal 5.0L Cannula Intake & Output 10/14 1600 10/14 0800 10/14 0000 10/13 1600 10/13 0800 10/13 0000 Intake Total 480 300 467 611 350 350 Output Total 350 400 Balance 480 -50 467 611 350 -50 Intake, IV 60 77 11 0 0 Intake, Oral 480 240 390 600 350 350 Number 1 0 0 Bowel Movements Output, Urine 350 400 Patient 160 lb Weight Current Medications: Current Medications Sig/Kev Start time Last Medication Dose Route Stop Time Status Admin Acetaminophen 1,000 MG TID 10/10 1152 AC 10/14 PO 1651 Albuterol Sulfate 3 ML Q4P PRN 10/10 1130 AC 10/14 INH 1126 Atorvastatin Calcium 10 MG 1700 10/10 1700 AC 10/14 PO 1651 Bisacodyl 5 MG DAILY NEEDED PRN 10/13 0415 AC 10/13 PO 0652 Budesonide/ 2 PUF BID 10/10 1111 AC 10/14 Formoterol Fumarate INH 1003 Calcium Carbonate 500 MG DAILY 10/11 1538 AC 10/14 PO 1118 Colchicine 600 MCG DAILY 10/10 1000 AC 10/14 PO 0958 Cyanocobalamin 1,000 MCG DAILY 10/14 1000 AC 10/14 PO 1118 Dicyclomine HCl 10 MG 08,10/12 0800 AC 10/14 PO 0750 Diltiazem HCl 60 MG Q8 10/14 1510 AC 10/14 PO 1651 Diltiazem HCl 10 MG ONCE ONE 10/13 1830 DC 10/13 IV 10/13 1831 1850 Diltiazem HCl 125 MG Q24H 10/13 1630 DC 10/13 Sodium Chloride 100 ML IV 1821 Docusate Sodium 100 MG BID 10/10 1000 AC 10/14 PO 0958 Gabapentin 200 MG TID 10/09 2200 AC 10/14 PO 1651 Hydroxyurea 500 MG Q48 10/11 1000 AC 10/13 PO 0916 Lorazepam 0.5 MG BID PRN 10/09 2030 AC 10/14 PO 10/16 202 1001 Magnesium Hydroxide 30 ML ONE ONE 10/14 1615 DC 10/14 PO 10/14 1616 1657 Methylprednisolone 40 MG Q12 10/13 1000 DC 10/13 IV 10/13 2200 2148 Metoprolol Tartrate 2.5 MG ONCE ONE 10/13 2100 DC 10/13 IV 10/13 2101 2049 Omeprazole 40 MG DAILY AC 10/10 0700 AC 10/14 PO 0548 Phosphate 250 MG ONCE ONE 10/13 2100 DC 10/13 PO 10/13 2101 2233 Potassium Chloride 40 MEQ ONCE ONE 10/13 2100 DC 10/13 PO 10/13 2101 2151 Prednisone 60 MG DAILY 10/14 1000 AC 10/14 PO 1000 Senna/Docusate Sodium 1 TAB BID PRN 10/09 2030 AC 10/11 PO 0455 Simethicone 80 MG Q6P PRN 10/13 1745 DC 10/13 PO 1821 Simethicone 40 MG Q6P PRN 10/11 1545 AC 10/11 PO 2128 Sodium Chloride 2 SPRAY Q4P PRN 10/13 1915 AC 10/13 KAI 2238 Tiotropium [place] 1 PUF 1100 10/12 1100 AC 10/14 INH 1118 Tramadol HCl 50 MG Q6 PRN 10/11 1445 AC 10/14 PO 0554 Results Last 48 Hrs of Labs/Mics: Laboratory Tests 10/14/16 0655: Anion Gap 8, Estimated GFR > 60, BUN/Creatinine Ratio 32.0 H, Magnesium 2.3, PT 36.5 H, INR 3.52 H, CBC w Diff NO MAN DIFF REQ, RBC 2.86 L, MCV 102.3 H, MCH 33.9 H, RDW 21.8 H, MPV 8.0, Gran % 88.8 H, Lymphocytes % 4.7 L, Monocytes % 6.5, Eosinophils % 0, Basophils % 0 L, Absolute Granulocytes 7.6 H, Absolute Lymphocytes 0.4 L, Absolute Monocytes 0.6, Absolute Eosinophils 0, Absolute Basophils 0, PUBS MCHC 33.2 10/13/16 1754: Phosphorus 1.7 L, Magnesium 2.2, Troponin I < 0.01 10/13/16 0638: PT 41.9 H, INR 4.05 *H, CBC w Diff NO MAN DIFF REQ, RBC 2.82 L, MCV 102.0 H, MCH 33.9 H, RDW 22.5 H, MPV 8.3, Gran % 87.8 H, Lymphocytes % 3.3 L, Monocytes % 8.9, Eosinophils % 0, Basophils % 0 L, Absolute Granulocytes 7.3 H , Absolute Lymphocytes 0.3 L, Absolute Monocytes 0.7 H, Absolute Eosinophils 0 , Absolute Basophils 0, PUBS MCHC 33.3 Assessment/Plan Assessment/Plan Assessment: 1. Persistent tachyardia - Review of ECGs and telemetry shows a significant amount of baseline artifact. I suspect that the patient is in MAT but there also appear to be episodes suggestive of non sustained PAF. Interspersed with periods of ST. Likely aggravated by underlying pulmonary issues and anemia. NOw stable in NSR with atrial ectopy and better rate control on cardizem 2. Post op hip surgery 3. Acute on chronic respiratory failure / COPD 4. Macrocytic anemia 5. Low B12 Recommendations: - COnitnue IV cardizem overnight. - If rhythm remains stable, start on oral cardizem at 60 TID. - Keep on telemetry - Contnue current respiratory care. - Echo pending. Continue telemetry? Yes
--- NOTE | 2016-10-14 20:00 | ECHOCARDIOGRAM REPORT ---
GABRIELLA MUÑOZ Age: 80 : 1935 Gender: F Exam Date: 10/14/2016 08:44 Exam Location: [place] Ht (in): 65 Wt (lb): 160 BSA: 1.84 BP: 130 / 70 Ordering Physician: MICHAEL WHATLEY MD Referring Physician: MICHAEL WHATLEY MD Technologist: Gabe Mitchell [facility] Room Number: 185-1 Indications: Shortness of breath Rhythm: Sinus Technical Quality: Fair FINDINGS Left Ventricle Normal size left ventricle. Normal global left ventricular size, wall thickness, systolic function with no obvious regional wall motion abnormalities. Normal left ventricular ejection fraction estimated at 60-65%. Right Ventricle Right ventricular dilatation. Right Atrium Mild right atrial dilatation. Left Atrium Mild to moderate left atrial dilatation. Mitral Valve Mitral valve thickened. Mild mitral annular calcification. Trace to mild mitral regurgitation. Aortic Valve Trileaflet aortic valve. Diffuse thickening (sclerosis) of the aortic valve cusps without reduced excursion. No aortic stenosis. No aortic regurgitation. Tricuspid Valve Tricuspid valve not well visualized, grossly normal. Mild-to- moderate tricuspid regurgitation. Right ventricular systolic pressure estimated to be elevated at 54 mmHg. Pulmonic Valve Pulmonic valve not well visualized, grossly normal. Pericardium Minimal pericardial effusion (normal variant). Great Vessels Aortic root and proximal ascending aorta not well visualized, grossly normal. CONCLUSIONS 1. Mild to moderate aortic sclerosis is present with no valvular stenosis or insufficiency. 2. Mitral leaflet thickening is present with mild anular calcification and minimal to mild mitral insufficiency with mild to moderate left atrial enlargement. 3. A physiologic pericardial effusion is present. 4. The left ventricular chamber size and systolic function are normal. 5. A false tendon is present at the LV apex. 6. Mild enlargement of the right heart chambers and IVC is noted. Mild to moderate tricuspid insufficiency is present with moderate pulmonary hypertension and an estimated RV systolic pressure of 54 mmHg. Noe Patrick M.D. (Electronically Signed) Final Date: 14 October 2016 20:00 MEASUREMENTS (Male / Female) Normal Values 2D ECHO LV Diastolic Diameter PLAX 4.3 cm 4.2 - 5.9 / 3.9 - 5.3 cm LV Systolic Diameter PLAX 2.6 cm 2.1 - 4.0 cm LV Fractional Shortening PLAX 39.5 % 25 - 46 % LV Ejection Fraction 2D Teich 70.4 % IVS Diastolic Thickness 1.1 cm LVPW Diastolic Thickness 1.1 cm LV Relative Wall Thickness 0.5 RV Internal Dim ED PLAX 3.1 cm 1.9 - 3.8 cm LVOT Diameter 1.9 cm Aortic Root Diameter 3.0 cm LA Systolic Diameter LX 2.7 cm 3.0 - 4.0 / 2.7 - 3.8 cm LA Volume 42.0 cm 18 - 58 / 22 - 52 cm Ascending Aorta Diameter 3.2 cm DOPPLER AV Peak Velocity 142.0 cm/s AV Peak Gradient 8.1 mmHg AV Mean Velocity 92.7 cm/s AV Mean Gradient 4.0 mmHg AV Velocity Time Integral 29.0 cm LVOT Peak Velocity 92.5 cm/s LVOT Peak Gradient 3.4 mmHg LVOT Mean Velocity 46.8 cm/s LVOT Mean Gradient 1.0 mmHg LVOT Velocity Time Integral 18.9 cm LVOT Stroke Volume 53.6 cm AV Area Cont Eq vti 1.8 cm AV Area Cont Eq pk 1.8 cm MV Peak Velocity 113.0 cm/s MV Peak Gradient 5.1 mmHg MV Mean Velocity 65.1 cm/s MV Mean Gradient 2.0 mmHg Mitral E Point Velocity 105.0 cm/s Mitral A Point Velocity 91.3 cm/s Mitral E to A Ratio 1.2 MV PHT Velocity 114.0 cm/s MV Deceleration [place] 321.0 cm/s MV Pressure Half Time 106.5 ms MV Area PHT 2.1 cm MV Deceleration Time 264.0 ms TR Peak Velocity 350.0 cm/s TR Peak Gradient 49.0 mmHg Right Atrial Pressure 10.0 mmHg Pulmonary Artery Systolic Pressu 59.0 mmHg Right Ventricular Systolic Press 59.0 mmHg PV Peak Velocity 109.0 cm/s PV Peak Gradient 4.8 mmHg PV Mean Velocity 62.1 cm/s PV Mean Gradient 2.0 mmHg PV Velocity Time Integral 19.8 cm LV E' Lateral Velocity 10.4 cm/s Mitral E to LV E' Lateral Ratio 10.1 LV E' Septal Velocity 10.4 cm/s Mitral E to LV E' Septal Ratio 10.1
[2016-10-14 23:51] VITALS: BP 130/80
[2016-10-15 08:52] VITALS: BP 124/69
--- NOTE | 2016-10-15 09:16 | PN- Housestaff ---
LOLY CHERRY 10/15/16 0915: Subjective Follow-up For: Right hip fracture Tachycardia Complaints: no complaints Tele-Events Since Last Visit: Normal sinus rhythm, tachycardia 91-130s, multiple PVCs and PACs. Subjective: The patient is comfortable this morning. The family was present at the bedside. She did not have any complaints at the time of my examination. But, during the day she complained of chest discomfort which is chronic or due to [place]. Vitals stable overnight. Review of Systems Constitutional: Reports: see HPI. Objective Last 24 Hrs of Vital Signs/I&O Vital Signs Date Time Temp Pulse Resp B/P B/P Pulse O2 O2 Flow FiO2 Mean Ox Delivery Rate 10/15 0852 97.8 72 22 124/69 92 Nasal 4.0L Cannula 10/15 0809 91 Nasal 4.0L Cannula 10/15 0654 109 142/88 10/15 0000 97 Nasal 4.0L Cannula 10/14 2351 97.8 87 18 130/80 95 Nasal 2.0L Cannula 10/14 2130 107 118/72 10/14 1651 102 130/86 10/14 1651 92 Nasal 4.0L Cannula 10/14 1600 Nasal 4.0L Cannula 10/14 1558 97.8 89 18 130/86 93 Nasal 4.0L Cannula 10/14 1125 94 Nasal 4.0L Cannula Intake & Output 10/15 1600 10/15 0800 10/15 0000 Intake Total 505 Output Total 100 Balance -100 505 Intake, IV 25 Intake, Oral 480 Number 1 1 Bowel Movements Output, Urine 100 Physical Exam General Appearance: No Acute Distress Other Physical Findings: General Exam: AAOx3, No acute distress, Skin: No rashes, no breakdown HEENT: PERRLA, EOMI Neck: Supple, No JVD No cervical lymphadenopathy CVS: Reg Rate, Normal S1,S2, No MGR Resp: Decreased air entry, no ronchi/rales Abdomen: Soft, No tenderness, Normal Bowel Sounds Neuro: Normal Speech, Strength 5/5 b/l x 4 extremities, Sensation intact, CN III -XII NL, Reflexes 2+ Extremities: No cyanosis, pedal edema Current Medications: Current Medications Sig/Kev Start time Last Medication Dose Route Stop Time Status Admin Acetaminophen 1,000 MG TID 10/10 1152 AC 10/14 PO 213 Albuterol Sulfate 3 ML Q4P PRN 10/10 1130 AC 10/14 INH 2037 Atorvastatin Calcium 10 MG 1700 10/10 1700 AC 10/14 PO 1651 Bisacodyl 5 MG DAILY NEEDED PRN 10/13 0415 AC 10/13 PO 0652 Budesonide/ 2 PUF BID 10/10 1111 AC 10/14 Formoterol Fumarate INH 2130 Calcium Carbonate 500 MG DAILY 10/11 1538 AC 10/15 PO 0757 Colchicine 600 MCG DAILY 10/10 1000 AC 10/14 PO 0958 Cyanocobalamin 1,000 MCG DAILY 10/14 1000 AC 10/14 PO 1118 Dicyclomine HCl 10 MG 08,10/12 0800 AC 10/15 PO 0759 Diltiazem HCl 60 MG Q8 10/14 1510 AC 10/15 PO 0654 Diltiazem HCl 125 MG Q24H 10/13 1630 DC 10/13 Sodium Chloride 100 ML IV 1821 Docusate Sodium 100 MG BID 10/10 1000 AC 10/14 PO 2130 Gabapentin 200 MG TID 10/09 2200 AC 10/14 PO 2131 Hydroxyurea 500 MG Q48 10/11 1000 AC 10/13 PO 0916 Lorazepam 0.5 MG BID PRN 10/09 2030 AC 10/14 PO 10/16 202 1001 Magnesium Hydroxide 30 ML ONE ONE 10/14 1615 DC 10/14 PO 10/14 1616 1657 Omeprazole 40 MG DAILY AC 10/10 0700 AC 10/15 PO 0650 Prednisone 60 MG DAILY 10/14 1000 AC 10/14 PO 1000 Senna/Docusate Sodium 1 TAB BID PRN 10/09 2030 AC 10/11 PO 0455 Simethicone 40 MG Q6P PRN 10/11 1545 AC 10/11 PO 2128 Sodium Chloride 2 SPRAY Q4P PRN 10/13 1915 AC 10/13 KAI 2238 Tiotropium [place] 1 PUF 1100 10/12 1100 AC 10/14 INH 1118 Tramadol HCl 50 MG Q6 PRN 10/11 1445 AC 10/15 PO 0250 Last 24 Hrs of Lab/[place] Results Last 24 Hrs of Labs/Mics: Laboratory Tests 10/15/16 0640: PT 31.0 H, INR 2.98 H Assessment/Plan Assessment: 80-year-old lady with past medical history of hyperlipidemia, pseudogout, GERD, thrombocytosis, 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 Unwitnessed mechanical fall resulting in right hip fracture * s/p ORIF POD # 5 today * INR is today, 2.98. Goal INR between 2-3. Will hold Coumadin today * Pain control with Ultram and Tylenol * PT, partial weight bearing 2. Acute on chronic respiratory failure * Most likely secondary to COPD vs Acute blood loss anemia vs Nitrofurantoin- induced interstitial pneumonitis/pulmonary fibrosis vs Atelectasis * Patient is on 4 L right now. Saturating in upper 90's * Switched IV steroids to by mouth prednisone. 3. Tachycardia, MAT vs Afib vs Aflutter * Most likely secondary to anemia and ongoing breathing difficulty due to COPD * Started IV Cardizem in addition to IV Cardizem push and strain. * Will follow further cardiac recommendations 4. Macrocytic anemia * S/P 2U PRBCs * H&H 9.7/29.3 today * B12 low normal side. Can start her on B12 supplements * Folate normal 5. Constipation * Had bowel movement yesterday * Continue Bowel regimen DVT prophylaxis - coumadin Pain pathway Regular Diet Full code Problem List: 1. Right femoral fracture Pain Ratin Pain Location: Chest discomfort Pain Goal: Pain 4 or less Pain Plan: Tylenol Tomorrow's Labs & Rationales: BMP to monitor for kidney function. WEST WEBER,ALYSHA 10/15/16 1151: Attending MD Review Statement Attending Statement Attending MD Statement: examined this patient, discuss w/resident/PA/PARTY DEMONSTRATOR, agreed w/resident/PA/PARTY DEMONSTRATOR, reviewed EMR data (avail), discussed with nursing, discussed with case mgmt, reviewed images Attending Assessment/Plan: The pt continues to have significant issues with her heart rate so much so that the sleeve turner needed to push 20 mg of IV Cardizem today and now she is on by mouth Cardizem 3 times a day. The thought is that her tachyarrhythmia is secondary to severe COPD and chronic respiratory failure. A PE was looked for a few days ago and the CT was negative, in addition she is also anticoagulated after the hip fracture and her INR remains on the high side. She is on by mouth prednisone for COPD exacerbation and we'll approach that taper very slowly. She has a chronic macrocytic anemia on hydroxyurea and they're supplementing B12.
--- NOTE | 2016-10-15 10:00 | NUR ---
HEART RATE STEADY IN THE 120-130'S. DID RECEIEVE PO CARDIZEM THIS MORNING AT 0[address]. [address] DR JOY, IV CARDIZEM 20MG IV PUSH GIVEN BY HIM. WILL CONTINUE TO MONITOR.
--- NOTE | 2016-10-15 10:16 | PN- Cardiology ---
Subjective Subjective: * Patient complains of shortness of breath. She also has epigastric discomfort exacerbated by eating. * suspected MAT on telemetry Objective Vital Signs and I&Os Vital Signs Date Time Temp Pulse Resp B/P B/P Pulse O2 O2 Flow FiO2 Mean Ox Delivery Rate 10/15 0852 97.8 72 22 124/69 92 Nasal 4.0L Cannula 10/15 0809 91 Nasal 4.0L Cannula 10/15 0654 109 142/88 10/15 0000 97 Nasal 4.0L Cannula 10/14 2351 97.8 87 18 130/80 95 Nasal 2.0L Cannula 10/14 2130 107 118/72 10/14 1651 102 130/86 10/14 1651 92 Nasal 4.0L Cannula 10/14 1600 Nasal 4.0L Cannula 10/14 1558 97.8 89 18 130/86 93 Nasal 4.0L Cannula 10/14 1125 94 Nasal 4.0L Cannula Intake & Output 10/15 1600 10/15 0800 10/15 0000 10/14 1600 10/14 0800 10/14 0000 Intake Total 505 480 300 467 Output Total 100 350 Balance -100 505 480 -50 467 Intake, IV 25 60 77 Intake, Oral 480 480 240 390 Number 1 1 1 Bowel Movements Output, Urine 100 350 Physical Exam: General: WD/ WN female in NAD; alert and oriented x 3 Neck: no JVD Heart: RRR w/o mumrur Lungs: clear bilaterally Extremities: 2+ right leg edema. No edema on left. Assessment/Plan Assessment/Plan * Patient with shortness of breath and tachycardia somewhat suggestive of a PE. This patient did have a CT angiogram that did not show evidence of a PE and she is already on chronic anticoagulation with a therapeutic INR. Her shortness of breath is likely related to her emphysematous COPD. * This patient may have angina exacerbated by her tachycardia. We will increase her cardizem to 90mg PO TID after a 20mg IV bolus. Consideration will be given to a small dose of beta macey if additional rate control is needed. This patient should have an outpatient stress test when more stable. * obtain echo Continue telemetry? Yes
[2016-10-15 12:03] LABS: ABSOLUTE BASOPHIL COUNT 0 /CUMM (0.0-0.2); ABSOLUTE EOSINOPHIL COUNT 0 /CUMM (0.0-0.7); ABSOLUTE GRANULOCYTE CT 10.4 /CUMM (1.4-6.5); ABSOLUTE LYMPH COUNT 0.7 /CUMM (1.2-3.4); BASOPHIL % 0 % (0.0-2.0); EOSINOPHIL % 0.1 % (0-5); GRANULOCYTE % 85.8 % (42.2-75.2); HEMATOCRIT 31.1 % (37-47); MEAN CORPUSCULAR HGB 33.9 PG (27.0-31.0); MEAN CORPUSCULAR HGB CONC 33.1 G/DL (33.0-37.0); MEAN CORPUSCULAR VOLUME 102.4 FL (81.0-99.0); MEAN PLATELET VOLUME 7.8 FL (7.4-10.4); PLATELET COUNT 367 /CUMM (130-400); RBC DISTRIBUTION WIDTH 21.9 % (11.5-14.5); RED BLOOD CELL CT 3.04 /CUMM (4.20-5.40); WHITE BLOOD CELL COUNT 12.1 /CUMM (4.8-10.8)
--- NOTE | 2016-10-15 12:33 | PN- Pulmonary ---
Subjective HPI/Critical Care Issues: Seen early in am PT sleeping mild dyspnea fatigue MAT on tele Objective Current Medications: Current Medications Sig/Kev Start time Last Medication Dose Route Stop Time Status Admin Acetaminophen 1,000 MG TID 10/10 1152 AC 10/15 PO 1113 Albuterol Sulfate 3 ML Q4P PRN 10/10 1130 AC 10/14 INH 2037 Atorvastatin Calcium 10 MG 1700 10/10 1700 AC 10/14 PO 1651 Bisacodyl 5 MG DAILY NEEDED PRN 10/13 0415 AC 10/13 PO 0652 Budesonide/ 2 PUF BID 10/10 1111 AC 10/15 Formoterol Fumarate INH 1110 Calcium Carbonate 500 MG DAILY 10/11 1538 AC 10/15 PO 0757 Colchicine 600 MCG DAILY 10/10 1000 AC 10/15 PO 1112 Cyanocobalamin 1,000 MCG DAILY 10/14 1000 AC 10/15 PO 1113 Dicyclomine HCl 10 MG 0800,10/12 0800 AC 10/15 PO 0759 Diltiazem HCl 90 MG Q8 10/15 1400 AC PO Diltiazem HCl 20 MG ONCE ONE 10/15 1015 DC 10/15 IV 10/15 1016 1000 Diltiazem HCl 60 MG Q8 10/14 1510 DC 10/15 PO 0654 Diltiazem HCl 125 MG Q24H 10/13 1630 DC 10/13 Sodium Chloride 100 ML IV 1821 Docusate Sodium 100 MG BID 10/10 1000 AC 10/14 PO 2130 Gabapentin 200 MG TID 10/09 2200 AC 10/15 PO 1112 Hydroxyurea 500 MG Q48 10/11 1000 AC 10/15 PO 1113 Lorazepam 0.5 MG BID PRN 10/09 2030 AC 10/14 PO 10/16 202 1001 Magnesium Hydroxide 30 ML ONE ONE 10/14 1615 DC 10/14 PO 10/14 1616 1657 Omeprazole 40 MG DAILY AC 10/10 0700 AC 10/15 PO 0650 Prednisone 60 MG DAILY 10/14 1000 AC 10/15 PO 1113 Senna/Docusate Sodium 1 TAB BID PRN 10/09 2030 AC 10/11 PO 0455 Simethicone 40 MG Q6P PRN 10/11 1545 AC 10/11 PO 2128 Sodium Chloride 2 SPRAY Q4P PRN 10/13 1915 AC 10/13 KAI 2238 Tiotropium [place] 1 PUF 1100 10/12 1100 AC 10/15 INH 1109 Tramadol HCl 50 MG Q6 PRN 10/11 1445 AC 10/15 PO 0250 Vital Signs & I&O Last 24 Hrs of Vitals and I&O: Vital Signs Date Time Temp Pulse Resp B/P B/P Pulse O2 O2 Flow FiO2 Mean Ox Delivery Rate 10/15 1000 160 10/15 0852 97.8 72 22 124/69 92 Nasal 4.0L Cannula 10/15 0809 91 Nasal 4.0L Cannula 10/15 0654 109 142/88 10/15 0000 97 Nasal 4.0L Cannula 10/14 2351 97.8 87 18 130/80 95 Nasal 2.0L Cannula 10/14 2130 107 118/72 10/14 1651 102 130/86 10/14 1651 92 Nasal 4.0L Cannula 10/14 1600 Nasal 4.0L Cannula 10/14 1558 97.8 89 18 130/86 93 Nasal 4.0L Cannula Intake & Output 10/15 1600 10/15 0800 10/15 0000 Intake Total 505 Output Total 100 Balance -100 505 Intake, IV 25 Intake, Oral 480 Number 1 1 Bowel Movements Output, Urine 100 Impression/Plan Impression/Plan Impression/Plan: General: WD/ WN female in NAD; alert and oriented x 3 Neck: no JVD Heart: RRR w/o mumrurf Lungs: clear bilaterally Extremities: 2+ right leg edema. No edema on left. IMPRESSION 80-year-old woman status post hip surgery and acute blood loss anemia in the setting of severe oxygen-dependent COPD. With shortness of breath is likely multifactorial related to COPD and acute blood loss anemia. There is no evidence for pulmonary embolism. Respiratory status appears to be slowly improving oxygen requirement is improving. PT also has history of lung cancer s /p xrt REC cont present rx Steroid taper IF anemia is a concern hydroxyurea needs to be held tempororily Cont pt will follow
[2016-10-15 13:49] VITALS: BP 130/70
[2016-10-15 16:17] VITALS: BP 123/61
[2016-10-15 23:43] VITALS: BP 120/60
--- NOTE | 2016-10-16 07:05 | PN- Pulmonary ---
Subjective HPI/Critical Care Issues: Pt says she is doing well afebrile Has had multiple bm Objective Current Medications: Current Medications Sig/Kev Start time Last Medication Dose Route Stop Time Status Admin Acetaminophen 1,000 MG TID 10/10 1152 AC 10/15 PO 2136 Albuterol Sulfate 3 ML Q4P PRN 10/10 1130 AC 10/14 INH 2037 Atorvastatin Calcium 10 MG 1700 10/10 1700 AC 10/15 PO 1755 Bisacodyl 5 MG DAILY NEEDED PRN 10/13 0415 AC 10/13 PO 0652 Budesonide/ 2 PUF BID 10/10 1111 AC 10/15 Formoterol Fumarate INH 2136 Calcium Carbonate 500 MG DAILY 10/11 1538 AC 10/15 PO 0757 Colchicine 600 MCG DAILY 10/10 1000 AC 10/15 PO 1112 Cyanocobalamin 1,000 MCG DAILY 10/14 1000 AC 10/15 PO 1113 Dicyclomine HCl 10 MG 08,10/12 0800 AC 10/15 PO 1952 Diltiazem HCl 90 MG Q8 10/15 1400 AC 10/16 PO 0555 Diltiazem HCl 20 MG ONCE ONE 10/15 1015 DC 10/15 IV 10/15 1016 1000 Diltiazem HCl 60 MG Q8 10/14 1510 DC 10/15 PO 0654 Docusate Sodium 100 MG BID 10/10 1000 AC 10/14 PO 2130 Gabapentin 200 MG TID 10/09 2200 AC 10/15 PO 2136 Hydroxyurea 500 MG Q48 10/11 1000 AC 10/15 PO 1113 Lorazepam 0.5 MG BID PRN 10/09 2030 AC 10/14 PO 10/16 202 1001 Omeprazole 40 MG DAILY AC 10/10 0700 AC 10/16 PO 0555 Prednisone 60 MG DAILY 10/14 1000 AC 10/15 PO 1113 Senna/Docusate Sodium 1 TAB BID PRN 10/09 2030 AC 10/11 PO 0455 Simethicone 40 MG Q6P PRN 10/11 1545 AC 10/15 PO 1952 Sodium Chloride 2 SPRAY Q4P PRN 10/13 1915 AC 10/13 KAI 2238 Tiotropium [place] 1 PUF 1100 10/12 1100 AC 10/15 INH 1109 Tramadol HCl 50 MG Q6 PRN 10/11 1445 AC 10/15 PO 0250 Vital Signs & I&O Last 24 Hrs of Vitals and I&O: Vital Signs Date Time Temp Pulse Resp B/P B/P Pulse O2 O2 Flow FiO2 Mean Ox Delivery Rate 10/16 0000 98 Nasal 4.0L Cannula 10/15 2343 98.9 100 22 120/60 97 Nasal Cannula 10/15 1653 97 Nasal 4.0L Cannula 10/15 1617 98.1 101 22 123/61 94 Nasal 4.0L Cannula 10/15 1600 Nasal 4.0L Cannula 10/15 1349 114 130/70 10/15 1000 160 10/15 0852 97.8 72 22 124/69 92 Nasal 4.0L Cannula 10/15 0809 91 Nasal 4.0L Cannula 10/15 0800 Nasal 4.0L Cannula Intake & Output 10/16 0800 10/16 0000 10/15 1600 Intake Total 50 490 400 Output Total 3 400 Balance 50 487 0 Intake, IV 10 Intake, Oral 50 480 400 Number 3 3 3 Bowel Movements Output, Other 3 Output, Urine 400 Impression/Plan Impression/Plan Impression/Plan: General: WD/ WN female in NAD; alert and oriented x 3 Neck: no JVD Heart: RRR w/o mumrurf Lungs: clear bilaterally Extremities: 2+ right leg edema. No edema on left. IMPRESSION 80-year-old woman status post hip surgery and acute blood loss anemia in the setting of severe oxygen-dependent COPD. With shortness of breath is likely multifactorial related to COPD and acute blood loss anemia. There is no evidence for pulmonary embolism. Respiratory status appears to be slowly improving oxygen requirement is improving. PT also has history of lung cancer s /p xrt. Now has multiple loose stools per pt REC cont present rx Steroid taper HOld all stool softners Check stool for cdiff Check blood work today and replace lytes and magnesium if needed IF anemia is a concern hydroxyurea needs to be held tempororily Cont pt will follow
[2016-10-16 07:39] VITALS: BP 110/70
[2016-10-16 08:16] LABS: ABSOLUTE BASOPHIL COUNT 0 /CUMM (0.0-0.2); ABSOLUTE EOSINOPHIL COUNT 0 /CUMM (0.0-0.7); ABSOLUTE GRANULOCYTE CT 7.8 /CUMM (1.4-6.5); ABSOLUTE LYMPH COUNT 0.6 /CUMM (1.2-3.4); ABSOLUTE MONOCYTE COUNT 0.9 /CUMM (0.10-0.60); BASOPHIL % 0 % (0.0-2.0); EOSINOPHIL % 0.2 % (0-5); HEMATOCRIT 31.4 % (37-47); MEAN CORPUSCULAR HGB 34.5 PG (27.0-31.0); MEAN CORPUSCULAR HGB CONC 33.5 G/DL (33.0-37.0); PLATELET COUNT 383 /CUMM (130-400); RBC DISTRIBUTION WIDTH 21.4 % (11.5-14.5); RED BLOOD CELL CT 3.05 /CUMM (4.20-5.40); WHITE BLOOD CELL COUNT 9.3 /CUMM (4.8-10.8)
[2016-10-16 08:21] LABS: PT 18.2 SEC (9.4-12.5)
--- NOTE | 2016-10-16 09:07 | PN- Housestaff ---
See Addendum BULMARO ZHANG 10/16/16 0907: Subjective Follow-up For: Right hip fracture Tachycardia Complaints: no complaints Tele-Events Since Last Visit: MAT 85-102, 97% on cont oxim Subjective: Patient seen and examined at bedside. She had 2 episodes of diarrhea. No fever, chills. Down to 3.0 liters of 02. Offers no other complaints. Review of Systems Constitutional: Denies: chills, fever, weakness. Cardiovascular: Reports: peripheral edema. Denies: chest pain, orthopena. Respiratory: Denies: cough, short of breath, sputum production. Gastrointestinal: Reports: diarrhea. Denies: abdominal pain, nausea, vomiting. Genitourinary: Reports: no symptoms. Musculoskeletal: Reports: no symptoms. Neurological/Psychological: Denies: headache, numbness, tingling, tremors. Objective Last 24 Hrs of Vital Signs/I&O Vital Signs Date Time Temp Pulse Resp B/P B/P Pulse O2 O2 Flow FiO2 Mean Ox Delivery Rate 10/16 0808 96 Nasal 3.0L Cannula 10/16 0800 Nasal 4.0L Cannula 10/16 0739 98.6 94 16 110/70 97 Nasal 4.0L Cannula 10/16 0000 98 Nasal 4.0L Cannula 10/15 2343 98.9 100 22 120/60 97 Nasal Cannula 10/15 1653 97 Nasal 4.0L Cannula 10/15 1617 98.1 101 22 123/61 94 Nasal 4.0L Cannula 10/15 1600 Nasal 4.0L Cannula 10/15 1349 114 130/70 10/15 1000 160 Intake & Output 10/16 1600 10/16 0800 10/16 0000 Intake Total 50 490 Output Total 3 Balance 50 487 Intake, IV 10 Intake, Oral 50 480 Number 3 3 Bowel Movements Output, Other 3 Physical Exam General Appearance: Alert, Oriented X3, Cooperative, No Acute Distress HEENT: Atraumatic, PERRLA Neck: Supple, No JVD Cardiovascular: Normal S1, Normal S2, No Murmurs Lungs: Clear to Auscultation, Normal Air Movement Abdomen: Normal Bowel Sounds, Soft, No Tenderness Neurological: Normal Speech, Strength at 5/5 X4 Ext, Normal Tone, Sensation Intact, Cranial Nerves 3-12 NL, Reflexes 2+ Extremities: rle>>lle Current Medications: Current Medications Sig/Kev Start time Last Medication Dose Route Stop Time Status Admin Acetaminophen 1,000 MG TID 10/10 1152 AC 10/15 PO 2136 Albuterol Sulfate 3 ML Q4P PRN 10/10 1130 AC 10/14 INH 2037 Atorvastatin Calcium 10 MG 1700 10/10 1700 AC 10/15 PO 1755 Bisacodyl 5 MG DAILY NEEDED PRN 10/13 0415 AC 10/13 PO 0652 Budesonide/ 2 PUF BID 10/10 1111 AC 10/15 Formoterol Fumarate INH 2136 Calcium Carbonate 500 MG DAILY 10/11 1538 AC 10/15 PO 0757 Colchicine 600 MCG DAILY 10/10 1000 AC 10/15 PO 1112 Cyanocobalamin 1,000 MCG DAILY 10/14 1000 AC 10/15 PO 1113 Dicyclomine HCl 10 MG 08,10/12 0800 AC 10/16 PO 0743 Diltiazem HCl 90 MG Q8 10/15 1400 AC 10/16 PO 0555 Diltiazem HCl 20 MG ONCE ONE 10/15 1015 DC 10/15 IV 10/15 1016 1000 Diltiazem HCl 60 MG Q8 10/14 1510 DC 10/15 PO 0654 Docusate Sodium 100 MG BID 10/10 1000 AC 10/14 PO 2130 Gabapentin 200 MG TID 10/09 2200 AC 10/15 PO 2136 Hydroxyurea 500 MG Q48 10/11 1000 AC 10/15 PO 1113 Lorazepam 0.5 MG BID PRN 10/09 2030 AC 10/14 PO 10/16 202 1001 Omeprazole 40 MG DAILY AC 10/10 0700 AC 10/16 PO 0555 Prednisone 60 MG DAILY 10/14 1000 AC 10/15 PO 1113 Senna/Docusate Sodium 1 TAB BID PRN 10/09 2030 AC 10/11 PO 0455 Simethicone 40 MG Q6P PRN 10/11 1545 AC 10/15 PO 1952 Sodium Chloride 2 SPRAY Q4P PRN 10/13 1915 AC 10/13 KAI 2238 Tiotropium [place] 1 PUF 1100 10/12 1100 AC 10/15 INH 1109 Tramadol HCl 50 MG Q6 PRN 10/11 1445 AC 10/15 PO 0250 Last 24 Hrs of Lab/[place] Results Last 24 Hrs of Labs/Mics: Laboratory Tests 10/16/16 0620: PT 18.2 H, INR 1.74 H, CBC w Diff Pending, WBC Pending, RBC Pending, Hgb Pending, Hct Pending, MCV Pending, MCH Pending, RDW Pending, Plt Count Pending, MPV Pending, Gran % Pending, Lymphocytes % Pending, Monocytes % Pending, Eosinophils % Pending, Basophils % Pending, Absolute Granulocytes Pending, Absolute Lymphocytes Pending, Absolute Monocytes Pending, Absolute Eosinophils Pending, Absolute Basophils Pending, PUBS MCHC Pending 10/15/16 1140: CBC w Diff MAN DIFF ORDERED, RBC 3.04 L, MCV 102.4 H, MCH 33.9 H, RDW 21.9 H , MPV 7.8, Gran % 85.8 H, Lymphocytes % 5.7 L, Monocytes % 8.4, Eosinophils % 0.1, Basophils % 0 L, Absolute Granulocytes 10.4 H, Absolute Lymphocytes 0.7 L, Absolute Monocytes 1.0 H, Absolute Eosinophils 0, Absolute Basophils 0, Platelet Estimate VERIFIED BY SMEAR, Polychromasia 1+, Anisocytosis 1+, Macrocytic Cells 1+, PUBS MCHC 33.1 Assessment/Plan Assessment: 80-year-old lady with past medical history of hyperlipidemia, pseudogout, GERD, thrombocytosis, 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 Unwitnessed mechanical fall resulting in right hip fracture * s/p ORIF POD # 6 today * INR is today, 1.74. Goal INR between 2-3. Will dose 2mg Coumadin today * Pain control with Ultram and Tylenol * PT, partial weight bearing 2. Acute on chronic respiratory failure * Most likely secondary to COPD vs Acute blood loss anemia vs Nitrofurantoin- induced interstitial pneumonitis/pulmonary fibrosis vs Atelectasis * Patient is on 3 L right now. Saturating in upper 90's * Switched IV steroids to by mouth prednisone taper. 3. Tachycardia, MAT vs Afib vs Aflutter * Most likely secondary to anemia and ongoing breathing difficulty due to COPD * On PO Cardizem 90mg Q8, heart rate well controlled * Will follow further cardiac recommendations 4. Macrocytic anemia * S/P 2U PRBCs * H&H 10.5/31.4 today * B12 low normal side. Continue B12 supplements * Folate normal 5. Constipation * Had bowel movement yesterday * Continue Bowel regimen DVT prophylaxis - coumadin Pain pathway Regular Diet Full code Problem List: 1. Hip fracture Pain Ratin Pain Location: n/a Pain Goal: Remain pain free Pain Plan: tyelnol Tomorrow's Labs & Rationales: inr, bep, cbc WEST WEBER,ALYSHA 10/16/16 0926: Attending MD Review Statement Attending Statement Attending MD Statement: examined this patient, discuss w/resident/PA/BILL COLLECTOR, agreed w/resident/PA/BILL COLLECTOR, reviewed EMR data (avail), discussed with nursing, discussed with case mgmt Attending Assessment/Plan: Patient had multiple loose bowel movements. No fever documented and the white count is 10,000. I ordered a stool for C. difficile. Her rate is now better on the 90MG every 8hr of Cardizem. My gut feeling is this is all MAT secondary to her advanced lung disease. The issue is going to be what her rate will be when she walks around. Her INR is finally down to 1.7 so I ordered 2 mg of Coumadin for today given that she is postop hip surgery and is high risk for thrombosis. I've also ordered all labs for tomorrow morning. Will titrate down the oxygen slowly and decrease the prednisone by 10 mg a day and watch her cardiopulmonary status closely.
[2016-10-16 12:09] VITALS: BP 1128/58
--- NOTE | 2016-10-16 12:52 | PN- Cardiology ---
Subjective Subjective: * Breathing is slightly improved. * atrial fibrillation with increased heart rate Objective Vital Signs and I&Os Vital Signs Date Time Temp Pulse Resp B/P B/P Pulse O2 O2 Flow FiO2 Mean Ox Delivery Rate 10/16 1209 218 26 6878/58 10/16 0808 96 Nasal 3.0L Cannula 10/16 0800 Nasal 4.0L Cannula 10/16 0739 98.6 94 16 110/70 97 Nasal 4.0L Cannula 10/16 0000 98 Nasal 4.0L Cannula 10/15 2343 98.9 100 22 120/60 97 Nasal Cannula 10/15 1653 97 Nasal 4.0L Cannula 10/15 1617 98.1 101 22 123/61 94 Nasal 4.0L Cannula 10/15 1600 Nasal 4.0L Cannula 10/15 1349 114 130/70 Intake & Output 10/16 1600 10/16 0800 10/16 0000 10/15 1600 10/15 0800 10/15 0000 Intake Total 50 490 400 505 Output Total 3 400 100 Balance 50 487 0 -100 505 Intake, IV 10 25 Intake, Oral 50 480 400 480 Number 3 3 3 1 1 Bowel Movements Output, Other 3 Output, Urine 400 100 Physical Exam: General: WD/ WN female in NAD; alert and oriented x 3 Neck: no JVD Heart: irregularly irregular w/o mumrur Lungs: clear bilaterally Extremities: 2+ right leg edema. No edema on left. Assessment/Plan Assessment/Plan * Patient with shortness of breath and tachycardia somewhat suggestive of a PE. This patient did have a CT angiogram that did not show evidence of a PE and she is already on chronic anticoagulation with a therapeutic INR. Continue coumadin to maintain an INR of 2-2.5. Restart at 3mg daily. Her shortness of breath is likely related to her emphysematous COPD. * This patient may have angina exacerbated by her tachycardia. We will increase her cardizem to 180mg PO twice daily. Add Metoprolol 25mg BID. Anticoagulate as above. This patient should have an outpatient stress test when more stable. * obtain echo Continue telemetry? Yes
[2016-10-16 15:56] VITALS: BP 108/66
[2016-10-17 00:19] VITALS: BP 122/70
[2016-10-17 08:06] LABS: ABSOLUTE BASOPHIL COUNT 0 /CUMM (0.0-0.2); ABSOLUTE EOSINOPHIL COUNT 0 /CUMM (0.0-0.7); ABSOLUTE GRANULOCYTE CT 9.4 /CUMM (1.4-6.5); ABSOLUTE LYMPH COUNT 0.7 /CUMM (1.2-3.4); ABSOLUTE MONOCYTE COUNT 0.9 /CUMM (0.10-0.60); BASOPHIL % 0.2 % (0.0-2.0); EOSINOPHIL % 0.2 % (0-5); HEMATOCRIT 32.4 % (37-47); MEAN CORPUSCULAR HGB 33.8 PG (27.0-31.0); MEAN CORPUSCULAR HGB CONC 32.3 G/DL (33.0-37.0); MEAN CORPUSCULAR VOLUME 104.8 FL (81.0-99.0); MEAN PLATELET VOLUME 7.9 FL (7.4-10.4); PLATELET COUNT 400 /CUMM (130-400); RBC DISTRIBUTION WIDTH 21.8 % (11.5-14.5); RED BLOOD CELL CT 3.09 /CUMM (4.20-5.40)
--- NOTE | 2016-10-17 08:07 | PN- Housestaff ---
Subjective Follow-up For: - CHF exacerbation Review of Systems Constitutional: Reports: see HPI. Objective Last 24 Hrs of Vital Signs/I&O Vital Signs Date Time Temp Pulse Resp B/P B/P Pulse O2 O2 Flow FiO2 Mean Ox Delivery Rate 10/17 0019 98.0 82 20 122/70 96 05 0000 99 Nasal 3.0L Cannula 10/160 96 Nasal 3.0L Cannula 10/16 2118 100 140/74 10/16 2116 100 140/74 10/17 2011 96 Nasal 3.0L Cannula 10/16 1601 109 108/66 10/16 1556 98.1 109 20 108/66 92 10/16 1209 088 57 4780/58 10/16 0808 96 Nasal 3.0L Cannula Intake & Output 10/17 1600 10/17 0800 10/17 0000 Intake Total 360 Output Total 100 200 Balance -100 160 Intake, Oral 360 Number 1 Bowel Movements Output, Urine 100 200 Physical Exam General Appearance: No Acute Distress Current Medications: Current Medications Sig/Kev Start time Last Medication Dose Route Stop Time Status Admin Acetaminophen 1,000 MG TID 10/10 1152 AC 10/16 PO 2119 Albuterol Sulfate 3 ML Q4P PRN 10/10 1130 AC 10/14 INH 2037 Atorvastatin Calcium 10 MG 1700 10/10 1700 AC 10/16 PO 1601 Bisacodyl 5 MG DAILY NEEDED PRN 10/13 0415 DC 10/13 PO 0652 Budesonide/ 2 PUF BID 10/10 1111 AC 10/16 Formoterol Fumarate INH 2121 Calcium Carbonate 500 MG DAILY 10/11 1538 AC 10/16 PO 1022 Colchicine 600 MCG DAILY 10/10 1000 AC 10/16 PO 1021 Cyanocobalamin 1,000 MCG DAILY 10/14 1000 AC 10/16 PO 1022 Dicyclomine HCl 10 MG 0800,10/12 0800 AC 10/17 PO 0759 Diltiazem HCl 180 MG BID 10/16 2200 AC 10/16 PO 2117 Diltiazem HCl 90 MG Q8 10/15 1400 DC 10/16 PO 1306 Docusate Sodium 100 MG BID 10/10 1000 DC 10/14 PO 2130 Gabapentin 200 MG TID 10/09 2200 AC 10/16 PO 2119 Hydroxyurea 500 MG Q48 10/11 1000 AC 10/15 PO 1113 Lorazepam 0.5 MG BID PRN 10/09 2030 DC 10/14 PO 10/16 2029 1001 Melatonin 5 MG AT BEDTIME 10/17 2200 AC 10/17 PO 0057 Metoprolol Tartrate 25 MG BID 10/16 1432 AC 10/16 PO 2119 Omeprazole 40 MG DAILY AC 10/10 0700 AC 10/17 PO 0649 Prednisone 10 MG DAILY 10/21 1000 AC PO 10/22 0959 Prednisone 20 MG DAILY 10/20 1000 AC PO 10/21 0959 Prednisone 30 MG DAILY 10/19 1000 AC PO 10/20 0959 Prednisone 40 MG DAILY 10/18 1000 AC PO 10/19 0959 Prednisone 50 MG DAILY 10/17 1000 CAN PO 10/22 0959 Prednisone 50 MG DAILY 10/17 1000 AC PO 10/18 0959 Prednisone 60 MG DAILY 10/14 1000 DC 10/16 PO 1021 Senna/Docusate Sodium 1 TAB BID PRN 10/09 2030 DC 10/11 PO 0455 Simethicone 40 MG Q6P PRN 10/11 1545 AC 10/15 PO 1952 Sodium Chloride 2 SPRAY Q4P PRN 10/13 1915 AC 10/13 KAI 2238 Tiotropium [place] 1 PUF 1100 10/12 1100 AC 10/16 INH 1026 Tramadol HCl 50 MG Q6 PRN 10/11 1445 AC 10/16 PO 2120 Warfarin Sodium 2 MG COUMADIN 1700 ONE 10/16 1700 DC PO 10/16 1701 Warfarin Sodium 3 MG COUMADIN 1700 ONE 10/16 1700 DC 10/16 PO 10/16 1701 1602 Last 24 Hrs of Lab/[place] Results Last 24 Hrs of Labs/Mics: Laboratory Tests 10/17/16 0640: Sodium Pending, Potassium Pending, Chloride Pending, Carbon Dioxide Pending, Anion Gap Pending, BUN Pending, Creatinine Pending, BUN/Creatinine Ratio Pending , PT Pending, INR Pending, CBC w Diff Pending, WBC Pending, RBC Pending, Hgb Pending, Hct Pending, MCV Pending, MCH Pending, RDW Pending, Plt Count Pending, MPV Pending, PUBS MCHC Pending Microbiology 10/16 0948 STOOL: Clostridium difficile Toxin A & B - COMP Assessment/Plan Assessment: 80-year-old lady with past medical history of hyperlipidemia, pseudogout, GERD, thrombocytosis, 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 Unwitnessed mechanical fall resulting in right hip fracture * s/p ORIF POD # 6 today * INR is today, 1.74. Goal INR between 2-3. Will dose 2mg Coumadin today * Pain control with Ultram and Tylenol * PT, partial weight bearing 2. Acute on chronic respiratory failure * Most likely secondary to COPD vs Acute blood loss anemia vs Nitrofurantoin- induced interstitial pneumonitis/pulmonary fibrosis vs Atelectasis * Patient is on 3 L right now. Saturating in upper 90's * Switched IV steroids to by mouth prednisone taper. 3. Tachycardia, MAT vs Afib vs Aflutter * Most likely secondary to anemia and ongoing breathing difficulty due to COPD * On PO Cardizem 90mg Q8, heart rate well controlled * Will follow further cardiac recommendations 4. Macrocytic anemia * S/P 2U PRBCs * H&H 10.5/31.4 today * B12 low normal side. Continue B12 supplements * Folate normal 5. Constipation * Had bowel movement yesterday * Continue Bowel regimen DVT prophylaxis - coumadin Pain pathway Regular Diet Full code
[2016-10-17 08:15] LABS: PT 14.4 SEC (9.4-12.5)
--- NOTE | 2016-10-17 08:22 | PN- Pulmonary ---
Subjective HPI/Critical Care Issues: Patient's history status is improved she is comfortable on discharge is pending Objective Current Medications: Current Medications Sig/Kev Start time Last Medication Dose Route Stop Time Status Admin Acetaminophen 1,000 MG TID 10/10 1152 AC 10/16 PO 2119 Albuterol Sulfate 3 ML Q4P PRN 10/10 1130 AC 10/14 INH 2037 Atorvastatin Calcium 10 MG 1700 10/10 1700 AC 10/16 PO 1601 Bisacodyl 5 MG DAILY NEEDED PRN 10/13 0415 DC 10/13 PO 0652 Budesonide/ 2 PUF BID 10/10 1111 AC 10/16 Formoterol Fumarate INH 2121 Calcium Carbonate 500 MG DAILY 10/11 1538 AC 10/16 PO 1022 Colchicine 600 MCG DAILY 10/10 1000 AC 10/16 PO 1021 Cyanocobalamin 1,000 MCG DAILY 10/14 1000 AC 10/16 PO 1022 Dicyclomine HCl 10 MG 0800,10/12 0800 AC 10/17 PO 0759 Diltiazem HCl 180 MG BID 10/16 2200 AC 10/16 PO 2117 Diltiazem HCl 90 MG Q8 10/15 1400 DC 10/16 PO 1306 Docusate Sodium 100 MG BID 10/10 1000 DC 10/14 PO 2130 Gabapentin 200 MG TID 10/09 2200 AC 10/16 PO 2119 Hydroxyurea 500 MG Q48 10/11 1000 AC 10/15 PO 1113 Lorazepam 0.5 MG BID PRN 10/09 2030 DC 10/14 PO 10/16 202 1001 Melatonin 5 MG AT BEDTIME 10/17 2200 AC 10/17 PO 0057 Metoprolol Tartrate 25 MG BID 10/16 1432 AC 10/16 PO 2119 Omeprazole 40 MG DAILY AC 10/10 0700 AC 10/17 PO 0649 Prednisone 10 MG DAILY 10/21 1000 AC PO 10/22 0959 Prednisone 20 MG DAILY 10/20 1000 AC PO 10/21 0959 Prednisone 30 MG DAILY 10/19 1000 AC PO 10/20 0959 Prednisone 40 MG DAILY 10/18 1000 AC PO 10/19 0959 Prednisone 50 MG DAILY 10/17 1000 CAN PO 10/22 0959 Prednisone 50 MG DAILY 10/17 1000 AC PO 10/18 0959 Prednisone 60 MG DAILY 10/14 1000 DC 10/16 PO 1021 Senna/Docusate Sodium 1 TAB BID PRN 10/09 2030 DC 10/11 PO 0455 Simethicone 40 MG Q6P PRN 10/11 1545 AC 10/15 PO 1952 Sodium Chloride 2 SPRAY Q4P PRN 10/13 1915 AC 10/13 KAI 2238 Tiotropium [place] 1 PUF 1100 10/12 1100 AC 10/16 INH 1026 Tramadol HCl 50 MG Q6 PRN 10/11 1445 AC 10/16 PO 2120 Warfarin Sodium 2 MG COUMADIN 1700 ONE 10/16 1700 DC PO 10/16 1701 Warfarin Sodium 3 MG COUMADIN 1700 ONE 10/16 1700 DC 10/16 PO 10/16 1701 1602 Vital Signs & I&O Last 24 Hrs of Vitals and I&O: Vital Signs Date Time Temp Pulse Resp B/P B/P Pulse O2 O2 Flow FiO2 Mean Ox Delivery Rate 10/17 0019 98.0 82 20 122/70 96 10/17 0000 99 Nasal 3.0L Cannula 10/16 2249 96 Nasal 3.0L Cannula 10/16 2118 100 140/74 10/16 2116 100 140/74 10/17 2011 96 Nasal 3.0L Cannula 10/16 1601 109 108/66 10/16 1556 98.1 109 20 108/66 92 10/16 1209 137 09 9534/58 Intake & Output 10/17 1600 10/17 0800 10/17 0000 Intake Total 360 Output Total 100 200 Balance -100 160 Intake, Oral 360 Number 1 Bowel Movements Output, Urine 100 200 Oxygen saturations improved on 3 L 96% exam for chest shows somewhat diminished breath sounds are no wheezes or crackles cardiac exam shows regular S1 and S2 without murmurs Impression/Plan Impression/Plan Impression/Plan: 80-year-old woman status post hip surgery and acute blood loss anemia in the setting of severe oxygen-dependent COPD. With shortness of breath is likely multifactorial related to COPD and acute blood loss anemia. There is no evidence for pulmonary embolism. Respiratory status appears to be slowly improving oxygen flow rate can be further tapered Recommendations: DC IV steroids and begin by mouth prednisone and continued Taper taper FiO2 with improved saturations. Continue nebs. Acute blood loss anemia is slowly improving patient appears stable for discharge from respiratory standpoint
[2016-10-17 08:42] VITALS: BP 108/65
[2016-10-17 09:41] LABS: GRANULOCYTE % 85.3 % (42.2-75.2)
--- NOTE | 2016-10-17 11:33 | PN- Cardiology ---
Subjective Subjective: The patient reports that she is feeling well. No chest pain. No palpitations. No lightheadedness or dizziness. No nausea or vomiting. Ventricular rate is under control. Objective Vital Signs and I&Os Vital Signs Date Time Temp Pulse Resp B/P B/P Pulse O2 O2 Flow FiO2 Mean Ox Delivery Rate 10/17 1018 98 108/65 10/17 1018 98 108/65 10/17 0842 98.6 98 20 108/65 95 Nasal 4.0L Cannula 10/17 0800 Nasal 3.0L Cannula 10/17 0019 98.0 82 20 122/70 96 10/17 0000 99 Nasal 3.0L Cannula 10/16 2250 96 Nasal 3.0L Cannula 10/16 2118 100 140/74 10/16 2116 100 140/74 10/17 2011 96 Nasal 3.0L Cannula 10/16 1601 109 108/66 10/16 1556 98.1 109 20 108/66 92 10/16 1209 743 29 0687/58 Intake & Output 10/17 1600 10/17 0810/17 0000 10/16 1600 10/16 0800 10/16 0000 Intake Total 360 600 50 490 Output Total 100 200 3 Balance -100 160 600 50 487 Intake, IV 10 Intake, Oral 360 600 50 480 Number 1 2 3 3 Bowel Movements Output, Other 3 Output, Urine 100 200 Physical Exam: Gen: NAD HEENT: normal Lungs: clear to auscultation, normal resp. effort Heart: Irregularly irregular, S1, S2, no murmurs Abdomen: Soft, nontender, no masses Extremities: 2+ edema of the right lower extremity Neuro: Alert and oriented x 3, cranial nerves intact Current Medications: Current Medications Sig/Kev Start time Last Medication Dose Route Stop Time Status Admin Acetaminophen 1,000 MG TID 10/10 1152 AC 10/17 PO 1019 Albuterol Sulfate 3 ML Q4P PRN 10/10 1130 AC 10/14 INH 2037 Atorvastatin Calcium 10 MG 1700 10/10 1700 AC 10/16 PO 1601 Bisacodyl 5 MG DAILY NEEDED PRN 10/13 0415 DC 10/13 PO 0652 Budesonide/ 2 PUF BID 10/10 1111 AC 10/17 Formoterol Fumarate INH 1018 Calcium Carbonate 500 MG DAILY 10/11 1538 AC 10/17 PO 1019 Colchicine 600 MCG DAILY 10/10 1000 AC 10/17 PO 1018 Cyanocobalamin 1,000 MCG DAILY 10/14 1000 AC 10/17 PO 1019 Dicyclomine HCl 10 MG 08,10/12 0800 AC 10/17 PO 0759 Diltiazem HCl 180 MG BID 10/16 2200 AC 10/17 PO 1018 Diltiazem HCl 90 MG Q8 10/15 1400 DC 10/16 PO 1306 Docusate Sodium 100 MG BID 10/10 1000 DC 10/14 PO 2130 Gabapentin 200 MG TID 10/09 2200 AC 10/17 PO 1018 Hydroxyurea 500 MG Q48 10/11 1000 AC 10/17 PO 1018 Lorazepam 0.5 MG BID PRN 10/09 2030 DC 10/14 PO 10/16 2028 1001 Melatonin 5 MG AT BEDTIME 10/17 2200 AC 10/17 PO 0057 Metoprolol Tartrate 25 MG BID 10/16 1432 AC 10/17 PO 1018 Omeprazole 40 MG DAILY AC 10/10 0700 AC 10/17 PO 0649 Prednisone 10 MG DAILY 10/21 1000 CAN PO 10/22 0959 Prednisone 20 MG DAILY 10/20 1000 CAN PO 10/21 0959 Prednisone 30 MG DAILY 10/19 1000 CAN PO 10/20 0959 Prednisone 40 MG DAILY 10/18 1000 CAN PO 10/19 0959 Prednisone 50 MG DAILY 10/17 1000 CAN PO 10/22 0959 Prednisone 50 MG DAILY 10/17 1000 AC 10/17 PO 10/18 0959 1019 Prednisone 60 MG DAILY 10/14 1000 DC 10/16 PO 1021 Senna/Docusate Sodium 1 TAB BID PRN 10/09 2030 DC 10/11 PO 0455 Simethicone 40 MG Q6P PRN 10/11 1545 AC 10/15 PO 1952 Sodium Chloride 2 SPRAY Q4P PRN 10/13 1915 AC 10/13 KAI 2238 Tiotropium [place] 1 PUF 1100 10/12 1100 AC 10/17 INH 1018 Tramadol HCl 50 MG Q6 PRN 10/11 1445 AC 10/16 PO 2120 Warfarin Sodium 4 MG COUMADIN 1700 ONE 10/17 1700 AC PO 10/17 1701 Warfarin Sodium 2 MG COUMADIN 1700 ONE 10/16 1700 DC PO 10/16 1701 Warfarin Sodium 3 MG COUMADIN 1700 ONE 10/16 1700 DC 10/16 PO 10/16 1701 1602 Results Last 48 Hrs of Labs/Mics: Laboratory Tests 10/17/16 0640: Anion Gap 7, Estimated GFR > 60, BUN/Creatinine Ratio 46.7 H, PT 14.4 H, INR 1.38 H, CBC w Diff NO MAN DIFF REQ, RBC 3.09 L, MCV 104.8 H, MCH 33.8 H, RDW 21.8 H, MPV 7.9, Gran % 85.3 H, Lymphocytes % 6.0 L, Monocytes % 8.3, Eosinophils % 0.2, Basophils % 0.2, Absolute Granulocytes 9.4 H, Absolute Lymphocytes 0.7 L, Absolute Monocytes 0.9 H, Absolute Eosinophils 0, Absolute Basophils 0, PUBS MCHC 32.3 L 10/16/16 0620: PT 18.2 H, INR 1.74 H, CBC w Diff MAN DIFF ORDERED, RBC 3.05 L, MCV 103.0 H, MCH 34.5 H, RDW 21.4 H, MPV 8.0, Gran % 84.0 H, Lymphocytes % 6.2 L, Monocytes % 9.6 H, Eosinophils % 0.2, Basophils % 0 L, Absolute Granulocytes 7.8 H, Segmented Neutrophils 79 H, Band Neutrophils 2, Absolute Lymphocytes 0.6 L, Lymphocytes 4 L, Monocytes 14 H, Absolute Monocytes 0.9 H, Absolute Eosinophils 0, Absolute Basophils 0, Metamyelocytes 1, Platelet Estimate VERIFIED BY SMEAR, Polychromasia 1+, Anisocytosis 1+, Macrocytic Cells 1+, PUBS MCHC 33.5 10/15/16 1140: CBC w Diff MAN DIFF ORDERED, RBC 3.04 L, MCV 102.4 H, MCH 33.9 H, RDW 21.9 H , MPV 7.8, Gran % 85.8 H, Lymphocytes % 5.7 L, Monocytes % 8.4, Eosinophils % 0.1, Basophils % 0 L, Absolute Granulocytes 10.4 H, Absolute Lymphocytes 0.7 L, Absolute Monocytes 1.0 H, Absolute Eosinophils 0, Absolute Basophils 0, Platelet Estimate VERIFIED BY SMEAR, Polychromasia 1+, Anisocytosis 1+, Macrocytic Cells 1+, PUBS MCHC 33.1 Microbiology 10/16 0948 STOOL: Clostridium difficile Toxin A & B - COMP Assessment/Plan Assessment/Plan Assessment: 1. Right hip fracture, status post surgery 2. Paroxysmal atrial fibrillation, rate under control 3. Anticoagulated on warfarin with subtherapeutic INR Plan: * Continue current cardiac medications. * Dose warfarin for INR 2-3 * The patient will need INR checked 2 days after discharge. * Follow up with Dr. Patrick in one week after discharge. Continue telemetry? Yes
--- NOTE | 2016-10-17 11:57 | PN- Housestaff ---
JOEL DUARTE 10/17/16 1031: Subjective Follow-up For: Right hip fracture status post repair Dyspnea Tachycardia Constipation Subjective: We can events were noted. Patient has developed A. fib now. She was started on metoprolol and dose of Cardizem was increased. Her heart rate is in 90s. She denies any chest pain or discomfort. She is complaining of mild right hip pain. Her breathing has improved. She is on 3 L of oxygen right now that is her baseline. Review of Systems Constitutional: Reports: see HPI. Objective Last 24 Hrs of Vital Signs/I&O Vital Signs Date Time Temp Pulse Resp B/P B/P Pulse O2 O2 Flow FiO2 Mean Ox Delivery Rate 10/17 1018 98 108/65 10/17 1018 98 108/65 10/17 0842 98.6 98 20 108/65 95 Nasal 4.0L Cannula 10/17 0800 Nasal 3.0L Cannula 10/17 0019 98.0 82 20 122/70 96 10/17 0000 99 Nasal 3.0L Cannula 10/16 2250 96 Nasal 3.0L Cannula 10/16 2118 100 140/74 10/167 100 140/74 10/17 2011 96 Nasal 3.0L Cannula 10/16 1601 109 108/66 10/16 1556 98.1 109 20 108/66 92 10/16 1209 099 49 5845/58 Intake & Output 10/17 1600 10/17 0800 10/17 0000 Intake Total 360 Output Total 100 200 Balance -100 160 Intake, Oral 360 Number 1 Bowel Movements Output, Urine 100 200 Physical Exam General Appearance: Alert, Oriented X3, Cooperative, No Acute Distress Skin: ecchymoses around eyes Neck: Supple Cardiovascular: irregularly irregular Lungs: Normal Air Movement Abdomen: Normal Bowel Sounds, Soft, No Tenderness Neurological: Normal Speech, Sensation Intact Extremities: 1+ pitting edema right lower extremity, Bruise posterior right thigh Current Medications: Current Medications Sig/Kev Start time Last Medication Dose Route Stop Time Status Admin Acetaminophen 1,000 MG TID 10/10 1152 AC 10/17 PO 1019 Albuterol Sulfate 3 ML Q4P PRN 10/10 1130 AC 10/14 INH 2037 Atorvastatin Calcium 10 MG 1700 10/10 1700 AC 10/16 PO 1601 Bisacodyl 5 MG DAILY NEEDED PRN 10/13 0415 DC 10/13 PO 0652 Budesonide/ 2 PUF BID 10/10 1111 AC 10/17 Formoterol Fumarate INH 1018 Calcium Carbonate 500 MG DAILY 10/11 1538 AC 10/17 PO 1019 Colchicine 600 MCG DAILY 10/10 1000 AC 10/17 PO 1018 Cyanocobalamin 1,000 MCG DAILY 10/14 1000 AC 10/17 PO 1019 Dicyclomine HCl 10 MG 08,10/12 0800 AC 10/17 PO 0759 Diltiazem HCl 180 MG BID 10/16 2200 AC 10/17 PO 1018 Diltiazem HCl 90 MG Q8 10/15 1400 DC 10/16 PO 1306 Docusate Sodium 100 MG BID 10/10 1000 DC 10/14 PO 2130 Gabapentin 200 MG TID 10/09 2200 AC 10/17 PO 1018 Hydroxyurea 500 MG Q48 10/11 1000 AC 10/17 PO 1018 Lorazepam 0.5 MG BID PRN 10/09 2030 DC 10/14 PO 10/16 202 1001 Melatonin 5 MG AT BEDTIME 10/17 2200 AC 10/17 PO 0057 Metoprolol Tartrate 25 MG BID 10/16 1432 AC 10/17 PO 1018 Omeprazole 40 MG DAILY AC 10/10 0700 AC 10/17 PO 0649 Prednisone 10 MG DAILY 10/21 1000 CAN PO 10/22 0959 Prednisone 20 MG DAILY 10/20 1000 CAN PO 10/21 0959 Prednisone 30 MG DAILY 10/19 1000 CAN PO 10/20 0959 Prednisone 40 MG DAILY 10/18 1000 CAN PO 10/19 0959 Prednisone 50 MG DAILY 10/17 1000 CAN PO 10/22 0959 Prednisone 50 MG DAILY 10/17 1000 AC 10/17 PO 10/18 0959 1019 Prednisone 60 MG DAILY 10/14 1000 DC 10/16 PO 1021 Senna/Docusate Sodium 1 TAB BID PRN 10/09 2030 DC 10/11 PO 0455 Simethicone 40 MG Q6P PRN 10/11 1545 AC 10/15 PO 1952 Sodium Chloride 2 SPRAY Q4P PRN 10/13 1915 AC 10/13 KAI 2238 Tiotropium [place] 1 PUF 1100 10/12 1100 AC 10/17 INH 1018 Tramadol HCl 50 MG Q6 PRN 10/11 1445 AC 10/16 PO 2120 Warfarin Sodium 4 MG COUMADIN 1700 ONE 10/17 1700 AC PO 10/17 1701 Warfarin Sodium 2 MG COUMADIN 1700 ONE 10/16 1700 DC PO 10/16 1701 Warfarin Sodium 3 MG COUMADIN 1700 ONE 10/16 1700 DC 10/16 PO 10/16 1701 1602 Last 24 Hrs of Lab/[place] Results Last 24 Hrs of Labs/Mics: Laboratory Tests 10/17/16 0640: Anion Gap 7, Estimated GFR > 60, BUN/Creatinine Ratio 46.7 H, PT 14.4 H, INR 1.38 H, CBC w Diff NO MAN DIFF REQ, RBC 3.09 L, MCV 104.8 H, MCH 33.8 H, RDW 21.8 H, MPV 7.9, Gran % 85.3 H, Lymphocytes % 6.0 L, Monocytes % 8.3, Eosinophils % 0.2, Basophils % 0.2, Absolute Granulocytes 9.4 H, Absolute Lymphocytes 0.7 L, Absolute Monocytes 0.9 H, Absolute Eosinophils 0, Absolute Basophils 0, PUBS MCHC 32.3 L Assessment/Plan Assessment: 80-year-old lady with past medical history of hyperlipidemia, pseudogout, GERD, thrombocytosis, 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 Unwitnessed mechanical fall resulting in right hip fracture * s/p ORIF POD # 9 today * INR is today, 1.38. Goal INR between 2-3. Will dose 4mg Coumadin today * Pain control with Ultram and Tylenol * PT, partial weight bearing * Discharge disposition: STR 2. Acute on chronic respiratory failure * Most likely secondary to COPD vs Acute blood loss anemia * Patient is on 3 L right now. Saturating in upper 90's * Continue by mouth prednisone, TRC nebs 3. New onset atrial fibrillation * On PO Cardizem and metoprolol * ON COUMADIN 4. Macrocytic anemia * S/P 2U PRBCs * H&H STABLE 5. Constipation * RESOLVED DVT prophylaxis - coumadin Pain pathway Regular Diet Full code Problem List: 1. Hip fracture 2. Afib Pain Ratin Pain Location: RIGHT HIP Pain Goal: Pain 4 or less Pain Plan: ULTRAM. TYLENOL Tomorrow's Labs & Rationales: NONE DVT/Prophylaxis: pharmacological ROGERIO WEBERLIZ 10/17/16 1254: Attending MD Review Statement Attending Statement Attending MD Statement: examined this patient, discuss w/resident/PA/WRAPPING MACHINE TENDER, agreed w/resident/PA/WRAPPING MACHINE TENDER, reviewed EMR data (avail), discussed with nursing, discussed with case mgmt, reviewed images, amended to note Attending Assessment/Plan: Patient seen and examined, overall doing better. Breathing has improved. Patient has been started on prednisone taper. She has diarrhea over the weekend and stool C. difficile was negative. This was likely related to the stool softeners. Patient had been seen by cardiology. She is medically stable for discharge. Her INR is subtherapeutic therefore her Coumadin will be dosed according to INR. Her INR should be checked at the [facility] and it should be dosed to keep the INR between 2 and 3. No heparin or Lovenox has been recommended by cardiology and also she is status post recent surgery with acute blood loss anemia. Patient be discharged to rehabilitation today.
[2016-10-17] MEDS ORDERED: DILTIAZEM 12HR60 MG PO (13:26)
[2016-10-17] MEDS ORDERED: VITAMIN B-121000 MC3 PO (13:26)
[2016-10-17] MEDS ORDERED: METOPROLOL TART25 M1 PO (13:27)
[2016-10-17 13:33] VITALS: BP 108/65
== END 2016-10-17 17:00 | DRG 480 ==
LOC: ERH 01:49 → 2NB 03:01 → 1NO 03:01 → ERHI 03:01 → ENRESERV 04:53 → 2NB 05:41 → 1NO 10-11 22:23 → ENPENDDIS 10-17 12:57 → 1NO 10-17 17:00
PROVIDERS: Emergency Medicine; Internal Medicine; Internal Medicine Endocrinology, Diabetes & Metabolism; Internal Medicine Nephrology; Physician Assistant Surgical; ADMIT Internal Medicine
PROC: 0QS606Z Reposition Right Upper Femur with Intramedullary Internal Fixation Device, Open Approach (ICD-10-PCS; principal; 2016-10-10)
PROC: 30233N1 Transfusion of Nonautologous Red Blood Cells into Peripheral Vein, Percutaneous Approach (ICD-10-PCS; 2016-10-10)
DX: S72.141A Displaced intertrochanteric fracture of right femur, initial encounter for closed fracture (principal); J96.01 Acute respiratory failure with hypoxia; J96.11 Chronic respiratory failure with hypoxia; Z99.81 Dependence on supplemental oxygen; J44.9 Chronic obstructive pulmonary disease, unspecified; G62.9 Polyneuropathy, unspecified; I48.0 Paroxysmal atrial fibrillation; I34.1 Nonrheumatic mitral (valve) prolapse; D62 Acute posthemorrhagic anemia; D47.3 Essential (hemorrhagic) thrombocythemia; Z85.118 Personal history of other malignant neoplasm of bronchus and lung; Z87.891 Personal history of nicotine dependence; E78.5 Hyperlipidemia, unspecified; K21.9 Gastro-esophageal reflux disease without esophagitis; K58.9 Irritable bowel syndrome, unspecified; K57.90 Diverticulosis of intestine, part unspecified, without perforation or abscess without bleeding; E73.9 Lactose intolerance, unspecified; M19.90 Unspecified osteoarthritis, unspecified site; W18.30XA Fall on same level, unspecified, initial encounter; Y92.009 Unspecified place in unspecified non-institutional (private) residence as the place of occurrence of the external cause; M11.20 Other chondrocalcinosis, unspecified site; Z79.82 Long term (current) use of aspirin
CPT/HCPCS: 1NSP; 2NBSP; 36415; 73502-RT; 74000; 81003; 82436; 86920; 87086; 93005; 93010; 93306; 97110-GO; 97112-GO; 97140-GO; 97161-GP; 97530-GO; J0131; J0690; J1644; J2920; J2930; J3490; J7040; P9016

== ENCOUNTER 2016-10-27 12:14 | Inpatient (IN) | payer OTHER ==
[~2016-10-27] VITALS: Ht 160 cm; Wt 77.1 kg
[~2016-10-27 12:14] MED LIST changes: +ACETAMINOPHEN500 M4 PO; +BREO ELLIPTA 21 EACH PO; +COUMADIN3 M1 PO; +COUMADIN5 M2 PO; +DILTIAZEM 12HR60 MG PO; +GABAPENTIN100 M2 PO; +METOPROLOL TART25 M1 PO; +PERCOCET 5-3251 EACH PO; +SENNA PLUS TAB1 EACH PO; +TRAMADOL HCL50 M1 PO; +VITAMIN B-121000 MC3 PO
--- NOTE | 2016-10-27 12:17 | ED DYSPNEA/ASTHMA COMPLAINT ---
History of Present Illness General Chief Complaint: Dyspnea (COPD, CHF, Other) Stated Complaint: SOB Source: patient, old records, EMS Exam Limitations: no limitations Vital Signs & Intake/Output Vital Signs & Intake/Output Vital Signs Date Time Temp Pulse Resp B/P B/P Pulse O2 O2 Flow FiO2 Mean Ox Delivery Rate 11/02 000 97.7 73 20 130/80 90 Nasal 5.0L Cannula 11/02 0000 91 Nasal 5.0L Cannula 11/01 2118 84 122/72 11/01 2117 84 122/72 11/01 1641 97.6 84 22 122/72 93 Nasal 5.0L Cannula 11/01 1604 93 Nasal 5.0L Cannula 11/01 1600 Nasal 5.0L Cannula 11/01 1321 90 Nasal 4.0L Cannula 11/01 1135 115 128/62 11/01 1134 115 128/62 11/01 1015 95 Nasal 40% Cannula 11/01 0813 98.0 89 24 98/78 92 Nasal Cannula 11/01 0800 91 40% ED Intake and Output 11/02 0000 11/01 1200 Intake Total 560 600 Output Total 200 260 Balance 360 340 Intake, IV 200 Intake, Oral 560 400 Number 1 Bowel Movements Output, Urine 200 260 Allergies Coded Allergies: adhesive tape (RED AND IRRITATED - PAPER TAPE IS OK 10/06/15) oxycodone (PER PT CANT REMEMBER 10/06/15) amitriptyline (NIGHTMARES 10/07/15) ciprofloxacin (From Cipro HC) (STOMACH IRRITATION 10/07/15) erythromycin base (From Erythrocin) (STOMACH IRRITATION 10/07/15) hydrocortisone (From Cipro HC) (STOMACH IRRITATION 10/07/15) Triage Nurses Notes Reviewed? yes HPI: Patient is a 80-year-old female brought in by ambulance for evaluation of dyspnea. Patient with increasing dyspnea and worsening oxygen saturation. Symptoms are currently severe. Patient was reportedly placed on antibiotics yesterday for pneumonia. Per W 10 patient is taking Augmentin 875 mg twice a day. Patient reports mild chest heaviness that worsens with cough. Patient reports mild cough with no sputum production. Patient had hip surgery a couple of weeks ago is on Coumadin. Patient denies fevers. (JESSICA BROWN,ABRAHAM) Reconcile Medications Acetaminophen 500 MG TABLET 1,000 MG PO TID right hip pain Aspirin (Ecotrin*) 81 MG TABLET.DR 1 TAB PO DAILY HEART/BLOOD (Reported) Ciprofloxacin HCl (Cipro) 500 MG TABLET 500 MG PO BID lung infection Colchicine (Colcrys) 0.6 MG TABLET 1 TAB PO DAILY GOUT (Reported) Cyanocobalamin (Vitamin B-12) 1,000 MCG TABLET 1 TAB PO DAILY SUPPLEMENT Dicyclomine HCl 10 MG CAPSULE 1 TAB PO BID IBS (Reported) Diltiazem HCl (Diltiazem 12HR ER) 60 MG CAP.ER.12H 180 MG PO BID AFIB Estradiol (Estrace) 42.5 GM CREAM.APPL 1 GM VG QFRI HRT (Reported) Fluticasone/Vilanterol (Breo Ellipta 200-25 Mcg INH) 200 MCG-25 MCG/DOSE BLST.W.DEV 1 PUFF PO BID COPD (Reported) Gabapentin 100 MG CAPSULE 2 CAP PO TID PAIN (Reported) Hydroxyurea (Hydrea) 500 MG CAPSULE 2 CAP PO EOD ESSENTIAL THROMBOCYTOSIS ( Reported) Hydroxyurea (Hydrea) 500 MG CAPSULE 1 CAP PO EOD ESSENTIAL THROMBOCYTOSIS ( Reported) Lorazepam (Ativan) 0.5 MG TABLET 1 TAB PO BID PRN ANXIETY (Reported) Metoprolol Tartrate (Lopressor) 50 MG TABLET 1 TAB PO BID Heart (Reported) Pantoprazole Sodium 40 MG TABLET.DR 1 TAB PO DAILY GI (Reported) Prednisone 10 MG TABLET 1 TAB PO SI COPD 5 TABS DAILY FOR 2 DAYS 4 TABS DAILY FOR 3 DAYS 3 TABS DAILY FOR 3 DAYS 2 TABS DAILY FOR 3 DAYS 1 TAB DAILY FOR 3 DAYS AND THEN STOP Sennosides/Docusate Sodium (Senna Plus Tablet) 8.6 MG-50 MG TABLET 1 TAB PO BID PRN CONSTIPATION Simvastatin (Zocor*) 10 MG TABLET 1 TAB PO QPM cholesterol (Reported) Tiotropium [place] (Spiriva Respimat) 4 GM MIST.INHAL 1 CAP PO QAM COPD ( Reported) Tramadol HCl 50 MG TABLET 1 TAB PO Q6P PRN PAIN CONTROL Warfarin Sodium (Coumadin) 2 MG TABLET 1 TAB PO DAILY post op (Reported) INR goal 2-3 (JAMI WEBER,MALATHI [place]) Past History Medical History Any Pertinent Medical History? 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 No (ABRAHAM RUTHERFORD) Review of Systems Review of Systems Constitutional: Denies: chills, fever. EENTM: Reports: no symptoms. Respiratory: Reports: see HPI. Cardiovascular: Reports: chest pain. GI: Denies: abdominal pain, nausea, vomiting. Genitourinary: Reports: no symptoms. Musculoskeletal: Reports: no symptoms. Skin: Reports: no symptoms. Neurological/Psychological: Reports: no symptoms. Hematologic/Endocrine: Reports: no symptoms. Immunologic/Allergic: Reports: no symptoms. (ABRAHAM RUTHERFORD) Physical Exam Physical Exam General Appearance: alert, awake Head: atraumatic, normal appearance Eyes: Bilateral: normal appearance, PERRL, EOMI. Ears, Nose, Throat: hearing grossly normal Neck: normal inspection, full range of motion Respiratory: bibasilar rhonchi. diffusely diminished lung sounds with mild increased respiratory effort. Cardiovascular: irregularly irregular (borderline tachycardic) Peripheral Pulses: 2+ dorsalis pedis (R), 2+ dorsalis pedis (L) Gastrointestinal: soft, non-tender Extremities: ecchymosis right lower extremity. right leg mildly more swollen than left leg. Neurologic/Psych: awake, alert Skin: warm/dry Lymphatic: no anterior cervical aidan Core Measures ACS in differential dx? Yes ASA ordered for poss ACS? No-ACS ruled out Severe Sepsis Present: No Septic Shock Present: No (ABRAHAM RUTHERFORD) Progress Differential Diagnosis: asthma, bronchitis, pulmonary embolism, pneumonia, unstable angina Plan of Care: Orders Procedure Date/time Status PROTHROMBIN TIME 11/02 0600 Active LOWER RESPIRATORY CULTURE 11/01 0913 Active Treatment of Swallowing 11/01 UNK Complete THERAPIST ORDERS 11/01 UNK Complete OXYGEN SETUP (GEN) 11/01 UNK Complete PT Evaluate & Treat 11/01 UNK Active Therapeutic Activities 11/01 UNK Complete Therapeutic Exercise 11/01 UNK Complete PT EVAL LOW COMPLEX 20 MIN 11/01 UNK Complete Anticipated Discharge 11/01 UNK Active Occupational Tx Eval & Treat 11/01 UNK Active Therapeutic Activity 11/01 UNK Complete OT EVAL MOD COMPLEX 45 MIN 11/01 UNK Complete MISSING MEDICATION FORM 11/01 UNK Active AEROSOL CHG 10/31 UNK Complete OXYGEN 10/31 UNK Complete OXYGEN TRANSPORT 10/31 UNK Complete OXYGEN DAILY CHARGE 10/31 UNK Complete Current Medications Sig/Kev Start time Last Medication Dose Stop Time Status Admin Glycerin 2 SPRAY Q2P PRN 11/01 1630 AC 11/01 ([place] [employer] [address] [place]) Ceftazidime 1,000 MG Q8 11/01 1400 CAN (Fortaz) Dextrose/Water 50 ML (D5W) Ciprofloxacin 500 MG BID 11/01 1035 AC 11/01 (Cipro) 11/03 220 2117 Hydroxyurea 500 MG Q48H 10/29 1000 AC 10/31 (Hydrea) 0837 Escitalopram Oxalate 5 MG DAILY 10/28 1615 AC 11/01 (Lexapro) 1141 Aspirin Buffered 81 MG DAILY 10/28 1000 AC 11/01 (Ecotrin) 1143 Colchicine 600 MCG DAILY 10/28 1000 AC 11/01 (Colchicine 600MCG 1143 Tab) Hydroxyurea 1,000 MG Q48H 10/28 1000 AC 11/01 (Hydrea) 1134 Dicyclomine HCl 10 MG BID 10/27 2199 AC 11/01 (Bentyl) 211 Diltiazem HCl 180 MG BID 10/27 2199 AC 11/01 (Cardizem SR) 2117 Gabapentin 200 MG TID 10/27 220 AC 11/01 (Neurontin) 2116 Metoprolol Tartrate 50 MG BID 10/27 2200 AC 11/01 (Lopressor) 2118 Albuterol Sulfate 3 ML EVERY 4 HRS/AWAKE 10/28 1999 AC 11/01 (Proventil) 2100 Atorvastatin Calcium 5 MG 1700 10/27 1700 AC 11/01 (Lipitor) 1633 Lorazepam 0.5 MG BID PRN 10/27 1615 AC 10/31 (Ativan) 11/03 1614 2252 Tramadol HCl 50 MG Q6P PRN 10/27 1615 AC 11/01 (Ultram) 1633 Omeprazole 40 MG DAILY AC 10/27 1609 AC 11/01 (Prilosec) 0924 Cyanocobalamin 1,000 MCG DAILY 10/27 1607 AC 11/01 (Vitamin B12) 1143 Guaifenesin 600 MG Q12 10/27 1512 AC 11/01 (Mucinex) 2118 Methylprednisolone 40 MG Q8 10/27 1511 AC 11/01 (Solumedrol) 2118 Laboratory Tests 11/01/16 0510: Anion Gap 4 L, Estimated GFR > 60, Glucose 125 H, Calcium 7.9 L, Phosphorus 3.2, Magnesium 2.1, Total Bilirubin 0.9, AST 18, ALT 55 H, Albumin 2.7 L, PT 42.1 *H, INR 4.07 *H, CBC w Diff MAN DIFF ORDERED, RBC 3.00 L, MCV 107.5 H, MCH 34.9 H, RDW 22.4 H, MPV 8.3, Gran % 96.0 H, Lymphocytes % 1.3 L, Monocytes % 2.5, Eosinophils % 0.2, Basophils % 0 L, Absolute Granulocytes 8.0 H, Absolute Lymphocytes 0.1 L, Absolute Monocytes 0.2, Absolute Eosinophils 0, Absolute Basophils 0, Platelet Estimate ADEQUATE, Polychromasia 1+, Hypochromic- Microcytic 1+, Poikilocytosis 1+, Ovalocytes 1+, PUBS MCHC 32.5 L Microbiology 11/01 912 LOWER RESP: Respiratory Culture - COLB 11/01 912 LOWER RESP: Gram Stain - COLB Diagnostic Imaging: Viewed by Me: Radiology Read, CT Scan. Discussed w/RAD: Radiology Read, CT Scan. Radiology Impression: PATIENT: GABRIELLA MUÑOZ PRESENT AGE: 80 PATIENT ACCOUNT NO: [id number] : 37 LOCATION: [facility] ORDERING PHYSICIAN: ABRAHAM BROWN SERVICE DATE: 10/27/16295 EXAM TYPE: CAT - CTA CHEST-PULMONARY EMBOLISM EXAMINATION: CT ANGIOGRAM OF THE CHEST WITH AND WITHOUT CONTRAST (CT PULMONARY ANGIOGRAM FOR PE) CLINICAL INFORMATION: RECENT SURGERY, HYPOXIA, ELEVATED D-DIMER COMPARISON: CTA of chest 10/10/2016. Portable chest 10/27/2016 TECHNIQUE: Prior to contrast administration, noncontrast localization images were obtained. Subsequently, multidetector volumetric imaging was performed from the thoracic inlet to below the diaphragms following the administration of 95 mL Optiray 350 intravenous contrast. No contrast reaction reported. Sagittal, coronal, and MIP oblique sagittal reformatted images were obtained on the CT workstation, uploaded to PACS, and reviewed. Total exam dose-length product 401.64 mGy-cm. FINDINGS: QUALITY OF STUDY/ CONTRAST BOLUS: Satisfactory PULMONARY ARTERIES: No central or segmental pulmonary emboli. THORACIC AORTA: No aneurysm or dissection. LUNG: Marked pain emphysematous changes of lungs. Spiculated mass at the medial right upper lobe unchanged since prior study measuring 1.5 cm AP. The previously noted 0.6 cm nodule in the left upper lobe has decreased in the size of 0.4 cm, axial image 156 (4). There is new bibasilar airspace disease. Patchy and consolidated opacities at both lung bases, greater on left than right, at the dependent lung. PLEURA: Small layering bilateral pleural effusions. MEDIASTINUM: Normal heart size. No pericardial effusion. No hilar or mediastinal lymphadenopathy. No evidence of septal bowing or right heart strain. Atherosclerotic vascular wall calcifications of aorta. No aneurysm. CHEST WALL/AXILLA: No axillary or internal mammary lymphadenopathy. OSSEOUS STRUCTURES: Kyphosis of dorsal spine with multilevel disc height narrowing and endplate spurs of the vertebrae. UPPER ABDOMEN: Adrenal glands are normal. No reflux of contrast into the hepatic veins to suggest elevated right heart pressures. IMPRESSION: 1. No evidence of pulmonary embolism. 2. Emphysematous changes of lungs. 3. Bibasilar infiltrates with small bilateral pleural effusions. 4. Stable right upper lobe spiculated mass. Decreasing size of left upper lung nodule since prior CT 10/10/2016. VTE: negative DICTATED BY: PRANEETH CALDERA MD DATE/TIME DICTATED:10/27/161502 PREFLIGHT INSPECTOR:CATHY DATE/TIME TRANSCRIBED:10/27/161502 CONFIDENTIAL, DO NOT COPY WITHOUT APPROPRIATE AUTHORIZATION. <Electronically signed in Other Vendor System> SIGNED BY: PRANEETH CALDERA MD 10/27/16 0382 CXR Impression: PATIENT: GABRIELLA MUÑOZ PRESENT AGE: 80 PATIENT ACCOUNT NO: [id number] : 37 LOCATION: [facility] ORDERING PHYSICIAN: ABRAHAM BROWN SERVICE DATE: 10/27/16-1228 EXAM TYPE: RAD - XRY- PORTABLE CHEST XRAY EXAMINATION: XR PORTABLE CHEST CLINICAL INFORMATION: Hypoxia , shortness of breath COMPARISON: 10/11/2016 TECHNIQUE: Portable frontal view of the chest was obtained. FINDINGS: Increasing bibasilar opacities consistent with infiltrates. The mid-upper lung zones are grossly clear. No obvious failure on this study. IMPRESSION: Increasing bibasilar opacities consistent with infiltrates. DICTATED BY: MALATHI SMITH MD DATE/TIME DICTATED:10/27/161327 PREFLIGHT INSPECTOR:CATHY DATE/TIME TRANSCRIBED:10/27/161327 CONFIDENTIAL, DO NOT COPY WITHOUT APPROPRIATE AUTHORIZATION. <Electronically signed in Other Vendor System> SIGNED BY: MALATHI SMITH MD 10/27/16 1332 Initial ED EKG: normal sinus rhythm, nonspecific ST T wave chg (ABRAHAM RUTHERFORD) Departure Departure Disposition: STILL A PATIENT Condition: Stable Clinical Impression Primary Impression: Healthcare-associated pneumonia Referrals: IAN ROBERT MD (PCP/Family) Departure Forms: Customer Survey General Discharge Information Admission Note Spoke With: ROGERIO WEBER,LIZ Documentation of Exam: Documentation of any treatments & extenuating circumstances including Concerns Regarding Discharge (functional status, medication knowledge or non-compliance, living conditions, etc.) that warrant an admission rather than observation: IV antibiotics, total respiratory care, supplemental oxygen. Pulmonary consultation (ABRAHAM RUTHERFORD) Departure Prescriptions: Current Visit Scripts Ciprofloxacin HCl (Cipro) 500 MG PO BID #10 PA/COUNSELOR CAMP Co-Sign Statement Statement: ED Attending supervision documentation- [x] I saw and evaluated the patient. I have also reviewed all the pertinent lab results and diagnostic results. I agree with the findings and the plan of care as documented in the PA's/COUNSELOR CAMP's documentation. [] I have reviewed the ED Record and agree with the PA's/COUNSELOR CAMP's documentation. [] Additions or exceptions (if any) to the PAs/COUNSELOR CAMP's note and plan are summarized below: [] (JAMI WEBER,MALATHI [place]) Critical Care Note Critical Care Note Critical Care Time: non-applicable (ABRAHAM RUTHERFORD)
--- NOTE | 2016-10-27 12:19 | NUR ---
PT BIBA FROM [facility] FOR SOB. PT HAS A HX OF COPD AND WAS RECENTLY DIAGNOSED WITH PNA AND STARTED ON ANTIBIOTICS. PT ALSO HAD RECENT HIP SURGERY. PT HAS BILATERAL RHONCHI AND PER EMS NOTED TO BE IN AFIB. PT HAS A PRODUCTIVE COUGH. PER EMS FACILITY UNABLE TO GET A GOOD O2 SAT.
--- NOTE | 2016-10-27 12:23 | NUR ---
KEVIN LOPEZ IN ROOM TO EVAL. RT LOWER LEG NOTED WITH OLD BRUSING. RT LOWER LEG NOTED WITH MINOR SWELLING. PT 80% ON RA, PLACED ON 4L O2 VIA NC, SATS UP TO 90% AT THIS TIME.
--- NOTE | 2016-10-27 13:32 | RADIOLOGY REPORT ---
EXAMINATION: XR PORTABLE CHEST CLINICAL INFORMATION: Hypoxia, shortness of breath COMPARISON: 10/11/2016 TECHNIQUE: Portable frontal view of the chest was obtained. FINDINGS: Increasing bibasilar opacities consistent with infiltrates. The mid-upper lung zones are grossly clear. No obvious failure on this study. IMPRESSION: Increasing bibasilar opacities consistent with infiltrates.
--- NOTE | 2016-10-27 14:02 | NUR ---
MED WITH NATALYA BECERRA PT STATES HER BREATHING IS IMPROVED
--- NOTE | 2016-10-27 14:16 | NUR ---
PT TO CAT.
--- NOTE | 2016-10-27 14:33 | NUR ---
BACK FROM CAT.
--- NOTE | 2016-10-27 14:37 | History & Physical ---
GRZEGORZ KEMP 10/27/16 1437: General Information and HPI MD Statement: I have seen and personally examined GABRIELLA MUÑOZ and documented this H&P. The patient is a 80 year old F who presented with a patient stated chief complaint of worsening shortness of breath, cough, worsening oxygen saturations. Source of Information: patient, old records Exam Limitations: no limitations History of Present Illness: This is a 80-year-old female with past medical history significant for atrial fibrillation on Cardizem and Coumadin, COPD on oxygen dependence 2.5 L, lung cancer one year ago with 5 cycles of radiation, not on chemotherapy or surgery, former smoker, hyperlipidemia, mitral valve prolapse, acid reflux, diverticulitis, irritable bowel syndrome, lactose intolerance, osteoarthritis, pseudogout, essential thrombocytosis, constipation, anxiety, frequent urinary tract infections, cholecystectomy, hernia repair, hysterectomy presented to the [facility] emergency department from nursing care facility with chief complaint of worsening shortness of breath, cough and worsening oxygen saturation for one day. Of note patient was discharged from [facility] on 10/15/2016 after being operated for the right hip intertrochanteric fracture status post ORIF. She was found to be hypoxic and tachycardic during that admission and was found to be in atrial fibrillation and she was discharged on Cardizem, metoprolol and Coumadin. According to the patient, she was having difficulty breathing for a couple of days. Associated with the cough and chest heaviness. However denied any chest pain on taking deep breaths. Denied any sputum production. She was started on Augmentin 875 mg twice a day yesterday for possible pneumonia. Patient denies any chest pain, racing of heart, sputum production, fever, chills , exposure to sick contacts. Denies any headache, weakness or sensory changes, numbness or tingling sensation, vision changes, gait abnormalities. She denies any nausea, vomiting, abdominal pain, change in bladder or bowel habits. She does report mild discomfort at the site of hip operation. She denies any immobilization or travel history. She is a former smoker quitted several years ago. Denies alcohol abuse. Denies illicit drug abuse she lives alone and takes care of herself. She follows Dr. Espinoza for essential thrombocytosis and takes hydroxyurea. Follows Dr. Carrasco's beam dyer for pseudogout. Follows Dr. Caba-shaker plate operator ALso reports frequent urinary tract infections. Also reports history of frequent falls. Allergies/Medications Compliance With Home Meds: GOOD Past History Travel History Traveled to [place] past 21 day No Medical History Neurological: NONE EENT: NONE Cardiovascular: hyperlipidemia, MITRAL VALVE PROLAPSE ACID REFLUX Respiratory: COPD, O2 DEPENDENT @2.5 L Gastrointestinal: diverticulitis, irritable bowel syndrome, lactose intolerance Hepatic: NONE Renal: NONE Musculoskeletal: osteoarthritis, PSEUDO GOUT Psychiatric: NONE Endocrine: NONE Blood Disorders: HIGH BLOOD PLATELETS Cancer(s): NONE FLASH DEVELOPER/Reproductive: NONE History of MRSA: No History of VRE: No History of CDIFF: No Surgical History Surgical History: cholecystectomy, hernia repair-inguinal, hernia repair- umbilical, hysterectomy, BLADDER REPAIR BLADDER/VAGINA REPAIR Past Family/Social History Family History Relations & Conditions if any FATHER Pneumoconiosis MOTHER FH: lung cancer Psychosocial History Who Do You Live With? self Services at Home: None Smoking Status: Former Smoker ETOH Use: denies use Illicit Drug Use: denies illicit drug use Living Will? yes Functional Ability ADLs Independent: dressing, eating, toileting, bathing. Ambulation: independent IADLs Independent: shopping, housework, finances, food prep, telephone, transportation , medication admin. Review of Systems Review of Systems Constitutional: Denies: chills, diaphoresis, fever, malaise, weakness, unexplained weight loss. EENTM: Denies: see HPI. Cardiovascular: Reports: peripheral edema. Denies: chest pain, edema, palpitations, syncope. Respiratory: Reports: cough, short of breath. Denies: hemoptysis, orthopnea, sputum production, stridor, wheezing. GI: Denies: abdominal pain, bloating, constipation, diarrhea, distention, nausea, vomiting. Genitourinary: Denies: discharge, dysuria, frequency. Musculoskeletal: Reports: gout. Denies: back pain, joint pain. Skin: Denies: see HPI. Neurological/Psychological: Denies: anxiety, ataxia, confusion, emotional problems, headache, numbness, tingling, tremors. Exam & Diagnostic Data Last 24 Hrs of Vital Signs/I&O Vital Signs Date Time Temp Pulse Resp B/P B/P Pulse O2 O2 Flow FiO2 Mean Ox Delivery Rate 10/27 1516 91 Nasal 4.0L Cannula 10/27 1313 95 Nasal 5.0L Cannula 10/27 1256 97.2 72 20 102/64 90 Nasal 4.0L Cannula Physical Exam General Appearance Alert, Oriented X3, Cooperative, No Acute Distress Skin No Rashes, No Breakdown HEENT Atraumatic, PERRLA, EOMI, Mucous Membr. moist/pink Neck Supple, No JVD Lymphatic Axillary nl, Cervical nl Cardiovascular Normal S1, Normal S2, irregularly yrregular Lungs Normal Air Movement Abdomen Normal Bowel Sounds, Soft, No Tenderness Neurological Strength at 5/5 X4 Ext, Cranial Nerves 3-12 NL Extremities No Clubbing, No Cyanosis, righty lower ext edema +2 Vascular Normal Pulses, Pulses Symmetrical Last 24 Hrs of Labs/[place]: Laboratory Tests 10/27/16 1528: Lactic Acid Cancelled 10/27/16 1527: PT Pending, INR Pending 10/27/16 1235: Lactic Acid 1.6, Troponin I < 0.01, [id number] Pept 3520 H, D-Dimer 1003 H Microbiology 10/27 1306 BLOOD: Blood Culture - RECD 10/27 1235 BLOOD: Blood Culture - RECD Assessment/Plan Assessment: This is a 80-year-old female with past medical history significant for atrial fibrillation on Cardizem, metoprolol and Coumadin, COPD on oxygen dependence 2.5 L, lung cancer one year ago with 5 cycles of radiation, not on chemotherapy or surgery, former smoker, hyperlipidemia, mitral valve prolapse, acid reflux, diverticulitis, irritable bowel syndrome, lactose intolerance, osteoarthritis, pseudogout, essential thrombocytosis, constipation, anxiety, frequent urinary tract infections, cholecystectomy, hernia repair, hysterectomy presented to the [facility] emergency department with chief complaint of worsening shortness of breath, cough and worsening oxygen saturation for one day. Of note patient was discharged from [facility] on 10/15/2016 after being operated for the right hip intertrochanteric fracture status post ORIF. She was found to be hypoxic and tachycardic during that admission and was found to be in atrial fibrillation and she was discharged on Cardizem, metoprolol and Coumadin. Vitals on admission-afebrile, heart rate 72, respiratory rate 20, blood pressure 102/64, saturating at 90 on 4 L. Pertinent labs on admission-leukocytosis 14.2, 7 bands, hemoglobin 11.4 and hematocrit 35, thrombocytopenia 397. BEP was normal D-dimer is elevated at 1003. Chest x-ray IMPRESSION: Increasing bibasilar opacities consistent with infiltrates. chest CTA IMPRESSION: 1. No evidence of pulmonary embolism. 2. Emphysematous changes of lungs. 3. Bibasilar infiltrates with small bilateral pleural effusions. 4. Stable right upper lobe spiculated mass. Decreasing size of left upper lung nodule since prior CT 10/10/2016. VTE: negative Problem list 1. Acute hypoxic respiratory failure 2. Possible healthcare associated pneumonia 3. Elevated D dimers/rule out DVT/rule out PE 4. Atrial fibrillation on anticoagulants 5. Lung cancer status post radiotherapy 5. Hyperlipidemia 6. GERD 7. acute COPD exacerbation 8. IBS 9. Pseudogout 10. Essential thrombocytosis 11. Constipation 12. Anxiety Acute hypoxic respiratory failure Patient presented with worsening shortness of breath, cough. Denies any sputum production, fever or chills. Denied any chest pain. she uses 2.5 L oxygen for her COPD at baseline. However she required 4 L now saturating at 90%. * Admitted to general medicine floor for further management * Monitor vitals closely every shift * Maintain oxygen saturation above 90% * Provide supplemental oxygen * Total respiratory care * Pulmonology consult * CAT scan ruled out pulmonary embolism. * Please monitor for any worsening shortness of breath, pleuritic chest pain, cough, sputum production. Possible healthcare associated pneumonia Patient presented with worsening shortness of breath, cough, decreased oxygen saturations. Chest x-ray was done at nursing care facility which showed pneumonia. She was started on Augmentin 875 mg twice a day. However her oxygen saturations dropped down to 85% this morning and she was brought to the emergency department. * Chest x-ray showed bibasilar opacities with infiltrates * CTA was done to rule out pulmonary embolism * Admitted to general medicine floor for treatment of healthcare associated pneumonia as she came from nursing care facility * vitals closely * Started on IV antibiotics-IV Fortaz and IV vancomycin to cover gram-negative bacteria and meds-day 1 * Blood cultures * Sputum cultures * Monitor for fever, leukocytosis * Bandemia on presentation ELEVATED D dimers on admission D-dimer is elevated 1003. However she denies anycalf pain, tenderness on palpation, redness, warmth. patient has right lower extremity swelling. Recent surgery 2 weeks 10/11/16 ago-ORIF. * Patient is at risk for DVT, PE as she had recent surgical repair for right intertrochanteric right hip fracture. * Patient is on Coumadin for atrial fibrillation. * We'll continue Coumadin based on her INR. * Will get right lower extremity Doppler to rule out DVT * CTA was done-ruled out pulmonary embolism * We'll use subcutaneous heparin for DVT prophylaxis. Atrial fibrillation Of note patient was discharged from [facility] on 10/15/2016 after being operated for the right hip intertrochanteric fracture status post ORIF. She was found to be hypoxic and tachycardic during that admission after the surgery and was found to be in atrial fibrillation and she was discharged on Cardizem, metoprolol and Coumadin. * Please continue Cardizem and metoprolol * Please continue Coumadin based on INR * EKG showed atrial fibrillation-rate controlled Frequent falls 2 falls within a week, admitted in September for a fall status post intertrochanteric right hip fracture status post ORIF Lung cancer Diagnosed with lung cancer one year ago Status post a 5 cycles of radiation therapy No history of surgery Not on chemotherapy Quitted smoking few years ago Possible coPD exacerbation Oxygen dependent COPD On 2.5 L * Patient requiring high amounts of oxygen-4 L-saturating at 90% * Continue home medications albuterol, Symbicort, Spiriva * Total respiratory care * Will provide IV steroids methylprednisone 40 mg every 12 hours * Will call shaker plate operator * Sputum cultures * Blood cultures * Follow-up pulmonology recommendations Hyperlipidemia On simvastatin at home We'll give Lipitor Acid reflux On pantoprazole We'll give omeprazole here Irritable bowel syndrome Continue home dose of dicyclomine Pseudogout Continue home dose of colchicine Essential thrombocytosis Continue home dose of hydroxyurea Supplements Continue calcium carbonate, vitamin D, multivitamins Constipation Bowel regimen when necessary- senna Anxiety Ativan if necessary full code DVT prophylaxis subcutaneous heparin Pain pathway regular diet As Ranked By This Provider Problem List: 1. Healthcare-associated pneumonia 2. Afib 3. Right femoral fracture 4. Hip fracture 5. COPD exacerbation Core Measures/Miscellaneous Acute Coronary Syndrome ACS Diagnosis: No Cerebrovascular Accident CVA/TIA Diagnosis: No Congestive Heart Failure CHF Diagnosis: No Venous Thromboembolism VTE Risk Factors: Age > 40, Surgery [facility] prophylaxis d/t: No contraindications No VTE Pharm Prophylaxis d/t: No contraindications VTE Diagnosis: No VTE Type: NONE VTE Confirmed by (Test): NONE Severe Sepsis Severe Sepsis Present: No Septic Shock Septic Shock Present: No Miscellaneous Documentation Attending Case Discussed With: SHADIA CALVILLO MD Primary Care Physician: IAN ROBERT MD Patient sees these Specialists Oncologist Process Owner Level of Patient Care: General Medicine SHADIA CALVILLO 10/27/16 1437: Attending MD Review Statement Attending Statement Attending MD Statement: examined this patient, discuss w/resident/PA/CIGAR MAKING MACHINE SUPERVISOR, agreed w/resident/PA/CIGAR MAKING MACHINE SUPERVISOR, discussed with family, reviewed EMR data (avail), discussed with nursing, discussed with case mgmt, reviewed images, amended to note Attending Assessment/Plan: ASSESSMENT 1. Acute on chronic respiratory failure 2. Possible Healthcare associated pneumonia 3. elevated D-dimer r/o PE, recent hip surgery Wells score high 4. COPD severe on home oxygen. 5. Paroxysmal afib on a/c. 6. Leukocytosis 7. Pseudogout 8. GERD 9. Lung cancer s/p radiotherapy. 10. Tobacco abuse 11. Anemia of chronic disease PLAN admit to inpatient medical services chest xray with bilateral opacities, obtain CTA chest r/o PE, c/w anticoagualtion. Empiric abx, i/v steroids, oxygen supplementation, bronchodialtors, start gentle hydration. consult pulmonary. LA 1.6, BNP f/u, trop x1 negative. HR control, resume home meds diltiazem gi/dvt prophyalxis plan of care d/mon patient bedside in ER, tts >37 min BASHIR ALBARRANMARISA 10/27/16 1508: General Information and HPI Allergies/Medications Allergies: Coded Allergies: adhesive tape (RED AND IRRITATED - PAPER TAPE IS OK 10/06/15) oxycodone (PER PT CANT REMEMBER 10/06/15) amitriptyline (NIGHTMARES 10/07/15) ciprofloxacin (From Cipro HC) (STOMACH IRRITATION 10/07/15) erythromycin base (From Erythrocin) (STOMACH IRRITATION 10/07/15) hydrocortisone (From Cipro HC) (STOMACH IRRITATION 10/07/15) Home Med list Acetaminophen 500 MG TABLET 1,000 MG PO TID right hip pain Amoxicillin/Potassium Clav (Augmentin 875-125 Tablet) 875 MG-125 MG TABLET 1 TAB PO BID pneumonia (Reported) Aspirin (Ecotrin*) 81 MG TABLET.DR 1 TAB PO DAILY HEART/BLOOD (Reported) Colchicine (Colcrys) 0.6 MG TABLET 1 TAB PO DAILY GOUT (Reported) Cyanocobalamin (Vitamin B-12) 1,000 MCG TABLET 1 TAB PO DAILY SUPPLEMENT Dicyclomine HCl 10 MG CAPSULE 1 TAB PO BID IBS (Reported) Diltiazem HCl (Diltiazem 12HR ER) 60 MG CAP.ER.12H 180 MG PO BID AFIB Estradiol (Estrace) 42.5 GM CREAM.APPL 1 GM VG QFRI HRT (Reported) Fluticasone/Vilanterol (Breo Ellipta 200-25 Mcg INH) 200 MCG-25 MCG/DOSE BLST.W.DEV 1 PUFF PO BID COPD (Reported) Gabapentin 100 MG CAPSULE 2 CAP PO TID PAIN (Reported) Hydroxyurea (Hydrea) 500 MG CAPSULE 2 CAP PO EOD ESSENTIAL THROMBOCYTOSIS ( Reported) Hydroxyurea (Hydrea) 500 MG CAPSULE 1 CAP PO EOD ESSENTIAL THROMBOCYTOSIS ( Reported) Lorazepam (Ativan) 0.5 MG TABLET 1 TAB PO BID PRN ANXIETY (Reported) Metoprolol Tartrate (Lopressor) 50 MG TABLET 1 TAB PO BID Heart (Reported) Pantoprazole Sodium 40 MG TABLET.DR 1 TAB PO DAILY GI (Reported) Prednisone 10 MG TABLET 1 TAB PO SI COPD 5 TABS DAILY FOR 2 DAYS 4 TABS DAILY FOR 3 DAYS 3 TABS DAILY FOR 3 DAYS 2 TABS DAILY FOR 3 DAYS 1 TAB DAILY FOR 3 DAYS AND THEN STOP Sennosides/Docusate Sodium (Senna Plus Tablet) 8.6 MG-50 MG TABLET 1 TAB PO BID PRN CONSTIPATION Simvastatin (Zocor*) 10 MG TABLET 1 TAB PO QPM cholesterol (Reported) Tiotropium [place] (Spiriva Respimat) 4 GM MIST.INHAL 1 CAP PO QAM COPD ( Reported) Tramadol HCl 50 MG TABLET 1 TAB PO Q6P PRN PAIN CONTROL Warfarin Sodium (Coumadin) 2 MG TABLET 1 TAB PO DAILY post op (Reported) INR goal 2-3 Resident Review Statement Resident Statement: examined this patient, discussed with international banker, agreed with international banker, reviewed images Other Findings: This is a 80-year-old lady with past medical history significant for COPD on 2.5 L oxygen, lung cancer one year ago with 5 cycles of radiation, he is MVP, acid reflux, diverticulosis, irritable bowel syndrome, lactose intolerance who presented to the hospital with worsening dyspnea, cough and oxygen desaturation. She was discharged from [facility] on 10/15/2016 after right hip ORIF and is now on warfarin. She was started on Augmentin 875 twice a day yesterday for possible pneumonia. Please see above for more details. Physical exam on admission: Temperature 97.2, pulse rate 72, respiratory rate 20 , blood pressure 112/64., Oxygen saturation 90% on 410 nasal cannula oxygen. GA : AAO3, NAD. HEENT: H NCAT, PERRLA, EOMI, moist mucous membranes. Neck: Supple, no JVD. CV: Irregular, no murmur. Lungs: Decreased breath sounds, expiratory wheezes abdomen: Normal bowel sounds, no tenderness. Extremities: RLE edema and ecchymosis, no tenderness. Available labs and imaging data reviewed. Problem list/plan: #Acute on chronic respiratory failure: COPD exacerbation versus secondary to pneumonia. No clinicla signs of heart failure. Had elevated d-dimer and h/o recent history of hip surgery, CTA was negative for any PE. Will continue the patient on oxygen supplementation, TRC, IV steroids. #Possible healthcare associated pneumonia: Blood cultures were obtained in the ED, patient was started on IV ceftaz edema IV vancomycin. Will continue both antibiotics pending cultures. Pulmonary consult in the morning. #Recent history of right hip fracture status post ORIF: Will continue ARCHITECTURAL REPRESENTATIVE pain management regimen. Will continue warfarin to maintain INR 2-3. #Essential thrombocytosis: Will continue the patient on ARCHITECTURAL REPRESENTATIVE hydroxyurea 500 mg EOD alternating with 1000 mg EOD. #Paroxysmal atrial fibrillation: Rate controlled. Would maintain the patient on ARCHITECTURAL REPRESENTATIVE diltiazem. #DVT prophylaxis: Being addressed by warfarin. #Patient is full code.
--- NOTE | 2016-10-27 15:00 | NUR ---
HOUSE STAFF TO KATIE.
--- NOTE | 2016-10-27 15:27 | NUR ---
[facility] INFUSING (SEE MAR)
--- NOTE | 2016-10-27 15:31 | CT SCAN REPORT ---
EXAMINATION: CT ANGIOGRAM OF THE CHEST WITH AND WITHOUT CONTRAST (CT PULMONARY ANGIOGRAM FOR PE) CLINICAL INFORMATION: RECENT SURGERY, HYPOXIA, ELEVATED D-DIMER COMPARISON: CTA of chest 10/10/2016. Portable chest 10/27/2016 TECHNIQUE: Prior to contrast administration, noncontrast localization images were obtained. Subsequently, multidetector volumetric imaging was performed from the thoracic inlet to below the diaphragms following the administration of 95 mL Optiray 350 intravenous contrast. No contrast reaction reported. Sagittal, coronal, and MIP oblique sagittal reformatted images were obtained on the CT workstation, uploaded to PACS, and reviewed. Total exam dose-length product 401.64 mGy-cm. FINDINGS: QUALITY OF STUDY/CONTRAST BOLUS: Satisfactory PULMONARY ARTERIES: No central or segmental pulmonary emboli. THORACIC AORTA: No aneurysm or dissection. LUNG: Marked pain emphysematous changes of lungs. Spiculated mass at the medial right upper lobe unchanged since prior study measuring 1.5 cm AP. The previously noted 0.6 cm nodule in the left upper lobe has decreased in the size of 0.4 cm, axial image 156 (4). There is new bibasilar airspace disease. Patchy and consolidated opacities at both lung bases, greater on left than right, at the dependent lung. PLEURA: Small layering bilateral pleural effusions. MEDIASTINUM: Normal heart size. No pericardial effusion. No hilar or mediastinal lymphadenopathy. No evidence of septal bowing or right heart strain. Atherosclerotic vascular wall calcifications of aorta. No aneurysm. CHEST WALL/AXILLA: No axillary or internal mammary lymphadenopathy. OSSEOUS STRUCTURES: Kyphosis of dorsal spine with multilevel disc height narrowing and endplate spurs of the vertebrae. UPPER ABDOMEN: Adrenal glands are normal. No reflux of contrast into the hepatic veins to suggest elevated right heart pressures. IMPRESSION: 1. No evidence of pulmonary embolism. 2. Emphysematous changes of lungs. 3. Bibasilar infiltrates with small bilateral pleural effusions. 4. Stable right upper lobe spiculated mass. Decreasing size of left upper lung nodule since prior CT 10/10/2016. VTE: negative
[2016-10-27 15:41] LABS: PT 15.6 SEC (9.4-12.5)
--- NOTE | 2016-10-27 15:42 | NUR ---
PT TO ROOM 201 BED 1
[2016-10-27] MEDS ORDERED: LOPRESSOR50 M1 PO (16:00)
[2016-10-27] MEDS ORDERED: ZOCOR10 M1 PO (16:02)
[2016-10-27] MEDS ORDERED: COUMADIN2 M1 PO (16:05)
--- NOTE | 2016-10-27 17:03 | NUR ---
REPORT TO FELTON MOSQUEDA ON 2NB. TRANSPORT BOOKED.
--- NOTE | 2016-10-27 17:20 | NUR ---
PT TO FLOOR VIA STRETCHER. ALL PAPERWORK AND BELONGINGS SENT WITH PT. CLINICAL STATUS UNCHANGED.
[2016-10-27 17:38] VITALS: BP 100/72
[2016-10-27 17:53] VITALS: BP 100/72
[2016-10-27] MEDS ORDERED: AUGMENTIN 875-1 EACH PO (20:50)
--- NOTE | 2016-10-27 22:11 | NUR ---
PER FAMILY-STATED ECF SAID CXR SHOWED ASP PNA, DID NOT HAVE SWALLOW EVAL, DIET-REGULAR, THIN LIQUIDS; INFORMED DR CASTLE, SHE VIEWED OUR CXR, NO ASP PNA PER ER REPORT-THEY WERE TOLD BY ECF THAT PT'S ALEKSANDRA TO R HIP WERE TO COME OUT TODAY. FAMILY TOLD ME THEY WERE TO COME OUT [address] CASTLE, STATED THEY WON'T COME OUT TONIGHT, BUT WILL PASS ON TO MORNING TEAM.
[2016-10-27 22:34] VITALS: BP 116/70
--- NOTE | 2016-10-27 23:44 | NUR ---
LATE ENTRY: PATIENT ARRIVED TO FLOOR AT 1720 FROM ER, DX COMMUNITY ACQUIRED PNA VS 98.3 88 22 100/72 93% 5L O2, 45% VENTI MASK A&OX3, MAY BE CONFUSED AT TIMES; LUNG SOUNDS DIMINISHED, RHONCHI AT BASES, 2L O2 BASELINE; IN STR FOR FRACTURED HIP-PATIENT USES W/C AT REHAB. PATIENT IS INCONTINENT. ALEKSANDRA TO R HIP. FALL PRECAUTIONS IN PLACE. ECCHYMOTIC-TO R HIP, BUTTOCKS, LEG. L BUTTOCK OPEN AREA-2CM X 1 CM, R HIP OPEN AREA-DSG IN PLACE FROM ECF-1.5CM X 1CM. MULTIPLE SKIN TEARS TO BLE. WOUND CARE CONSULT REQUESTED. IV # 22 TO LW WITH NS @ 75 ML/HR RUNNING; #20 LAC HEP LOCKED. ORIENTED TO ROOM AND CALL FARRELL. CONTINUE TO MONITOR.
[2016-10-28 06:36] VITALS: BP 122/78
--- NOTE | 2016-10-28 08:17 | PN- Housestaff ---
See Addendum Subjective Follow-up For: Acute hypoxic respiratory failure Possible healthcare associated pneumonia atrial fibrillation Elevated D dimers- ruled out PE Complaints: pain scale (0-10) Subjective: Patient was seen and examined this morning. She is alert, awake and oriented to time place and person. No acute events happened overnight. She does report difficulty breathing, chest tightness and cough. She denies any sputum production. Denies any fever or chills. She denies any abdominal pain, nausea, vomiting, constipation. Vitals-afebrile, tachycardic 112, tachypneic, saturating at 90% on 4l Rapid response was called at around 8:50 AM as patient was in respiratory distress * She was hypoxic and desaturated to 76% on 4 L nasal cannula * Vitals afebrile, heart rate 112, tachypneic, 76 on 4 L. * Dr. Eugene at bedside * Decided to transfer to ICU for BiPAP and close monitoring. * Family was notified by Sabina about the transfer Review of Systems Constitutional: Reports: see HPI. Objective Last 24 Hrs of Vital Signs/I&O Vital Signs Date Time Temp Pulse Resp B/P B/P Pulse O2 O2 Flow FiO2 Mean Ox Delivery Rate 10/28 1101 84 98 10/28 0910 112 95 10/28 0847 87 122/78 10/28 0846 87 122/78 10/28 0838 92 Venti Mask 10L 10/28 0800 Venti Mask 45% 10/28 0636 97.7 87 24 122/78 92 Nasal 5.0L Cannula 10/28 0301 92 Venti Mask 45% 10/28 0000 Venti Mask 5.0L 10/27 2234 97.1 106 20 116/70 94 Venti Mask 45% 10/27 2143 106 116/70 10/27 2143 106 116/70 10/27 1834 Nasal 5.0L Cannula 10/27 1753 98.3 88 22 100/72 93 Nasal 5.0L Cannula 10/27 1749 93 Nasal 5.0L Cannula 10/27 1738 98.3 88 22 100/72 93 Nasal 5.0L Cannula 10/27 1612 97.0 90 20 120/60 92 Nasal 5.0L Cannula 10/27 1516 91 Nasal 4.0L Cannula 10/27 1313 95 Nasal 5.0L Cannula 10/27 1256 97.2 72 20 102/64 90 Nasal 4.0L Cannula Intake & Output 10/28 1600 05 0800 10/28 0000 Intake Total 840 893 Output Total Balance 840 893 Intake, IV 600 413 Intake, Oral 240 480 Number 1 Bowel Movements Patient 77.111 kg Weight Weight Reported by Patient Measurement Method Physical Exam General Appearance: Alert, Oriented X3, Cooperative, No Acute Distress Skin: No Rashes, No Breakdown HEENT: Atraumatic, PERRLA Neck: Supple, No JVD Lymphatic: Cervical nl Cardiovascular: Normal S1, Normal S2 Lungs: decreased air entry Abdomen: Normal Bowel Sounds, Soft, No Tenderness Extremities: No Clubbing, No Cyanosis, No Edema Vascular: Normal Pulses, Pulses Symmetrical Current Medications: Current Medications Sig/Kev Start time Last Medication Dose Route Stop Time Status Admin Albuterol Sulfate 3 ML EVERY 4 HRS/AWAKE 10/27 2000 AC 10/28 INH 0834 Albuterol Sulfate 3 ML ONCE ONE 10/27 1245 DC 10/27 INH 10/27 1246 1312 Aspirin Buffered 81 MG DAILY 10/28 1000 AC 10/28 PO 0847 Atorvastatin Calcium 5 MG 1700 10/27 1700 AC 10/27 PO 2143 Ceftazidime 2,000 MG IQ8 10/28 0000 AC 10/28 Dextrose/Water 50 ML IV 0756 Ceftazidime 0 .STK-MED ONE 10/27 1401 DC .ROUTE Ceftazidime 1,000 MG ONCE ONE 10/27 1345 DC 10/27 IV 10/27 1346 1401 Colchicine 600 MCG DAILY 10/28 1000 AC 10/28 PO 0847 Cyanocobalamin 1,000 MCG DAILY 10/27 1607 AC 10/28 PO 0847 Dicyclomine HCl 10 MG BID 10/27 2200 AC 10/28 PO 0846 Diltiazem HCl 180 MG BID 10/27 2200 AC 10/28 PO 0846 Gabapentin 200 MG TID 10/27 2200 AC 10/28 PO 0847 Guaifenesin 0 .STK-MED ONE 10/27 1558 DC PO Guaifenesin 600 MG Q12 10/27 1512 AC 10/28 PO 0847 Hydroxyurea 500 MG Q48H 10/29 1000 AC PO Hydroxyurea 1,000 MG Q48H 10/28 1000 AC 10/28 PO 0847 Ipratropium Stringer 2.5 ML ONCE ONE 10/27 1245 DC 10/27 INH 10/27 1246 1312 Lorazepam 0.5 MG BID PRN 10/27 1615 AC 10/27 PO 11/03 161 2142 Methylprednisolone 0 .STK-MED ONE 10/27 1558 DC .ROUTE Methylprednisolone 40 MG Q8 10/27 1511 10/28 IV 0553 Metoprolol Tartrate 50 MG BID 10/27 2200 AC 10/28 PO 0847 Omeprazole 40 MG DAILY AC 10/27 1609 AC 10/28 PO 0553 Sodium Chloride 1,000 ML Q13H 10/27 1515 AC 10/28 IV 0553 Tramadol HCl 50 MG Q6P PRN 10/27 1615 AC 10/27 PO 2142 Vancomycin HCl 1,000 MG BID 10/28 1000 AC 10/28 Sodium Chloride 250 ML IV 0847 Vancomycin HCl 1,000 MG ONCE ONE 10/27 1345 DC 10/27 Sodium Chloride 250 ML IV 10/27 1444 1527 Warfarin Sodium 3 MG .STK-MED ONE 10/27 193 DC PO 10/27 193 Warfarin Sodium 3 MG COUMADIN 1700 ONE 10/27 1700 DC 10/27 PO 10/27 170 193 Last 24 Hrs of Lab/[place] Results Last 24 Hrs of Labs/Mics: Laboratory Tests 10/28/16 1114: pH 7.45, pCO2 41, pO2 76 L, HCO3 28, ABG O2 Sat (Measured) 95.0 L, P-50 (Temp Corrected) YES, Carboxyhemoglobin 0.9 L, O2 Concentration % 50%, Temperature 97.7, Respiration Rate 24, O2 Delivery Method BIPAP, Vent Mode ST, Expiratory Pressure 4, Inspiratory Pressure 16, Phlebotomy Draw Site RIGHT RADIAL 10/28/16 0945: Anion Gap 11, Estimated GFR > 60, Glucose 152 H, Lactic Acid 1.7, Calcium 8.2 L, Phosphorus 3.3, Magnesium 1.9, Total Bilirubin 0.6, AST 12 L, ALT 37, Troponin I < 0.01, Albumin 2.8 L, CBC w Diff NO MAN DIFF REQ, RBC 2.97 L, MCV 106.9 H, MCH 35.1 H, RDW 22.7 H, MPV 8.1, Gran % 94.3 H, Lymphocytes % 2.1 L, Monocytes % 3.6, Eosinophils % 0, Basophils % 0 L, Absolute Granulocytes 5.3 , Absolute Lymphocytes 0.1 L, Absolute Monocytes 0.2, Absolute Eosinophils 0, Absolute Basophils 0, PUBS MCHC 32.8 L 10/28/16 0703: PT 18.0 H, INR 1.72 H 10/27/16 1528: Lactic Acid Cancelled 10/27/16 1527: PT 15.6 H, INR 1.49 H 10/27/16 1235: Lactic Acid 1.6, Troponin I < 0.01, [id number]-[id number] Pept 3520 H, D-Dimer 1003 H Microbiology 10/28 914 UPPER RESP: Surveillance Culture - RECD 10/28 914 GI: Surveillance Culture - RECD 10/27 1306 BLOOD: Blood Culture - RECD 10/27 1235 BLOOD: Blood Culture - RECD Assessment/Plan Assessment: This is a 80-year-old female with past medical history significant for atrial fibrillation on Cardizem, metoprolol and Coumadin, COPD on oxygen dependence 2.5 L, lung cancer one year ago with 5 cycles of radiation, not on chemotherapy or surgery, former smoker, hyperlipidemia, mitral valve prolapse, acid reflux, diverticulitis, irritable bowel syndrome, lactose intolerance, osteoarthritis, pseudogout, essential thrombocytosis, constipation, anxiety, frequent urinary tract infections, cholecystectomy, hernia repair, hysterectomy presented to the [facility] emergency department with chief complaint of worsening shortness of breath, cough and worsening oxygen saturation for one day. Of note patient was discharged from [facility] on 10/15/2016 after being operated for the right hip intertrochanteric fracture status post ORIF. She was found to be hypoxic and tachycardic during that admission and was found to be in atrial fibrillation and she was discharged on Cardizem, metoprolol and Coumadin. Vitals on admission-afebrile, heart rate 72, respiratory rate 20, blood pressure 102/64, saturating at 90 on 4 L. Pertinent labs on admission-leukocytosis 14.2, 7 bands, hemoglobin 11.4 and hematocrit 35, thrombocytopenia 397. BEP was normal D-dimer is elevated at 1003. Chest x-ray IMPRESSION: Increasing bibasilar opacities consistent with infiltrates. chest CTA IMPRESSION: 1. No evidence of pulmonary embolism. 2. Emphysematous changes of lungs. 3. Bibasilar infiltrates with small bilateral pleural effusions. 4. Stable right upper lobe spiculated mass. Decreasing size of left upper lung nodule since prior CT 10/10/2016. VTE: negative Problem list 1. Acute hypoxic respiratory failure 2. Possible healthcare associated pneumonia 3. Elevated D dimers/rule out DVT/rule out PE 4. Atrial fibrillation on anticoagulants 5. Lung cancer status post radiotherapy 5. Hyperlipidemia 6. GERD 7. acute COPD exacerbation 8. IBS 9. Pseudogout 10. Essential thrombocytosis 11. Constipation 12. Anxiety Acute hypoxic respiratory failure Patient presented with worsening shortness of breath, cough. Denies any sputum production, fever or chills. Denied any chest pain. she uses 2.5 L oxygen for her COPD at baseline. However she required 4 L at the time of admission. * Admitted to general medicine floor for further management * Monitor vitals closely every shift * ON BIPAP now * Total respiratory care * Pulmonology consulted * CAT scan ruled out pulmonary embolism. * Please monitor for any worsening shortness of breath, pleuritic chest pain, cough, sputum production. Possible healthcare associated pneumonia Patient presented with worsening shortness of breath, cough, decreased oxygen saturations. Chest x-ray was done at nursing care facility which showed pneumonia. She was started on Augmentin 875 mg twice a day. However her oxygen saturations dropped down to 85% AT ECF and she was brought to the emergency department. * Chest x-ray showed bibasilar opacities with infiltrates * CTA was done to rule out pulmonary embolism * Admitted to general medicine floor for treatment of healthcare associated pneumonia as she came from nursing care facility * vitals closely * Started on IV antibiotics-IV Fortaz and IV vancomycin to cover gram-negative bacteria and meds-day 2 * Blood cultures * Sputum cultures * Monitor for fever, leukocytosis * Bandemia on presentation Possible coPD exacerbation Oxygen dependent COPD On 2.5 L at home * Patient requiring high amounts of oxygen-4 L-desaturated to 75% this morning on 4l and she was transferred to ICU for BiPAP * Continue home medications albuterol, Symbicort, Spiriva * Total respiratory care * Will provide IV steroids methylprednisone 40 mg every 12 hours * [employer] helicopter on board * Sputum cultures * Blood cultures * Follow-up pulmonology recommendations ELEVATED D dimers on admission D-dimer is elevated 1003. However she denies anycalf pain, tenderness on palpation, redness, warmth. patient has right lower extremity swelling. Recent surgery 2 weeks 10/11/16 ago-ORIF. * Patient is at risk for DVT, PE as she had recent surgical repair for right intertrochanteric right hip fracture. * Patient is on Coumadin for atrial fibrillation. * We'll continue Coumadin based on her INR. * Will get right lower extremity Doppler to rule out DVT * CTA was done-ruled out pulmonary embolism * We'll use subcutaneous heparin for DVT prophylaxis. Atrial fibrillation Of note patient was discharged from [facility] on 10/15/2016 after being operated for the right hip intertrochanteric fracture status post ORIF. She was found to be hypoxic and tachycardic during that admission after the surgery and was found to be in atrial fibrillation and she was discharged on Cardizem, metoprolol and Coumadin. * Please continue Cardizem and metoprolol * Please continue Coumadin based on INR * EKG showed atrial fibrillation-rate controlled Frequent falls 2 falls within a week, admitted in September for a fall status post intertrochanteric right hip fracture status post ORIF. * Jermaine were removed by surgical PA This morning Lung cancer Diagnosed with lung cancer one year ago Status post a 5 cycles of radiation therapy No history of surgery Not on chemotherapy Quitted smoking few years ago Hyperlipidemia On simvastatin at home We'll give Lipitor Acid reflux On pantoprazole We'll give omeprazole here Irritable bowel syndrome Continue home dose of dicyclomine Pseudogout Continue home dose of colchicine Essential thrombocytosis Continue home dose of hydroxyurea Supplements Continue calcium carbonate, vitamin D, multivitamins Constipation Bowel regimen when necessary- senna Anxiety Ativan if necessary full code DVT prophylaxis subcutaneous heparin Pain pathway regular diet Problem List: 1. Healthcare-associated pneumonia 2. Afib 3. Right femoral fracture 4. Hypoxia 5. COPD exacerbation Pain Ratin Pain Location: n/a Pain Goal: Remain pain free Pain Plan: none Tomorrow's Labs & Rationales: cbc and bep in the setting of infection
--- NOTE | 2016-10-28 08:22 | Cons- Pulmonary ---
General Information and HPI Consulting Request Date of Consult: 10/28/16 Requested By: terri Reason for Consult: Hospital-acquired pneumonia hypoxic respiratory failure History of Present Illness: Patient is 80-year-old with advanced COPD status post recent surgery for hip fracture, complicated by acute blood loss anemia exacerbation of COPD and atrial fibrillation. Patient returns with worsening hypoxia leukocytosis and chest x- ray showing bibasilar densities. CTA excluded pulmonary embolism however there are bibasal infiltrates and small pleural effusions. Of note BMP is markedly elevated. Patient denies fever or expectorated sputum. He has no chest pain Allergies/Medications Allergies: Coded Allergies: adhesive tape (RED AND IRRITATED - PAPER TAPE IS OK 10/06/15) oxycodone (PER PT CANT REMEMBER 10/06/15) amitriptyline (NIGHTMARES 10/07/15) ciprofloxacin (From Cipro HC) (STOMACH IRRITATION 10/07/15) erythromycin base (From Erythrocin) (STOMACH IRRITATION 10/07/15) hydrocortisone (From Cipro HC) (STOMACH IRRITATION 10/07/15) lactose (LACTOSE INTOLERANT 10/07/15) Home Med List: Acetaminophen 500 MG TABLET 1,000 MG PO TID right hip pain Amoxicillin/Potassium Clav (Augmentin 875-125 Tablet) 875 MG-125 MG TABLET 1 TAB PO BID pneumonia (Reported) Aspirin (Ecotrin*) 81 MG TABLET.DR 1 TAB PO DAILY HEART/BLOOD (Reported) Colchicine (Colcrys) 0.6 MG TABLET 1 TAB PO DAILY GOUT (Reported) Cyanocobalamin (Vitamin B-12) 1,000 MCG TABLET 1 TAB PO DAILY SUPPLEMENT Dicyclomine HCl 10 MG CAPSULE 1 TAB PO BID IBS (Reported) Diltiazem HCl (Diltiazem 12HR ER) 60 MG CAP.ER.12H 180 MG PO BID AFIB Estradiol (Estrace) 42.5 GM CREAM.APPL 1 GM VG QFRI HRT (Reported) Fluticasone/Vilanterol (Breo Ellipta 200-25 Mcg INH) 200 MCG-25 MCG/DOSE BLST.W.DEV 1 PUFF PO BID COPD (Reported) Gabapentin 100 MG CAPSULE 2 CAP PO TID PAIN (Reported) Hydroxyurea (Hydrea) 500 MG CAPSULE 2 CAP PO EOD ESSENTIAL THROMBOCYTOSIS ( Reported) Hydroxyurea (Hydrea) 500 MG CAPSULE 1 CAP PO EOD ESSENTIAL THROMBOCYTOSIS ( Reported) Lorazepam (Ativan) 0.5 MG TABLET 1 TAB PO BID PRN ANXIETY (Reported) Metoprolol Tartrate (Lopressor) 50 MG TABLET 1 TAB PO BID Heart (Reported) Pantoprazole Sodium 40 MG TABLET.DR 1 TAB PO DAILY GI (Reported) Prednisone 10 MG TABLET 1 TAB PO SI COPD 5 TABS DAILY FOR 2 DAYS 4 TABS DAILY FOR 3 DAYS 3 TABS DAILY FOR 3 DAYS 2 TABS DAILY FOR 3 DAYS 1 TAB DAILY FOR 3 DAYS AND THEN STOP Sennosides/Docusate Sodium (Senna Plus Tablet) 8.6 MG-50 MG TABLET 1 TAB PO BID PRN CONSTIPATION Simvastatin (Zocor*) 10 MG TABLET 1 TAB PO QPM cholesterol (Reported) Tiotropium Ronan (Spiriva Respimat) 4 GM MIST.INHAL 1 CAP PO QAM COPD ( Reported) Tramadol HCl 50 MG TABLET 1 TAB PO Q6P PRN PAIN CONTROL Warfarin Sodium (Coumadin) 2 MG TABLET 1 TAB PO DAILY post op (Reported) INR goal 2-3 Review of Systems Review of Systems Constitutional: Denies: chills, fever. Cardiovascular: Denies: chest pain. Respiratory: Reports: cough, short of breath. Denies: hemoptysis, sputum production. GI: Denies: abdominal pain, constipation, diarrhea, melena. 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 Extended Care Facility Who Do You Live With? self Services at Home: None Smoking Status: Former Smoker ETOH Use: denies use Illicit Drug Use: denies illicit drug use Living Will? yes Functional Ability ADLs Independent: dressing, eating, toileting, bathing. Ambulation: independent IADLs Independent: shopping, housework, finances, food prep, telephone, transportation , medication admin. Exam & Diagnostic Data Last 24 Hrs of Vital Signs/I&O Vital Signs Date Time Temp Pulse Resp B/P B/P Pulse O2 O2 Flow FiO2 Mean Ox Delivery Rate 10/28 0636 97.7 87 24 122/78 92 Nasal 5.0L Cannula 10/28 0301 92 Venti Mask 45% 10/28 0000 Venti Mask 5.0L 10/27 2234 97.1 106 20 116/70 94 Venti Mask 45% 10/27 2143 106 116/70 10/27 2143 106 116/70 10/27 1834 Nasal 5.0L Cannula 10/27 1753 98.3 88 22 100/72 93 Nasal 5.0L Cannula 10/27 1749 93 Nasal 5.0L Cannula 10/27 1738 98.3 88 22 100/72 93 Nasal 5.0L Cannula 10/27 1612 97.0 90 20 120/60 92 Nasal 5.0L Cannula 10/27 1516 91 Nasal 4.0L Cannula 10/27 1313 95 Nasal 5.0L Cannula 10/27 1256 97.2 72 20 102/64 90 Nasal 4.0L Cannula Intake & Output 10/28 1600 10/28 0800 10/28 0000 Intake Total 840 893 Output Total Balance 840 893 Intake, IV 600 413 Intake, Oral 240 480 Number 1 Bowel Movements Patient 170 lb Weight Weight Reported by Patient Measurement Method Oxygen saturation 5 L 92% exam for chest shows basilar crackles are no wheezes cardiac exam shows regular S1 and S2 without murmurs abdomen is soft nontender extremities have trace edema and there is ecchymosis over the inner right leg Last 48 Hrs of Labs/[place]: Laboratory Tests 10/28/16 0703: PT 18.0 H, INR 1.72 H 10/27/16 1528: Lactic Acid Cancelled 10/27/16 1527: PT 15.6 H, INR 1.49 H 10/27/16 1235: Lactic Acid 1.6, Troponin I < 0.01, [id number]-M-[id number] Pept 3520 H, D-Dimer 1003 H Assessment/Plan Impression/Plan: 80-year-old with advanced oxygen-dependent COPD admitted with hypoxic respiratory failure leukocytosis and CAT scan showing bibasilar densities small effusions in conjunction with markedly elevated BNP. Differential includes healthcare associated pneumonia as patient was recently discharged and has been in short-term rehabilitation with possible component of CHF. Recommendations: Continue antibiotics and IV steroids. Taper FiO2 his saturations allow. Fully culture. Surgery evaluation of removal of cyndi. Cardiology follow-up regarding possible component of complicating congestive heart failure in view of markedly elevated BNP. Consult Acknowledgment - Thank you for your consult request.
--- NOTE | 2016-10-28 08:39 | Event Note ---
Event Note Event Note: called by medical team for removal of cyndi following repair of displaced subtrochanteric right hip fracture on 10/09/16 by . 3 interrupted incisions along her right lateral thigh with cyndi, which appear well approximated, without erythema or exudates. all cyndi removed. ok to leave open to air. will d/w
--- NOTE | 2016-10-28 09:00 | NUR ---
PT COMPLAING OF SOB AND STATES "I CAN'T BREATHE"; RESPIRATORY THERAPIST CAME INTO ROOM AND TOOK O2 VIA PULSE O2 AND 02 SAT WAS LOW 70'S. RT ADMINISTERED NEB TX; O2 SAT ADVANCED TO HIGH 70'S; RAPID RESPONSE CALLED; PT TRANSFERED TO 110; THIS RN TRAVELED WITH PT WITH BASTING MACHINE OPERATOR ATTACHED; THIS RN GAVE REPORT TO DARIUS BUSINESS ANALYST PROJECT MANAGER.
--- NOTE | 2016-10-28 09:18 | Event Note ---
Event Note Event Note: Rapid response was called at around 8:50 AM as patient was in respiratory distress * She was hypoxic and desaturated to 76% on 4 L nasal cannula * Vitals afebrile, heart rate 112, tachypneic, 76 on 4 L. * Dr. Eugene at bedside * Decided to transfer to ICU for BiPAP and close monitoring. * Family was notified by Sabina about the transfer
--- NOTE | 2016-10-28 09:27 | Event Note ---
Event Note Event Note: ICU admission note: Ms. Leon is a 80 year old female with PMH atrial fibrillation on coumadin, former cigarette abuse, COPD on 2.5 L continuous home O2, lung cancer s/p 5 cycles of radiation, HLD, MVP, GERD, diverticulitis, IBS, lactose intolerance, OA, pseudogout, essential thrombocytosis, anxiety and frequent UTIs who was initially admitted to the general medicine floor overnight for worsening shortness of breath, cough and decreased oxygen saturations for one day. Her admitting diagnosis was HCAP vs. aspiration pneumonia. This morning she was transferred to the intensive care unit due to oxygen desaturation and respiratory distress. Of note, patient was recently discharged from [facility] after ORIF for hip fracture in September,. Vital signs on admission to the ICU: T 97.7, HR 115, RR 30, BP 105/64 and O2 saturation 95% on BiPAP. Physical exam: General- Lethargic, mild distress HEENT: Atraumatic, EOMI BL, hearing grossly normal, dry mucous membranes Respiratory: Tachypneic, accessory muscle use noted, decreased breath sounds bilateral lungs Cardiovascular: Irregularly irregular GI: Nontender to palpation, +BS Extremities: no edema appreciated, bruising noted medial right thigh Skin: posterior right thigh and left buttocks stage 2 ulcers present on admission, full thickness wound right lower abdomen The following issues are currently being addressed in the ICU: 1. Acute on chronic respiratory failure * Likely 2/2 underlying infectious etiology in the setting of baseline COPD * Patient noted to be hypoxic to 75% this AM and was transferred to ICU for closer monitoring * Close monitoring in the ICU for BiPAP PRN alternating with O2 via NC * ABG if patient appears lethargic, tachypneic or change in respiratory status noted * CXR on transfer to ICU redemonstrated bibasilar airspace opacities R>L with suspected trace pleural effusions * D-Dimer elevated, CTA performed and ruled out PE * Continue IV solumedrol 40 mg Q8 * TRC evaluation 2. Heathcare associated pneumonia vs aspiration pneumonia * Recent hospitalization s/p ORIF gives concern for HCAP (gram negative/MRSA infection); aspiration PNA a concern as patient noted to cough slightly with food towards end of last admission (this is confirmed by patient's daughter) * Continue ceftazidime IV Q8 and vancomycin BID * Follow [facility], BC x 2 * Mucinex 600 mg PO Q12 * Continue supplemental O2 as noted above 3. Paroxysmal atrial fibrillation on coumadin * Patient found to be in atrial fibrillation post-ORIF during last admission and discharged on cardizem, metoprolol and coumadin * Trend INR daily * Dose coumadin per INR * Continue cardizem SR 180 mg PO BID and metoprolol 50 gm PO BID 4. Anemia, likely secondary of chronic disease * Monitor CBC * Vitamin B12 normal, folate high on last admission 5. IBS/constipation * Continue bentyl 10 mg PO BID 6. Pseudogout * Continue colchicine 600 mcg PO daily 7. Essential thrombocytosis * Continue hydroxyurea as ordered 8. Mood disturbance * Continue ativan 0.5 mg PO BID for anxiety * Psych consult as patient reported depression on transfer to ICU, follow up psych recommendations 9. GERD * Prilosec 40 mg PO daily FULL CODE Diet: NPO pending repeat swallow eval
--- NOTE | 2016-10-28 09:49 | RADIOLOGY REPORT ---
EXAMINATION: XR PORTABLE CHEST CLINICAL INFORMATION: Shortness of breath COMPARISON: 10/27/2016 TECHNIQUE: Portable frontal view of the chest was obtained. FINDINGS: Lung volumes are symmetric. There is relative lucency in the right upper lung, favoring sequelae of emphysema. There are regions of opacity at the bilateral lung bases, left greater than right and similar to yesterday's exam. Trace pleural effusions are suspected. No pneumothorax is seen. Cardiac size is within normal limits. Calcification is present at the aortic arch. No acute osseous findings are seen. IMPRESSION: Redemonstrated bibasilar airspace opacities, left greater than right, which may be secondary to pneumonia or aspiration. Suspect trace pleural effusions.
[2016-10-28 11:08] LABS: ABSOLUTE BASOPHIL COUNT 0 /CUMM (0.0-0.2); ABSOLUTE EOSINOPHIL COUNT 0 /CUMM (0.0-0.7); ABSOLUTE GRANULOCYTE CT 5.3 /CUMM (1.4-6.5); ABSOLUTE LYMPH COUNT 0.1 /CUMM (1.2-3.4); ABSOLUTE MONOCYTE COUNT 0.2 /CUMM (0.10-0.60); BASOPHIL % 0 % (0.0-2.0); EOSINOPHIL % 0 % (0-5); HEMATOCRIT 31.7 % (37-47); MEAN CORPUSCULAR HGB 35.1 PG (27.0-31.0); MEAN CORPUSCULAR HGB CONC 32.8 G/DL (33.0-37.0); MEAN CORPUSCULAR VOLUME 106.9 FL (81.0-99.0); MEAN PLATELET VOLUME 8.1 FL (7.4-10.4); RBC DISTRIBUTION WIDTH 22.7 % (11.5-14.5); RED BLOOD CELL CT 2.97 /CUMM (4.20-5.40)
[2016-10-28 11:09] LABS: GRANULOCYTE % 94.3 % (42.2-75.2); PLATELET COUNT 327 /CUMM (130-400); WHITE BLOOD CELL COUNT 5.7 /CUMM (4.8-10.8)
--- NOTE | 2016-10-28 11:15 | Cons- Cardiology ---
General Information and HPI Consulting Request Date of Consult: 10/28/16 Requested By: SHADIA CALVILLO MD Reason for Consult: Evaluate for CHF Source of Information: old records Exam Limitations: clinical condition History of Present Illness: 80-year-old female with a past medical history of COPD on 2.5 L of oxygen at home, lung cancer with 5 cycles of radiation, mitral valve prolapse, IBS, osteoarthritis, pesudogout, essential thrombocytosis, former smoker, frequent urinary tract infections, recently returned from [facility] after ORIF procedure in September 2016. During that admission she developed atrial fibrillation and was placed on Cardizem and metoprolol with Coumadin for anticoagulation. He was admitted to the hospital yesterday after being found short of breath, wheezing, and desaturating on her 2.5 L of oxygen. She is being treated for hospital acquired pneumonia. This morning desaturated on the general medicine floor, was transferred to the ICU currently remains on BiPAP. We are asked to evaluate for CHF after she was found to have an elevated BNP on labs. Allergies/Medications Allergies: Coded Allergies: adhesive tape (RED AND IRRITATED - PAPER TAPE IS OK 10/06/15) oxycodone (PER PT CANT REMEMBER 10/06/15) amitriptyline (NIGHTMARES 10/07/15) ciprofloxacin (From Cipro HC) (STOMACH IRRITATION 10/07/15) erythromycin base (From Erythrocin) (STOMACH IRRITATION 10/07/15) hydrocortisone (From Cipro HC) (STOMACH IRRITATION 10/07/15) Home Med List: Acetaminophen 500 MG TABLET 1,000 MG PO TID right hip pain Amoxicillin/Potassium Clav (Augmentin 875-125 Tablet) 875 MG-125 MG TABLET 1 TAB PO BID pneumonia (Reported) Aspirin (Ecotrin*) 81 MG TABLET.DR 1 TAB PO DAILY HEART/BLOOD (Reported) Colchicine (Colcrys) 0.6 MG TABLET 1 TAB PO DAILY GOUT (Reported) Cyanocobalamin (Vitamin B-12) 1,000 MCG TABLET 1 TAB PO DAILY SUPPLEMENT Dicyclomine HCl 10 MG CAPSULE 1 TAB PO BID IBS (Reported) Diltiazem HCl (Diltiazem 12HR ER) 60 MG CAP.ER.12H 180 MG PO BID AFIB Estradiol (Estrace) 42.5 GM CREAM.APPL 1 GM VG QFRI HRT (Reported) Fluticasone/Vilanterol (Breo Ellipta 200-25 Mcg INH) 200 MCG-25 MCG/DOSE BLST.W.DEV 1 PUFF PO BID COPD (Reported) Gabapentin 100 MG CAPSULE 2 CAP PO TID PAIN (Reported) Hydroxyurea (Hydrea) 500 MG CAPSULE 2 CAP PO EOD ESSENTIAL THROMBOCYTOSIS ( Reported) Hydroxyurea (Hydrea) 500 MG CAPSULE 1 CAP PO EOD ESSENTIAL THROMBOCYTOSIS ( Reported) Lorazepam (Ativan) 0.5 MG TABLET 1 TAB PO BID PRN ANXIETY (Reported) Metoprolol Tartrate (Lopressor) 50 MG TABLET 1 TAB PO BID Heart (Reported) Pantoprazole Sodium 40 MG TABLET.DR 1 TAB PO DAILY GI (Reported) Prednisone 10 MG TABLET 1 TAB PO SI COPD 5 TABS DAILY FOR 2 DAYS 4 TABS DAILY FOR 3 DAYS 3 TABS DAILY FOR 3 DAYS 2 TABS DAILY FOR 3 DAYS 1 TAB DAILY FOR 3 DAYS AND THEN STOP Sennosides/Docusate Sodium (Senna Plus Tablet) 8.6 MG-50 MG TABLET 1 TAB PO BID PRN CONSTIPATION Simvastatin (Zocor*) 10 MG TABLET 1 TAB PO QPM cholesterol (Reported) Tiotropium [place] (Spiriva Respimat) 4 GM MIST.INHAL 1 CAP PO QAM COPD ( Reported) Tramadol HCl 50 MG TABLET 1 TAB PO Q6P PRN PAIN CONTROL Warfarin Sodium (Coumadin) 2 MG TABLET 1 TAB PO DAILY post op (Reported) INR goal 2-3 Current Medications: Current Medications Sig/Kev Start time Last Medication Dose Route Stop Time Status Admin Albuterol Sulfate 3 ML EVERY 4 HRS/AWAKE 10/27 2000 AC 10/28 INH 0834 Albuterol Sulfate 3 ML ONCE ONE 10/27 1245 DC 10/27 INH 10/27 1246 1312 Aspirin Buffered 81 MG DAILY 10/28 1000 AC 10/28 PO 0847 Atorvastatin Calcium 5 MG 1700 10/27 1700 AC 10/27 PO 2143 Ceftazidime 2,000 MG IQ8 10/28 0000 AC 10/28 Dextrose/Water 50 ML IV 0756 Ceftazidime 0 .STK-MED ONE 10/27 1401 DC .ROUTE Ceftazidime 1,000 MG ONCE ONE 10/27 1345 DC 10/27 IV 10/27 1346 1401 Colchicine 600 MCG DAILY 10/28 1000 AC 10/28 PO 0847 Cyanocobalamin 1,000 MCG DAILY 10/27 1607 AC 10/28 PO 0847 Dicyclomine HCl 10 MG BID 10/27 2200 AC 10/28 PO 0846 Diltiazem HCl 180 MG BID 10/27 2200 AC 10/28 PO 0846 Gabapentin 200 MG TID 10/27 2200 AC 10/28 PO 0847 Guaifenesin 0 .STK-MED ONE 10/27 1558 DC PO Guaifenesin 600 MG Q12 10/27 1512 AC 10/28 PO 0847 Hydroxyurea 500 MG Q48H 10/29 1000 AC PO Hydroxyurea 1,000 MG Q48H 10/28 1000 AC 10/28 PO 0847 Ipratropium [place] 2.5 ML ONCE ONE 10/27 1245 DC 10/27 INH 10/27 1246 1312 Lorazepam 0.5 MG BID PRN 10/27 1615 AC 10/27 PO 11/03 1614 2142 Methylprednisolone 0 .STK-MED ONE 10/27 1558 DC .ROUTE Methylprednisolone 40 MG Q8 10/27 1511 AC 10/28 IV 0553 Metoprolol Tartrate 50 MG BID 10/27 2200 AC 10/28 PO 0847 Omeprazole 40 MG DAILY AC 10/27 1609 AC 10/28 PO 0553 Sodium Chloride 1,000 ML Q13H 10/27 1515 AC 10/28 IV 0553 Tramadol HCl 50 MG Q6P PRN 10/27 1615 AC 10/27 PO 2142 Vancomycin HCl 1,000 MG BID 10/28 1000 AC 10/28 Sodium Chloride 250 ML IV 0847 Vancomycin HCl 1,000 MG ONCE ONE 10/27 1345 DC 10/27 Sodium Chloride 250 ML IV 10/27 1444 1527 Warfarin Sodium 3 MG .STK-MED ONE 10/27 1932 DC PO 10/27 1933 Warfarin Sodium 3 MG COUMADIN 1700 ONE 10/27 1700 DC 10/27 PO 10/27 1701 1933 Review of Systems Review of Systems: ROS unobtainable due to clinical condition remains on BiPAP Review of Systems Constitutional: Reports: see HPI. Cardiovascular: Reports: see HPI. Respiratory: Reports: see HPI. GI: Reports: see HPI. 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 Extended Care Facility Who Do You Live With? self Services at Home: None Smoking Status: Former Smoker ETOH Use: denies use Illicit Drug Use: denies illicit drug use Living Will? yes Functional Ability ADLs Independent: dressing, eating, toileting, bathing. Ambulation: independent IADLs Independent: shopping, housework, finances, food prep, telephone, transportation , medication admin. ECHO Results (as available) Date of last Echo 10/14/16 EF% 60 Report: CONCLUSIONS 1. Mild to moderate aortic sclerosis is present with no valvular stenosis or insufficiency. 2. Mitral leaflet thickening is present with mild anular calcification and minimal to mild mitral insufficiency with mild to moderate left atrial enlargement. 3. A physiologic pericardial effusion is present. 4. The left ventricular chamber size and systolic function are normal. 5. A false tendon is present at the LV apex. 6. Mild enlargement of the right heart chambers and IVC is noted. Mild to moderate tricuspid insufficiency is present with moderate pulmonary hypertension and an estimated RV systolic pressure of 54 mmHg. Exam & Diagnostic Data Vital Signs and I&O Vital Signs Date Time Temp Pulse Resp B/P B/P Pulse O2 O2 Flow FiO2 Mean Ox Delivery Rate 10/28 0910 112 95 10/28 0847 87 122/78 10/28 0846 87 122/78 10/28 0838 92 Venti Mask 10L 10/28 0800 Venti Mask 45% 10/28 0636 97.7 87 24 122/78 92 Nasal 5.0L Cannula 10/28 0301 92 Venti Mask 45% 10/28 0000 Venti Mask 5.0L 10/27 2234 97.1 106 20 116/70 94 Venti Mask 45% 10/27 2143 106 116/70 10/27 2143 106 116/70 10/27 1834 Nasal 5.0L Cannula 10/27 1753 98.3 88 22 100/72 93 Nasal 5.0L Cannula 10/27 1749 93 Nasal 5.0L Cannula 10/27 1738 98.3 88 22 100/72 93 Nasal 5.0L Cannula 10/27 1612 97.0 90 20 120/60 92 Nasal 5.0L Cannula 10/27 1516 91 Nasal 4.0L Cannula 10/27 1313 95 Nasal 5.0L Cannula 10/27 1256 97.2 72 20 102/64 90 Nasal 4.0L Cannula Intake & Output 10/28 0810/28 0000 10/27 1600 10/27 0810/27 0000 Intake Total 840 893 Output Total Balance 840 893 Intake, IV 600 413 Intake, Oral 240 480 Number 1 Bowel Movements Patient 170 lb Weight Weight Reported by Patient Measurement Method Physical Exam General Appearance: alert, awake, moderate distress Head: atraumatic, normal appearance Eyes: Bilateral: normal appearance, PERRL, EOMI. Neck: normal inspection, supple Respiratory: decreased breath sounds (transmitted breath sounds ) Cardiovascular: irregularly irregular Peripheral Pulses: 2+ radial (R), 2+ radial (L) Gastrointestinal: normal bowel sounds, soft, non-tender Extremities: no edema Neurologic/Psych: awake, alert Labs/[place] Results: Laboratory Tests 10/28 10/28 10/27 10/27 10/27 0945 0703 1528 1527 1235 Chemistry Sodium (137 - 145 mmol/L) 147 H Potassium (3.5 - 5.1 mmol/L) 3.8 Chloride (98 - 107 mmol/L) 107 Carbon Dioxide (22 - 30 mmol/L) 29 Anion Gap (5 - 16) 11 BUN (7 - 17 mg/dL) 24 H Creatinine (0.5 - 1.0 mg/dL) 0.6 Estimated GFR (>60 ml/min) > 60 Glucose (65 - 99 mg/dL) 152 H Lactic Acid (0.7 - 2.1 mmol/L) 1.7 Cancelled 1.6 Calcium (8.4 - 10.2 mg/dL) 8.2 L Phosphorus (2.5 - 4.5 mg/dL) 3.3 Magnesium (1.6 - 2.3 mg/dL) 1.9 Total Bilirubin (0.2 - 1.3 mg/dL) 0.6 AST (14 - 36 U/L) 12 L ALT (9 - 52 U/L) 37 Troponin I (< 0.11 ng/ml) Pending < 0.01 Awn-H-Gfdiaugbcnc Pept (<125 pg/mL) 3520 H Albumin (3.5 - 5.0 g/dL) 2.8 L Coagulation PT (9.4 - 12.5 SEC) 18.0 H 15.6 H INR (0.90 - 1.19) 1.72 H 1.49 H D-Dimer (70 - 232 ng/ml) 1003 H Hematology CBC w Diff Pending WBC Pending RBC Pending Hgb Pending Hct Pending MCV Pending MCH Pending RDW Pending Plt Count Pending MPV Pending PUBS MCHC Pending Diagnostic Data EKG Results Atrial Fibrillation, Rate 100 CXR Results Redemonstrated bibasilar airspace opacities, left greater than right, which may be secondary to pneumonia or aspiration. Suspect trace pleural effusions Other Results 1. No evidence of pulmonary embolism. 2. Emphysematous changes of lungs. 3. Bibasilar infiltrates with small bilateral pleural effusions. 4. Stable right upper lobe spiculated mass. Decreasing size of left upper lung nodule since prior CT 10/10/2016. VTE: negative Assessment/Plan Assessment/Plan 80-year-old female with a past medical history of COPD on 2.5 L of oxygen at home, lung cancer with 5 cycles of radiation not on chemotherapy or surgical intervention, mitral valve prolapse, IBS, osteoarthritis, pesudogout, essential thrombocytosis, former smoker, frequent urinary tract infections, recently returned from [facility] after ORIF procedure in September 2016. During that admission she developed atrial fibrillation and was placed on Cardizem and metoprolol with Coumadin for anticoagulation. This morning she desaturated and was transferred to the ICU for closer monitoring. She remains in atrial fibrillation rate controlled. ECHO done 10/14/16 demonstrates elevated right heart pressures. BNP 3520. Ddimer elevated 1100, with negative PE on CTA. Congestive Heart Failure At this time does not appear to be in CHF exacerbation. Her shortness of breath seems likely due to her lung infection, for which she is on antibiotics. Her BNP is elevated possible causes include her underlying COPD, ongoing respiratory infection, and atrial fibrillation. Recent echocardiogram demonstrates EF 60%. At this time recommend treatment for pneumonia as you are doing. Atrial Fibrillation Rate controlled continue Diltizem, Metoprolol. Would dose coumadin to keep INR between 2-3. She has remained subtherapeutic since admission. Problem List: 1. Afib 2. COPD exacerbation 3. Healthcare-associated pneumonia Consult Acknowledgment - Thank you for your consult request.
--- NOTE | 2016-10-28 11:58 | NUR ---
Wound Care Assessment: Patient presents to [facility] as a transfer from General Medicine with known areas of skin breakdown that were documented on admission. Left buttock presents as a stage 2 pressure injury measuring 2.5 x 2cm, clean pink dermal fill with scant bloody drainage noted. Periwound presents red but blanchable. No s/s of infection. Right buttock presents with a raised area ?ingrown hair- no open skin breakdown. The posterior right thigh presents with a partial thickness wound appearing as an open blister vs a stage 2 pressure injury. Wound bed is pale pink and moist with no drainage noted- wound measures 3 X 3cm, no s/s of infection. Periwound appears a light pink color but is blanchable. A large area of eccymosis is noted extrending from her right hip down to her posterior knee. Pt is s/p fall with r. hip surgery done prior to this admission. [place] have been removed and incision is healed. The right lower abdomen presents as a full thickness wound measuring 1.5 X 2cm- wound bed is mixed with moist pink and moist yellow tissue. Multiple partial thickness wounds noted to her RLE and trunk most likely related to tape from the surgical dressing Impression: Stage 2 to the left buttock and right posterior thigh. Full thickness wound to the right lwoer abdomen- All areas present on admission. Recommendations: Cleanse wounds with normal saline and pat dry. Apply a hydrocolloid dressing to the left buttock, right lwoer abdomen, and right posterior thigh. Change dressing every 3-5 days and prn. Obtain a nutrition consult. Patient has been placed on a specialty mattress upon transfer to [facility]. Encourage frequent turning and repositioning. Please notify wound care with any futher decline. Please follow all additional pressure injury guidelines.
--- NOTE | 2016-10-28 13:21 | Cons- Psychiatry ---
Psychiatric Consult Date of Consult: 10/28/16 Reason for Consult: "Patient endorsing depression about current medical condition" Dr. Douglass Attending History of Present Illness: Identifying Info: 80-year-old female presents by ambulance from [facility] on 10/27/2016 with dyspnea and worsening oxygen saturation. Subsequently diagnosed with pneumonia and admitted to medicine. Of note she was discharged from [facility] approximately 2 weeks ago after ORIF for hip fracture. CC: "When it's my time I want to go." HPI: This morning a rapid response was called on this patient due to oxygen desaturation and respiratory distress. At this time patient expressed fear that she was dying and requested a food and beverage attendant. She stated to medical staff that she was depressed about her current physical condition. She did not express a desire to at that time but rather that she be left to if it was her time. It is suspected that she is experiencing demoralization and fatigue from being in medical facilities for a long period of time. Per medical staff report the patient has a good prognosis and will likely make a recover from current PNA. PMH: Please see the H&P for a complete listing Atrial fibrillation on Cardizem and Coumadin, COPD on oxygen dependence 2.5 L, lung cancer one year ago with 5 cycles of radiation, not on chemotherapy or surgery, former smoker, hyperlipidemia, mitral valve prolapse, acid reflux, diverticulitis, irritable bowel syndrome, lactose intolerance, osteoarthritis, pseudogout, essential thrombocytosis, constipation, frequent urinary tract infections, cholecystectomy, hernia repair, hysterectomy Past Psych History: h/o anxiety but denies formal psych treatment, Ativan rxd by [facility] Family Psych History: Denies Substance History Former smoker Denies ETOH or illicit substances Family Substance History: Did not assess Social: . Per report lives alone. Abuse/Trauma: Noncontributory Current Home Psychotropic Medications: Med Lorazepam 0.5 MG PO BID PRN 10/27/16 1615 Current Hospital Psychotropic Medications: Med Lorazepam 0.5 MG PO BID PRN 10/27/16 1615 Allergies: Coded Allergies: adhesive tape (RED AND IRRITATED - PAPER TAPE IS OK 10/06/15) oxycodone (PER PT CANT REMEMBER 10/06/15) amitriptyline (NIGHTMARES 10/07/15) ciprofloxacin (From Cipro HC) (STOMACH IRRITATION 10/07/15) erythromycin base (From Erythrocin) (STOMACH IRRITATION 10/07/15) hydrocortisone (From Cipro HC) (STOMACH IRRITATION 10/07/15) Current Medications: Current Medications Sig/Kev Start time Last Medication Dose Route Stop Time Status Admin Albuterol Sulfate 3 ML EVERY 4 HRS/AWAKE 10/27 2000 AC 10/28 INH 1144 Aspirin Buffered 81 MG DAILY 10/28 1000 AC 10/28 PO 0847 Atorvastatin Calcium 5 MG 1700 10/27 1700 AC 10/27 PO 2143 Ceftazidime 2,000 MG IQ8 10/28 0000 AC 10/28 Dextrose/Water 50 ML IV 0756 Ceftazidime 0 .STK-MED ONE 10/27 1401 DC .ROUTE Ceftazidime 1,000 MG ONCE ONE 10/27 1345 DC 10/27 IV 10/27 1346 1401 Colchicine 600 MCG DAILY 10/28 1000 AC 10/28 PO 0847 Cyanocobalamin 1,000 MCG DAILY 10/27 1607 AC 10/28 PO 0847 Dicyclomine HCl 10 MG BID 10/27 2200 AC 10/28 PO 0846 Diltiazem HCl 180 MG BID 10/27 2200 AC 10/28 PO 0846 Gabapentin 200 MG TID 10/27 2200 AC 10/28 PO 0847 Guaifenesin 0 .STK-MED ONE 10/27 1558 DC PO Guaifenesin 600 MG Q12 10/27 1512 AC 10/28 PO 0847 Hydroxyurea 500 MG Q48H 10/29 1000 AC PO Hydroxyurea 1,000 MG Q48H 10/28 1000 AC 10/28 PO 0847 Lorazepam 0.5 MG BID PRN 10/27 1615 AC 10/27 PO 11/03 1614 2142 Methylprednisolone 0 .STK-MED ONE 10/27 1558 DC .ROUTE Methylprednisolone 40 MG Q8 10/27 1511 AC 10/28 IV 0553 Metoprolol Tartrate 50 MG BID 10/27 2200 AC 10/28 PO 0847 Omeprazole 40 MG DAILY AC 10/27 1609 AC 10/28 PO 0553 Potassium Chloride 10 MEQ ONCE ONE 10/28 1315 DC IV 10/28 1316 Potassium Chloride 10 MEQ ONCE ONE 10/28 1215 DC 10/28 IV 10/28 1216 1252 Sodium Chloride 1,000 ML Q13H 10/27 1515 AC 10/28 IV 0553 Tramadol HCl 50 MG Q6P PRN 10/27 1615 AC 10/27 PO 2142 Vancomycin HCl 1,000 MG BID 10/28 1000 AC 10/28 Sodium Chloride 250 ML IV 0847 Vancomycin HCl 1,000 MG ONCE ONE 10/27 1345 DC 10/27 Sodium Chloride 250 ML IV 10/27 1444 1527 Warfarin Sodium 5 MG COUMADIN 1700 ONE 10/28 1700 AC PO 10/28 1701 Warfarin Sodium 3 MG .STK-MED ONE 10/27 1932 DC PO 10/27 193 Warfarin Sodium 3 MG COUMADIN 1700 ONE 10/27 1700 DC 10/27 PO 10/27 170 193 Past History Past Medical History Neurological: NONE EENT: NONE Cardiovascular: AFIB, hyperlipidemia, MITRAL VALVE PROLAPSE ACID REFLUX Respiratory: COPD, O2 DEPENDENT @2.5 L Gastrointestinal: diverticulitis, irritable bowel syndrome, lactose intolerance Hepatic: NONE Renal: NONE Musculoskeletal: osteoarthritis, PSEUDO GOUT Psychiatric: NONE Endocrine: NONE Blood Disorders: HIGH BLOOD PLATELETS Cancer(s): NONE 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 Past Surgical History Surgical History: cholecystectomy, hernia repair-inguinal, hernia repair- umbilical, hysterectomy, BLADDER REPAIR BLADDER/VAGINA REPAIR Psychosocial History Strengths/Capabilities: Supportive family, hopeful for future Physical Limitations (Interventions): medical illness Psychiatric Treatment History Psych Treatment Psychiatric Treatment No Diagnosis: None Risk Factors: age (under 24/over 65) Substance Use/Abuse History Drug Use/Abuse Substances Used/Abused No Substance Abuse Treatment Substance Abuse Treatment Past Substance Abuse [place] No Assessment/Plan Mental Status Mental Status Exam: Mental Status Exam Presentation/Appearance: Calm. Cooperative with evaluation. Hospital garb. Orientation: Oriented to self, place, month, and situation Sensorium: Somnolent but easily aroused Eye contact: Appropriate Affect: Blunted Mood: Dysphoric Depression: Endorses Anxiety: Endorses Thought Content: - Denies SI/HI, AH/VH, PI. States and also believes they will not kill themselves. - Denies Hopeless/Helpless Thoughts - Expresses hope for the future, including her future health Thought Process: Linear Associations: Appropriate Speech: Somewhat dysarthric due to BiPAP Judgment: Intact Insight: Intact Cognition: Memory: Grossly intact Attention/Concentration: Grossly intact Fund of Knowledge: Adequate Abstractions: Did not assess MMSE: Did not assess Brief ROS Gait: Impaired Sleep: Adequate Appetite: Reduced Energy: Low IADLs/ADLs: With assistance Patient feels she would benefit from medication to help with her mood and anxiety. Lab Results: Laboratory Tests QTc 450ms 10/28/16 1226: Lactic Acid Cancelled 10/28/16 1114: pH 7.45, pCO2 41, pO2 76 L, HCO3 28, ABG O2 Sat (Measured) 95.0 L, P-50 (Temp Corrected) YES, Carboxyhemoglobin 0.9 L, O2 Concentration % 50%, Temperature 97.7, Respiration Rate 24, O2 Delivery Method BIPAP, Vent Mode ST, Expiratory Pressure 4, Inspiratory Pressure 16, Phlebotomy Draw Site RIGHT RADIAL 10/28/16 0945: Anion Gap 11, Estimated GFR > 60, Glucose 152 H, Lactic Acid 1.7, Calcium 8.2 L, Phosphorus 3.3, Magnesium 1.9, Total Bilirubin 0.6, AST 12 L, ALT 37, Troponin I < 0.01, Albumin 2.8 L, CBC w Diff NO MAN DIFF REQ, RBC 2.97 L, MCV 106.9 H, MCH 35.1 H, RDW 22.7 H, MPV 8.1, Gran % 94.3 H, Lymphocytes % 2.1 L, Monocytes % 3.6, Eosinophils % 0, Basophils % 0 L, Absolute Granulocytes 5.3 , Absolute Lymphocytes 0.1 L, Absolute Monocytes 0.2, Absolute Eosinophils 0, Absolute Basophils 0, PUBS MCHC 32.8 L 10/28/16 0703: PT 18.0 H, INR 1.72 H 10/27/16 1528: Lactic Acid Cancelled 10/27/16 1527: PT 15.6 H, INR 1.49 H 10/27/16 1235: Lactic Acid 1.6, Troponin I < 0.01, Ccm-H-Bejmhokkksp Pept 3520 H, D-Dimer 1003 H Microbiology 10/28 1351 LOWER RESP: Respiratory Culture - COLB 10/28 1351 LOWER RESP: Gram Stain - COLB 10/28 0815 UPPER RESP: Surveillance Culture - RECD 10/28 914 GI: Surveillance Culture - RECD 10/27 1306 BLOOD: Blood Culture - RES 10/27 1235 BLOOD: Blood Culture - RES Diffential Diagnosis: Rule out depressive disorder due to another medical condition Rule out adjustment disorder Rule out unspecified anxiety disorder Impression: 80-year-old female presents with depression and anxiety in the context of respiratory distress. She does have some history of issues with anxiety. Today she expresses desire to feel better and hope to get better medically. She is open to psychotropic medication to help improve mood and anxiety. Provisional Treatment Plan: 1. Please start Lexapro 5 mg daily. 2. Please have patient followed by pastoral care. 3. Please use Ativan with caution as this patient has mutliple risk factors for acute confusional states. Thank you for including psychiatry in this case, we will continue to follow.
--- NOTE | 2016-10-28 13:26 | NUR ---
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 AT 0905; PLACED ON ICU VITAL MONITORS AND ICU BED; AFEBRILE,DENIES PAIN; DROWSY AROUSABLE WEAK, WHEN AWAKE A&OX3; CXR,BLOOD GAS,MRSA VRE SWABS, BLOOD DRAW, EKG PERFORMED;N/S INFUSING AT 75 MLS/HR; AFIB 80-115 DENIES CP PALPITATIONS; BP 112/64; UPPER AND LOWER DENTURES REMOVED; PLACED ON BI-PAP SEE ICU FLOW SHEET FOR PRGRESSION OF SETTINGS, NON PRODUCTIVE COUGH, DIMINISHED LUNG SOUNDS;ABD.SOFT POSITIVE B.S., INCONTINENT URINE CARE PROVIDED; ECCHMOTIC B/L EYES, RIGHT HIP, THIGH, GROIN, [place];WOUND NURSE AT BEDSIDE,DUODERM PLACED ON 1.5 X 2 OPENING RIGHT HIP; 2 OLD STAPLE SITES GREY ROLL WORKER AT RIGHT HIP; DUODERM PLACED ON 3X3 OPENING ON RIGHT POSTERIOR THIGH; DUODERM PLACED ON 2.5X 2 LEFT BUTTOCKS OPENING; MULTIPLE SKIN TEARS NOTED ON RIGHT HIP/THIGH; ALPS IN PLACE;SKIN/MOUTH CARE PROVIDED,ALL EXT ELEVATED;[facility]er [facility];WILL CONTINUE TO CLOSELY MONITOR
--- NOTE | 2016-10-28 14:01 | NUR ---
SPEECH THERAPY: ORDERS RECEIVED, PT CHART REVIEWED. ST ATTEMPTED TO SEE PT FOR FORMAL SWALLOW EVALUATION. AT BEDSIDE, PT CURRENTLY SLEEPING, ON BiPAP. PER RN, PT UNABLE TO TOLERATE NASAL CANULA AT THIS TIME. A RESULT, SWALLOW EVALUATION DEFERRED. RN AND MD TO PAGE ST LATER TODAY IF PT RESPIRATORY STATUS IMPROVES. IF PT UNABLE TO BE WEANED OFF BiPAP TODAY; PLEASE RE-CONSULT SWALLOW EVALUATION OVER THE WEEKEND CLINICALLY INDICATED. D/W RN AND MD. ALL IN AGREEMENT.
[2016-10-28 16:00] VITALS: BP 118/70
--- NOTE | 2016-10-28 20:54 | NUR ---
RECEIVED PT DROWSY BUT AROUSABLE, ALERT AND ORIENTED, FOLLOWS COMMANDS. HR AFIB ON MONITOR 70'S TO 90', SBP 122/58 MANUALLY, ON BIPAP AT 35% SAT 93% LUNGS CLEAR BUT DIMINISHED NO C/O RESPIRATORY DISTRESS OR PAIN. PT INCONTINENT OF LARGE AMOUNT OF URINE, LINEN CHANGED. LARGE ECCHYMOTIC AREA TO GROING AND RIGHT HIP. MULTIPLE SKIN OPENINGS WITH DUODERMS IN PLACE SEE WOUND NOTE, PT ON SPECIALTY MATTRESS. PT REPOSITIONED FOR COMFORT.
[2016-10-28 23:00] VITALS: BP 123/70
[2016-10-29 05:20] LABS: ABSOLUTE BASOPHIL COUNT 0 /CUMM (0.0-0.2); ABSOLUTE EOSINOPHIL COUNT 0 /CUMM (0.0-0.7); ABSOLUTE LYMPH COUNT 0.1 /CUMM (1.2-3.4); ABSOLUTE MONOCYTE COUNT 0.2 /CUMM (0.10-0.60); BASOPHIL % 0 % (0.0-2.0); EOSINOPHIL % 0 % (0-5); HEMATOCRIT 30.6 % (37-47); MEAN CORPUSCULAR HGB 35.5 PG (27.0-31.0); MEAN CORPUSCULAR VOLUME 107.3 FL (81.0-99.0); MEAN PLATELET VOLUME 8.1 FL (7.4-10.4); PLATELET COUNT 268 /CUMM (130-400); RBC DISTRIBUTION WIDTH 22.5 % (11.5-14.5); RED BLOOD CELL CT 2.85 /CUMM (4.20-5.40); WHITE BLOOD CELL COUNT 6.4 /CUMM (4.8-10.8)
[2016-10-29 05:31] LABS: PT 35.8 SEC (9.4-12.5)
[2016-10-29 05:56] LABS: GRANULOCYTE % 93.9 % (42.2-75.2)
--- NOTE | 2016-10-29 07:13 | PN- Resident CRCU ---
Subjective HPI/CRCU Issues: Ms Leon was seen and examined this morning. Resting comfortably in bed. Patient reports that she currently feels tired and is not very comfortable with the BiPAP. She is however pain-free. She is alert and oriented 3. She endorses no further complaints. 24 Hour Events: No events reported overnight. Objective Vital Signs & I&O Last 8 Hrs of Vitals and I&O: Intake & Output 10/29 1600 Intake Total Output Total Balance Patient 77.111 kg Weight Exam General Appearance: well developed/nourished, alert, awake Neck: normal inspection Respiratory: quiet respiration, decreased breath sounds Cardiovascular: irregularly irregular Gastrointestinal: normal bowel sounds, soft, non-tender Extremities: normal inspection, no edema Cranial Nerves: PERRL Current Medications: Current Medications Sig/Kev Start time Last Medication Dose Route Stop Time Status Admin Albuterol Sulfate 3 ML EVERY 4 HRS/AWAKE 10/27 2000 AC 10/29 INH 1155 Aspirin Buffered 81 MG DAILY 10/28 1000 AC 10/29 PO 0930 Atorvastatin Calcium 5 MG 1700 10/27 1700 AC 10/28 PO 1605 Ceftazidime 2,000 MG IQ8 10/28 0000 AC 10/29 Dextrose/Water 50 ML IV 0931 Colchicine 600 MCG DAILY 10/28 1000 AC 10/29 PO 0930 Cyanocobalamin 1,000 MCG DAILY 10/27 1607 AC 10/29 PO 0930 Dicyclomine HCl 10 MG BID 10/27 2200 AC 10/29 PO 0930 Diltiazem HCl 180 MG BID 10/27 2200 AC 10/29 PO 0930 Escitalopram Oxalate 5 MG DAILY 10/28 1615 AC 10/29 PO 0929 Gabapentin 200 MG TID 10/27 2200 AC 10/29 PO 0929 Guaifenesin 600 MG Q12 10/27 1512 AC 10/29 PO 0929 Hydroxyurea 500 MG Q48H 10/29 1000 AC 10/29 PO 0932 Hydroxyurea 1,000 MG Q48H 10/28 1000 AC 10/28 PO 0847 Lorazepam 0.5 MG BID PRN 10/27 1615 AC 10/27 PO 11/03 1614 2142 Methylprednisolone 40 MG Q8 10/27 1511 AC 10/29 IV 0533 Metoprolol Tartrate 50 MG BID 10/27 2200 AC 10/29 PO 0931 Omeprazole 40 MG DAILY AC 10/27 1609 AC 10/29 PO 0532 Potassium Chloride 10 MEQ ONCE ONE 10/28 1315 DC 10/28 IV 10/28 1316 1347 Sodium Chloride 1,000 ML Q13H 10/27 1515 AC 10/29 IV 0533 Tramadol HCl 50 MG Q6P PRN 10/27 1615 AC 10/27 PO 2142 Vancomycin HCl 1,000 MG BID 10/28 1000 AC 10/29 Sodium Chloride 250 ML IV 1054 Warfarin Sodium 5 MG COUMADIN 1700 ONE 10/28 1700 DC 05/ PO 10/28 1701 1604 Warfarin Sodium 3 MG COUMADIN 1700 ONE 10/28 1700 CAN PO 10/28 1701 CXR Findings: SERVICE DATE: 10/28/16 EXAM TYPE: RAD - XRY-PORTABLE CHEST XRAY EXAMINATION: XR PORTABLE CHEST CLINICAL INFORMATION: Shortness of breath COMPARISON: 10/27/2016 TECHNIQUE: Portable frontal view of the chest was obtained. FINDINGS: Lung volumes are symmetric. There is relative lucency in the right upper lung, favoring sequelae of emphysema. There are regions of opacity at the bilateral lung bases, left greater than right and similar to yesterday's exam. Trace pleural effusions are suspected. No pneumothorax is seen. Cardiac size is within normal limits. Calcification is present at the aortic arch. No acute osseous findings are seen. IMPRESSION: Redemonstrated bibasilar airspace opacities, left greater than right, which may be secondary to pneumonia or aspiration. Suspect trace pleural effusions. DICTATED BY: JOVANY MANRIQUE MD Impression/Plan Impression/Problem List Impression: Ms. Leon is a 80 year old female with PMH atrial fibrillation on coumadin, former cigarette abuse, COPD on 2.5 L continuous home O2, lung cancer s/p 5 cycles of radiation, HLD, MVP, GERD, diverticulitis, IBS, lactose intolerance, OA, pseudogout, essential thrombocytosis, anxiety and frequent UTIs who was initially admitted to the general medicine floor overnight for worsening shortness of breath, cough and decreased oxygen saturations for one day. Her admitting diagnosis was HCAP vs. aspiration pneumonia. This morning she was transferred to the intensive care unit due to oxygen desaturation and respiratory distress. Of note, patient was recently discharged from [place] after ORIF for hip fracture in September,. Vital signs on admission to the ICU: T 97.7, HR 115, RR 30, BP 105/64 and O2 saturation 95% on BiPAP. The following issues are currently being addressed in the ICU: 1. Acute on chronic respiratory failure * Likely 2/2 underlying infectious etiology in the setting of baseline COPD * Patient noted to be hypoxic to 75% this AM and was transferred to ICU for closer monitoring * Close monitoring in the ICU for BiPAP PRN alternating with O2 via NC * ABG if patient appears lethargic, tachypneic or change in respiratory status noted * CXR on transfer to ICU redemonstrated bibasilar airspace opacities R>L with suspected trace pleural effusions * D-Dimer elevated, CTA performed and ruled out PE * Continue IV solumedrol 40 mg Q8 * TRC evaluation 2. Heathcare associated pneumonia vs aspiration pneumonia * Recent hospitalization s/p ORIF gives concern for HCAP (gram negative/MRSA infection); aspiration PNA a concern as patient noted to cough slightly with food towards end of last admission (this is confirmed by patient's daughter) * Continue ceftazidime IV Q8 and vancomycin BID * Follow [facility], BC x 2 * Mucinex 600 mg PO Q12 * Continue supplemental O2 as noted above 3. Paroxysmal atrial fibrillation on coumadin * Patient found to be in atrial fibrillation post-ORIF during last admission and discharged on cardizem, metoprolol and coumadin * Trend INR daily: 3.45. Held Coumadin today. * Continue cardizem SR 180 mg PO BID and metoprolol 50 gm PO BID 4. Anemia, likely secondary of chronic disease * Monitor CBC * Vitamin B12 normal, folate high on last admission 5. IBS/constipation * Continue bentyl 10 mg PO BID 6. Pseudogout * Continue colchicine 600 mcg PO daily 7. Essential thrombocytosis * Continue hydroxyurea as ordered 8. Mood disturbance * Continue ativan 0.5 mg PO BID for anxiety * Lexapro 5 mg 9. GERD * Prilosec 40 mg PO daily FULL CODE Diet: Swallow evaluation obtained this a.m. Recommend: Mechanical soft and nectar thick. Problem List: 1. Healthcare-associated pneumonia 2. Afib 3. COPD exacerbation 4. COPD (chronic obstructive pulmonary disease) Pain Ratin Tomorrow's Labs & Rationales: CBC ICU Bundle INR Plan DVT/Prophylaxis: mechanical INR
[2016-10-29 08:00] VITALS: BP 130/70
--- NOTE | 2016-10-29 10:24 | PN- Cardiology ---
Subjective Subjective: The patient seems stable. She is on BiPAP at this point. She has no specific complaints. She is in atrial fibrillation with a controlled rate. Her vital signs are otherwise normal. Her cardiac medications are warfarin, diltiazem, metoprolol, atorvastatin. Her troponins are negative 2. There was no evidence of congestive heart failure on her chest x-ray. An elevated BNP level in a patient with acute lung disease and chronic atrial fibrillation is of limited usefulness. Objective Vital Signs and I&Os Vital Signs Date Time Temp Pulse Resp B/P B/P Pulse O2 O2 Flow FiO2 Mean Ox Delivery Rate 10/29 0931 91 120/62 10/29 0930 92 120/62 10/29 0819 77 93 10/29 0533 85 93 10/29 0257 79 93 10/29 0045 82 93 10/29 0000 91 BIPAP 35% 10/28 2300 97.1 75 123/70 91 BIPAP 35% 10/28 2223 103 92 10/28 2149 97.8 93 25 119/64 10/28 2148 97.8 93 26 119/64 10/29 1999 93 BIPAP 35% 10/28 1925 94 96 / 1650 94 BIPAP 40% 10/28 1640 80 97 / 1600 96 BIPAP 40% / 1600 97.1 77 30 118/70 69 BIPAP 45% 10/28 1417 71 97 10/28 1200 98 BIPAP 50% 10/28 1101 84 98 Intake & Output 10/29 1600 10/29 0800 10/29 0000 10/28 1600 10/28 0800 10/28 0000 Intake Total 600 1010 1146 840 893 Output Total Balance 600 1010 1146 840 893 Intake, IV 600 900 996 600 413 Intake, Oral 110 150 240 480 Number 1 0 0 1 Bowel Movements Patient 170 lb Weight Weight Reported by Patient Measurement Method Physical Exam: She is in no distress on BiPAP HEENT exam grossly normal Chest decreased breath sounds aerating both sides Heart irregular rhythm normal rate no murmurs Extremities no edema Current Medications: Current Medications Sig/Kev Start time Last Medication Dose Route Stop Time Status Admin Albuterol Sulfate 3 ML EVERY 4 HRS/AWAKE 10/27 2000 AC 10/29 INH 0822 Aspirin Buffered 81 MG DAILY 10/28 1000 AC 10/29 PO 0930 Atorvastatin Calcium 5 MG 1700 05/11 1700 AC 10/28 PO 1605 Ceftazidime 2,000 MG IQ8 10/28 0000 AC 10/29 Dextrose/Water 50 ML IV 0931 Colchicine 600 MCG DAILY 10/28 1000 AC 10/29 PO 0930 Cyanocobalamin 1,000 MCG DAILY 10/27 1607 AC 10/29 PO 0930 Dicyclomine HCl 10 MG BID 10/27 2200 AC 10/29 PO 0930 Diltiazem HCl 180 MG BID 10/27 2200 AC 10/29 PO 0930 Escitalopram Oxalate 5 MG DAILY 10/28 1615 AC 10/29 PO 0929 Gabapentin 200 MG TID 10/27 220 AC 10/29 PO 0929 Guaifenesin 600 MG Q12 10/27 1512 AC 10/29 PO 0929 Hydroxyurea 500 MG Q48H 10/29 1000 AC 10/29 PO 0932 Hydroxyurea 1,000 MG Q48H 10/28 1000 AC 10/28 PO 0847 Lorazepam 0.5 MG BID PRN 10/27 1615 AC 10/27 PO 11/03 1614 2142 Methylprednisolone 40 MG Q8 10/27 1511 AC 10/29 IV 0533 Metoprolol Tartrate 50 MG BID 10/27 2200 AC 10/29 PO 0931 Omeprazole 40 MG DAILY AC 10/27 1609 AC 10/29 PO 0532 Potassium Chloride 10 MEQ ONCE ONE 10/28 1315 DC 10/28 IV 10/28 1316 1347 Potassium Chloride 10 MEQ ONCE ONE 10/28 1215 DC 10/28 IV 10/28 1216 1252 Sodium Chloride 1,000 ML Q13H 10/27 1515 AC 10/29 IV 0533 Tramadol HCl 50 MG Q6P PRN 10/27 1615 AC 10/27 PO 2142 Vancomycin HCl 1,000 MG BID 10/28 1000 AC 10/28 Sodium Chloride 250 ML IV 2141 Warfarin Sodium 5 MG COUMADIN 1700 ONE 10/28 1700 DC 10/28 PO 10/28 1701 1604 Warfarin Sodium 3 MG COUMADIN 1700 ONE 10/28 1700 CAN PO 10/28 1701 Results Last 48 Hrs of Labs/Mics: Laboratory Tests 10/29/16 0503: Anion Gap 8, Estimated GFR > 60, Glucose 132 H, Calcium 8.2 L, Phosphorus 3.1, Magnesium 2.0, Total Bilirubin 1.0, AST 14, ALT 37, Albumin 2.7 L, PT 35.8 H, INR 3.45 H, CBC w Diff NO MAN DIFF REQ, RBC 2.85 L, MCV 107.3 H, MCH 35.5 H, RDW 22.5 H, MPV 8.1, Gran % 93.9 H, Lymphocytes % 2.2 L, Monocytes % 3.9, Eosinophils % 0, Basophils % 0 L, Absolute Granulocytes 6.0, Absolute Lymphocytes 0.1 L, Absolute Monocytes 0.2, Absolute Eosinophils 0, Absolute Basophils 0, PUBS MCHC 33.0 10/28/16 1226: Lactic Acid Cancelled 10/28/16 1114: pH 7.45, pCO2 41, pO2 76 L, HCO3 28, ABG O2 Sat (Measured) 95.0 L, P-50 (Temp Corrected) YES, Carboxyhemoglobin 0.9 L, O2 Concentration % 50%, Temperature 97.7, Respiration Rate 24, O2 Delivery Method BIPAP, Vent Mode ST, Expiratory Pressure 4, Inspiratory Pressure 16, Phlebotomy Draw Site RIGHT RADIAL 10/28/16 0945: Anion Gap 11, Estimated GFR > 60, Glucose 152 H, Lactic Acid 1.7, Calcium 8.2 L, Phosphorus 3.3, Magnesium 1.9, Total Bilirubin 0.6, AST 12 L, ALT 37, Troponin I < 0.01, Albumin 2.8 L, CBC w Diff NO MAN DIFF REQ, RBC 2.97 L, MCV 106.9 H, MCH 35.1 H, RDW 22.7 H, MPV 8.1, Gran % 94.3 H, Lymphocytes % 2.1 L, Monocytes % 3.6, Eosinophils % 0, Basophils % 0 L, Absolute Granulocytes 5.3 , Absolute Lymphocytes 0.1 L, Absolute Monocytes 0.2, Absolute Eosinophils 0, Absolute Basophils 0, PUBS MCHC 32.8 L 10/28/16 0703: PT 18.0 H, INR 1.72 H 10/27/16 1528: Lactic Acid Cancelled 10/27/16 1527: PT 15.6 H, INR 1.49 H 10/27/16 1235: Lactic Acid 1.6, Troponin I < 0.01, [id number] Pept 3520 H, D-Dimer 1003 H Assessment/Plan Assessment/Plan The patient is stable from a cardiac standpoint. Her heart rate is controlled. Her blood pressure is normal. Her INR is somewhat elevated today 3.45. I would hold her warfarin today and recheck INR tomorrow. When the patient is improved and ready for transfer she can go to general medicine floor. Please call for further cardiac input Continue telemetry? Not applicable
--- NOTE | 2016-10-29 13:00 | NUR ---
PT TRIALED OFF BIPAP AND PLACED ON 5LNC, DESATTED AND INCREASED WORK OF BREATHING. PLACED BACK ON BIPAP THX AND TRIALED ON HIGH FLOW NC 40%. PT TOLERATED WELL, MAINTAINING O2 SAT, VSS.
--- NOTE | 2016-10-29 15:09 | PN- CRCU ---
Subjective HPI/Critical Care Issues: The patient is awake and alert. She remains on Bipap. She is unable to tolerate being off Bipap for any prolonged time. She remains in hypoxemic respiratory failure. Objective Current Medications: Current Medications Sig/Kev Start time Last Medication Dose Route Stop Time Status Admin Albuterol Sulfate 3 ML EVERY 4 HRS/AWAKE 10/27 2000 AC 10/29 INH 1155 Aspirin Buffered 81 MG DAILY 10/28 1000 AC 10/29 PO 0930 Atorvastatin Calcium 5 MG 1700 10/27 1700 AC 10/28 PO 1605 Ceftazidime 2,000 MG IQ8 10/28 0000 AC 10/29 Dextrose/Water 50 ML IV 0931 Colchicine 600 MCG DAILY 10/28 1000 AC 10/29 PO 0930 Cyanocobalamin 1,000 MCG DAILY 10/27 1607 AC 10/29 PO 0930 Dicyclomine HCl 10 MG BID 10/27 2200 AC 10/29 PO 0930 Diltiazem HCl 180 MG BID 10/27 2200 AC 10/29 PO 0930 Escitalopram Oxalate 5 MG DAILY 10/28 1615 AC 10/29 PO 0929 Gabapentin 200 MG TID 10/27 2200 AC 10/29 PO 0929 Guaifenesin 600 MG Q12 10/27 1512 AC 10/29 PO 0929 Hydroxyurea 500 MG Q48H 10/29 1000 AC 10/29 PO 0932 Hydroxyurea 1,000 MG Q48H 10/28 1000 AC 10/28 PO 0847 Lorazepam 0.5 MG BID PRN 10/27 1615 AC 10/27 PO 11/03 1614 2142 Methylprednisolone 40 MG Q8 10/27 1511 AC 10/29 IV 0533 Metoprolol Tartrate 50 MG BID 10/27 2200 AC 10/29 PO 0931 Omeprazole 40 MG DAILY AC 10/27 1609 AC 10/29 PO 0532 Sodium Chloride 1,000 ML Q13H 10/27 1515 AC 10/29 IV 0533 Tramadol HCl 50 MG Q6P PRN 10/27 1615 AC 10/27 PO 2142 Vancomycin HCl 1,000 MG BID 10/28 1000 AC 10/29 Sodium Chloride 250 ML IV 1054 Warfarin Sodium 5 MG COUMADIN 1700 ONE 10/28 1700 DC / PO 10/28 1701 1604 Warfarin Sodium 3 MG COUMADIN 1700 ONE 10/28 1700 CAN PO 10/28 1701 Vital Signs & I&O Last 24 Hrs of Vitals and I&O: Vital Signs Date Time Temp Pulse Resp B/P B/P Pulse O2 O2 Flow FiO2 Mean Ox Delivery Rate 10/29 1200 97 BIPAP 30% 10/29 1153 77 97 10/29 0931 91 120/62 10/29 0930 92 120/62 10/29 0835 93 BIPAP 35% 10/29 0819 77 93 10/29 0800 90 BIPAP 30% 10/29 0800 97.7 91 24 130/70 92 BIPAP 30% 10/29 0533 85 93 10/29 0257 79 93 10/29 0045 82 93 10/29 0000 91 BIPAP 35% 10/28 2300 97.1 75 123/70 91 BIPAP 35% 10/28 2223 103 92 10/28 2149 97.8 93 25 119/64 10/28 2148 97.8 93 26 119/64 10/28 2000 93 BIPAP 35% 10/28 1925 94 96 10/28 1650 94 BIPAP 40% 10/28 1640 80 97 10/28 1600 96 BIPAP 40% 10/28 1600 97.1 77 30 118/70 69 BIPAP 45% Intake & Output 10/29 1600 10/29 0800 10/29 0000 Intake Total 933 469 6672 Output Total Balance 283 413 7321 Intake, IV 630 600 900 Intake, Oral 60 110 Number 2 1 0 Bowel Movements Patient 170 lb Weight Exam General Appearance: awake, comfortable, on BIPAP Head: atraumatic, normal appearance Neck: supple Respiratory: decreased breath sounds, few faint wheezes Cardiovascular: irregularly irregular Abdomen: normal bowel sounds, soft, non-tender Extremities: no edema Skin: intact, normal color, warm/dry Results Last 24 Hrs of Lab Results: Laboratory Tests 10/29/16 0503: Anion Gap 8, Estimated GFR > 60, Glucose 132 H, Calcium 8.2 L, Phosphorus 3.1, Magnesium 2.0, Total Bilirubin 1.0, AST 14, ALT 37, Albumin 2.7 L, PT 35.8 H, INR 3.45 H, CBC w Diff NO MAN DIFF REQ, RBC 2.85 L, MCV 107.3 H, MCH 35.5 H, RDW 22.5 H, MPV 8.1, Gran % 93.9 H, Lymphocytes % 2.2 L, Monocytes % 3.9, Eosinophils % 0, Basophils % 0 L, Absolute Granulocytes 6.0, Absolute Lymphocytes 0.1 L, Absolute Monocytes 0.2, Absolute Eosinophils 0, Absolute Basophils 0, PUBS MCHC 33.0 Impression/Plan Impression/Plan Impression/Plan: 1. Acute hypoxemic respiratory failure. The patient remains on BiPAP. 2. Possible aspiration pneumonia. 3. History of severe COPD. 4. Anemia of chronic disease. No evidence of active bleeding. 5. Paroxysmal atrial fibrillation, rate controlled. INR supratherapeutic. 6. IBS/constipation. Recommendations: * Continue vancomycin and ceftazidime pending culture results. * Continue medications for rate control as per cardiology. * Give breaks off of BiPAP as tolerated. * Check a portable chest x-ray tomorrow morning. * Continue nebs/TRC. * Titrate oxygen down for saturations greater than 92%. * Continue on pain pathway. * Continue IV Solu-Medrol at current dose of 40 mg every 8 hours. * Hold Coumadin, continue to monitor INR. * Alps for DVT prophylaxis in the setting of supratherapeutic INR. * Continue all supportive care. * Discussed plan of care with the patient's family and housestaff.
[2016-10-29 16:00] VITALS: BP 117/61
--- NOTE | 2016-10-29 17:00 | NUR ---
PT HAD SWALLOW EVAL. PLACED ON HH MECHANICAL SOFT AND NECTAR THICK DIET. PT TOLERATED WELL.
[2016-10-30] VITALS: BP 118/64
[2016-10-30 05:17] LABS: ABSOLUTE BASOPHIL COUNT 0 /CUMM (0.0-0.2); ABSOLUTE EOSINOPHIL COUNT 0 /CUMM (0.0-0.7); ABSOLUTE GRANULOCYTE CT 6.6 /CUMM (1.4-6.5); ABSOLUTE LYMPH COUNT 0.1 /CUMM (1.2-3.4); ABSOLUTE MONOCYTE COUNT 0.3 /CUMM (0.10-0.60); BASOPHIL % 0 % (0.0-2.0); EOSINOPHIL % 0 % (0-5); HEMATOCRIT 30.3 % (37-47); MEAN CORPUSCULAR HGB 34.7 PG (27.0-31.0); MEAN CORPUSCULAR HGB CONC 32.5 G/DL (33.0-37.0); MEAN CORPUSCULAR VOLUME 106.7 FL (81.0-99.0); MEAN PLATELET VOLUME 7.6 FL (7.4-10.4); PLATELET COUNT 243 /CUMM (130-400); RBC DISTRIBUTION WIDTH 22.7 % (11.5-14.5); RED BLOOD CELL CT 2.84 /CUMM (4.20-5.40); WHITE BLOOD CELL COUNT 6.9 /CUMM (4.8-10.8)
[2016-10-30 05:29] LABS: PT 50.1 SEC (9.4-12.5)
[2016-10-30 05:34] LABS: GRANULOCYTE % 94.4 % (42.2-75.2)
--- NOTE | 2016-10-30 06:36 | RADIOLOGY REPORT ---
EXAMINATION: CHEST 1 VIEW CLINICAL INFORMATION: Increased supplemental oxygen requirement. COMPARISON: October 28, 2016. TECHNIQUE: An AP view of the chest is provided. FINDINGS: The cardiac silhouette is stable. The mediastinal and hilar contours are unremarkable. There are neither pleural effusions nor pneumothoraces. Again identified is left greater than right bibasilar airspace disease. The osseous structures are unremarkable. IMPRESSION: Left greater than right bibasilar airspace disease.
[2016-10-30 08:00] VITALS: BP 118/72
--- NOTE | 2016-10-30 09:45 | PN- Resident CRCU ---
Subjective HPI/CRCU Issues: Following for: -Acute hypoxic respiratory failure on high flow/BiPAP -Severe COPD -Possible aspiration pneumonia -Paroxysmal atrial fibrillation with supratherapeutic INR -Anemia of chronic disease Patient was seen and examined this morning, she is in respiratory distress on high flow nasal cannula and answered about how does she feel by "short of breath ", reported dry cough, denied fever, chills, chest pain, palpitation, lightheadedness. Patient has supratherapeutic INR 4.8, hemoglobin 9.9, no signs of GI or uro bleeding. Patient has big ecchymosis over the right lower extremity after history of fall. 24 Hour Events: Temperature 90.7, MAXIMUM TEMPERATURE 97.7 Heart rate lowest 69, highest 91 atrial fibrillation Blood pressure lowest 106/61, highest 137/69 Respiratory rate 18 on high flow nasal cannula 40% saturating 93% Intake 2080, output 400 patient is incontinent Objective Vital Signs & I&O Last 8 Hrs of Vitals and I&O: 111 Exam General Appearance: alert, mild distress Head: atraumatic, normal appearance Ears, Nose, Throat: normal pharynx, normal ENT inspection Neck: normal inspection, supple, full range of motion Respiratory: decreased breath sounds, accessory muscle use Cardiovascular: irregularly irregular Gastrointestinal: normal bowel sounds, soft, non-tender Extremities: normal inspection, normal capillary refill, normal range of motion, no edema, big ecchymosis over the right lower extremity Cranial Nerves: normal hearing, normal speech, PERRL Skin: intact, warm/dry Current Medications: Current Medications Sig/Kev Start time Last Medication Dose Route Stop Time Status Admin Albuterol Sulfate 3 ML EVERY 4 HRS/AWAKE 10/27 2000 AC 10/30 INH 1141 Aspirin Buffered 81 MG DAILY 10/28 1000 AC 10/30 PO 0957 Atorvastatin Calcium 5 MG 1700 10/27 1700 AC 10/30 PO 1545 Ceftazidime 2,000 MG IQ8 10/28 0000 AC 10/30 Dextrose/Water 50 ML IV 1544 Colchicine 600 MCG DAILY 10/28 1000 AC 10/30 PO 0957 Cyanocobalamin 1,000 MCG DAILY 10/27 1607 AC 10/30 PO 0958 Dicyclomine HCl 10 MG BID 10/27 2199 AC 10/30 PO 0958 Diltiazem HCl 180 MG BID 10/27 2199 AC 10/30 PO 0958 Escitalopram Oxalate 5 MG DAILY 10/28 1615 AC 10/30 PO 0957 Furosemide 20 MG .[IV] 10/30 1600 UNVr IV PUSH Gabapentin 200 MG TID 10/27 2200 AC 10/30 PO 1547 Guaifenesin 600 MG Q12 10/27 1512 AC 10/30 PO 0958 Hydroxyurea 500 MG Q48H 10/29 1000 AC 10/29 PO 0932 Hydroxyurea 1,000 MG Q48H 10/28 1000 AC 10/30 PO 0957 Lorazepam 0.5 MG BID PRN 10/27 1615 AC 10/27 PO 11/03 1614 2142 Methylprednisolone 40 MG Q8 10/27 1511 AC 10/30 IV 1559 Metoprolol Tartrate 50 MG BID 10/270 AC 10/30 PO 0957 Omeprazole 40 MG DAILY AC 10/27 1609 AC 10/30 PO 0536 Potassium Chloride 40 MEQ ONCE ONE 10/30 0745 DC 10/30 PO 10/30 0746 0845 Sodium Chloride 1,000 ML Q13H 10/27 1515 DC 10/30 IV 0845 Tramadol HCl 50 MG Q6P PRN 10/27 1615 AC 10/29 PO 1835 Vancomycin HCl 1,000 MG BID 10/28 1000 AC 10/30 Sodium Chloride 250 ML IV 1008 Impression/Plan Impression/Problem List Impression: Ms. Leon is a 80 year old female with PMH atrial fibrillation on coumadin, former cigarette abuse, COPD on 2.5 L continuous home O2, lung cancer s/p 5 cycles of radiation, HLD, MVP, GERD, diverticulitis, IBS, lactose intolerance, OA, pseudogout, essential thrombocytosis, anxiety and frequent UTIs who was initially admitted to the general medicine floor overnight for worsening shortness of breath, cough and decreased oxygen saturations for one day. Her admitting diagnosis was HCAP vs. aspiration pneumonia. This morning she was transferred to the intensive care unit due to oxygen desaturation and respiratory distress. Of note, patient was recently discharged from [place] after ORIF for hip fracture in September,. The following issues are currently being addressed in the ICU: 1. Acute on chronic respiratory failure * Mostly secondary to healthcare associated pneumonia versus COPD exacerbation * Patient noted to be hypoxic to 75% this AM and was transferred to ICU for closer monitoring * CXR on transfer to ICU redemonstrated bibasilar airspace opacities R>L with suspected trace pleural effusions * Repeated chest x-ray this morning reveal worsening right basilar opacity * D-Dimer elevated, CTA performed and ruled out PE * Continue IV solumedrol 40 mg Q8 * TRC evaluation * Ins and outs revealed positive balance, patient is incontinence, it is very hard to determine if it's actually positive, by reviewing the actual chest x-ray film there is enlargement of the cardiac shadow, will give 1 dose of 20 mg Lasix and monitor for any respiratory improvement 2. Heathcare associated pneumonia * Recent hospitalization s/p ORIF gives concern for HCAP (gram negative/MRSA infection) * Continue ceftazidime IV Q8 and vancomycin BID * Follow [facility], BC x 2 * Mucinex 600 mg PO Q12 * Continue supplemental O2 as noted above 3. Paroxysmal atrial fibrillation on coumadin * Patient found to be in atrial fibrillation post-ORIF during last admission and discharged on cardizem, metoprolol and coumadin * INR 4.85, will hold Coumadin and repeat INR tomorrow * Continue cardizem SR 180 mg PO BID and metoprolol 50 gm PO BID 4. Anemia, likely secondary of chronic disease * Monitor CBC * Vitamin B12 normal, folate high on last admission 5. IBS/constipation * Continue bentyl 10 mg PO BID 6. Pseudogout * Continue colchicine 600 mcg PO daily 7. Essential thrombocytosis * Continue hydroxyurea as ordered 8. Mood disturbance * Continue ativan 0.5 mg PO BID for anxiety * Lexapro 5 mg 9. GERD * Prilosec 40 mg PO daily FULL CODE Diet: Heart healthy: Mechanical soft and nectar thick Problem List: 1. Healthcare-associated pneumonia 2. Afib Pain Ratin Tomorrow's Labs & Rationales: CBC, ICU bundle, INR Plan DVT/Prophylaxis: mechanical
--- NOTE | 2016-10-30 09:58 | PN- CRCU ---
Subjective HPI/Critical Care Issues: The patient is awake and alert. She is intermittently off BiPAP. She reports feeling better, however she remains in respiratory distress any time she is off therapy. She has no significant cough or chest congestion. She has no sputum production. Objective Current Medications: Current Medications Sig/Kev Start time Last Medication Dose Route Stop Time Status Admin Albuterol Sulfate 3 ML EVERY 4 HRS/AWAKE 10/27 2000 AC 10/30 INH 0816 Aspirin Buffered 81 MG DAILY 10/28 1000 AC 10/29 PO 0930 Atorvastatin Calcium 5 MG 1700 10/27 1700 AC 10/29 PO 1629 Ceftazidime 2,000 MG IQ8 10/28 0000 AC 10/30 Dextrose/Water 50 ML IV 0845 Colchicine 600 MCG DAILY 10/28 1000 AC 10/29 PO 0930 Cyanocobalamin 1,000 MCG DAILY 10/27 1607 AC 10/29 PO 0930 Dicyclomine HCl 10 MG BID 10/27 2200 AC 10/29 PO 2105 Diltiazem HCl 180 MG BID 10/27 2200 AC 10/29 PO 2105 Escitalopram Oxalate 5 MG DAILY 10/28 1615 AC 10/29 PO 0929 Gabapentin 200 MG TID 10/27 2200 AC 10/30 PO 0846 Guaifenesin 600 MG Q12 10/27 1512 AC 10/29 PO 2105 Hydroxyurea 500 MG Q48H 10/29 1000 AC 10/29 PO 0932 Hydroxyurea 1,000 MG Q48H 10/28 1000 AC 10/28 PO 0847 Lorazepam 0.5 MG BID PRN 10/27 1615 AC 10/27 PO 11/03 1614 2142 Methylprednisolone 40 MG Q8 10/27 1511 AC 10/30 IV 0536 Metoprolol Tartrate 50 MG BID 10/27 2200 AC 10/29 PO 2105 Omeprazole 40 MG DAILY AC 10/27 1609 AC 10/30 PO 0536 Potassium Chloride 40 MEQ ONCE ONE 10/30 0745 DC 10/30 PO 10/30 0746 0845 Sodium Chloride 1,000 ML Q13H 10/27 1515 AC 10/30 IV 0845 Tramadol HCl 50 MG Q6P PRN 10/27 1615 AC 10/29 PO 1835 Vancomycin HCl 1,000 MG BID 10/28 1000 AC 10/29 Sodium Chloride 250 ML IV 2106 Vital Signs & I&O Last 24 Hrs of Vitals and I&O: Vital Signs Date Time Temp Pulse Resp B/P B/P Pulse O2 O2 Flow FiO2 Mean Ox Delivery Rate 10/30 0829 94 Nasal 40% Cannula 10/30 0413 92 Nasal 40% Cannula 10/30 0100 93 Nasal 40% Cannula 10/30 0000 94 Nasal 40% Cannula 10/30 0000 97.3 72 18 118/64 94 Nasal 40% Cannula 10/29 2311 87 95 10/29 2105 94 130/78 10/29 2105 94 1330/78 10/29 2000 94 Nasal 40% Cannula 10/29 1629 95 Nasal 40% Cannula 10/29 1600 95 Nasal 40% Cannula 10/29 1600 97.0 84 20 117/61 95 Nasal 40% Cannula 10/29 1200 97 BIPAP 30% 10/29 1153 77 97 Intake & Output 10/30 1600 10/30 0800 10/30 0000 Intake Total 596 795 Output Total 200 200 Balance 396 595 Intake, IV 536 675 Intake, Oral 60 120 Output, Urine 200 200 Exam General Appearance: awake, comfortable, on BIPAP Head: atraumatic, normal appearance Neck: supple Respiratory: decreased breath sounds, few faint wheezes Cardiovascular: irregularly irregular Abdomen: normal bowel sounds, soft, non-tender Extremities: no edema Skin: intact, normal color, warm/dry Results Last 24 Hrs of Lab Results: Laboratory Tests 10/30/16 0455: Anion Gap 7, Estimated GFR > 60, Glucose 138 H, Calcium 8.0 L, Phosphorus 3.2, Magnesium 2.0, Total Bilirubin 0.9, AST 17, ALT 34, Albumin 2.6 L, PT 50.1 *H, INR 4.85 *H, CBC w Diff NO MAN DIFF REQ, RBC 2.84 L, MCV 106.7 H, MCH 34.7 H, RDW 22.7 H, MPV 7.6, Gran % 94.4 H, Lymphocytes % 1.7 L, Monocytes % 3.9, Eosinophils % 0, Basophils % 0 L, Absolute Granulocytes 6.6 H, Absolute Lymphocytes 0.1 L, Absolute Monocytes 0.3, Absolute Eosinophils 0, Absolute Basophils 0, PUBS MCHC 32.5 L Diagnostic Data CXR Findings: Left greater than right bibasilar airspace disease. Impression/Plan Impression/Plan Impression/Plan: 1. Acute hypoxemic respiratory failure. The patient remains on BiPAP. 2. Aspiration pneumonia. 3. History of severe COPD. 4. Anemia of chronic disease. No evidence of active bleeding. 5. Paroxysmal atrial fibrillation, rate controlled. INR supratherapeutic. 6. IBS/constipation. 7. Supratherapeutic INR. Recommendations: * Continue vancomycin and ceftazidime, follow up culture results. * Continue medications for rate control as per cardiology. * Give breaks off of BiPAP as tolerated. * Continue nebs/TRC. * Titrate oxygen down for saturations greater than 92%. * Continue on pain pathway. * Continue IV Solu-Medrol at current dose of 40 mg every 8 hours. * Hold Coumadin, continue to monitor INR. * Alps for DVT prophylaxis in the setting of supratherapeutic INR. * Continue all supportive care. * Discussed plan of care with the patient's family and housestaff.
[2016-10-30 16:00] VITALS: BP 134/72
[2016-10-31] VITALS: BP 124/70
[2016-10-31 05:05] LABS: ABSOLUTE BASOPHIL COUNT 0 /CUMM (0.0-0.2); ABSOLUTE EOSINOPHIL COUNT 0 /CUMM (0.0-0.7); ABSOLUTE GRANULOCYTE CT 6.7 /CUMM (1.4-6.5); ABSOLUTE LYMPH COUNT 0.1 /CUMM (1.2-3.4); ABSOLUTE MONOCYTE COUNT 0.1 /CUMM (0.10-0.60); BASOPHIL % 0 % (0.0-2.0); EOSINOPHIL % 0 % (0-5); GRANULOCYTE % 97.6 % (42.2-75.2); HEMATOCRIT 32.5 % (37-47); MEAN CORPUSCULAR HGB CONC 32.4 G/DL (33.0-37.0); MEAN CORPUSCULAR VOLUME 107.9 FL (81.0-99.0); MEAN PLATELET VOLUME 8.1 FL (7.4-10.4); PLATELET COUNT 224 /CUMM (130-400); RED BLOOD CELL CT 3.01 /CUMM (4.20-5.40); WHITE BLOOD CELL COUNT 6.8 /CUMM (4.8-10.8)
[2016-10-31 05:23] LABS: PT 48.4 SEC (9.4-12.5)
--- NOTE | 2016-10-31 07:09 | PN- Resident CRCU ---
Subjective HPI/CRCU Issues: Patient seen and examined at bedside this AM. She was laying comfortably in bed on BiPAP without acute distress. She does endorse thirst and hunger and reports she has not been eating much previously. 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 Vital signs over the last 24 hours: T 96.6-98.0, HR 68-198, RR 16-36, BP 109-132/64-78, O2 91-95% on high flow nasal cannula. Total intake 24 hours: 2057 cc Total output 24 hours: Incontinent, unable to measure. Objective Vital Signs & I&O Last 8 Hrs of Vitals and I&O: T 96.6-98.0, HR 68-198, RR 16-36, BP 109-132/64-78, O2 91-95% on high flow nasal cannula. Exam General Appearance: well developed/nourished, no apparent distress, comfortable Head: atraumatic, normal appearance Ears, Nose, Throat: normal pharynx, hearing grossly normal, Slightly dry mucous membranes Neck: normal inspection, supple Respiratory: Decreased breath sounds bilateral bases with occasional rhonchi, no wheezing Cardiovascular: regular rate/rhythm Gastrointestinal: normal bowel sounds, soft, non-tender Extremities: normal inspection, no edema Cranial Nerves: normal hearing, normal speech Skin: intact, normal color, warm/dry, Brusing noted medial right thigh Skin Temp/Moisture Exam: Warm/Dry Nutrition Nutrition: P.O. diet (Mechanical soft, nectar thick) Current Medications: Current Medications Sig/Kev Start time Last Medication Dose Route Stop Time Status Admin Albuterol Sulfate 3 ML EVERY 4 HRS/AWAKE 10/27 2000 AC 10/31 INH 0846 Aspirin Buffered 81 MG DAILY 10/28 1000 AC 10/31 PO 0836 Atorvastatin Calcium 5 MG 1700 10/27 1700 AC 05/14 PO 1545 Ceftazidime 2,000 MG IQ8 10/28 0000 AC 10/31 Dextrose/Water 50 ML IV 0822 Colchicine 600 MCG DAILY 10/28 1000 AC 10/31 PO 0837 Cyanocobalamin 1,000 MCG DAILY 10/27 1607 AC 10/31 PO 0835 Dicyclomine HCl 10 MG BID 10/27 2200 AC 10/31 PO 0837 Diltiazem HCl 180 MG BID 10/27 2200 AC 10/31 PO 0836 Escitalopram Oxalate 5 MG DAILY 10/28 1615 AC 10/31 PO 0836 Furosemide 20 MG ONCE ONE 10/30 1615 DC 10/30 IV PUSH 10/30 161 1621 Furosemide 20 MG .[IV] 10/30 1600 DC IV PUSH Gabapentin 200 MG TID 10/27 2200 AC 10/31 PO 0836 Guaifenesin 600 MG Q12 10/27 1512 AC 10/31 PO 0835 Hydroxyurea 500 MG Q48H 10/29 1000 AC 10/31 PO 0837 Hydroxyurea 1,000 MG Q48H 10/28 1000 AC 10/30 PO 0957 Lorazepam 0.5 MG BID PRN 10/27 1615 AC 10/30 PO 11/03 161 2201 Methylprednisolone 40 MG Q8 10/27 1511 AC 10/31 IV 0634 Metoprolol Tartrate 50 MG BID 10/27 2200 AC 10/31 PO 0836 Omeprazole 40 MG DAILY AC 10/27 1609 AC 10/31 PO 0634 Sodium Chloride 1,000 ML Q13H 10/27 1515 DC 10/30 IV 0845 Tramadol HCl 50 MG Q6P PRN 10/27 1615 AC 10/30 PO 2201 Vancomycin HCl 1,000 MG BID 10/28 1000 AC 10/31 Sodium Chloride 250 ML IV 0853 CXR Findings: IMPRESSION: Left greater than right bibasilar airspace disease. CT Scan Findings: IMPRESSION: 1. No evidence of pulmonary embolism. 2. Emphysematous changes of lungs. 3. Bibasilar infiltrates with small bilateral pleural effusions. 4. Stable right upper lobe spiculated mass. Decreasing size of left upper lung nodule since prior CT 10/10/2016. Impression/Plan Impression/Problem List Impression: Ms. Leon is a 80 year old female with PMH atrial fibrillation on coumadin, former cigarette abuse, COPD on 2.5 L continuous home O2, lung cancer s/p 5 cycles of radiation, HLD, MVP, GERD, diverticulitis, IBS, lactose intolerance, OA, pseudogout, essential thrombocytosis, anxiety and frequent UTIs who was initially admitted to the general medicine floor overnight for worsening shortness of breath, cough and decreased oxygen saturations for one day. Her admitting diagnosis was HCAP vs. aspiration pneumonia. she was transferred to the intensive care unit on October 28 due to oxygen desaturation and respiratory distress. Of note, patient was recently discharged from [place] after ORIF for hip fracture in September,. Vital signs on admission to the ICU: T 97.7, HR 115, RR 30, BP 105/64 and O2 saturation 95% on BiPAP. The following issues are currently being addressed in the ICU: 1. Acute on chronic respiratory failure * Likely 2/2 underlying infectious etiology in the setting of baseline COPD * Close monitoring in the ICU for BiPAP PRN alternating with O2 via NC (high flow) * Goal O2 sat >92% * ABG if patient appears lethargic, tachypneic or change in respiratory status noted * CXR yesterday demonstrated L>R bibasilar airspace disease * D-Dimer elevated, CTA performed and ruled out PE * Continue IV solumedrol 40 mg Q8 * TRC evaluation * Patient stable for transfer to telemetry for further monitoring 2. Heathcare associated pneumonia vs aspiration pneumonia * Recent hospitalization s/p ORIF gives concern for HCAP (gram negative/MRSA infection); aspiration PNAis a concern as patient noted to cough slightly with food towards end of last admission (this was confirmed by patient's daughter) * Continue ceftazidime IV Q8 and vancomycin BID (day #4) * Follow [facility], BC x 2 (NGTD) * Mucinex 600 mg PO Q12 * Continue supplemental O2 as noted above 3. Paroxysmal atrial fibrillation on coumadin * Patient found to be in atrial fibrillation post-ORIF during last admission and discharged on cardizem, metoprolol and coumadin * Trend INR daily * Dose coumadin per INR, currently on hold due to supratherapeutic INR to 4.68 today * Continue cardizem SR 180 mg PO BID and metoprolol 50 mg PO BID 4. Anemia, likely secondary of chronic disease * Monitor CBC * Vitamin B12 normal, folate high on last admission 5. IBS/constipation * Continue bentyl 10 mg PO BID 6. Pseudogout * Continue colchicine 600 mcg PO daily 7. Essential thrombocytosis * Continue hydroxyurea as ordered 8. Mood disturbance * Continue ativan 0.5 mg PO BID for anxiety * Psych consult as patient reported depression on transfer to ICU, suggested started lexapro 5 mg PO daily which patient has tolerated well 9. GERD * Prilosec 40 mg PO daily 10. Right upper lobe spiculated mass and left upper lobe lung nodule * Seen on CT scan on admission, stable from prior * Follow up as an outpatient with pulmonology FULL CODE Diet: Heart Healthy mechanical soft and nectar thickened liquids Mild pain pathway DVTP: ALPS Problem List: 1. Healthcare-associated pneumonia 2. Afib 3. Right femoral fracture 4. COPD (chronic obstructive pulmonary disease) 5. DVT prophylaxis 6. Full code status Pain Ratin Tomorrow's Labs & Rationales: CBC (HCAP) ICU bundle (hyperchloremia) INR (supratherapeutic INR) Plan DVT/Prophylaxis: mechanical
--- NOTE | 2016-10-31 07:59 | PN- Pulmonary ---
Subjective HPI/Critical Care Issues: Patient is comfortable and high flow oxygen shortness of breath improved Objective Current Medications: Current Medications Sig/Kev Start time Last Medication Dose Route Stop Time Status Admin Albuterol Sulfate 3 ML EVERY 4 HRS/AWAKE 10/27 2000 AC 10/30 INH 1930 Aspirin Buffered 81 MG DAILY 10/28 1000 AC 10/30 PO 0957 Atorvastatin Calcium 5 MG 1700 10/27 1700 AC 10/30 PO 1545 Ceftazidime 2,000 MG IQ8 10/28 0000 AC 10/30 Dextrose/Water 50 ML IV 2334 Colchicine 600 MCG DAILY 10/28 1000 AC 10/30 PO 0957 Cyanocobalamin 1,000 MCG DAILY 10/27 1607 AC 10/30 PO 0958 Dicyclomine HCl 10 MG BID 10/27 220 AC 10/30 PO 2203 Diltiazem HCl 180 MG BID 10/27 2200 AC 10/30 PO 2202 Escitalopram Oxalate 5 MG DAILY 10/28 1615 AC 10/30 PO 0957 Furosemide 20 MG ONCE ONE 10/30 161 DC 10/30 IV PUSH 10/30 161 1621 Furosemide 20 MG .[IV] 10/30 1600 DC IV PUSH Gabapentin 200 MG TID 10/27 2200 AC 10/30 PO 2202 Guaifenesin 600 MG Q12 10/27 1512 AC 10/30 PO 2203 Hydroxyurea 500 MG Q48H 10/29 1000 AC 10/29 PO 0932 Hydroxyurea 1,000 MG Q48H 10/28 1000 AC 10/30 PO 0957 Lorazepam 0.5 MG BID PRN 10/27 1615 AC 10/30 PO 11/03 1614 2201 Methylprednisolone 40 MG Q8 10/27 1511 AC 10/31 IV 0634 Metoprolol Tartrate 50 MG BID 10/27 2200 AC 10/30 PO 2202 Omeprazole 40 MG DAILY AC 10/27 1609 AC 10/31 PO 0634 Sodium Chloride 1,000 ML Q13H 10/27 1515 DC 10/30 IV 0845 Tramadol HCl 50 MG Q6P PRN 10/27 1615 AC 10/30 PO 2201 Vancomycin HCl 1,000 MG BID 10/28 1000 AC 10/30 Sodium Chloride 250 ML IV 2202 Vital Signs & I&O Last 24 Hrs of Vitals and I&O: Vital Signs Date Time Temp Pulse Resp B/P B/P Pulse O2 O2 Flow FiO2 Mean Ox Delivery Rate 10/31 0400 92 Nasal 40% Cannula 10/31 0016 95 Nasal 40% Cannula 10/31 0000 95 Nasal 40% Cannula 15 0000 97.6 76 32 124/70 95 Nasal 40% Cannula / 2202 101 126/68 05 2202 77 126/68 10/30 2000 93 Nasal 40% Cannula / 1932 93 Nasal 40% Cannula / 1600 92 Nasal 40% Cannula / 1600 97.7 88 27 134/72 92 Nasal 40% Cannula /14 1206 96 05/ 1200 92 Nasal 40% Cannula / 1047 95 97 05/14 0958 112 125/71 05/14 0957 113 125/71 10/30 0829 94 Nasal 40% Cannula 10/30 0800 93 Nasal 40% Cannula / 0800 97.1 78 37 118/72 93 Nasal 40% Cannula Intake & Output 15 0800 05/15 0000 14 1600 Intake Total 675 522 6927 Output Total Balance 015 691 1839 Intake, IV 130 462 625 Intake, Oral 60 300 480 Number 0 1 Bowel Movements Oxygen saturation 40% 92% exam for chest shows diminished breath sounds occasional rhonchi there are no wheezes cardiac exam shows regular S1 and S2 without murmurs Impression/Plan Impression/Plan Impression/Plan: 80-year-old with advanced oxygen-dependent COPD admitted with hypoxic respiratory failure leukocytosis and CAT scan showing bibasilar densities small effusions consistent with pneumonia. Recommendations: Continue antibiotics and IV steroids. Taper FiO2 his saturations allow. Patient can be downgraded to telemetry
[2016-10-31 08:00] VITALS: BP 120/70
--- NOTE | 2016-10-31 15:19 | PN- Psychiatry ---
Assessment/Plan Impression: Identifying Info: 80-year-old female presents by ambulance from [facility] on 10/27/2016 with dyspnea and worsening oxygen saturation. Subsequently diagnosed with pneumonia and admitted to medicine. Of note she was discharged from [facility] approximately 2 weeks ago after ORIF for hip fracture. SUBJECTIVE Patient reports "I feel a little better," since the last time she spoke to this brief writer. She reports that both physically and mentally she feels she has improved and has no complaints at this time. Brief ROS Gait: Not observed Sleep: Adequate Appetite: Fair OBJECTIVE Mental Status Exam Presentation/Appearance: Calm. Cooperative with evaluation. Hospital garb. Orientation: Oriented to self, place, month, and situation Sensorium: Alert, awake Eye contact: Appropriate Affect: Somewhat Blunted Mood: Euthymic Depression: Denies Anxiety: Denies Thought Content: - Denies SI/HI, AH/VH, PI. States and also believes they will not kill themselves. - Denies Hopeless/Helpless Thoughts Thought Process: Linear Associations: Appropriate Speech: Normal tone and rate Judgment: Intact Insight: Intact Cognition: Memory: Grossly intact Attention/Concentration: Grossly intact Fund of Knowledge: Adequate Abstractions: Did not assess MMSE: Did not assess ASSESSMENT 80-year-old female presents with depression and anxiety in the context of respiratory distress. She does have some history of issues with anxiety. Today she presents with an improvement in mood and decreased anxiety. Differential diagnosis Rule out depressive disorder due to another medical condition Rule out adjustment disorder Rule out unspecified anxiety disorder Suggestion: 1. Continue psychotropics as currently ordered. The patient may require an increase in Lexapro to 10 mg which is the recommended geriatric dosing once tolerability is established. 2. Please continue to use Ativan with caution as this patient has mutliple risk factors for acute confusional states. Thank you for including psychiatry in this case we'll continue to follow on an as-needed basis. Subjective Subjective: as above Objective Last 24 Hrs of Vital Signs/I&O Current Medications Sig/Kev Start time Last Medication Dose Route Stop Time Status Admin Albuterol Sulfate 3 ML EVERY 4 HRS/AWAKE 10/27 2000 AC 10/31 INH 1222 Aspirin Buffered 81 MG DAILY 10/28 1000 AC 15 PO 0836 Atorvastatin Calcium 5 MG 1700 10/27 1700 AC 0514 PO 1545 Ceftazidime 2,000 MG IQ8 10/28 0000 AC 10/31 Dextrose/Water 50 ML IV 0822 Colchicine 600 MCG DAILY 10/28 1000 AC 10/31 PO 0837 Cyanocobalamin 1,000 MCG DAILY 10/27 1607 AC 10/31 PO 0835 Dicyclomine HCl 10 MG BID 10/27 2200 AC 10/31 PO 0837 Diltiazem HCl 180 MG BID 10/27 2200 AC 10/31 PO 0836 Escitalopram Oxalate 5 MG DAILY 10/28 1615 AC 10/31 PO 0836 Furosemide 20 MG ONCE ONE 10/30 161 DC 10/30 IV PUSH 10/30 161 1621 Furosemide 20 MG .[IV] 10/30 1600 DC IV PUSH Gabapentin 200 MG TID 10/27 220 AC 10/31 PO 0836 Guaifenesin 600 MG Q12 10/27 1512 AC 10/31 PO 0835 Hydroxyurea 500 MG Q48H 10/29 1000 AC 10/31 PO 0837 Hydroxyurea 1,000 MG Q48H 10/28 1000 AC 10/30 PO 0957 Lorazepam 0.5 MG BID PRN 10/27 1615 AC 10/30 PO 11/03 1614 2201 Methylprednisolone 40 MG Q8 10/27 1511 AC 10/31 IV 1318 Metoprolol Tartrate 50 MG BID 10/27 220 AC 10/31 PO 0836 Omeprazole 40 MG DAILY AC 10/27 1609 AC 10/31 PO 0634 Sodium Chloride 1,000 ML Q13H 10/27 1515 DC 10/30 IV 0845 Tramadol HCl 50 MG Q6P PRN 10/27 1615 AC 10/30 PO 2201 Vancomycin HCl 1,000 MG BID 10/28 1000 AC 10/31 Sodium Chloride 250 ML IV 0853 Laboratory Tests 10/31/16 0440: Anion Gap 6, Estimated GFR > 60, Glucose 131 H, Calcium 8.0 L, Phosphorus 3.3, Magnesium 2.0, Total Bilirubin 0.8, AST 21, ALT 52, Albumin 2.7 L, PT 48.4 *H, INR 4.68 *H, CBC w Diff NO MAN DIFF REQ, RBC 3.01 L, MCV 107.9 H, MCH 35.0 H, RDW 23.0 H, MPV 8.1, Gran % 97.6 H, Lymphocytes % 1.5 L, Monocytes % 0.9 L, Eosinophils % 0, Basophils % 0 L, Absolute Granulocytes 6.7 H, Absolute Lymphocytes 0.1 L, Absolute Monocytes 0.1 L, Absolute Eosinophils 0, Absolute Basophils 0, PUBS MCHC 32.4 L 10/30/16 0455: Anion Gap 7, Estimated GFR > 60, Glucose 138 H, Calcium 8.0 L, Phosphorus 3.2, Magnesium 2.0, Total Bilirubin 0.9, AST 17, ALT 34, Albumin 2.6 L, PT 50.1 *H, INR 4.85 *H, CBC w Diff NO MAN DIFF REQ, RBC 2.84 L, MCV 106.7 H, MCH 34.7 H, RDW 22.7 H, MPV 7.6, Gran % 94.4 H, Lymphocytes % 1.7 L, Monocytes % 3.9, Eosinophils % 0, Basophils % 0 L, Absolute Granulocytes 6.6 H, Absolute Lymphocytes 0.1 L, Absolute Monocytes 0.3, Absolute Eosinophils 0, Absolute Basophils 0, PUBS MCHC 32.5 L 10/29/16 0503: Anion Gap 8, Estimated GFR > 60, Glucose 132 H, Calcium 8.2 L, Phosphorus 3.1, Magnesium 2.0, Total Bilirubin 1.0, AST 14, ALT 37, Albumin 2.7 L, PT 35.8 H, INR 3.45 H, CBC w Diff NO MAN DIFF REQ, RBC 2.85 L, MCV 107.3 H, MCH 35.5 H, RDW 22.5 H, MPV 8.1, Gran % 93.9 H, Lymphocytes % 2.2 L, Monocytes % 3.9, Eosinophils % 0, Basophils % 0 L, Absolute Granulocytes 6.0, Absolute Lymphocytes 0.1 L, Absolute Monocytes 0.2, Absolute Eosinophils 0, Absolute Basophils 0, PUBS MCHC 33.0 Vital Signs Date Time Temp Pulse Resp B/P B/P Pulse O2 O2 Flow FiO2 Mean Ox Delivery Rate 10/31 1445 95 Nasal 40% Cannula 10/31 1227 95 Nasal 40% Cannula 10/31 1226 Nasal 40% Cannula 10/31 0849 94 Nasal 40% Cannula 10/31 0836 96 126/72 10/31 0836 96 126/72 10/31 0800 91 Nasal 40% Cannula 10/31 0800 97.1 83 28 120/70 91 Nasal 40% Cannula 10/31 0400 92 Nasal 40% Cannula 10/31 0016 95 Nasal 40% Cannula 10/31 0000 95 Nasal 40% Cannula 10/31 0000 97.6 76 32 124/70 95 Nasal 40% Cannula 10/30 2202 101 126/68 10/30 2202 77 126/68 10/31 1999 93 Nasal 40% Cannula 10/30 1932 93 Nasal 40% Cannula 10/30 1600 92 Nasal 40% Cannula 10/30 1600 97.7 88 27 134/72 92 Nasal 40% Cannula Intake & Output 10/31 1600 10/31 0800 10/31 0000 Intake Total 681 190 762 Output Total Balance 681 190 762 Intake, IV 321 130 462 Intake, Oral 360 60 300 Number 0 0 1 Bowel Movements
[2016-10-31 15:50] VITALS: BP 130/72
--- NOTE | 2016-10-31 16:06 | NUR ---
PATIENT REPORTS 09/26 MID STERNAL CHEST PRESSURE, REPORTED TO DR. WHATLEY TROPONIN,EKG ORDERED
--- NOTE | 2016-10-31 17:41 | Transfer of Care Summary ---
Hospital Course Course Hospital Course: Ms. Leon is a 80 year old female with PMH atrial fibrillation on coumadin, former cigarette abuse, COPD on 2.5 L continuous home O2, lung cancer s/p 5 cycles of radiation, HLD, MVP, GERD, diverticulitis, IBS, lactose intolerance, OA, pseudogout, essential thrombocytosis, anxiety and frequent UTIs who was initially admitted to the general medicine floor overnight for worsening shortness of breath, cough and decreased oxygen saturations for one day. Her admitting diagnosis was HCAP vs. aspiration pneumonia. she was transferred to the intensive care unit on October 28 due to oxygen desaturation and respiratory distress. Of note, patient was recently discharged from [facility] after ORIF for hip fracture in September,. Vital signs on admission to the ICU: T 97.7, HR 115, RR 30, BP 105/64 and O2 saturation 95% on BiPAP. The following issues were addressed while she was in the ICU: 1. Acute on chronic respiratory failure: This was likely secondary to underlying infectious etiology in the setting of baseline COPD. She was continued on BiPAP alternating with high flow nasal cannula to maintain a saturation of >92%. A PE was ruled out with negative CTA. Patient was started and continued on IV solumedrol for anti-inflammatory properties. She is stable for transfer to the telemetry unit with close O2 saturation monitoring and supplemental O2 via BiPAP or NC. Continue to taper IV solumderol per pulmonary recommendations. 2. Pneumonia, coverage for HCAP vs aspiration: Patient has had recent hospitalization at [facility] for ORIF and there was concern for gram negative infection vs aspiration pneumonia as family members reported coughing with food intake previously. Patient was continued on IV ceftazidime and IV vancomycin. Cultures show no growth to date and are pending. Mucinex 600 mg PO Q12 was also started. Continue supplemental O2 as above and follow up final culture results. 3. Paroxysmal atrial fibrillation on coumadin: Patient found to be in atrial fibrillation post-ORIF during last admission and discharged on cardizem, metoprolol and coumadin. Patient had her INR trended daily. She was initiall subtherapeutic and given higher doses of coumadin, but as she was continued on antibiotics she became supratherapeutic and her coumadin was held. Continue to trend INR and dose coumadin accordingly. Cardiology is also involved in [facility] 's care and continue to follow their recommendations. Continue telemetry monitoring. 4. Depression: Patient endorsed depression and anxiety during transfer to the ICU, secondary to respiratory distress. Psychiatric consult was obtained and patient was started on 5 mg PO daily lexapro. We continued ativan 0.5 mg PO BID for anxiety. Continue to follow psych recommendations. 5. Right upper lobe spiculated mass and left upper lobe lung nodule: Seen on CT scan on admission, stable from prior (patient has history of nolberto cancer s/p 5 cycles of radiation). Follow up as an outpatient with pulmonology. 6. Swallow evaluation: Patient had a swallow evaluation and was started on mechanical ground and nectar thickened liquids. Continue to follow up repeat swallow evaluations and advance diet as directed. Patient has other chronic stable conditions without active issues. All other home meds continued. Complications: None. Significant Procedures: CXR: Left greater than right bibasilar airspace disease. Chest CTA: IMPRESSION: 1. No evidence of pulmonary embolism. 2. Emphysematous changes of lungs. 3. Bibasilar infiltrates with small bilateral pleural effusions. 4. Stable right upper lobe spiculated mass. Decreasing size of left upper lung nodule since prior CT 10/10/2016. VTE: negative Assessment/Plan: See above. Attending MD Review Statement Documenting Attending: DIANE WEBER,MANISH Weir
[2016-10-31 18:48] VITALS: BP 122/76
--- NOTE | 2016-10-31 19:12 | NUR ---
1830 - PT ARRIVE TO FLOOR. VSS.
[2016-10-31 23:30] VITALS: BP 114/68
[2016-11-01 05:45] LABS: ABSOLUTE BASOPHIL COUNT 0 /CUMM (0.0-0.2); ABSOLUTE EOSINOPHIL COUNT 0 /CUMM (0.0-0.7); ABSOLUTE LYMPH COUNT 0.1 /CUMM (1.2-3.4); ABSOLUTE MONOCYTE COUNT 0.2 /CUMM (0.10-0.60); BASOPHIL % 0 % (0.0-2.0); EOSINOPHIL % 0.2 % (0-5); HEMATOCRIT 32.2 % (37-47); MEAN CORPUSCULAR HGB 34.9 PG (27.0-31.0); MEAN CORPUSCULAR HGB CONC 32.5 G/DL (33.0-37.0); MEAN CORPUSCULAR VOLUME 107.5 FL (81.0-99.0); MEAN PLATELET VOLUME 8.3 FL (7.4-10.4); PLATELET COUNT 220 /CUMM (130-400); RBC DISTRIBUTION WIDTH 22.4 % (11.5-14.5); WHITE BLOOD CELL COUNT 8.4 /CUMM (4.8-10.8)
[2016-11-01 05:47] LABS: PT 42.1 SEC (9.4-12.5)
[2016-11-01 08:13] VITALS: BP 98/78
--- NOTE | 2016-11-01 08:47 | PN- Pulmonary ---
Subjective HPI/Critical Care Issues: Patient continues to have shortness of breath. She continues to require high flow oxygen FiO2 0.4. She agrees to short-term rehabilitation Objective Current Medications: Current Medications Sig/Kev Start time Last Medication Dose Route Stop Time Status Admin Al Hydroxide/Mg 30 ML .STK-MED ONE 10/31 2314 DC Hydroxide PO 10/31 2315 Al Hydroxide/Mg 30 ML ONCE ONE 10/31 2300 DC 10/31 Hydroxide PO 10/31 2301 2316 Al Hydroxide/Mg 30 ML .STK-MED ONE 10/31 1623 DC Hydroxide PO 10/31 1624 Al Hydroxide/Mg 30 ML ONCE ONE 10/31 1615 DC 10/31 Hydroxide PO 10/31 161 1623 Albuterol Sulfate 3 ML EVERY 4 HRS/AWAKE 10/28 1999 AC 10/31 INH 2200 Aspirin Buffered 81 MG DAILY 10/28 1000 AC 10/31 PO 0836 Atorvastatin Calcium 5 MG 1700 10/27 1700 AC 10/31 PO 1624 Calcium Carbonate 500 MG ONCE ONE 11/01 1999 DC PO 10/31 2000 Ceftazidime 2,000 MG IQ8 10/28 0000 DC 10/31 Dextrose/Water 50 ML IV 2340 Colchicine 600 MCG DAILY 10/28 1000 AC 10/31 PO 0837 Cyanocobalamin 1,000 MCG DAILY 10/27 1607 AC 10/31 PO 0835 Dicyclomine HCl 10 MG BID 10/27 2200 AC 10/31 PO 2139 Diltiazem HCl 180 MG BID 10/27 2200 AC 10/31 PO 2139 Escitalopram Oxalate 5 MG DAILY 10/28 1615 AC 10/31 PO 0836 Gabapentin 200 MG TID 10/27 2200 AC 10/31 PO 2139 Guaifenesin 600 MG Q12 10/27 1512 AC 10/31 PO 2140 Hydroxyurea 500 MG Q48H 10/29 1000 AC 10/31 PO 0837 Hydroxyurea 1,000 MG Q48H 10/28 1000 AC 10/30 PO 0957 Lorazepam 0.5 MG BID PRN 10/27 1615 AC 10/31 PO 11/03 1614 2252 Methylprednisolone 40 MG Q8 10/27 1511 AC 11/01 IV 0633 Metoprolol Tartrate 50 MG BID 10/27 2200 AC 10/31 PO 2140 Omeprazole 40 MG DAILY AC 10/27 1609 AC 05/15 PO 0634 Tramadol HCl 50 MG Q6P PRN 10/27 1615 AC 10/30 PO 2201 Vancomycin HCl 1,000 MG BID 10/28 1000 AC 10/31 Sodium Chloride 250 ML IV 2217 Vital Signs & I&O Last 24 Hrs of Vitals and I&O: Vital Signs Date Time Temp Pulse Resp B/P B/P Pulse O2 O2 Flow FiO2 Mean Ox Delivery Rate 11/01 0813 98.0 89 24 98/78 92 Nasal Cannula 11/01 0000 91 Nasal 40% Cannula 10/31 2330 98.3 88 20 114/68 91 Nasal 100% Cannula 10/31 2204 89 Nasal 40% Cannula 10/31 2140 112 124/76 05 2139 112 124/76 10/31 1940 91 Nasal 40% Cannula 10/31 1848 97.2 85 30 122/76 90 Nasal Cannula 10/31 1550 94 Nasal 40% Cannula / 1550 97.9 77 24 130/72 94 Nasal 40% Cannula 10/31 1445 95 Nasal 40% Cannula 10/31 1227 95 Nasal 40% Cannula 10/31 1226 Nasal 40% Cannula 10/31 0849 94 Nasal 40% Cannula Intake & Output 11/01 1600 11/01 0800 11/01 0000 Intake Total 600 470 Output Total 260 300 Balance 340 170 Intake, IV 200 50 Intake, Oral 400 420 Number 0 Bowel Movements Output, Urine 260 300 Since saturation 91% on FiO2 40% exam for chest diminished breath sounds there are no wheezes cardiac exam shows a regular S1 and S2 without murmurs Impression/Plan Impression/Plan Impression/Plan: 80-year-old with advanced oxygen-dependent COPD admitted with hypoxic respiratory failure leukocytosis and CAT scan showing bibasilar densities small effusions consistent with pneumonia. Recommendations: Continue antibiotics and IV steroids. Taper FiO2 his saturations allow. Patient can be downgraded to telemetry. Would recommend short-term rehabilitation and consider [facility]. Patient needs to be mobilized out of bed with aggressive pulmonary toilet
--- NOTE | 2016-11-01 10:42 | PN- Housestaff ---
See Addendum Subjective Follow-up For: 1. Acute on chronic respiratory failure 2. Pneumonia 3. Paroxysmal atrial fibrillation 4. Depression and anxiety 5. Right upper lobe spiculated mass Tele-Events Since Last Visit: Atrial fibrillation, heartrate 80s - 90s. No overnight events Subjective: Afebrile, hemodynamically stable, saturating well on 40% high flow oxygen. No overnight events reported. Patient is complaining of dry mouth. Patient denies chest pain, palpitation, or worsening of cough. Review of Systems Constitutional: Reports: see HPI. Objective Last 24 Hrs of Vital Signs/I&O Vital Signs Date Time Temp Pulse Resp B/P B/P Pulse O2 O2 Flow FiO2 Mean Ox Delivery Rate 11/01 1604 93 Nasal 5.0L Cannula 11/01 1321 90 Nasal 4.0L Cannula 11/01 1135 115 128/62 11/01 1134 115 128/62 11/01 1015 95 Nasal 40% Cannula 11/01 0813 98.0 89 24 98/78 92 Nasal Cannula 11/01 0000 91 Nasal 40% Cannula 10/31 2330 98.3 88 20 114/68 91 Nasal 100% Cannula 10/31 2204 89 Nasal 40% Cannula 10/31 2140 112 124/76 10/31 2139 112 124/76 10/31 1940 91 Nasal 40% Cannula 10/31 1848 97.2 85 30 122/76 90 Nasal Cannula Intake & Output 11/01 1600 11/01 0800 11/01 0000 Intake Total 600 470 Output Total 260 300 Balance 340 170 Intake, IV 200 50 Intake, Oral 400 420 Number 0 Bowel Movements Output, Urine 260 300 Physical Exam General Appearance: Alert, Oriented X3, Cooperative, No Acute Distress HEENT: Atraumatic, PERRLA, EOMI, dry mucous membr Cardiovascular: Normal S1, Normal S2, No Murmurs, irregular Lungs: diminished airentry over lung b/l with no additional sounds Abdomen: Normal Bowel Sounds, Soft, No Tenderness Neurological: Normal Speech Extremities: No Clubbing, No Cyanosis, No Edema Current Medications: Current Medications Sig/Kev Start time Last Medication Dose Route Stop Time Status Admin Al Hydroxide/Mg 30 ML .STK-MED ONE 10/314 DC Hydroxide PO 10/315 Al Hydroxide/Mg 30 ML ONCE ONE 10/31 2299 DC 10/31 Hydroxide PO 05/15 2301 2316 Al Hydroxide/Mg 30 ML .STK-MED ONE 10/31 1623 DC Hydroxide PO 10/31 1624 Albuterol Sulfate 3 ML EVERY 4 HRS/AWAKE 10/27 2000 AC 11/01 INH 1604 Aspirin Buffered 81 MG DAILY 10/28 1000 AC 11/01 PO 1143 Atorvastatin Calcium 5 MG 1700 10/27 1700 AC 10/31 PO 1624 Calcium Carbonate 500 MG ONCE ONE 11/01 1999 DC PO 10/31 2000 Ceftazidime 1,000 MG Q8 11/01 1400 CAN Dextrose/Water 50 ML IV Ceftazidime 2,000 MG IQ8 10/28 0000 DC 10/31 Dextrose/Water 50 ML IV 2340 Ciprofloxacin 500 MG BID 11/01 1035 AC 11/01 PO 11/03 2201 1441 Colchicine 600 MCG DAILY 10/28 1000 AC 11/01 PO 1143 Cyanocobalamin 1,000 MCG DAILY 10/27 1607 AC 11/01 PO 1143 Dicyclomine HCl 10 MG BID 10/27 2200 AC 11/01 PO 0924 Diltiazem HCl 180 MG BID 10/27 2200 AC 11/01 PO 1135 Escitalopram Oxalate 5 MG DAILY 10/28 1615 AC 11/01 PO 1141 Gabapentin 200 MG TID 10/27 2200 AC 11/01 PO 1135 Glycerin 2 SPRAY Q2P PRN 11/01 1630 AC PO Guaifenesin 600 MG Q12 10/27 1512 AC 11/01 PO 1142 Hydroxyurea 500 MG Q48H 10/29 1000 AC 10/31 PO 0837 Hydroxyurea 1,000 MG Q48H 10/28 1000 AC 11/01 PO 1134 Lorazepam 0.5 MG BID PRN 10/27 1615 AC 10/31 PO 11/03 1614 2252 Methylprednisolone 40 MG Q8 10/27 1511 AC 11/01 IV 1441 Metoprolol Tartrate 50 MG BID 10/27 2200 AC 11/01 PO 1134 Omeprazole 40 MG DAILY AC 10/27 1609 AC 11/01 PO 0924 Patient Medication 1 ED .STK-MED ONE 11/01 1343 DC Teaching ED 11/01 1344 Potassium Chloride 20 MEQ ONCE ONE 11/01 0930 DC 11/01 PO 11/01 0931 1143 Tramadol HCl 50 MG Q6P PRN 10/27 1615 AC 10/30 PO 2201 Vancomycin HCl 1,000 MG BID 10/28 1000 DC 10/31 Sodium Chloride 250 ML IV 2217 Last 24 Hrs of Lab/[place] Results Last 24 Hrs of Labs/Mics: Laboratory Tests 11/01/16 0510: Anion Gap 4 L, Estimated GFR > 60, Glucose 125 H, Calcium 7.9 L, Phosphorus 3.2, Magnesium 2.1, Total Bilirubin 0.9, AST 18, ALT 55 H, Albumin 2.7 L, PT 42.1 *H, INR 4.07 *H, CBC w Diff MAN DIFF ORDERED, RBC 3.00 L, MCV 107.5 H, MCH 34.9 H, RDW 22.4 H, MPV 8.3, Gran % 96.0 H, Lymphocytes % 1.3 L, Monocytes % 2.5, Eosinophils % 0.2, Basophils % 0 L, Absolute Granulocytes 8.0 H, Absolute Lymphocytes 0.1 L, Absolute Monocytes 0.2, Absolute Eosinophils 0, Absolute Basophils 0, Platelet Estimate ADEQUATE, Polychromasia 1+, Hypochromic- Microcytic 1+, Poikilocytosis 1+, Ovalocytes 1+, PUBS MCHC 32.5 L Microbiology 11/01 912 LOWER RESP: Respiratory Culture - COLB 11/01 912 LOWER RESP: Gram Stain - COLB Assessment/Plan Assessment: #Acute hypoxic respiratory failure most likely secondary to hospital-acquired pneumonia Most likely secondary to underlying infectious etiology in the setting of baseline COPD. She was continued on BiPAP alternating with high flow nasal cannula to maintain a saturation of >92%. A PE was ruled out with negative CTA. Patient was started and continued on IV solumedrol for anti-inflammatory properties * Continue high flow oxygen to keep saturation above 92 * Total respiratory care * Switch IV antibiotic to oral ciprofloxacin as seen * Continue IV Solu-Medrol and taper as per light equipment operator #Atrial fibrillation Patient found to be in atrial fibrillation post-ORIF during last admission and discharged on cardizem, metoprolol and coumadin. Patient had her INR trended daily. She was initiall subtherapeutic and given higher doses of coumadin, but as she was continued on antibiotics she became supratherapeutic and her coumadin was held while she was on ICU * continue Cardizem and metoprolol * Please continue Coumadin based on INR #Depression Patient endorsed depression and anxiety during ICU stay, secondary to respiratory distress. Psychiatric consult was obtained * Continue 5 mg PO daily lexapro. * continued ativan 0.5 mg PO BID for anxiety. 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 * Follow up as an outpatient with pulmonology. #Hyperlipidemia * Continue statin #Acid reflux * Continue PPI #Irritable bowel syndrome * Continue dicyclomine #Pseudogout Continue home dose of colchicine #Essential thrombocytosis * Continue home dose of hydroxyurea #Supplements * Continue calcium carbonate, vitamin D, multivitamins full code DVT prophylaxis: She is supratherapeutic, hold Coumadin. regular diet Problem List: 1. Afib 2. Hypoxia Pain Ratin Pain Location: See assessment and plan Pain Goal: Remain pain free Pain Plan: See assessment and plan Tomorrow's Labs & Rationales: INR
--- NOTE | 2016-11-01 10:50 | Discharge Summary ---
See Addendum Visit Information Visit Dates Admission Date: 10/27/16 Discharge Date: 11/04/2016 Hospital Course Course Attending Physician: Dr. Silver Rowan Primary Care Physician: IAN ROBERT MD Consulting Request: Consulting Specialty: Pulmonary Disease Consulting Physician: Shay Pal MD Reason for Consult: hospital-acquired pneumonia Hospital Course: Hospital Course: Ms. Leon is a 80 year old female with PMH atrial fibrillation on coumadin, former cigarette abuse, COPD on 2.5 L continuous home O2, lung cancer s/p 5 cycles of radiation, HLD, MVP, GERD, diverticulitis, IBS, lactose intolerance, OA, pseudogout, essential thrombocytosis, anxiety and frequent UTIs who was initially admitted to the general medicine floor overnight for worsening shortness of breath, cough and decreased oxygen saturations for one day. Her admitting diagnosis was HCAP vs. aspiration pneumonia. she was transferred to the intensive care unit on October 28 due to oxygen desaturation and respiratory distress. Of note, patient was recently discharged from [facility] after ORIF for hip fracture in September,. Vital signs on admission to the ICU: T 97.7, HR 115, RR 30, BP 105/64 and O2 saturation 95% on BiPAP. The following issues were addressed while she was in the ICU: And on October 30 she was transferred to telemetry for closer monitoring and continuous pulse ox. 1. Acute on chronic respiratory failure: This was likely secondary to underlying infectious etiology in the setting of baseline COPD. She was continued on BiPAP alternating with high flow nasal cannula to maintain a saturation of >92%. A PE was ruled out with negative CTA. Patient was started and continued on IV solumedrol for anti-inflammatory properties. She is stable for transfer to the telemetry unit with close O2 saturation monitoring and supplemental O2 via BiPAP or NC. Continue to taper IV solumderol per pulmonary recommendations. She was started on IV Solu-Medrol taper on was changed to by mouth prednisone and we will send her to short-term rehabilitation on tapering steroid course. 2. Pneumonia, coverage for HCAP vs aspiration: Patient has had recent hospitalization at [facility] for ORIF and there was concern for gram negative infection vs aspiration pneumonia as family members reported coughing with food intake previously. Patient was continued on IV ceftazidime and IV vancomycin until November 01 and we changed it to oral Cipro to complete the course of 10 days. Cultures show no growth to date . Mucinex 600 mg PO Q12 was also started. Continue supplemental O2 to keep oxygen saturation more than 90%. 3. Paroxysmal atrial fibrillation on coumadin: Patient found to be in atrial fibrillation post-ORIF during last admission and discharged on cardizem, metoprolol and coumadin. Patient had her INR trended daily. She was initiall subtherapeutic and given higher doses of coumadin, but as she was continued on antibiotics she became supratherapeutic and her coumadin was held. And her INR became therapeutic on November 02 and started dosing her Coumadin daily. 4. Depression: Patient endorsed depression and anxiety during transfer to the ICU, secondary to respiratory distress. Psychiatric consult was obtained and patient was started on 5 mg PO daily lexapro. We continued ativan 0.5 mg PO BID for anxiety. 5. Right upper lobe spiculated mass and left upper lobe lung nodule: Seen on CT scan on admission, stable from prior (patient has history of nolberto cancer s/p 5 cycles of radiation). Follow up as an outpatient with pulmonology. 6. Swallow evaluation: Patient had a swallow evaluation and was started on mechanical ground and nectar thickened liquids. Barium swallow was also done on 11/04/2016 and her swallow function became worse and she was started on honey thickened liquid and mechanical chopped diet. Patient has other chronic stable conditions without active issues. All other home meds continued. Complications: None Allergies: Coded Allergies: adhesive tape (RED AND IRRITATED - PAPER TAPE IS OK 10/06/15) oxycodone (PER PT CANT REMEMBER 10/06/15) amitriptyline (NIGHTMARES 10/07/15) ciprofloxacin (From Cipro HC) (STOMACH IRRITATION 10/07/15) erythromycin base (From Erythrocin) (STOMACH IRRITATION 10/07/15) hydrocortisone (From Cipro HC) (STOMACH IRRITATION 10/07/15) Significant Procedures: SERVICE DATE: 10/27/16-1304 EXAM TYPE: CAT - CTA CHEST-PULMONARY EMBOLISM EXAMINATION: CT ANGIOGRAM OF THE CHEST WITH AND WITHOUT CONTRAST (CT PULMONARY ANGIOGRAM FOR PE) CLINICAL INFORMATION: RECENT SURGERY, HYPOXIA, ELEVATED D-DIMER COMPARISON: CTA of chest 10/10/2016. Portable chest 10/27/2016 TECHNIQUE: Prior to contrast administration, noncontrast localization images were obtained. Subsequently, multidetector volumetric imaging was performed from the thoracic inlet to below the diaphragms following the administration of 95 mL Optiray 350 intravenous contrast. No contrast reaction reported. Sagittal, coronal, and MIP oblique sagittal reformatted images were obtained on the CT workstation, uploaded to PACS, and reviewed. Total exam dose-length product 401.64 mGy-cm. FINDINGS: QUALITY OF STUDY/CONTRAST BOLUS: Satisfactory PULMONARY ARTERIES: No central or segmental pulmonary emboli. THORACIC AORTA: No aneurysm or dissection. LUNG: Marked pain emphysematous changes of lungs. Spiculated mass at the medial right upper lobe unchanged since prior study measuring 1.5 cm AP. The previously noted 0.6 cm nodule in the left upper lobe has decreased in the size of 0.4 cm, axial image 156 (4). There is new bibasilar airspace disease. Patchy and consolidated opacities at both lung bases, greater on left than right, at the dependent lung. PLEURA: Small layering bilateral pleural effusions. MEDIASTINUM: Normal heart size. No pericardial effusion. No hilar or mediastinal lymphadenopathy. No evidence of septal bowing or right heart strain. Atherosclerotic vascular wall calcifications of aorta. No aneurysm. CHEST WALL/AXILLA: No axillary or internal mammary lymphadenopathy. OSSEOUS STRUCTURES: Kyphosis of dorsal spine with multilevel disc height narrowing and endplate spurs of the vertebrae. UPPER ABDOMEN: Adrenal glands are normal. No reflux of contrast into the hepatic veins to suggest elevated right heart pressures. IMPRESSION: 1. No evidence of pulmonary embolism. 2. Emphysematous changes of lungs. 3. Bibasilar infiltrates with small bilateral pleural effusions. 4. Stable right upper lobe spiculated mass. Decreasing size of left upper lung nodule since prior CT 10/10/2016. VTE: negative Pertinent Lab Results: SERVICE DATE: 10/30/16 EXAM TYPE: RAD - XRY-PORTABLE CHEST XRAY EXAMINATION: CHEST 1 VIEW CLINICAL INFORMATION: Increased supplemental oxygen requirement. COMPARISON: October 28, 2016. TECHNIQUE: An AP view of the chest is provided. FINDINGS: The cardiac silhouette is stable. The mediastinal and hilar contours are unremarkable. There are neither pleural effusions nor pneumothoraces. Again identified is left greater than right bibasilar airspace disease. The osseous structures are unremarkable. IMPRESSION: Left greater than right bibasilar airspace disease. DICTATED BY: SALVADOR MO MD Disposition Summary Disposition Principal Diagnosis: Hospital-acquired pneumonia/aspiration pneumonia Additional Diagnosis: Supratherapeutic INR Discharge Disposition: SNF Discharge Instructions General Discharge Information Code Status: Full Code Patient's Diet: Mechanical ground and nectar thickened liquid Patient's Activity: As tolerated with assistance Follow-Up Instructions/Appts: Please follow-up with your primary care physician in one week of discharge Please follow-up with towboat engineer as outpatient in 1-2 weeks of discharge Please take medications accordingly Please check INR daily until INR therapeutic between 2 and 3 and dose Coumadin accordingly Medications at Discharge Discharge Medications: Continue taking these medications: Hydroxyurea (Hydrea) 500 MG CAPSULE 2 Capsule ORAL Every other day Comments: NOT GIVEN IN HOSPITAL Hydroxyurea (Hydrea) 500 MG CAPSULE 1 Capsule ORAL Every other day Comments: Last Taken: 10/17/16 Time: 10AM Tiotropium [place] (Spiriva Respimat) 4 GM MIST.INHAL 1 Capsule ORAL Every Morning Qty = 12 Comments: Last Taken: 10/17/16 Time: 10AM Estradiol (Estrace) 42.5 GM CREAM.APPL 1 Gram VAGINAL EVERY MONDAY Qty = 43 Comments: NOT GIVEN IN HOSPITAL Aspirin (Ecotrin*) 81 MG TABLET.DR 1 Tablet ORAL DAILY Comments: NOT GIVEN IN HOSPITAL Colchicine (Colcrys) 0.6 MG TABLET 1 Tablet ORAL DAILY Comments: Last Taken: 10/17/16 Time: 10AM Dicyclomine HCl (Dicyclomine HCl) 10 MG CAPSULE 1 Tablet ORAL TWICE DAILY Comments: Last Taken: 10/17/16 Time: 8AM Lorazepam (Ativan) 0.5 MG TABLET 1 Tablet ORAL TWICE DAILY as needed for ANXIETY Comments: Last Taken: 10/14/16 Time:10AM Pantoprazole Sodium (Pantoprazole Sodium) 40 MG TABLET.DR 1 Tablet ORAL DAILY Comments: Last Taken: 10/17/16 Time: 6AM PRILOSEC GIVEN Fluticasone/Vilanterol (Breo Ellipta 200-25 Mcg INH) 200 MCG-25 MCG/DOSE BLST.W.DEV 1 PUFF ORAL TWICE DAILY Comments: NOT GIVEN IN HOSPITAL Gabapentin (Gabapentin) 100 MG CAPSULE 2 Capsule ORAL THREE TIMES DAILY Comments: Last Taken: 10/17/16 Time: 10AM Acetaminophen (Acetaminophen) 500 MG TABLET 1,000 Milligram ORAL THREE TIMES DAILY Days = 28 Comments: Last Taken: 10/17/16 Time: 10AM Sennosides/Docusate Sodium (Senna Plus Tablet) 8.6 MG-50 MG TABLET 1 Tablet ORAL TWICE DAILY as needed for CONSTIPATION Days = 14 Comments: Last Taken: 10/11/16 Time: 5AM Tramadol HCl (Tramadol HCl) 50 MG TABLET 1 Tablet ORAL EVERY SIX HOURS NEEDED as needed for PAIN CONTROL Qty = 30 Comments: Last Taken: 10/16/16 Time: 9PM Cyanocobalamin (Vitamin B-12) 1,000 MCG TABLET 1 Tablet ORAL DAILY Qty = 30 Comments: Last Taken: 10/17/16 Time: 10AM Prednisone (Prednisone) 10 MG TABLET 1 Tablet ORAL See Instructions Qty = 28 Instructions: 5 TABS DAILY FOR 2 DAYS 4 TABS DAILY FOR 3 DAYS 3 TABS DAILY FOR 3 DAYS 2 TABS DAILY FOR 3 DAYS 1 TAB DAILY FOR 3 DAYS AND THEN STOP Diltiazem HCl (Diltiazem 12HR ER) 60 MG CAP.ER.12H 180 Milligram ORAL TWICE DAILY Qty = 30 Comments: Last Taken: 10/17/16 Time: 10AM Metoprolol Tartrate (Lopressor) 50 MG TABLET 1 Tablet ORAL TWICE DAILY Simvastatin (Zocor*) 10 MG TABLET 1 Tablet ORAL Every night Warfarin Sodium (Coumadin) 2 MG TABLET 1 Tablet ORAL DAILY Instructions: INR goal 2-3 Start taking the following new medications: Ciprofloxacin HCl (Cipro) 500 MG TABLET 500 Milligram ORAL TWICE DAILY Qty = 10 No Refills Copies To: YESICA WEBER,IAN Attending MD Review Statement Documenting Attending: SALVADOR GARCIA MD
[2016-11-01] MEDS ORDERED: CIPRO500 M1 PO (13:36)
--- NOTE | 2016-11-01 13:47 | Patient Discharge Instructions ---
Discharge Instructions General Discharge Information You were seen/treated for: Hospital-acquired pneumonia Special Instructions: Please follow-up with your PCP within 1-2 week Please follow up with pulmonology within 1-2 week Please follow up with cardiology within 1-2 week Diet Continue normal diet: Yes Recommended Diet: Heart Healthy Activity Full Activity/No Limits: Yes Activity Self Limited: Yes Acute Coronary Syndrome Inclusion Criteria At DC or during hospital stay patient has or had the following: ACS DIAGNOSIS No Discharge Core Measures Meds if any: Prescribed or Continued at Discharge Meds if any: NOT Prescribed or Continued at Discharge Congestive Heart Failure Inclusion Criteria At DC or during hospital stay patient has or had the following: CHF DIAGNOSIS No Discharge Core Measures Meds if any: Prescribed or Continued at Discharge Meds if any: NOT Prescribed or Continued at Discharge Cerebrovascular accident Inclusion Criteria At DC or during hospital stay patient has or had the following: CVA/TIA Diagnosis No Discharge Core Measures Meds if any: Prescribed or Continued at Discharge Meds if any: NOT Prescribed or Continued at Discharge Venous thromboembolism Inclusion Criteria VTE Diagnosis No VTE Type NONE VTE Confirmed by (Test) NONE Discharge Core Measures - Per Current guidelines, there needs to be overlap - treatment for the first 5 days of Warfarin therapy. - If discharged on Warfarin prior to 5 days of - overlap therapy, the patient will need to be - assessed for post discharge needs including - *Post discharge parental anticoagulation - *Warfarin and/or parental anticoagulation education - *Follow up date to check INR post discharge At least 5 days overlap therapy as Inpatient No Meds if any: Prescribed or Continued at Discharge Note: Overlap Therapy is Warfarin and Anticoagulant Meds if any: NOT Prescribed or Continued at Discharge
[2016-11-01 16:41] VITALS: BP 122/72
[2016-11-02 00:08] VITALS: BP 130/80
--- NOTE | 2016-11-02 07:38 | PN- Housestaff ---
SILVESTRE WEBER,[facility] 11/02/16 0737: Subjective Follow-up For: 1. Acute on chronic respiratory failure 2. Pneumonia 3. Paroxysmal atrial fibrillation 4. Depression and anxiety 5. Right upper lobe spiculated mass Tele-Events Since Last Visit: Atrial fibrillation, heart rate 70-80, no events. Subjective: Afebrile, hemodynamically stable, saturating well on 5 L of oxygen. No overnight events reported. . Patient denies chest pain, palpitation, or worsening of cough. Review of Systems Constitutional: Reports: no symptoms. Objective Last 24 Hrs of Vital Signs/I&O Vital Signs Date Time Temp Pulse Resp B/P B/P Pulse O2 O2 Flow FiO2 Mean Ox Delivery Rate 11/02 1013 67 150/80 11/02 0817 92 Nasal 5.0L Cannula 11/02 0800 97.2 67 20 150/80 90 Nasal 5.0L Cannula 11/02 0008 97.7 73 20 130/80 90 Nasal 5.0L Cannula 11/02 0000 91 Nasal 5.0L Cannula 11/01 2118 84 122/72 11/01 2117 84 122/72 11/01 1641 97.6 84 22 122/72 93 Nasal 5.0L Cannula 11/01 1604 93 Nasal 5.0L Cannula 11/01 1600 Nasal 5.0L Cannula 11/01 1321 90 Nasal 4.0L Cannula 11/01 1135 115 128/62 11/01 1134 115 128/62 Intake & Output 11/02 1600 11/02 0800 11/02 0000 Intake Total 200 260 Output Total Balance 200 260 Intake, Oral 200 260 Physical Exam General Appearance: Alert, Oriented X3, Cooperative, No Acute Distress HEENT: Atraumatic, PERRLA, EOMI, Mucous Membr. moist/pink Cardiovascular: Normal S1, Normal S2, No Murmurs, irregular Lungs: diminished air-entry over both lungs but better than yesterday Abdomen: Normal Bowel Sounds, Soft, No Tenderness Neurological: Normal Speech Extremities: No Clubbing, No Cyanosis, trace edema over LE bl Current Medications: Current Medications Sig/Kev Start time Last Medication Dose Route Stop Time Status Admin Al Hydroxide/Mg 30 ML ONCE ONE 11/02 1115 DC Hydroxide PO 11/02 1116 Al Hydroxide/Mg 30 ML .STK-MED ONE 11/01 1751 DC Hydroxide PO 11/01 1752 Al Hydroxide/Mg 30 ML ONCE ONE 11/01 1715 DC 11/01 Hydroxide PO 11/01 1716 1751 Albuterol Sulfate 3 ML EVERY 4 HRS/AWAKE 10/27 2000 AC 11/02 INH 0805 Aspirin Buffered 81 MG DAILY 10/28 1000 AC 11/02 PO 1014 Atorvastatin Calcium 5 MG 1700 10/27 1700 AC 11/01 PO 1633 Ciprofloxacin 500 MG BID 11/01 1035 AC 11/02 PO 11/03 2201 1013 Colchicine 600 MCG DAILY 10/28 1000 AC 11/02 PO 1014 Cyanocobalamin 1,000 MCG DAILY 10/27 1607 AC 11/02 PO 1014 Dicyclomine HCl 10 MG BID 10/27 2200 AC 11/02 PO 1013 Diltiazem HCl 180 MG BID 10/27 2200 AC 11/02 PO 1013 Escitalopram Oxalate 5 MG DAILY 10/28 1615 AC 11/02 PO 1014 Gabapentin 200 MG TID 10/27 2200 AC 11/02 PO 1014 Glycerin 2 SPRAY Q2P PRN 11/01 1630 AC 11/01 PO 1934 Guaifenesin 600 MG Q12 10/27 1512 AC 11/02 PO 1014 Hydroxyurea 500 MG Q48H 10/29 1000 AC 11/02 PO 1022 Hydroxyurea 1,000 MG Q48H 10/28 1000 AC 11/01 PO 1134 Lorazepam 0.5 MG BID PRN 10/27 1615 AC 10/31 PO 11/03 1614 2252 Methylprednisolone 40 MG Q8 10/27 1511 AC 11/02 IV 0621 Metoprolol Tartrate 50 MG BID 10/27 2200 AC 11/02 PO 1014 Omeprazole 40 MG DAILY AC 10/27 1609 AC 11/02 PO 0621 Patient Medication 1 ED .STK-MED ONE 11/01 1343 DC Teaching ED 11/01 1344 Tramadol HCl 50 MG Q6P PRN 10/27 1615 11/01 PO 1633 Last 24 Hrs of Lab/[place] Results Last 24 Hrs of Labs/Mics: Laboratory Tests 11/02/16 0620: PT 28.6 H, INR 2.75 H Assessment/Plan Assessment: #Acute hypoxic respiratory failure most likely secondary to hospital-acquired pneumonia Most likely secondary to underlying infectious etiology in the setting of baseline COPD. She was continued on BiPAP alternating with high flow nasal cannula to maintain a saturation of >92%. A PE was ruled out with negative CTA. Patient was started and continued on IV solumedrol for anti-inflammatory properties * Continue high flow oxygen to keep saturation above 92 * Total respiratory care * Continue ciprofloxacin * Continue IV Solu-Medrol and taper as per senior functional analyst #Atrial fibrillation Patient found to be in atrial fibrillation post-ORIF during last admission and discharged on cardizem, metoprolol and coumadin. Patient had her INR trended daily. She was initiall subtherapeutic and given higher doses of coumadin, but as she was continued on antibiotics she became supratherapeutic and her coumadin was held while she was on ICU. This morning INR is 2.7 * continue Cardizem and metoprolol * We will does Coumadin 2 mg(home dose) #Depression Patient endorsed depression and anxiety during ICU stay, secondary to respiratory distress. Psychiatric consult was obtained * Continue 5 mg PO daily lexapro. * Continued ativan 0.5 mg PO BID for anxiety. 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 * Follow up as an outpatient with pulmonology. #Hyperlipidemia * Continue statin #Acid reflux * Continue PPI #Irritable bowel syndrome * Continue dicyclomine #Pseudogout Continue home dose of colchicine #Essential thrombocytosis * Continue home dose of hydroxyurea #Supplements * Continue calcium carbonate, vitamin D, multivitamins #Safe discharge * Evaluating if patient is candidate for pulmonary rehab/[place]. full code DVT prophylaxis: She is supratherapeutic, hold Coumadin. regular diet Problem List: 1. Afib Pain Ratin Pain Location: NA Pain Goal: Remain pain free Pain Plan: See A&P Tomorrow's Labs & Rationales: INR Consulting Request: Consulting Specialty: Pulmonary Disease Consulting Physician: Shay Pal MD Reason for Consult: hospital-acquired pneumonia SALVADOR GARCIA MD 11/02/163: Attending MD Review Statement Attending Statement Attending Statement: examined this patient, discuss w/resident/PA/CHARTER PILOT, agreed w/resident/PA/CHARTER PILOT, reviewed EMR data (avail), discussed with nursing, discussed with case mgmt, amended to note Attending Assessment/Plan: The patient was seen and discussed with house staff. Agree with the plan of care as outlined. Appreciate pulmonary input. Will need pulmonary rehab.
[2016-11-02 08:00] VITALS: BP 150/80
[2016-11-02 08:35] LABS: PT 28.6 SEC (9.4-12.5)
--- NOTE | 2016-11-02 13:23 | PN- Pulmonary ---
Subjective HPI/Critical Care Issues: Patient remains weak though she feels her shortness of breath is very slowly improving. He has an intermittent congested cough. Oxygen requirements continued to remain above baseline. Objective Current Medications: Current Medications Sig/Kev Start time Last Medication Dose Route Stop Time Status Admin Al Hydroxide/Mg 30 ML ONCE ONE 11/02 1115 DC 11/02 Hydroxide PO 11/02 1116 1132 Al Hydroxide/Mg 30 ML .STK-MED ONE 11/01 1751 DC Hydroxide PO 11/01 1752 Al Hydroxide/Mg 30 ML ONCE ONE 11/01 1715 DC 11/01 Hydroxide PO 11/01 1716 1751 Albuterol Sulfate 3 ML EVERY 4 HRS/AWAKE 10/27 2000 AC 11/02 INH 0805 Aspirin Buffered 81 MG DAILY 10/28 1000 AC 11/02 PO 1014 Atorvastatin Calcium 5 MG 1700 10/27 1700 AC 11/01 PO 1633 Ciprofloxacin 500 MG BID 11/01 1035 AC 11/02 PO 11/03 2201 1013 Colchicine 600 MCG DAILY 10/28 1000 AC 11/02 PO 1014 Cyanocobalamin 1,000 MCG DAILY 10/27 1607 AC 11/02 PO 1014 Dicyclomine HCl 10 MG BID 10/27 2200 AC 11/02 PO 1013 Diltiazem HCl 180 MG BID 10/27 2200 AC 11/02 PO 1013 Escitalopram Oxalate 5 MG DAILY 10/28 1615 AC 11/02 PO 1014 Gabapentin 200 MG TID 10/27 2200 AC 11/02 PO 1014 Glycerin 2 SPRAY Q2P PRN 11/01 1630 AC 11/02 PO 1128 Guaifenesin 600 MG Q12 10/27 1512 AC 11/02 PO 1014 Hydroxyurea 500 MG Q48H 10/29 1000 AC 11/02 PO 1022 Hydroxyurea 1,000 MG Q48H 10/28 1000 AC 11/01 PO 1134 Lorazepam 0.5 MG BID PRN 10/27 1615 AC 11/02 PO 11/03 1614 1130 Methylprednisolone 40 MG Q8 10/27 1511 AC 11/02 IV 0621 Metoprolol Tartrate 50 MG BID 10/27 2200 AC 11/02 PO 1014 Omeprazole 40 MG DAILY AC 10/27 1609 AC 11/02 PO 0621 Patient Medication 1 ED .STK-MED ONE 11/01 1343 DC Teaching ED 11/01 1344 Tramadol HCl 50 MG Q6P PRN 10/27 1615 AC 11/01 PO 1633 Warfarin Sodium 2 MG COUMADIN 1700 ONE 11/02 1700 AC PO 11/02 1701 Vital Signs & I&O Last 24 Hrs of Vitals and I&O: Vital Signs Date Time Temp Pulse Resp B/P B/P Pulse O2 O2 Flow FiO2 Mean Ox Delivery Rate 11/02 1013 67 150/80 11/02 0817 92 Nasal 5.0L Cannula 11/02 0800 97.2 67 20 150/80 90 Nasal 5.0L Cannula 11/02 0008 97.7 73 20 130/80 90 Nasal 5.0L Cannula 11/02 0000 91 Nasal 5.0L Cannula 11/01 2118 84 122/72 11/01 2117 84 122/72 11/01 1641 97.6 84 22 122/72 93 Nasal 5.0L Cannula 11/01 1604 93 Nasal 5.0L Cannula 11/01 1600 Nasal 5.0L Cannula Intake & Output 11/02 1600 11/02 0800 11/02 0000 Intake Total 200 260 Output Total Balance 200 260 Intake, Oral 200 260 Since saturation 5 L 92% exam for chest shows rare rhonchi there are no wheezes cardiac exam shows an irregular S1 and S2 without murmurs Impression/Plan Impression/Plan Impression/Plan: 80-year-old with advanced oxygen-dependent COPD admitted with hypoxic respiratory failure leukocytosis and CAT scan showing bibasilar densities small effusions consistent with pneumonia. She is slowly improving but will need short-term rehabilitation hopefully in a situation that can offer pulmonary rehabilitation as well. Recommendations: Complete course of antibiotics. Solu-Medrol can be decreased to every 12 and subsequently oral prednisone. She in on short-term rehabilitation
[2016-11-02 16:29] VITALS: BP 134/80
[2016-11-02 23:32] VITALS: BP 106/72
--- NOTE | 2016-11-03 07:34 | PN- Housestaff ---
RICHIE WEBER,[facility] 11/03/16 0714: Subjective Follow-up For: HAP and a.fib Tele-Events Since Last Visit: A.Flutter rate 78-90 Subjective: Saw pt at bedide today. She was recieving a neb treatment when I saw her. On 5L NC; no bipap necessary overnight. Overnight satting between 89-95%. She states that she feels about the same. No acute overnight events or complaints. Possible DC today pending bed search. Review of Systems Constitutional: Denies: chills, fever, weakness. EENTM: Reports: no symptoms. Cardiovascular: Denies: chest pain, palpitations. Respiratory: Denies: cough, short of breath. Gastrointestinal: Denies: abdominal pain, constipation, diarrhea. Genitourinary: Reports: no symptoms. Musculoskeletal: Reports: no symptoms. Objective Last 24 Hrs of Vital Signs/I&O Vital Signs Date Time Temp Pulse Resp B/P B/P Pulse O2 O2 Flow FiO2 Mean Ox Delivery Rate 11/03 0832 98.8 86 19 140/81 92 Nasal 5.0L Cannula 11/03 0000 Nasal 5.0L Cannula 11/02 2332 97.9 108 20 106/72 91 Nasal Cannula 11/02 2245 102 106/72 11/02 2244 102 106/72 11/02 1629 97.5 88 90 134/80 20 Nasal 5.0L Cannula 11/02 1619 93 Nasal 5.0L Cannula 11/02 1600 Nasal 5.0L Cannula 11/02 1013 67 150/80 Intake & Output 11/03 1600 11/03 0800 11/03 0000 Intake Total 200 730 Output Total 1 Balance 200 729 Intake, IV 10 Intake, Oral 200 720 Number 1 Bowel Movements Output, Other 1 Physical Exam General Appearance: Alert, Oriented X3, Cooperative, No Acute Distress Skin: No Rashes, No Significant Lesion HEENT: Atraumatic Neck: Supple Cardiovascular: a.fib Lungs: diminished in lower lung baptiste. Abdomen: Soft, No Tenderness Extremities: large hematoma in r. calf Current Medications: Current Medications Sig/Kev Start time Last Medication Dose Route Stop Time Status Admin Al Hydroxide/Mg 30 ML .STK-MED ONE 11/02 223 DC Hydroxide PO 11/02 2240 Al Hydroxide/Mg 30 ML Q4-6 PRN PRN 11/02 1700 AC 11/02 Hydroxide PO 2243 Al Hydroxide/Mg 30 ML .STK-MED ONE 11/02 1123 DC Hydroxide PO 11/02 1124 Al Hydroxide/Mg 30 ML ONCE ONE 11/02 1115 DC 11/02 Hydroxide PO 11/02 1116 1132 Albuterol Sulfate 3 ML EVERY 4 HRS/AWAKE 10/27 2000 AC 11/03 INH 0809 Aspirin Buffered 81 MG DAILY 10/28 1000 AC 11/02 PO 1014 Atorvastatin Calcium 5 MG 1700 10/27 1700 AC 11/02 PO 1619 Ciprofloxacin 500 MG BID 11/01 1035 AC 11/02 PO 11/03 2201 2245 Colchicine 600 MCG DAILY 10/28 1000 AC 11/02 PO 1014 Cyanocobalamin 1,000 MCG DAILY 10/27 1607 AC 11/02 PO 1014 Dicyclomine HCl 10 MG BID 10/27 2200 AC 11/02 PO 2244 Diltiazem HCl 180 MG BID 10/27 2200 AC 11/02 PO 2244 Escitalopram Oxalate 5 MG DAILY 10/28 1615 AC 11/02 PO 1014 Gabapentin 200 MG TID 10/27 2200 AC 11/02 PO 2244 Glycerin 2 SPRAY Q2P PRN 11/01 1630 AC 11/02 PO 2245 Guaifenesin 600 MG Q12 10/27 1512 AC 11/02 PO 2245 Hydroxyurea 500 MG Q48H 10/29 1000 AC 11/02 PO 1022 Hydroxyurea 1,000 MG Q48H 10/28 1000 AC 11/01 PO 1134 Lorazepam 0.5 MG BID PRN 10/27 1615 AC 11/02 PO 11/03 1614 1130 Methylprednisolone 40 MG Q12 11/02 2200 DC 11/02 IV 2244 Methylprednisolone 40 MG Q8 10/27 1511 CO 11/02 IV 0621 Metoprolol Tartrate 50 MG BID 10/27 2200 AC 11/02 PO 2245 Omeprazole 40 MG DAILY AC 10/27 1609 AC 11/03 PO 0605 Ondansetron HCl 4 MG ONCE ONE 11/02 1615 DC 11/02 IV 11/02 1616 1618 Prednisone 60 MG BID 11/03 1000 UNVr PO Tramadol HCl 50 MG Q6P PRN 10/27 1615 AC 11/01 PO 1633 Warfarin Sodium 2 MG COUMADIN 1700 ONE 11/02 1700 DC 11/02 PO 11/02 1701 1618 Last 24 Hrs of Lab/[place] Results Last 24 Hrs of Labs/Mics: Laboratory Tests 11/03/16 0615: PT 28.0 H, INR 2.69 H Assessment/Plan Assessment: #Acute hypoxic respiratory failure most likely secondary to hospital-acquired pneumonia Most likely secondary to underlying infectious etiology in the setting of baseline COPD. She was continued on BiPAP alternating with high flow nasal cannula to maintain a saturation of >92%. A PE was ruled out with negative CTA. Patient was started and continued on IV solumedrol for anti-inflammatory properties * Continue NC to keep saturation above 92 * Total respiratory care * Continue ciprofloxacin one more day? * Convert to PO Prednisone 60mg BID #Atrial fibrillation Patient found to be in atrial fibrillation post-ORIF during last admission and discharged on cardizem, metoprolol and coumadin. Patient had her INR trended daily. She was initiall subtherapeutic and given higher doses of coumadin, but as she was continued on antibiotics she became supratherapeutic and her coumadin was held while she was on ICU. * continue Cardizem and metoprolol * We will does Coumadin 2 mg; #Depression Patient endorsed depression and anxiety during ICU stay, secondary to respiratory distress. Psychiatric consult was obtained * Continue 5 mg PO daily lexapro. * Continued ativan 0.5 mg PO BID for anxiety. 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 * Follow up as an outpatient with pulmonology. #Hyperlipidemia * Continue statin #Acid reflux * Continue PPI #Irritable bowel syndrome * Continue dicyclomine #Pseudogout Continue home dose of colchicine #Essential thrombocytosis * Continue home dose of hydroxyurea #Supplements * Continue calcium carbonate, vitamin D, multivitamins #Safe discharge * Evaluating if patient is candidate for pulmonary rehab/[place]. full code DVT prophylaxis: She is supratherapeutic, hold Coumadin. regular diet Problem List: 1. Healthcare-associated pneumonia 2. Afib 3. Hypoxia Pain Ratin Pain Location: none Pain Goal: Remain pain free Tomorrow's Labs & Rationales: inr DVT/Prophylaxis: pharmacological Consulting Request: Consulting Specialty: Pulmonary Disease Consulting Physician: Shay Pal MD Reason for Consult: hospital-acquired pneumonia SALVADOR GARCIA MD 11/03/16 1708: Assessment/Plan Pain Plan: Pain pathway being followed. Attending MD Review Statement Attending Statement Attending MD Statement: examined this patient, discuss w/resident/PA/ROLL UP OPERATOR, agreed w/resident/PA/ROLL UP OPERATOR, reviewed EMR data (avail), discussed with nursing, discussed with case mgmt, amended to note Attending Assessment/Plan: The patient was seen and discussed with house staff. Slowly improving. OK to change to po steroids. Will go to rehab tomorrow if stable.
[2016-11-03 08:32] VITALS: BP 140/81
--- NOTE | 2016-11-03 08:51 | PN- Pulmonary ---
Subjective HPI/Critical Care Issues: Patient remains extremely weak and has chronic shortness of breath Objective Current Medications: Current Medications Sig/Kev Start time Last Medication Dose Route Stop Time Status Admin Al Hydroxide/Mg 30 ML .STK-MED ONE 11/02 2239 DC Hydroxide PO 11/02 2240 Al Hydroxide/Mg 30 ML Q4-6 PRN PRN 11/02 1700 11/02 Hydroxide PO 2243 Al Hydroxide/Mg 30 ML .STK-MED ONE 11/02 1123 DC Hydroxide PO 11/02 1124 Al Hydroxide/Mg 30 ML ONCE ONE 11/02 1115 DC 11/02 Hydroxide PO 11/02 1116 1132 Albuterol Sulfate 3 ML EVERY 4 HRS/AWAKE 10/27 2000 AC 11/03 INH 0809 Aspirin Buffered 81 MG DAILY 10/28 1000 AC 11/02 PO 1014 Atorvastatin Calcium 5 MG 1700 10/27 1700 AC 11/02 PO 1619 Ciprofloxacin 500 MG BID 11/01 1035 AC 11/02 PO 11/03 2201 2245 Colchicine 600 MCG DAILY 10/28 1000 11/02 PO 1014 Cyanocobalamin 1,000 MCG DAILY 10/27 1607 AC 11/02 PO 1014 Dicyclomine HCl 10 MG BID 10/27 2200 AC 11/02 PO 2244 Diltiazem HCl 180 MG BID 10/27 2200 AC 11/02 PO 2244 Escitalopram Oxalate 5 MG DAILY 10/28 1615 AC 11/02 PO 1014 Gabapentin 200 MG TID 10/27 2200 AC 11/02 PO 2244 Glycerin 2 SPRAY Q2P PRN 11/01 1630 11/02 PO 2245 Guaifenesin 600 MG Q12 10/27 1512 11/02 PO 2245 Hydroxyurea 500 MG Q48H 10/29 1000 11/02 PO 1022 Hydroxyurea 1,000 MG Q48H 10/28 1000 AC 11/01 PO 1134 Lorazepam 0.5 MG BID PRN 10/27 1615 11/02 PO 11/03 1614 1130 Methylprednisolone 40 MG Q12 11/02 2200 AR 11/02 IV 2244 Methylprednisolone 40 MG Q8 10/27 1511 AR 11/02 IV 0621 Metoprolol Tartrate 50 MG BID 10/27 2200 11/02 PO 2245 Omeprazole 40 MG DAILY AC 10/27 1609 05/18 PO 0605 Ondansetron HCl 4 MG ONCE ONE 11/02 1615 DC 11/02 IV 11/02 1616 1618 Prednisone 40 MG BID 11/03 1000 UNVr PO Tramadol HCl 50 MG Q6P PRN 10/27 1615 AC 11/01 PO 1633 Warfarin Sodium 2 MG COUMADIN 1700 ONE 11/02 1700 DC 11/02 PO 11/02 1701 1618 Vital Signs & I&O Last 24 Hrs of Vitals and I&O: Vital Signs Date Time Temp Pulse Resp B/P B/P Pulse O2 O2 Flow FiO2 Mean Ox Delivery Rate 11/03 0832 98.8 86 19 140/81 92 Nasal 5.0L Cannula 11/03 0000 Nasal 5.0L Cannula 11/02 2332 97.9 108 20 106/72 91 Nasal Cannula 11/02 2245 102 106/72 11/02 2244 102 106/72 11/02 1629 97.5 88 90 134/80 20 Nasal 5.0L Cannula 11/02 1619 93 Nasal 5.0L Cannula 11/02 1600 Nasal 5.0L Cannula 11/02 1013 67 150/80 Intake & Output 11/03 1600 11/03 0800 11/03 0000 Intake Total 200 730 Output Total 1 Balance 200 729 Intake, IV 10 Intake, Oral 200 720 Number 1 Bowel Movements Output, Other 1 Oxygen requirements remain elevated at 5 L saturation 92% exam for chest shows diminished breath sounds there are no wheezes or crackles cardiac exam shows a regular rhythm Impression/Plan Impression/Plan Impression/Plan: 80-year-old with advanced oxygen-dependent COPD admitted with acute hypoxic respiratory failure leukocytosis and CAT scan showing bibasilar densities small effusions consistent with pneumonia. She is slowly improving but will need short-term rehabilitation hopefully in a situation that can offer pulmonary rehabilitation as well. Recommendations: Complete course of antibiotics. Slowly taper oral prednisone. She will require short-term rehabilitation. Taper FiO2 his saturations allow
--- NOTE | 2016-11-03 10:50 | PN- Att Addend ---
Attending Addendum Attending Brief Note S: The patient was seen and discussed with house staff. Pulmonary input appreciated. Slow improvement - still dyspneic and weak. O: VS: Vital Signs Date Time Temp Pulse Resp B/P B/P Pulse O2 O2 Flow FiO2 Mean Ox Delivery Rate 11/03 0957 98.8 86 19 140/81 11/03 0957 98.8 86 19 140/81 / 0832 98.8 86 19 140/81 92 Nasal 5.0L Cannula 11/03 0000 Nasal 5.0L Cannula 11/02 2332 97.9 108 20 106/72 91 Nasal Cannula 11/02 2245 102 106/72 11/02 2244 102 106/72 11/02 1629 97.5 88 90 134/80 20 Nasal 5.0L Cannula 11/02 1619 93 Nasal 5.0L Cannula 11/02 1600 Nasal 5.0L Cannula Intake & Output 11/03 1600 11/03 0800 11/03 0000 Intake Total 200 730 Output Total 1 Balance 200 729 Intake, IV 10 Intake, Oral 200 720 Number 1 Bowel Movements Output, Other 1 Current Medications Sig/Kev Start time Last Medication Dose Route Stop Time Status Admin Al Hydroxide/Mg 30 ML .STK-MED ONE 11/02 2239 DC Hydroxide PO 11/02 2240 Al Hydroxide/Mg 30 ML Q4-6 PRN PRN 11/02 1700 AC 11/02 Hydroxide PO 2243 Al Hydroxide/Mg 30 ML .STK-MED ONE 11/02 1123 DC Hydroxide PO 11/02 1124 Al Hydroxide/Mg 30 ML ONCE ONE 11/02 1115 DC 11/02 Hydroxide PO 11/02 1116 1132 Albuterol Sulfate 3 ML EVERY 4 HRS/AWAKE 10/27 2000 AC 11/03 INH 0809 Aspirin Buffered 81 MG DAILY 10/28 1000 AC 11/03 PO 0958 Atorvastatin Calcium 5 MG 1700 10/27 1700 AC 11/02 PO 1619 Ciprofloxacin 500 MG BID 11/01 1035 AC 11/03 PO 11/03 220 0958 Colchicine 600 MCG DAILY 10/28 1000 AC 11/03 PO 0958 Cyanocobalamin 1,000 MCG DAILY 10/27 1607 AC 11/03 PO 0957 Dicyclomine HCl 10 MG BID 10/27 2200 AC 11/03 PO 0958 Diltiazem HCl 180 MG BID 10/27 2200 AC 11/03 PO 0957 Escitalopram Oxalate 5 MG DAILY 10/28 1615 AC 11/03 PO 0958 Gabapentin 200 MG TID 10/27 2200 AC 11/03 PO 0957 Glycerin 2 SPRAY Q2P PRN 11/01 1630 AC 11/02 PO 2245 Guaifenesin 600 MG Q12 10/27 1512 AC 11/03 PO 0957 Hydroxyurea 500 MG Q48H 10/29 1000 AC 11/02 PO 1022 Hydroxyurea 1,000 MG Q48H 10/28 1000 AC 11/03 PO 0957 Lorazepam 0.5 MG BID PRN 10/27 1615 AC 11/02 PO 11/03 1614 1130 Methylprednisolone 40 MG Q12 11/02 2200 DC 11/02 IV 2244 Methylprednisolone 40 MG Q8 10/27 1511 DC 11/02 IV 0621 Metoprolol Tartrate 50 MG BID 10/27 2200 AC 11/03 PO 0957 Omeprazole 40 MG DAILY AC 10/27 1609 AC 11/03 PO 0605 Ondansetron HCl 4 MG ONCE ONE 11/02 1615 DC 11/02 IV 11/02 1616 1618 Prednisone 40 MG BID 11/03 1000 AC PO Tramadol HCl 50 MG Q6P PRN 10/27 1615 AC 11/01 PO 1633 Warfarin Sodium 2 MG COUMADIN 1700 ONE 11/03 1700 AC PO 11/03 1701 Warfarin Sodium 2 MG COUMADIN 1700 ONE 11/02 1700 DC 11/02 PO 11/02 1701 1618 Chest: Cor: Abd: Ext: Labs/Tests: Laboratory Tests 11/03/16 0615: PT 28.0 H, INR 2.69 H 11/02/16 0620: PT 28.6 H, INR 2.75 H Impression/Plan: This patient was originally admitted to the general medical floor on 10/28 and due to respiratory failure was transferred the same day to ICU. Was transferred from ICU on 10/29 to telemetry floor for further care. She carries a diagnosis of hospital acquired pneumonia (?aspiration) as well as acute and chronic hypoxic respiratory failure and COPD with paroxysmal atrial fibrillation. She has required BIPAP and IV antibiotics and Solumedrol. Is severely deconditioned and still requires 5 L/Min nasal oxygen at rest. I feel strongly that this patient would greatly benefit from Pulmonary Rehabilitation at [place] to maximize her meaningful recovery as she was independent at home prior to admission. She has a complex medical history and has been severely deconditioned due to her illness. She requires intensive PT/OT as well as pulmonary rehabilitation which would be best delivered at that facility ([facility]).
--- NOTE | 2016-11-03 12:52 | NUR ---
SPEECH THERAPY: ATTEMPTED TO COMPLETE VISUALIZATION STUDY (MBS) TODAY, HOWEVER, RADIOLOGIST UNAVAILABLE. PER CASE MANAGEMENT, PT HAS ANTICIPATED D/C TOMORROW. WILL ATTEMPT TO COMPLETE MBS TOMORROW PRIOR TO D/C. D/W PT, RN, AND TEXT PAGE SENT TO .
--- NOTE | 2016-11-03 13:31 | PN- Cardiology ---
Subjective Subjective: Stable without new CV symptoms or issues. REmains dyspneic. Objective Vital Signs and I&Os Vital Signs Date Time Temp Pulse Resp B/P B/P Pulse O2 O2 Flow FiO2 Mean Ox Delivery Rate 11/03 1126 Nasal 5.0L Cannula 11/03 0957 98.8 86 19 140/81 11/03 0957 98.8 86 19 140/81 11/03 0832 98.8 86 19 140/81 92 Nasal 5.0L Cannula 11/03 0825 93 Nasal 5.0L Cannula 11/03 0800 93 Nasal 5.0L Cannula 11/03 0000 Nasal 5.0L Cannula 11/02 2332 97.9 108 20 106/72 91 Nasal Cannula 11/02 2245 102 106/72 11/02 2244 102 106/72 11/02 1629 97.5 88 90 134/80 20 Nasal 5.0L Cannula 11/02 1619 93 Nasal 5.0L Cannula 11/02 1600 Nasal 5.0L Cannula Intake & Output 11/03 1600 11/03 0800 11/03 0000 11/02 1600 11/02 0800 11/02 0000 Intake Total 200 730 440 200 260 Output Total 1 400 Balance 200 729 40 200 260 Intake, IV 10 Intake, Oral 200 720 440 200 260 Number 1 2 Bowel Movements Output, Other 1 Output, Urine 400 Current Medications: Current Medications Sig/Kev Start time Last Medication Dose Route Stop Time Status Admin Al Hydroxide/Mg 30 ML .STK-MED ONE 11/02 2238 DC Hydroxide PO 11/02 2240 Al Hydroxide/Mg 30 ML Q4-6 PRN PRN 11/02 1700 AC 11/03 Hydroxide PO 1136 Albuterol Sulfate 3 ML EVERY 4 HRS/AWAKE 10/27 2000 AC 11/03 INH 1146 Aspirin Buffered 81 MG DAILY 10/28 1000 AC 11/03 PO 0958 Atorvastatin Calcium 5 MG 1700 10/27 1700 AC 11/02 PO 1619 Ciprofloxacin 500 MG BID 11/01 1035 AC 11/03 PO 11/03 2200 0958 Colchicine 600 MCG DAILY 10/28 1000 AC 11/03 PO 0958 Cyanocobalamin 1,000 MCG DAILY 10/27 1607 AC 11/03 PO 0957 Dicyclomine HCl 10 MG BID 10/27 2200 AC 11/03 PO 0958 Diltiazem HCl 180 MG BID 10/27 2200 AC 11/03 PO 0957 Escitalopram Oxalate 5 MG DAILY 10/28 1615 AC 11/03 PO 0958 Gabapentin 200 MG TID 10/27 2200 AC 11/03 PO 0957 Glycerin 2 SPRAY Q2P PRN 11/01 1630 AC 11/03 PO 1141 Guaifenesin 600 MG Q12 10/27 1512 AC 11/03 PO 0957 Hydroxyurea 500 MG Q48H 10/29 1000 AC 11/02 PO 1022 Hydroxyurea 1,000 MG Q48H 10/28 1000 AC 11/03 PO 0957 Lorazepam 0.5 MG BID PRN 10/27 1615 AC 11/02 PO 11/03 1614 1130 Methylprednisolone 40 MG Q12 11/02 2200 DC 11/02 IV 2244 Methylprednisolone 40 MG Q8 10/27 1511 DC 11/02 IV 0621 Metoprolol Tartrate 50 MG BID 10/27 2200 AC 11/03 PO 0957 Omeprazole 40 MG DAILY AC 10/27 1609 AC 11/03 PO 0605 Ondansetron HCl 4 MG ONCE ONE 11/02 1615 DC 11/02 IV 11/02 1616 1618 Prednisone 40 MG BID 11/03 1000 AC 11/03 PO 1136 Tramadol HCl 50 MG Q6P PRN 10/27 1615 AC 11/01 PO 1633 Warfarin Sodium 2 MG COUMADIN 1700 ONE 11/03 1700 AC PO 11/03 1701 Warfarin Sodium 2 MG COUMADIN 1700 ONE 11/02 1700 DC 11/02 PO 11/02 1701 1618 Results Last 48 Hrs of Labs/Mics: Laboratory Tests 11/03/16 0615: PT 28.0 H, INR 2.69 H 11/02/16 0620: PT 28.6 H, INR 2.75 H Assessment/Plan Assessment/Plan Assessment: 1. HCA pneumonia 2. AF 3. COPD Recommendations: - COntinue current management as per the medical team. - Please notify us if any new cardiac issues arise or if any further input from cardiology is required.
[2016-11-03 16:02] VITALS: BP 140/68
[2016-11-03 16:06] VITALS: BP 128/78
[2016-11-03 23:52] VITALS: BP 100/64
--- NOTE | 2016-11-04 08:16 | PN- Pulmonary ---
Subjective HPI/Critical Care Issues: Patient remains extremely weak. Now on FiO2 45%. Objective Current Medications: Current Medications Sig/Kev Start time Last Medication Dose Route Stop Time Status Admin Al Hydroxide/Mg 30 ML .STK-MED ONE 11/03 1812 DC Hydroxide PO 11/03 1813 Al Hydroxide/Mg 30 ML .STK-MED ONE 11/03 1136 DC Hydroxide PO 11/03 1137 Al Hydroxide/Mg 30 ML Q4-6 PRN PRN 11/02 1700 AC 11/03 Hydroxide PO 1811 Albuterol Sulfate 3 ML EVERY 4 HRS/AWAKE 10/27 2000 AC 11/04 INH 0811 Aspirin Buffered 81 MG DAILY 10/28 1000 AC 11/03 PO 0958 Atorvastatin Calcium 5 MG 1700 10/27 1700 AC 11/03 PO 1704 Ciprofloxacin 500 MG BID 11/01 1035 DC 11/03 PO 11/03 2201 2200 Colchicine 600 MCG DAILY 10/28 1000 AC 11/03 PO 0958 Cyanocobalamin 1,000 MCG DAILY 10/27 1607 AC 11/03 PO 0957 Dicyclomine HCl 10 MG BID 10/27 2200 AC 11/03 PO 2200 Diltiazem HCl 180 MG BID 10/27 2200 AC 11/03 PO 2200 Escitalopram Oxalate 5 MG DAILY 10/28 1615 AC 11/03 PO 0958 Gabapentin 200 MG TID 10/27 2200 AC 11/03 PO 2200 Glycerin 2 SPRAY Q2P PRN 11/01 1630 AC 11/03 PO 1141 Guaifenesin 600 MG Q12 10/27 1512 AC 11/03 PO 2200 Hydroxyurea 500 MG Q48H 10/29 1000 AC 11/02 PO 1022 Hydroxyurea 1,000 MG Q48H 10/28 1000 AC 11/03 PO 0957 Lorazepam 0.5 MG BID PRN 10/27 1615 DC 11/02 PO 11/03 1614 1130 Methylprednisolone 40 MG Q12 11/02 2200 DC 11/02 IV 2244 Metoprolol Tartrate 50 MG BID 10/27 2200 AC 11/03 PO 2200 Omeprazole 40 MG DAILY AC 10/27 1609 AC 11/04 PO 0641 Patient Medication 1 ED .STK-MED ONE 11/03 1428 DC Teaching ED 11/03 1429 Prednisone 40 MG BID 11/03 1000 AC 11/03 PO 2200 Tramadol HCl 50 MG Q6P PRN 10/27 1615 AC 11/01 PO 1633 Warfarin Sodium 2 MG COUMADIN 1700 ONE 11/03 1700 DC 11/03 PO 11/03 1701 1704 Vital Signs & I&O Last 24 Hrs of Vitals and I&O: Vital Signs Date Time Temp Pulse Resp B/P B/P Pulse O2 O2 Flow FiO2 Mean Ox Delivery Rate 11/03 2352 98.4 98 16 100/64 92 Nasal Cannula 11/03 2200 95 100/74 11/03 2200 95 100/74 11/03 1636 92 Nasal 5.0L Cannula 11/03 1606 98.1 87 17 128/78 93 Nasal 5.0L Cannula 11/03 1602 98.2 80 16 140/68 95 Room Air 11/03 1600 90 Nasal 5.0L Cannula 11/03 1126 Nasal 5.0L Cannula 11/03 0957 98.8 86 19 140/81 / 0957 98.8 86 19 140/81 11/03 0832 98.8 86 19 140/81 92 Nasal 5.0L Cannula 11/03 0825 93 Nasal 5.0L Cannula Exam for chest shows diminished breath sounds there are no wheezes cardiac exam shows regular S1 and S2 Impression/Plan Impression/Plan Impression/Plan: 80-year-old with advanced oxygen-dependent COPD admitted with acute hypoxic respiratory failure leukocytosis and CAT scan showing bibasilar densities small effusions consistent with pneumonia. She is slowly improving but will need short-term rehabilitation hopefully in a situation that can offer pulmonary rehabilitation as well. She remains extremely weak and debilitated. Recommendations: Complete course of antibiotics. Slowly taper oral prednisone. She will require short-term rehabilitation. Taper FiO2 his saturations allow. In view of higher oxygen requirements would obtain chest x-ray
[2016-11-04 08:18] LABS: PT 29.9 SEC (9.4-12.5)
[2016-11-04 08:36] VITALS: BP 108/66
--- NOTE | 2016-11-04 11:04 | RADIOLOGY REPORT ---
EXAMINATION: XR PORTABLE CHEST CLINICAL INFORMATION: Hypoxia COMPARISON: 10/30/[address] pulmonary angiogram 10/27/2016. TECHNIQUE: Portable frontal view of the chest was obtained. FINDINGS: Since the previous study there has been considerable improvement in the bilateral airspace disease with some partial clearing. There still remains some airspace disease at the right base as well as at the left base with probable collapse/consolidation of the left lower lobe. This was well seen on the prior CT scan. The heart size is normal and there is no evidence of CHF. A left effusion cannot be excluded. IMPRESSION: Some improvement in appearances but there is still bibasilar airspace disease present.
--- NOTE | 2016-11-04 12:22 | PN- Housestaff ---
See Addendum Subjective Follow-up For: 1. Acute on chronic respiratory failure 2. Pneumonia 3. Paroxysmal atrial fibrillation 4. Depression and anxiety 5. Right upper lobe spiculated mass Tele-Events Since Last Visit: Atrial fibrillation/flutter, heart rate 73-94. At 7 AM she had a run of 5 beats O2 [place] 89 Subjective: Afebrile, hemodynamically stable, saturating lower 90s on 5 L oxygen nasal cannula. No overnight acute events were reported. Patient still reporting shortness breath but denies chest pain or palpitation. Review of Systems Constitutional: Reports: see HPI. Objective Last 24 Hrs of Vital Signs/I&O Vital Signs Date Time Temp Pulse Resp B/P B/P Pulse O2 O2 Flow FiO2 Mean Ox Delivery Rate 11/04 1217 96 120/70 11/04 1129 93 Venti Mask 55% 11/04 0836 98.6 73 23 108/66 91 Nasal 5.0L Cannula 11/04 0800 Venti Mask 55% 11/03 2352 98.4 98 16 100/64 92 Nasal Cannula 11/03 2200 95 100/74 11/03 2200 95 100/74 11/03 1636 92 Nasal 5.0L Cannula 11/03 1606 98.1 87 17 128/78 93 Nasal 5.0L Cannula 11/03 1602 98.2 80 16 140/68 95 Room Air 11/03 1600 90 Nasal 5.0L Cannula Intake & Output 11/04 1600 11/04 0800 11/04 0000 Intake Total 400 100 Output Total Balance 400 100 Intake, Oral 400 100 Number 1 1 Bowel Movements Physical Exam General Appearance: Alert, Oriented X3, Cooperative, No Acute Distress HEENT: Atraumatic, PERRLA, EOMI, Mucous Membr. moist/pink Cardiovascular: Normal S1, Normal S2, No Murmurs, irregular Lungs: diminished breath sounds B/L Abdomen: Normal Bowel Sounds, Soft, No Tenderness Neurological: Normal Speech Extremities: No Clubbing, No Cyanosis, No Edema Current Medications: Current Medications Sig/Kev Start time Last Medication Dose Route Stop Time Status Admin Al Hydroxide/Mg 30 ML .STK-MED ONE 11/03 181 DC Hydroxide PO 11/03 181 Al Hydroxide/Mg 30 ML Q4-6 PRN PRN 11/02 1700 AC 11/04 Hydroxide PO 1229 Albuterol Sulfate 3 ML EVERY 4 HRS/AWAKE 10/28 1999 AC 11/04 INH 1128 Aspirin Buffered 81 MG DAILY 10/28 1000 AC 11/04 PO 1223 Atorvastatin Calcium 5 MG 1700 10/27 1700 AC 11/03 PO 1704 Ciprofloxacin 500 MG BID 11/01 1035 DC 11/03 PO 11/03 220 2200 Colchicine 600 MCG DAILY 10/28 1000 AC 11/04 PO 1222 Cyanocobalamin 1,000 MCG DAILY 10/27 1607 AC 11/04 PO 1223 Dicyclomine HCl 10 MG BID 10/27 2200 AC 11/04 PO 1217 Diltiazem HCl 180 MG BID 10/27 2200 AC 11/04 PO 1217 Escitalopram Oxalate 5 MG DAILY 10/28 1615 AC 11/04 PO 1222 Gabapentin 200 MG TID 10/27 2200 AC 11/04 PO 1218 Glycerin 2 SPRAY Q2P PRN 11/01 1630 AC 11/03 PO 1141 Guaifenesin 600 MG Q12 10/27 1512 AC 11/04 PO 1218 Hydroxyurea 500 MG Q48H 10/29 1000 AC 11/04 PO 1223 Hydroxyurea 1,000 MG Q48H 10/28 1000 AC 11/03 PO 0957 Lorazepam 0.5 MG BID PRN 10/27 1615 DC 11/02 PO 11/03 1614 1130 Metoprolol Tartrate 50 MG BID 10/27 2200 AC 11/04 PO 1218 Omeprazole 40 MG DAILY AC 10/27 1609 AC 11/04 PO 0641 Potassium Chloride 40 MEQ ONCE ONE 11/04 1030 DC 11/04 PO 11/04 1031 1224 Prednisone 40 MG BID 11/03 1000 AC 11/04 PO 1218 Tramadol HCl 50 MG Q6P PRN 10/27 1615 AC 11/01 PO 1633 Warfarin Sodium 2 MG COUMADIN 1700 ONE 11/03 1700 DC 11/03 PO 11/03 1701 1704 Last 24 Hrs of Lab/[place] Results Last 24 Hrs of Labs/Mics: Laboratory Tests 11/04/16 0615: PT 29.9 H, INR 2.88 H Assessment/Plan Assessment: #Acute hypoxic respiratory failure most likely secondary to hospital-acquired pneumonia Most likely secondary to underlying infectious etiology in the setting of baseline COPD. She was continued on BiPAP alternating with high flow nasal cannula to maintain a saturation of >92%. A PE was ruled out with negative CTA. Patient was started and continued on IV solumedrol then switch to oral prednisone * keep saturation above 92 * Total respiratory care * Continue ciprofloxacin * Decreased PO Prednisone to 40mg BID #Atrial fibrillation Patient found to be in atrial fibrillation post-ORIF during last admission and discharged on cardizem, metoprolol and coumadin. Patient had her INR trended daily. She was initiall subtherapeutic and given higher doses of coumadin, but as she was continued on antibiotics she became supratherapeutic and her coumadin was held while she was on ICU. Her INR is back to therapeutic so we started Coumadin * continue Cardizem and metoprolol * We will does Coumadin 2 mg #Depression Patient endorsed depression and anxiety during ICU stay, secondary to respiratory distress. Psychiatric consult was obtained * Continue 5 mg PO daily lexapro. * Continued ativan 0.5 mg PO BID for anxiety. 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 * Follow up as an outpatient with pulmonology. #Hyperlipidemia * Continue statin #Acid reflux * Continue PPI #Irritable bowel syndrome * Continue dicyclomine #Pseudogout Continue home dose of colchicine #Essential thrombocytosis * Continue home dose of hydroxyurea #Supplements * Continue calcium carbonate, vitamin D, multivitamins full code DVT prophylaxis: She is supratherapeutic, hold Coumadin. regular diet Problem List: 1. GERD 2. Healthcare-associated pneumonia 3. Afib Pain Ratin Pain Location: NA Pain Goal: Remain pain free Pain Plan: See A&P Tomorrow's Labs & Rationales: none as patient stable Consulting Request: Consulting Specialty: Pulmonary Disease Consulting Physician: Shay Pal MD Reason for Consult: hospital-acquired pneumonia
--- NOTE | 2016-11-04 12:50 | RADIOLOGY REPORT ---
EXAMINATION: XR MODIFIED BARIUM SWALLOW CLINICAL INFORMATION: Dysphagia. CVA. Confusion. COMPARISON: None TECHNIQUE: Modified barium swallow was performed with speech therapist. FINDINGS: Penetration and aspiration was noted with nectar. Full procedural detail will be dictated by the speech therapist. FLUOROSCOPY TIME: 1 minute 40 seconds NUMBER OF IMAGES: 9 IMPRESSION: Abnormal modified barium swallow study with evidence of penetration, and aspiration. Full procedural detail will be dictated by the speech therapist.
[2016-11-04 16:43] VITALS: BP 117/76
[2016-11-04 23:00] VITALS: BP 132/87
[2016-11-05 08:18] LABS: PT 33.1 SEC (9.4-12.5)
--- NOTE | 2016-11-05 08:26 | PN- Housestaff ---
AZEEM WEBER,[facility] 11/05/16 0826: Subjective Follow-up For: 1. Acute on chronic respiratory failure 2. Pneumonia 3. Paroxysmal atrial fibrillation 4. Depression and anxiety 5. Right upper lobe spiculated mass Tele-Events Since Last Visit: A flutter, 71 - 86 COntinuous pulse Ox 89% on high flow oxygen at 70% Fio2 in am, over night on BIPAP Subjective: The patient was seen and examined. She looks tired and lethargic, and also reported that she feels very tired and intermittently short of breath. She also reportedly extremely thirsty and wanted to have water. She was placed on high flow nasal cannula and BiPAP was stopped early in the morning. Oxygen saturation continues to increase. Review of Systems Constitutional: Reports: see HPI. Cardiovascular: Reports: no symptoms. Respiratory: Reports: short of breath. Gastrointestinal: Reports: no symptoms. Genitourinary: Reports: no symptoms. Musculoskeletal: Reports: no symptoms. Objective Last 24 Hrs of Vital Signs/I&O Vital Signs Date Time Temp Pulse Resp B/P B/P Pulse O2 O2 Flow FiO2 Mean Ox Delivery Rate 11/05 0941 83 126/86 11/05 0941 83 126/86 11/05 0829 97.9 83 22 126/86 89 Nasal 70% Cannula 11/05 0821 90 Nasal 70% Cannula 11/05 0000 95 Part 60% ReBreather 11/04 2300 97.6 107 22 132/87 92 Venti Mask 11/04 2246 100 116/70 11/04 2246 100 116/70 Intake & Output 11/05 1600 11/05 0800 11/05 0000 Intake Total 60 375 Output Total Balance 60 375 Intake, IV 10 Intake, Oral 50 375 Number 2 2 Bowel Movements Physical Exam General Appearance: Alert, Oriented X3, Cooperative, Mild Distress HEENT: very dry mucous membranes Neck: No JVD Cardiovascular: Normal S1, Normal S2, No Murmurs, irregularly irregular Lungs: diminished breath sounds, minimal wheezing Abdomen: Normal Bowel Sounds, Soft, No Tenderness, No Hepatospenomegaly Neurological: Normal Speech, Strength at 5/5 X4 Ext, Normal Tone, Sensation Intact Extremities: Normal Pulses, trace bilateral leg edema Vascular: Pulses Symmetrical Current Medications: Current Medications Sig/Kev Start time Last Medication Dose Route Stop Time Status Admin Al Hydroxide/Mg 30 ML .STPlaceFull-MED ONE 11/04 1746 DC Hydroxide PO 11/04 1747 Al Hydroxide/Mg 30 ML Q4-6 PRN PRN 11/02 1700 DCD 11/05 Hydroxide PO 1120 Albuterol Sulfate 3 ML EVERY 4 HRS/AWAKE 10/27 2000 DCD 11/05 INH 0756 Aspirin Buffered 81 MG DAILY 10/28 1000 DCD 11/05 PO 0941 Atorvastatin Calcium 5 MG 1700 10/27 1700 DCD 11/04 PO 1748 Colchicine 600 MCG DAILY 10/28 1000 DCD 11/05 PO 0941 Cyanocobalamin 1,000 MCG DAILY 10/27 1607 DCD 11/05 PO 0941 Dicyclomine HCl 10 MG BID 10/27 2200 DCD 11/05 PO 0940 Diltiazem HCl 180 MG BID 10/27 220 DCD 11/05 PO 0941 Escitalopram Oxalate 5 MG DAILY 10/28 1615 DCD 11/05 PO 0941 Gabapentin 200 MG TID 10/27 2200 DCD 11/05 PO 0941 Glycerin 2 SPRAY Q2P PRN 11/01 1630 DCD 11/05 PO 1120 Guaifenesin 600 MG Q12 10/27 1512 DCD 11/05 PO 0941 Hydroxyurea 500 MG Q48H 10/29 1000 DCD 11/04 PO 1223 Hydroxyurea 1,000 MG Q48H 10/28 1000 DCD 11/05 PO 0942 Lorazepam 2 MG Q1H PRN 11/05 1345 DCD IV Metoprolol Tartrate 50 MG BID 10/27 2200 DCD 11/05 PO 0941 Morphine Sulfate 4 MG Q1 PRN 11/05 1345 DCD IV Omeprazole 40 MG DAILY AC 10/27 1609 DCD 11/05 PO 0536 Prednisone 40 MG BID 11/03 1000 DCD 11/05 PO 0941 Tramadol HCl 50 MG Q6P PRN 10/27 1615 DCD 11/01 PO 1633 Assessment/Plan Assessment: 80-year-old with advanced oxygen-dependent COPD admitted with acute hypoxic respiratory failure leukocytosis and CAT scan showing bibasilar densities small effusions consistent with pneumonia, admitted on October 27. She remains extremely weak and debilitated. 1. Acute hypoxic respiratory failure most likely secondary to hospital-acquired pneumonia The patient has history of oxygen dependent COPD, history of lung cancer status post chemotherapy, and has had frequent admissions to [facility] for acute on chronic respiratory failure. Single lung disease and her processes poor. On this admissions her symptoms are likely secondary to underlying infectious etiology in the setting of baseline COPD. She was continued on BiPAP alternating with high flow nasal cannula to maintain a saturation of >92%. A PE was ruled out with negative CTA. Patient was started and continued on IV solumedrol then switch to oral prednisone. - Due to bibasilar opacities on the chest CT, there was suspicion of aspiration pneumonia versus persistent pneumonia initially she was started on IV Ceptaz edema vancomycin which was changed to by mouth ciprofloxacin and has successfully completed the course of antibiotics - Today the patient seemed lethargic, although minial wheezing her oxygen requirements are constantly going high, currently she isn't having oxygen of 70% FiO2. - We'll check CT scan of the chest without contrast - Although she was transitioned to by mouth steroids, will start her on IV Solu- Medrol again today 40 mg every 8 hours and continue to monitor - We'll follow pulmonary input 2. Atrial fibrillation Patient found to be in atrial fibrillation post-ORIF during last admission and discharged on cardizem, metoprolol and coumadin. Patient had her INR trended daily. She was initiall subtherapeutic and given higher doses of coumadin, but as she was continued on antibiotics she became supratherapeutic and her coumadin was held while she was on ICU. Her INR is back to therapeutic so we started Coumadin - Will continue Cardizem and metoprolol - INR 3.16 today, will hold Coumadin 3. Depression Patient endorsed depression and anxiety during ICU stay, secondary to respiratory distress. Psychiatric consult was obtained - Continue 5 mg PO daily lexapro. - Continued ativan 0.5 mg PO BID for anxiety. - Continue to follow psych 4. Right upper lobe spiculated mass and left upper lobe lung nodule Seen on CT scan on admission, stable from prior (patient has history of nolberto cancer s/p 5 cycles of radiation). - Follow up as an outpatient with pulmonology. 5. Hyperlipidemia: Continue statin 6. Acid reflux: Continue PPI 7. Irritable bowel syndrome: Continue dicyclomine 8. Pseudogout: Continue home dose of colchicine 9. Essential thrombocytosis: Continue home dose of hydroxyurea 10. Supplements: Continue calcium carbonate, vitamin D, multivitamins DVT prophylaxis: She is supratherapeutic, hold Coumadin. Heart healthy diet: Honey thick, mechanical soft Full CODE STATUS Problem List: 1. Acute and chronic respiratory failure with hypoxia 2. Afib Pain Ratin Pain Location: none Pain Goal: Remain pain free Pain Plan: PRN Tylenol Tomorrow's Labs & Rationales: None DVT/Prophylaxis: pharmacological Consulting Request: Consulting Specialty: Pulmonary Disease Consulting Physician: Shay Pal MD Reason for Consult: hospital-acquired pneumonia WEST WEBER,ALYSHA 11/05/16 1052: Attending MD Review Statement Attending Statement Attending MD Statement: examined this patient, discuss w/resident/PA/HOSTEL PARENT, agreed w/resident/PA/HOSTEL PARENT, reviewed EMR data (avail), reviewed images Attending Assessment/Plan: Pt is fail appearing weak and tired and extremely thirsty. She is a 80-year-old has been here now since October 27 and her ongoing issue is acute hypoxemic respiratory failure requiring almost 55-70% high flow O2. She has underlying severe emphysema and is on prednisone 40 by mouth twice a day at this point and she finished a seven-day course (10/27-11/03) of antibiotics for a presumed UTI. She has dysphagia and is on a very restricted diet with only thickened liquids. The etiology of the worsening O2 requirement is unclear at this point. Clinically she doesn't appear to be in heart failure and yesterday's chest x-ray actually shows slight improving of the opacities. Will have pulmonary follow- up. Her INR is supratherapeutic , she doesn't need any Coumadin today and I'm not worried about a PE. My concern is whether we should blame this all on the underlying COPD/emphysematous changes or should we pursue a noncontrast chest CT.
[2016-11-05 08:29] VITALS: BP 126/86
[2016-11-05 09:41] VITALS: BP 126/86
--- NOTE | 2016-11-05 13:39 | Event Note ---
Event Note Event Note: A code was called ar 12:50 Pm when the patient went into bradycardia and then became completely unresponsiveness while she was having her lunch with he nurse' s tech at bed side. CPR was started immediately and she was also intubated. The patient was found to be in PEA (puleselss electrical activity). Dr. Landers, Dr. Crews, and Dr. Crain were present at the time of code 3. Full ACLS/CPR protocol was followed, with Ms. Leon receiving a total of 5 doses of epinephrine, 1 dose of bicarb. The patient had return of spontaneous circulation at 1:06 PM but remained bardycardiac on the seismograph supervisor. Carrillo blood was coming out of the endotracheal tube. A call was placed to the patient's son, Yovany, and Daughter Ana Maria. One of her cousins was present in the hospital at that time. Given the fact that full ACLS protocol was followed with all measured undertaken, she had a poor prognosis and the liklihood of full recovery was very low, after a discussion with the family, she was made comfort measures only and was terminally extuibated. To make her pain free and more comfortable, she was given IV Morphine and IV Valium. Ms. Leon was pronounced at 1:39 PM. The family was informed and were provided emotional support.
--- NOTE | 2016-11-05 13:46 | PN- CRCU ---
Subjective HPI/Critical Care Issues: Cardiac arrest was called at 1250. The patient was found to be in PE a period after run of appropriate CPR/ACLS protocol epinephrine was given multiple times. The patient had return of spontaneous circulation however bradycardic. In discussion with the family comfort measures will be pursued and the patient was extubated with anxiolysis and pain control. Objective Current Medications: Current Medications Sig/Kev Start time Last Medication Dose Route Stop Time Status Admin Al Hydroxide/Mg 30 ML .STK-MED ONE 11/04 1745 DC Hydroxide PO 11/04 1746 Al Hydroxide/Mg 30 ML Q4-6 PRN PRN 11/02 1700 AC 11/05 Hydroxide PO 1120 Albuterol Sulfate 3 ML EVERY 4 HRS/AWAKE 10/27 2000 AC 11/05 INH 0756 Aspirin Buffered 81 MG DAILY 10/28 1000 AC 11/05 PO 0941 Atorvastatin Calcium 5 MG 1700 10/27 1700 AC 11/04 PO 1748 Colchicine 600 MCG DAILY 10/28 1000 AC 11/05 PO 0941 Cyanocobalamin 1,000 MCG DAILY 10/27 1607 AC 11/05 PO 0941 Dicyclomine HCl 10 MG BID 10/27 2200 AC 11/05 PO 0940 Diltiazem HCl 180 MG BID 10/27 2200 AC 11/05 PO 0941 Escitalopram Oxalate 5 MG DAILY 10/28 1615 AC 11/05 PO 0941 Gabapentin 200 MG TID 10/27 2200 AC 11/05 PO 0941 Glycerin 2 SPRAY Q2P PRN 11/01 1630 AC 11/05 PO 1120 Guaifenesin 600 MG Q12 10/27 1512 AC 11/05 PO 0941 Hydroxyurea 500 MG Q48H 10/29 1000 AC 11/04 PO 1223 Hydroxyurea 1,000 MG Q48H 10/28 1000 AC 11/05 PO 0942 Lorazepam 2 MG Q1H PRN 11/05 1345 UNVr IV Metoprolol Tartrate 50 MG BID 10/27 2200 AC 11/05 PO 0941 Morphine Sulfate 4 MG Q1 PRN 11/05 1345 UNVr IV Omeprazole 40 MG DAILY AC 10/27 1609 AC 11/05 PO 0536 Prednisone 40 MG BID 11/03 1000 AC 11/05 PO 0941 Tramadol HCl 50 MG Q6P PRN 10/27 1615 AC 11/01 PO 1633 Warfarin Sodium 2 MG COUMADIN 1700 ONE 11/04 1700 DC 11/04 PO 11/04 1701 1748 Vital Signs & I&O Last 24 Hrs of Vitals and I&O: Vital Signs Date Time Temp Pulse Resp B/P B/P Pulse O2 O2 Flow FiO2 Mean Ox Delivery Rate 11/05 0941 83 126/86 11/05 0941 83 126/86 11/05 0829 97.9 83 22 126/86 89 Nasal 70% Cannula 11/05 0821 90 Nasal 70% Cannula 11/05 0000 95 Part 60% ReBreather 11/04 2300 97.6 107 22 132/87 92 Venti Mask 11/04 2246 100 116/70 11/04 2246 100 116/70 11/04 1643 98.7 77 23 117/76 91 Nasal 55% Cannula 11/04 1600 90 Venti Mask 55% 11/04 1545 90 Venti Mask 55% Intake & Output 11/05 1600 11/05 0800 11/05 0000 Intake Total 60 375 Output Total Balance 60 375 Intake, IV 10 Intake, Oral 50 375 Number 2 2 Bowel Movements Exam Other Physical Findings: Gen - unresponsive HEENT - ET tube CVS - S1, S2 Lungs - transmitted breath sounds Abdomen - grossly not distended Ext - no edema, no cyanosis Results Last 24 Hrs of Lab Results: Laboratory Tests 11/05/16 0615: PT 33.1 H, INR 3.19 H Impression/Plan Impression/Plan Impression/Plan: Cardiac arrest was called at 1250. The patient was found to be in PE a period after run of appropriate CPR/ACLS protocol epinephrine was given multiple times. The patient had return of spontaneous circulation however bradycardic. In discussion with the family comfort measures will be pursued and the patient was extubated with anxiolysis and pain control. TTS 40 minutes Code Status: Full Code
--- NOTE | 2016-11-05 14:00 | NUR ---
AT 1250-CALLED BY RN TO ASSESS PT FOR UNRESPONSIVENESS, RN AND MYSELF AGREE PT IN BRADYCARDIA RESP ARREST, CODE 3 CALLED, I MASK/BAGGED PT W/ O2 CPR PERFORMED. SX LG AMT ELIZABETH LIQUID FROM MOUTH. THIS RT INTUBATED PT ABOUT 1300 #7.5CM ETT ONRTAT 24CM. CO2 MONITOR EXCHANGE GOOD YELLOW/PURPLE.B/S EQUAL PER AC/RT. LG AMTS ANDREW RED THIN BLOOD FROM ETT. NO SIGNIFICANT RESPONSE AFTER CPR/MEDS. CODE CALLED OFF AT [address] HERNANDEZ. AFTER CODE STOPPED PT HAD SOME CARDIAC ACTIVITY ,AGONAL RESP EFFORT. I KEPT PT ATTACHED TO BAG WITH O2 ,SX AIRWAY-BLOOD.PER FAMILY PT IS COMFORT CARE NOW. RECEINING COMFORT MEDS. PT
--- NOTE | 2016-11-05 15:32 | PN- Att Addend ---
Attending Addendum Attending Brief Note I was present through the code 3. Patient went to cardiac arrest with PEA on the monitor. Dr. Landers and Dr. Garcia ran the code with the residents. Full ACLS protocol was followed with the patient intubated and the PEA protocol was followed. On intubation shantal blood was coming out of her ET tube. We contacted the patient's son Yovany and her daughter Ana Maria. They both arrived and we spoke today at length. Given that the code had gone on, all measures done and there was no hope of meaningful recovery, at that point she was changed to comfort measures. She was extubated and was given some morphine for comfort and shortly thereafter. Emotional support was provided and the automotive drivability technician was called as well.
--- NOTE | 2016-11-05 15:39 | NUR ---
Approximately 1250p this RN responded to overhead page Code 3, arrived to room to find CPR in progress. Patient last observed at approximately 1230 by this RN was being fed lunch was conversational. See Code Sheet for medications adn interventions. Code called off at 1306 after discussion with family patient made comfort measures. Pt 1339, Admitting called, ARSH talked to MD Grijalva. Called back and requested next of kin information Family to take belongings. Dentures in place. Postmortem care performed.
== END 2016-11-05 13:39 | disposition expired | DRG 190 ==
LOC: ERH 12:14 → ERHI 14:29 → 1NO 14:29 → CRI 14:29 → ENRESERV 15:37 → 2NB 17:15 → CRI 17:20 → 2NB 17:20 → CRI 10-28 09:02 → 2NA 10-28 11:30 → CRI 10-28 11:50 → 1NO 10-31 18:39
PROVIDERS: Internal Medicine; Student in an Organized Health Care Education/Training Program; ADMIT Internal Medicine
PROC: 5A09357 Assistance with Respiratory Ventilation, Less than 24 Consecutive Hours, Continuous Positive Airway Pressure (ICD-10-PCS; principal; 2016-10-28)
DX: J44.0 Chronic obstructive pulmonary disease with (acute) lower respiratory infection (principal); J96.21 Acute and chronic respiratory failure with hypoxia; J69.0 Pneumonitis due to inhalation of food and vomit; Z99.81 Dependence on supplemental oxygen; I48.0 Paroxysmal atrial fibrillation; I34.1 Nonrheumatic mitral (valve) prolapse; D53.9 Nutritional anemia, unspecified; Z77.22 Contact with and (suspected) exposure to environmental tobacco smoke (acute) (chronic); Z79.01 Long term (current) use of anticoagulants; Z85.118 Personal history of other malignant neoplasm of bronchus and lung; Z87.891 Personal history of nicotine dependence; E78.5 Hyperlipidemia, unspecified; Z51.5 Encounter for palliative care; K21.9 Gastro-esophageal reflux disease without esophagitis; K58.9 Irritable bowel syndrome, unspecified; E73.9 Lactose intolerance, unspecified; M19.90 Unspecified osteoarthritis, unspecified site; D47.3 Essential (hemorrhagic) thrombocythemia; M11.20 Other chondrocalcinosis, unspecified site; Z91.81 History of falling; Z80.1 Family history of malignant neoplasm of trachea, bronchus and lung; J22 Unspecified acute lower respiratory infection
CPT/HCPCS: 1NSP; 2NBSP; CCU; 36415; 74230; 82436; 87040; 87070; 93005; 93010; 94799; 96365; 96375; 97110-GO; 97161-GP; 97166-GO; 97530-GO; J0713; J1940; J2270; J2405; J2920; J3370; J7040